=== PATIENT | female | born 1935 | race African-American/Black ===

== ENCOUNTER 2017-02-12 12:00 | Emergency (ER) | payer MEDICARE ==
[2017-02-12 12:44] LABS: ABSOLUTE MONOCYTES (AUTO) 0.6 10^3/uL (0.1-1.4); ABSOLUTE NEUT (AUTO) 6.5 10^3/uL (1.7-8.2); BASOPHILS % (AUTO) 0.4 % (0-2); EOSINOPHILS % (AUTO) 0.4 % (0-6); HEMATOCRIT 38.7 % (36.0-47.0); HEMOGLOBIN 12.2 g/dL (12.0-15.5); HGB HCT DIFFERENCE -2.1; LYMPHOCYTES % (AUTO) 11.8 % (13-45); MEAN CORPUSCULAR HEMOGLOBIN 28.4 pg (27.0-33.4); MEAN CORPUSCULAR HGB CONC 31.7 g/dL (32.0-36.0); MEAN CORPUSCULAR VOLUME 90 fl (80-97); MONOCYTES % (AUTO) 7.5 % (3-13); RED BLOOD COUNT 4.31 10^6/uL (3.72-5.28); RED CELL DISTRIBUTION WIDTH 13.9 % (11.5-14.0); SEGMENTED NEUTROPHILS % (AUTO) 79.9 % (42-78); WHITE BLOOD COUNT 8.1 10^3/uL (4.0-10.5)
[2017-02-12 13:05] LABS: ALANINE AMINOTRANSFERASE 18 U/L (9-52); ALKALINE PHOSPHATASE 104 U/L (38-126); ANION GAP 13 (5-19); ASPARTATE AMINO TRANSFERASE 25 U/L (14-36); BILIRUBIN,DIRECT 0.4 mg/dL (0.0-0.4); BILIRUBIN,TOTAL 0.5 mg/dL (0.2-1.3); BLOOD UREA NITROGEN 41 mg/dL (7-20); CALCIUM 8.9 mg/dL (8.4-10.2); CARBON DIOXIDE 30 mmol/L (22-30); CHLORIDE 101 mmol/L (98-107); CREATINE KINASE 85 U/L (30-135); CREATININE RESULT 1.13 mg/dL (0.52-1.25); GLUCOSE 101 mg/dL (75-110); POTASSIUM 3.9 mmol/L (3.6-5.0); SODIUM 143.9 mmol/L (137-145); TOTAL PROTEIN 7.9 g/dL (6.3-8.2)
[2017-02-12 13:17] LABS: CREATINE KINASE MB 1.12 ng/mL (<4.55)
[2017-02-12 13:21] LABS: TROPONIN I 0.055 ng/mL
--- NOTE | 2017-02-12 13:26 | RADIOLOGY REPORT (SQ) ---
EXAM DESCRIPTION: CHEST SINGLE VIEW COMPLETED DATE/TIME: 02/12/2017 12:59 pm REASON FOR STUDY: chest pain COMPARISON: 08/22/2012 EXAM PARAMETERS: NUMBER OF VIEWS: One view. TECHNIQUE: Single frontal radiographic view of the chest acquired. RADIATION DOSE: NA LIMITATIONS: None. FINDINGS: LUNGS AND PLEURA: No opacities, masses or pneumothorax. No pleural effusion. MEDIASTINUM AND HILAR STRUCTURES: No masses. Contour normal. HEART AND VASCULAR STRUCTURES: Heart normal in size. Normal vasculature. BONES: No acute findings. HARDWARE: EKG leads overlie the chest OTHER: No other significant finding. IMPRESSION: NO ACUTE RADIOGRAPHIC FINDING IN THE CHEST. TECHNICAL DOCUMENTATION: JOB ID: [id number]
[2017-02-12] MEDS ORDERED: ENOXAPARIN SODIUM INJ 150 MG/1 ML DISP.SYRIN SUBCUT SCH (17:45)
--- NOTE | 2017-02-12 17:53 | ER Document Report ---
Addendum entered and electronically signed by DEBBIE HEATON PA 02/13/17 19:47: Course - Re-evaluation Re-evalutation: 02/11/17 21:00 Patient complaining of right hand "cramps", no chest pain, vital signs unchanged , transport team almost here, stable for transfer. Giving 2 mg morphine for the hand after discussion with patient and family. - Vital Signs Vital signs: Temp Pulse Resp BP Pulse Ox 98.3 F 79 13 120/72 100 02/12/17 12:05 02/12/17 12:05 02/12/17 21:02 02/12/17 21:02 02/12/17 21:02 - Laboratory Result Diagrams: 02/12/17 12:30 02/12/17 12:30 Laboratory results interpreted by me: 02/12/17 02/12/17 02/12/17 12:30 12:30 15:26 MCHC 31.7 L Plt Count 132 L Seg Neutrophils % 79.9 H Lymphocytes % 11.8 L BUN 41 H Est GFR ( Amer) 56 L Est GFR (Non-Af Amer) 46 L POC Glucose 147 H Original Note: ED Cardiac - General Chief Complaint: Chest Pain Stated Complaint: CHEST PAIN Time Seen by Provider: 02/12/17 12:23 Notes: Patient is a 81-year-old female presents emergency department complaining of chest pain. Patient states that she had sudden onset of substernal chest pain with pressure without radiation at about 930 this morning when she was sitting on her couch. Patient states that this lasted for about 15-20 minutes and responded to sublingual nitro which led her to be chest pain-free. Patient states that she then had another episode of chest pain which prompted her to call EMS. On EMS she received 4-81 mg aspirin. Upon her arrival to the emergency department she was chest pain-free without any associated shortness of breath, nausea or vomiting, dyspnea, or syncope. Patient denies any recent URI symptoms, cough. Last stress test more then one year ago. Last Cath: unknown Patient follows with superintendent construction Dr. Jose D Pulido in [facility] PCP: Tomy Brar Past medical history significant for history of coronary artery disease with history of an [facility] unknown year, resulting in coronary cath and 2 stents location unknown. History of hypertension, hyperlipidemia, insulin-dependent diabetes, history of bronchitis, history of CVA/TIA, history of breast cancer, history of arthritis, history of COPD. Past surgical history significant for history of bowel resection, history of right mastectomy, tonsils and adenoids Social history admits to 5-pack-year tobacco use history, no longer smoker. Denies any alcohol or drug use. TRAVEL OUTSIDE OF THE [place] IN LAST 30 DAYS: No - Related Data Allergies/Adverse Reactions: promethazine Allergy (Verified 02/12/17 12:49) Past Medical History - Social History Smoking Status: Former Smoker Frequency of alcohol use: None Drug Abuse: None Family History: Reviewed & Not Pertinent - Past Medical History Cardiac Medical History: Reports: Hx Coronary Artery Disease, Hx Heart Attack - Patient does not remember year, Hx Hypercholesterolemia - Borderline, Hx Hypertension Pulmonary Medical History: Reports: Hx Bronchitis Denies: Hx Asthma, Hx COPD, Hx Pneumonia Neurological Medical History: Reports: Hx Cerebrovascular Accident. Denies: Hx Seizures Endocrine Medical History: Reports: Hx Diabetes Mellitus Type 1, Hx Diabetes Mellitus Type 2 Malignancy Medical History: Reports: Hx Breast Cancer GI Medical History: Denies: Hx Hepatitis, Hx Hiatal Hernia, Hx Ulcer Musculoskeltal Medical History: Reports Hx Arthritis Infectious Medical History: Denies: Hx Hepatitis Past Surgical History: Reports: Hx Bowel Surgery - Bowel ressection, Hx Cardiac Catheterization - 2 Stents, Hx Mastectomy - LUMPECTOMY, RIGHT ARM RESTRICTED, Hx Tonsillectomy. Denies: Hx Open Heart Surgery, Hx Pacemaker - Immunizations Immunizations up to date: Yes Hx Diphtheria, Pertussis, Tetanus Vaccination: No Review of Systems - Review of Systems Constitutional: No symptoms reported Cardiovascular: See HPI Respiratory: No symptoms reported Gastrointestinal: No symptoms reported -: Yes All other systems reviewed and negative Physical Exam - Vital signs Vitals: Temp Pulse Resp BP Pulse Ox 98.3 F 79 20 109/56 L 98 02/12/17 12:05 02/12/17 12:05 02/12/17 12:05 02/12/17 12:05 02/12/17 12:05 - Notes Notes: PHYSICAL EXAM GENERAL: Alert, interacts well. HEAD: Normocephalic, atraumatic. EYES: Pupils equal, round, and reactive to light. Extraocular movements intact. ENT: Oral mucosa moist, tongue midline. NECK: Full range of motion. Supple. Trachea midline. LUNGS: Clear to auscultation bilaterally, no wheezes, rales, or rhonchi. No respiratory distress. HEART: Regular rate and rhythm. No murmurs, gallops, or rubs. ABDOMEN: Soft, nondistended, nontender. No guarding, rebound, or rigidity.. Bowel sounds present in all 4 quadrants. EXTREMITIES: Moves all 4 extremities spontaneously. No edema, radial and dorsalis pedis pulses 2/4 bilaterally. No cyanosis. NEUROLOGICAL: Alert and oriented x4. Normal speech. PSYCH: Normal affect, normal mood. SKIN: Warm, dry, normal turgor. No rashes or lesions noted. Course - Re-evaluation Re-evalutation: 02/12/17 18:36 Patient is a 81-year-old female who is hemodynamic stable,chest pain free, no acute distress and afebrile. Patient is very well in appearance, vitals within normal limits. High clinical suspicion for ACS given clinical history, exam, EKG without ST elevations or depressions, and mildly elevated initial troponin of 0.055 with a baseline of <0.012. HEART score greater then 7. PE also seems unlikely given clinical history, absence of tachycardia or dyspnea. Well's score of 0. CXR without evidence of pneumothorax or pneumonia. No widened mediastinum. Aortic dissection also seems unlikely given history, symmetric pulses, CXR, and vitals. Patient was kept for repeat troponin given cardiac history and elevation in troponin. The repeat was 0.165. Patient was demmed to be having an NSTEMI based on the AMI cutoff of 0.120. Patient has remained chest pain free her entire stay in the department. Patient and family agree with plan of care to transfer to [facility]. Patient has been accepted by Dr. Octaviano Mitchell at [facility]. Bed has been assigned and awaiting transport. Per [facility] protocol and guidelines, this case was discussed with supervising physician Dr. Lucila Chandler prior to transfer - Vital Signs Vital signs: Temp Pulse Resp BP Pulse Ox 98.3 F 79 18 120/74 100 02/12/17 12:05 02/12/17 12:05 02/12/17 17:38 02/12/17 17:38 02/12/17 17:38 - Laboratory Result Diagrams: 02/12/17 12:30 02/12/17 12:30 Laboratory results interpreted by me: 02/12/17 02/12/17 02/12/17 12:30 12:30 15:26 MCHC 31.7 L Plt Count 132 L Seg Neutrophils % 79.9 H Lymphocytes % 11.8 L BUN 41 H Est GFR ( Amer) 56 L Est GFR (Non-Af Amer) 46 L POC Glucose 147 H - Diagnostic Test Radiology reviewed: Image reviewed, Reports reviewed - EKG Interpretation by Me EKG shows normal: Sinus rhythm Rate: Normal Rhythm: NSR When compared to previous EKG there are: No significant change Discharge - Discharge Clinical Impression: Non-ST elevation (NSTEMI) myocardial infarction Condition: Stable Disposition: [facility]
[2017-02-12] MEDS ORDERED: ENOXAPARIN SODIUM INJ 150 MG/1 ML DISP.SYRIN SUBCUT ONE (19:00)
[2017-02-12] MEDS ORDERED: NORMAL SALINE 1000 ML 1,000 ML IV PRN (19:15)
[2017-02-12] MEDS ORDERED: MORPHINE SULFATE 10 MG/ML INJ IV ONE (21:11)
[2017-02-12 21:16] VITALS: BP 120/72
[2017-02-13] MEDS ORDERED: ENOXAPARIN SODIUM INJ 150 MG/1 ML DISP.SYRIN SUBCUT SCH (06:00)
--- NOTE | 2017-02-13 09:16 | EKG REPORT ---
SEVERITY:- ABNORMAL ECG - SINUS RHYTHM FIRST DEGREE AV BLOCK LOW VOLTAGE IN FRONTAL LEADS : Confirmed by: Bob Scott 13-Feb-2017 09:16:00
--- NOTE | 2017-02-13 09:16 | EKG REPORT ---
SEVERITY:- ABNORMAL ECG - SINUS RHYTHM FIRST DEGREE AV BLOCK LOW VOLTAGE IN FRONTAL LEADS NONSPECIFIC T ABNORMALITIES, LATERAL LEADS : Confirmed by: Bob Scott 13-Feb-2017 09:15:55
== END 2017-02-12 21:43 | disposition short-term general hospital (02) ==
LOC: ER 12:00
DX: I21.4 Non-ST elevation (NSTEMI) myocardial infarction (principal); R07.9 Chest pain, unspecified; R06.02 Shortness of breath; Z87.891 Personal history of nicotine dependence
CPT/HCPCS: 93005; 99285; 96372; 96374; 36415; 82553; 82962; 82550; 85025; 80053; 84484; 83880; 71010; 93010; J3490; J2270; J7030

== ENCOUNTER → 2017-03-05 | Outpatient (CLI) | payer MEDICARE ==
--- NOTE | 2017-03-05 18:05 | WOMENS IMAGING REPORT ---
EXAM DESCRIPTION: 3D SCREENING MAMMO BILAT COMPLETED DATE/TIME: 03/05/2017 3:30 pm REASON FOR STUDY: ROUTINE SCREENING; Z12.31 Z12.31 ENCNTR SCREEN MAMMOGRAM FOR MALIGNANT NEOPLASM O F MORIS COMPARISON: Multiple since 2008 TECHNIQUE: Standard craniocaudal and mediolateral oblique views of each breast recorded using digita l acquisition and breast tomosynthesis. LIMITATIONS: None. FINDINGS: Findings present which are benign by mammographic criteria. No suspicious masses, calcifi cations or architectural distortion. Pertinent benign findings: Stable post therapeutic changes right breast post lumpectomy and radiation Read with the assistance of CAD. .[facility] - R2 Cenova Version 1.3 .[facility] - R2 Cenova Version 1.3 .[facility] - R2 Cenova Version 2.4 .[facility] - R2 Cenova Version 2.4 .[facility] - R2 [employer] Mechanical [employer] Version 9.2 Benign mammographic findings may include one or more of the following: Smooth masses, popcorn/rim/co arse calcifications, asymmetries, post-procedure changes, and lesions with long-standing stability. IMPRESSION: BENIGN MAMMOGRAPHIC FINDINGS. BIRADS 2 BREAST DENSITY: b. There are scattered areas of fibroglandular density. BIRAD: 2 BENIGN FINDING(S) RECOMMENDATION: RECOMMENDATION: ROUTINE SCREENING COMMENT: The patient has been notified of the results by letter per SA requirements. Additional no tification policies are in place for contacting patient with suspicious or incomplete findings. Quality ID #[id number]: The [employer] recommends an annual screening mammogram for women aged 40 years or over. This facility utilizes a reminder system to ensure that all patients receive reminder letters, and/or direct phone calls for appointments. This includes reminders for routine scr eening mammograms, diagnostic mammograms, or other Breast Imaging Interventions when appropriate. Th is patient will be placed in the appropriate reminder system. The [employer] (ACR) has developed recommendations for screening MRI of the breast s in certain patient populations, to be used in conjunction with mammography. Breast MRI surveillanc e may be appropriate for women with more than 20% lifetime risk of developing breast cancer as deter mined by genetic testing, significant family history of the disease, or history of mantle radiation f or Hodgkins Disease. ACR Practice Guidelines 2008. DBT Technology DBT is a type of tomographic mammography. With conventional mammography, overlapping breast tissue ma y make lesions difficult to detect, even with good compression. DBT uses an x-ray tube that rotates a round the breast, taking images at different angles. These images are then combined to create thin sl ices of the breast that the radiologist can view as a 3D reconstruction. The [employer] unit can perform full-field digital mammograms (2D imaging); or DBT (3D imaging); or both, in a combination mode that quickly performs both the mammogram and the tomosynthesis scan while the breast is still compressed. PQRS 6045F: Fluoroscopic imaging is not utilized for breast tomosynthesis. TECHNICAL DOCUMENTATION: FINDING NUMBER: (1) ASSESSMENT: (1) JOB ID: [id number] [employer]- All Rights Reserved
== END ==
LOC: WI 15:06
PROVIDERS: ATTEND Internal Medicine Geriatric Medicine
DX: Z12.31 Encounter for screening mammogram for malignant neoplasm of breast (principal)
CPT/HCPCS: 77063; G0202; 77067

== ENCOUNTER 2017-07-14 05:36 | Inpatient (IN) | payer MEDICARE ==
[2017-07-14] MEDS ORDERED: NITROGLYCERIN/D5W 50 MG/250 ML RTUINJ IV PRN (05:43)
[2017-07-14] MEDS ORDERED: FUROSEMIDE INJ/PF 40 MG/4 ML SDV IV ONE (05:43)
--- NOTE | 2017-07-14 05:50 | ER Document Report ---
Doctor's Note Notes: 07/14/17 05:46 I performed a quick triage evaluation the patient. Patient is a 82-year-old female who presents with worsening difficulty breathing over last 3 days. Became much worse tonight. When the paramedics arrived the patient pulse ox saturation was in the 60s. She denies any chest pain now but says she had some chest pain earlier. She has a lot of edema lower extremities which she says is new over the last 3-4 days. Paramedics said that the family denied a previous history of CHF. Unclear if patient has previous history of atrial fibrillation. Current EKG shows what appears to be atrial fibrillation with rate of 109 bpm. There is a lot of baseline artifact. I do not see any obvious signs of ST segment elevation. No ST segment depression. I started patient on nitro drip. She is on BiPAP. She is doing well with the BiPAP. I have ordered to a test as well as chest x-ray. Give the patient dose of Lasix. [place] Catheter be placed because the patient at this time bedridden due to difficulty breathing and size. Lung auscultation has mixture of some rales and wheezing. Dictation of this chart was performed using voice recognition software; therefore, there may be some unintended grammatical errors.
[2017-07-14 05:52] LABS: VENOUS BLOOD BASE EXCESS 3.6 mmol/L; VENOUS BLOOD HCO3 31.8 mmol/L (20-32); VENOUS BLOOD PH 7.29 (7.30-7.42)
[2017-07-14 05:56] LABS: ABSOLUTE EOSINOPHILS # (AUTO) 0.1 10^3/uL (0.0-0.6); ABSOLUTE MONOCYTES (AUTO) 1.2 10^3/uL (0.1-1.4); ABSOLUTE NEUT (AUTO) 4.6 10^3/uL (1.7-8.2); BASOPHILS % (AUTO) 0.6 % (0-2); EOSINOPHILS % (AUTO) 1.3 % (0-6); HEMOGLOBIN 10.8 g/dL (12.0-15.5); HGB HCT DIFFERENCE -0.6; LYMPHOCYTES % (AUTO) 24.6 % (13-45); MEAN CORPUSCULAR HEMOGLOBIN 29.3 pg (27.0-33.4); MEAN CORPUSCULAR HGB CONC 32.8 g/dL (32.0-36.0); MEAN CORPUSCULAR VOLUME 89 fl (80-97); MONOCYTES % (AUTO) 15.6 % (3-13); RED CELL DISTRIBUTION WIDTH 14.9 % (11.5-14.0); SEGMENTED NEUTROPHILS % (AUTO) 57.9 % (42-78); WHITE BLOOD COUNT 7.9 10^3/uL (4.0-10.5)
[2017-07-14 05:59] LABS: PROTHROMBIN TIME 14.6 SEC (11.4-15.4)
[2017-07-14 06:00] LABS: PARTIAL THROMBOPLASTIN TIME 34.2 SEC (23.5-35.8)
[2017-07-14 06:08] LABS: ALANINE AMINOTRANSFERASE 14 U/L (9-52); ALBUMIN 4.2 g/dL (3.5-5.0); ALKALINE PHOSPHATASE 101 U/L (38-126); ANION GAP 11 (5-19); ASPARTATE AMINO TRANSFERASE 39 U/L (14-36); BILIRUBIN,DIRECT 0.5 mg/dL (0.0-0.4); BILIRUBIN,TOTAL 0.7 mg/dL (0.2-1.3); BLOOD UREA NITROGEN 30 mg/dL (7-20); CALCIUM 8.7 mg/dL (8.4-10.2); CARBON DIOXIDE 31 mmol/L (22-30); CHLORIDE 107 mmol/L (98-107); CREATINE KINASE 167 U/L (30-135); CREATININE RESULT 1.48 mg/dL (0.52-1.25); GLUCOSE 74 mg/dL (75-110); SODIUM 148.8 mmol/L (137-145); TOTAL PROTEIN 7.9 g/dL (6.3-8.2)
[2017-07-14] MEDS ORDERED: CEFTRIAXONE 1 GM/D5W RTU 1 GM/50 ML RTUPB IV ONE (06:09)
[2017-07-14] MEDS ORDERED: ACETAMINOPHEN 650 MG SUPP.RECT PR ONE (06:09)
--- NOTE | 2017-07-14 06:15 | RADIOLOGY REPORT (SQ) ---
EXAM DESCRIPTION: CHEST SINGLE VIEW COMPLETED DATE/TIME: 07/14/2017 6:04 am REASON FOR STUDY: dyspnea COMPARISON: Chest x-ray 02/12/2017. EXAM PARAMETERS: NUMBER OF VIEWS: One view. TECHNIQUE: Single frontal radiographic view of the chest acquired. RADIATION DOSE: NA LIMITATIONS: Patient positioning FINDINGS: LUNGS AND PLEURA: The patient is rotated and the patient's chin is partially obscuring the lung apices. Airspace opacity at the right lung base. No sizable pleural effusion or large pneumot horax. MEDIASTINUM AND HILAR STRUCTURES: No masses. Contour normal. HEART AND VASCULAR STRUCTURES: The heart is enlarged. There is mild vascular congestion. BONES: No acute findings. HARDWARE: None in the chest. IMPRESSION: Cardiomegaly and mild vascular congestion. Airspace opacity at the right lung base, may represent asymmetric pulmonary edema or pneumonia. TECHNICAL DOCUMENTATION: JOB ID: [id number] [place]-64 2010 [employer]- All Rights Reserved
--- NOTE | 2017-07-14 06:17 | ER Document Report ---
ED General - General Chief Complaint: Respiratory Distress Stated Complaint: DIFFICULTY BREATHING Time Seen by Provider: 07/14/17 05:43 Mode of Arrival: Medic Information source: Patient, Relative, Emergency Med Personnel Notes: 82 yr old female hx of copd chf presents inresp distress from home by ems. pt ntoed ot have cough over the past 1.5 weeks, seen by pcp, pt last night had worsening cough, found by ems to be satting in the mid 60s placed on bipap, nitro paste for peripheral edema. pt noted here ot have fever, TRAVEL OUTSIDE OF THE [place] IN LAST 30 DAYS: No - HPI Onset: Last week Onset/Duration: Persistent, Worse Quality of pain: No pain Severity: Moderate Pain Level: Denies Associated symptoms: Nonproductive cough, Shortness of breath Exacerbated by: Walking, Coughing Relieved by: Denies Similar symptoms previously: Yes Recently seen / treated by doctor: Yes - Related Data Allergies/Adverse Reactions: promethazine Allergy (Verified 07/14/17 06:27) Past Medical History - Social History Smoking Status: Never Smoker Cigarette use (# per day): No Chew tobacco use (# tins/day): No Smoking Education Provided: No Family History: Reviewed & Not Pertinent - Past Medical History Cardiac Medical History: Reports: Hx Coronary Artery Disease, Hx Heart Attack - Patient does not remember year, Hx Hypercholesterolemia - Borderline, Hx Hypertension Pulmonary Medical History: Reports: Hx Bronchitis Denies: Hx Asthma, Hx COPD, Hx Pneumonia Neurological Medical History: Reports: Hx Cerebrovascular Accident. Denies: Hx Seizures Endocrine Medical History: Reports: Hx Diabetes Mellitus Type 1, Hx Diabetes Mellitus Type 2 Malignancy Medical History: Reports: Hx Breast Cancer GI Medical History: Denies: Hx Hepatitis, Hx Hiatal Hernia, Hx Ulcer Musculoskeltal Medical History: Reports Hx Arthritis Infectious Medical History: Denies: Hx Hepatitis Past Surgical History: Reports: Hx Bowel Surgery - Bowel ressection, Hx Cardiac Catheterization - 2 Stents, Hx Mastectomy - LUMPECTOMY, RIGHT ARM RESTRICTED, Hx Tonsillectomy. Denies: Hx Open Heart Surgery, Hx Pacemaker - Immunizations Immunizations up to date: Yes Hx Diphtheria, Pertussis, Tetanus Vaccination: No Review of Systems - Review of Systems Notes: REVIEW OF SYSTEMS: CONSTITUTIONAL : Denies fever, chills, or sweats. admit recent illness. EENT: Denies eye, ear, throat, or mouth pain or symptoms. Denies nasal or sinus congestion or discharge. Denies throat, tongue, or mouth swelling or difficulty swallowing. CARDIOVASCULAR: Denies chest pain. Denies palpitations or racing or irregular heart beat. admit ot edema RESPIRATORY: admit ot cough sob GASTROINTESTINAL: Denies abdominal pain or distention. Denies nausea, vomiting , or diarrhea. Denies blood in vomitus, stools, or per rectum. Denies black, tarry stools. Denies constipation. GENITOURINARY: Denies difficulty urinating, painful urination, burning, frequency, blood in urine, or discharge. FEMALE GENITOURINARY: Denies vaginal bleeding, heavy or abnormal periods, irregular periods. Denies vaginal discharge or odor. MUSCULOSKELETAL: Denies back or neck pain or stiffness. Denies joint pain or swelling. SKIN: Denies rash, lesions or sores. HEMATOLOGIC : Denies easy bruising or bleeding. LYMPHATIC: Denies swollen, enlarged glands. NEUROLOGICAL: Denies confusion or altered mental status. Denies passing out or loss of consciousness. Denies dizziness or lightheadedness. Denies headache. Denies weakness or paralysis or loss of use of either side. Denies problems with gait or speech. Denies sensory loss, numbness, or tingling. Denies seizures. PSYCHIATRIC: Denies anxiety or stress. Denies depression, suicidal ideation, or homicidal ideation. ALL OTHER SYSTEMS REVIEWED AND NEGATIVE. PHYSICAL EXAMINATION: GENERAL: ill-appearing, well-nourished and in moderate acute distress. HEAD: Atraumatic, normocephalic. EYES: Pupils equal round and reactive to light, extraocular movements intact, conjunctiva are normal. ENT: Nares patent, oropharynx clear without exudates. Moist mucous membranes. NECK: Normal range of motion, supple without lymphadenopathy LUNGS: Brales at the bases bilaterally HEART: irregular rate and rhythm ABDOMEN: Soft, nontender, nondistended abdomen. No guarding, no rebound. No masses appreciated. Female : deferred Musculoskeletal: + 3 pitting edema bilaterally. No cyanosis. NEUROLOGICAL: Cranial nerves grossly intact. Normal speech, normal gait. Normal sensory, motor exams PSYCH: Normal mood, normal affect. SKIN: Warm, Dry, normal turgor, no rashes or lesions noted. Dictation was performed using [employer] voice recognition software Physical Exam - Vital signs Vitals: Resp Pulse Ox 22 H 87 L 11/13/17 05:38 07/14/17 05:38 Course - Re-evaluation Re-evalutation: 07/14/17 06:16 concern for pneumonia vs chf exacerbation causing this sob and hypoxemia, pt is on bipap and doing well, septic workup pending. 07/14/17 06:18 chest xray is consistent with pneumonia and chf exacerbation, i am unable ot fluid resuscitate since she is already overloaded and this will cause worsening resp distress 07/14/17 07:16 07/14/17 07:51 dr bhavya fermin, pt admitted ot dr latif - Vital Signs Vital signs: Temp Pulse Resp BP Pulse Ox 102.4 F H 19 131/56 H 97 07/14/17 07:01 07/14/17 07:01 07/14/17 07:01 07/14/17 07:01 - Laboratory Result Diagrams: 07/14/17 05:40 07/14/17 05:40 Laboratory results interpreted by me: 07/14/17 07/14/17 07/14/17 05:40 05:40 05:40 RBC 3.70 L Hgb 10.8 L Hct 33.0 L RDW 14.9 H Plt Count 137 L Monocytes % 15.6 H VBG pH VBG pCO2 Sodium 148.8 H Carbon Dioxide 31 H BUN 30 H Creatinine 1.48 H Est GFR ( Amer) 41 L Est GFR (Non-Af Amer) 34 L Glucose 74 L Direct Bilirubin 0.5 H AST 39 H Creatine Kinase 167 H NT-Pro-B Natriuret Pep 2590 H Urine Protein Urine Blood Urine Ascorbic Acid 07/14/17 07/14/17 05:40 06:08 RBC Hgb Hct RDW Plt Count Monocytes % VBG pH 7.29 L VBG pCO2 67.2 H* Sodium Carbon Dioxide BUN Creatinine Est GFR ( Amer) Est GFR (Non-Af Amer) Glucose Direct Bilirubin AST Creatine Kinase NT-Pro-B Natriuret Pep Urine Protein 30 H Urine Blood SMALL H Urine Ascorbic Acid 20 H - Diagnostic Test Radiology reviewed: Image reviewed, Reports reviewed - EKG Interpretation by Me EKG shows normal: Sinus rhythm, Intervals, QRS Complexes Rate: Tachycardia Critical Care Note - Critical Care Note Total time excluding time spent on procedures (mins): 33 Comments: 33 minutes of critical care time spent in direct contact evaluating and reevaluating the patient, treating symptoms, reviewing labs and studies and speaking with family and consultants excluding any procedures Discharge - Discharge Clinical Impression: Pneumonia, CHF (congestive heart failure), Sepsis, Hypoxemia Condition: Fair Disposition: ADMITTED INPATIENT Admitting Provider: Bhavya Unit Admitted: [facility] Referrals: ISATU LATIF MD [Primary Care Provider] - Follow up as needed
[2017-07-14 06:21] LABS: CREATINE KINASE MB 1.11 ng/mL (<4.55); TROPONIN I 0.028 ng/mL
[2017-07-14 06:23] LABS: VENOUS BLOOD PCO2 67.2 mmHg (35-63)
[2017-07-14 07:05] LABS: APPEARANCE,URINE CLEAR; BILIRUBIN,URINE NEGATIVE (NEGATIVE); GLUCOSE, URINE NEGATIVE (NEGATIVE); KETONES,URINE NEGATIVE (NEGATIVE); LEUKOCYTE ESTERASE,URINE NEGATIVE (NEGATIVE); NITRITE,URINE NEGATIVE (NEGATIVE); PROTEIN,URINE 30 mg/dL (NEGATIVE); URINE SPECIFIC GRAVITY 1.011; UROBILINOGEN,URINE NEGATIVE mg/dL (<2.0)
[2017-07-14] MEDS ORDERED: IBUPROFEN 800 MG TABLET PO ONE (08:31)
[2017-07-14] MEDS ORDERED: GLUCAGON,HUMAN RECOMB 1 MG INJ IM PRN (08:38)
[2017-07-14] MEDS ORDERED: GUAIFENESIN SYRP 200 MG/10 ML UDC PO PRN (08:38)
[2017-07-14] MEDS ORDERED: DEXTROSE 40% GEL 15 GM TUBE PO PRN ×2 (08:38)
[2017-07-14] MEDS ORDERED: DEXTROSE 50%-WATER 25 GM/50 ML DISP.SYRIN IV PRN ×2 (08:38)
--- NOTE | 2017-07-14 09:55 | EKG REPORT ---
SEVERITY:- ABNORMAL ECG - ATRIAL FIBRILLATION, V-RATE 105-106 RUN OF VENTRICULAR PREMATURE COMPLEXES BORDERLINE RIGHT AXIS DEVIATION NONSPECIFIC T ABNORMALITIES, INFERIOR LEADS : Confirmed by: Bob Scott 14-Jul-2017 09:54:25
[2017-07-14] MEDS ORDERED: INFLUENZA ADLT QUAD (36MOS+) 2017-18 VAC 0.5 ML SYR IM PRN (10:15)
[2017-07-14] MEDS: LEVOFLOXACIN 500 MG/D5W RTU 500 MG/100 ML RTUPB IV SCH (10:23)
[2017-07-14] MEDS: ENOXAPARIN SODIUM INJ 40 MG/0.4 ML DISP.SYRIN SUBCUT SCH (10:24)
[2017-07-14] MEDS: IPRATROPIUM/ALBUTEROL 0.5-2.5 MG/3 ML AMPUL NEB PRN (12:37)
[2017-07-14] MEDS ORDERED: ALBUTEROL SULFATE HFA (90 MCG/PUFF) 8 GM MDI (1 MDI/ER DISP) IH PRN (19:09)
--- NOTE | 2017-07-14 19:09 | PDOC H&P ---
History of Present Illness Admission Date/PCP: 07/14/17 08:29 [facility] Patient complains of: Difficulty with breathing History of Present Illness: BO BERMEO is a 82 year old female patient known to my practice presented to the ED via EM service due to difficulty with breathing. Her reported oxygen saturation on room air was in the 60's. She reported onset of productive cough about 10 days prior to presentation. There was associated intermittent fever, chest pain with coughing, and recent low blood glucose level on home accuchek monitor. She denied nausea, vomiting, abdominal pain, constipation or diarrhea. Her oral intake was less than usual but denied significant poor appetite. Her urine output was satisfactory without any symptom suggestive of ongoing infectious status. Her initial evaluation in the ED was remarkable for fever. 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 Past Medical History Cardiac Medical History: Reports: Coronary Artery Disease, Myocardial Infarction - Patient does not remember year, Hyperlipidema - Borderline, Hypertension Pulmonary Medical History: Reports: Bronchitis Denies: Asthma, Chronic Obstructive Pulmonary Disease (COPD), Pneumonia Neurological Medical History: Reports: Ischemic CVA, Other - Parkinsonism Endocrine Medical History: Reports: Diabetes Mellitus Type 2 Malignancy Medical History: Reports: Breast Cancer GI Medical History: Denies: Hepatitis, Hiatal Hernia Musculoskeltal Medical History: Reports: Arthritis Skin Medical History: Reports: Other - Dry skin dermatitis Hematology: Reports: Anemia Denies: Sickle Cell Disease Past Surgical History Past Surgical History: Reports: Cardiac Catheterization - 2 Stents, Mastectomy - LUMPECTOMY, RIGHT ARM RESTRICTED, Tonsillectomy Denies: Amputation, Pacemaker Social History Smoking Status: Never Smoker Hx Recreational Drug Use: No Hx Prescription Drug Abuse: No - Advance Directive Resuscitation Status: Full Code - with power of attorney lawyer for health care Carlee Bermeo @ [phone] (H) [phone](W) Family History Family History: Reviewed & Not Pertinent Parental Family History Reviewed: Yes Children Family History Reviewed: Yes Sibling(s) Family History Reviewed.: Yes Medication/Allergy Home Medications: Albuterol Sulfate [Ventolin Hfa] 2 puff IH Q4HP PRN 07/14/17 Amlodipine Besylate/Benazepril [Lotrel 10-40 mg Capsule] 1 tab PO DAILY 11/13/ 17 Atorvastatin Calcium [Lipitor 40 mg Tablet] 40 mg PO QHS 07/14/17 Bumetanide [Bumex 0.5 mg Tablet] 0.5 mg PO Q12 07/14/17 Carbidopa/Levodopa ER [Sinemet-Cr 50-200 mg Tablet.sa] 1 tab PO QHS 07/14/17 Diclofenac Sodium [Voltaren] 2 gm TOP Q8 07/14/17 Insulin Glargine,Hum.rec.anlog [Lantus Solostar] 35 units SQ DAILY 07/14/17 Levocetirizine Dihydrochloride [Xyzal] 5 mg PO DAILY 07/14/17 Linaclotide [Linzess 145 Mcg Capsule] 145 mcg PO ACBRKFST 07/14/17 Metolazone [Zaroxolyn 2.5 mg Tablet] 2.5 mg PO MOWEFR@1000 07/14/17 Metoprolol Succinate [Toprol Xl 25 mg Tab.sr] 25 mg PO DAILY 07/14/17 Nitroglycerin [Nitro-Dur 15 mg (0.6 mg/1 Hr) Transderm Patch] 1 patch TD DAILY 07/14/17 Polyethylene Glycol 3350 [Miralax Powder 17 gm/Packet] 17 gm PO DAILY 07/14/17 Potassium Chloride [Klor-Con 10 Meq Tablet.sa] 10 meq PO DAILY 07/14/17 Pramipexole Di-HCl [Mirapex] 1 mg PO Q8 07/14/17 Allergies/Adverse Reactions: promethazine Allergy (Verified 07/14/17 06:27) Review of Systems Constitutional: PRESENT: chills, fever(s) Eyes: ABSENT: visual disturbances Ears: ABSENT: hearing changes Nose, Mouth, and Throat: ABSENT: as per HPI, headache(s), mouth pain, sore throat, vertigo, other Cardiovascular: PRESENT: chest pain - with coughing, dyspnea on exertion, edema Respiratory: PRESENT: cough, dyspnea, sputum Gastrointestinal: ABSENT: abdominal pain, constipation, diarrhea, hematemesis, hematochezia, nausea, vomiting Genitourinary: ABSENT: dysuria, hematuria Musculoskeletal: PRESENT: deformity - related to joint involvement with athritis Integumentary: ABSENT: rash, wounds Neurological: PRESENT: abnormal movements - related to parkinsonism Psychiatric: ABSENT: anxiety, depression, homidical ideation, suicidal ideation Endocrine: ABSENT: cold intolerance, heat intolerance, polydipsia, polyuria Hematologic/Lymphatic: ABSENT: easy bleeding, easy bruising, lymphadenopathy Allergic/Immunologic: ABSENT: as per HPI, seasonal rhinorrhea, other Physical Exam Vital Signs: Temp Pulse Resp BP Pulse Ox 101.6 F H 13 107/55 L 97 07/14/17 08:00 07/14/17 08:00 07/14/17 07:31 07/14/17 08:00 General appearance: PRESENT: no acute distress, morbidly obese Head exam: PRESENT: atraumatic, normocephalic Eye exam: PRESENT: conjunctiva pink, EOMI, PERRLA. ABSENT: scleral icterus Ear exam: PRESENT: normal external ear exam Mouth exam: PRESENT: moist Teeth exam: PRESENT: poor dentation Throat exam: ABSENT: post pharyngeal erythema, tonsillar erythema, tonsillar exudate, tonsillogmegaly, other Neck exam: PRESENT: full ROM. ABSENT: carotid bruit, JVD, lymphadenopathy, thyromegaly Respiratory exam: PRESENT: clear to auscultation carole, decreased breath sounds - at lung bases Cardiovascular exam: PRESENT: RRR. ABSENT: diastolic murmur, rubs, systolic murmur Pulses: PRESENT: normal dorsalis pedis pul, +2 pedal pulses bilateral Vascular exam: PRESENT: normal capillary refill. ABSENT: pallor GI/Abdominal exam: PRESENT: normal bowel sounds, soft. ABSENT: distended, guarding, mass, organolmegaly, rebound, tenderness Rectal exam: PRESENT: deferred Gentrourinary exam: PRESENT: indwelling catheter Extremities exam: PRESENT: pedal edema Musculoskeletal exam: PRESENT: deformity - related to multiple joints involvement with arthritis Neurological exam: PRESENT: alert, awake, oriented to person, oriented to place , oriented to time, oriented to situation, abnormal gait - related to parkinsonism, CN II-XII grossly intact. ABSENT: motor sensory deficit Psychiatric exam: PRESENT: appropriate affect, normal mood. ABSENT: homicidal ideation, suicidal ideation Skin exam: PRESENT: dry, intact, warm. ABSENT: cyanosis, rash Results Impressions: Chest X-Ray 07/14/17 05:44 IMPRESSION: Cardiomegaly and mild vascular congestion. Airspace opacity at the right lung base, may represent asymmetric pulmonary edema or pneumonia. Assessment & Plan - Diagnosis (1) Lobar pneumonia, unspecified organism Is this a current diagnosis for this admission?: Yes Plan: See admitting physician orders. (2) Hypoxemia Is this a current diagnosis for this admission?: Yes Plan: See admitting physician orders. (3) CHF (congestive heart failure) Qualifiers: Congestive heart failure type: systolic Congestive heart failure chronicity : acute on chronic Qualified Code(s): I50.23 - Acute on chronic systolic ( congestive) heart failure Is this a current diagnosis for this admission?: Yes Plan: See admitting physician orders. (5) Diabetes mellitus Qualifiers: Diabetes mellitus type: type 2 Diabetes mellitus complication status: with unspecified complications Diabetes mellitus long-term insulin use: with long-term use Qualified Code(s): E11.8 - Type 2 diabetes mellitus with unspecified complications; Z79.4 - alf (current) use of insulin; Z79.4 - terminal gauger supervisor ( current) use of insulin; Z79.4 - terminal gauger supervisor (current) use of insulin; Z79.4 - terminal gauger supervisor (current) use of insulin Is this a current diagnosis for this admission?: Yes Plan: See admitting physician orders. (6) HTN (hypertension) Qualifiers: Hypertension type: essential hypertension Qualified Code(s): I10 - Essential (primary) hypertension Is this a current diagnosis for this admission?: Yes Plan: See admitting physician orders. (7) HLD (hyperlipidemia) Qualifiers: Hyperlipidemia type: pure hypercholesterolemia Qualified Code(s): E78.00 - Pure hypercholesterolemia, unspecified; E78.0 - Pure hypercholesterolemia Is this a current diagnosis for this admission?: Yes Plan: See admitting physician orders. (8) Morbid obesity with BMI of 50.0-59.9, adult Is this a current diagnosis for this admission?: Yes Plan: See admitting physician orders. - Time Time Spent: 50 to 70 Minutes Medications reviewed and adjusted accordingly: Yes Anticipated discharge: Home with Homehealth Within: Other - Inpatient Certification Based on my medical assessment, after consideration of the patient's comorbidities, presenting symptoms, or acuity I expect that the services needed warrant INPATIENT care.: Yes I certify that my determination is in accordance with my understanding of Medicare's requirements for reasonable and necessary INPATIENT services [42 CFR 412.3e].: Yes Medical Necessity: Need Close Monitoring Due to Risk of Patient Decompensation, Need For Continuous Telemetry Monitoring, Need for Nebulizer Therapy and Monitoring of Response, Need for IV Antibiotics, Risk of Complication if Not Cared For in Hospital Post Hospital Care: D/C or Transfer Summary - Plan Summary Plan Summary: See admitting physician orders.
[2017-07-14] MEDS ORDERED: ALBUTEROL SULFATE HFA (90 MCG/PUFF) 200 PUFF/8.5 GM MDI IH PRN (19:21)
[2017-07-14] MEDS: CARBIDOPA/LEVODOPA ER 50-200 MG TABLET.SA PO SCH (21:19)
[2017-07-14] MEDS: ATORVASTATIN CALCIUM 40 MG TABLET PO SCH (21:19)
[2017-07-14] MEDS: BUMETANIDE 1 MG TABLET PO SCH (21:20)
[2017-07-14] MEDS: PRAMIPEXOLE DI-HCL 0.5 MG TABLET PO SCH (21:22)
[2017-07-14] MEDS ORDERED: (PENDING PHARMACY ID) (Bumetanide [Bumex 0.5 Mg Tablet] 0.5 MG) PO SCH (22:00)
[2017-07-14] MEDS ORDERED: (PENDING PHARMACY ID) (Pramipexole Di-Hcl [Mirapex] 1 MG) PO SCH (22:00)
[2017-07-14] MEDS ORDERED: ACETAMINOPHEN 325 MG TABLET PO PRN (23:24)
[2017-07-15] MEDS: ACETAMINOPHEN 325 MG TABLET PO PRN ×3 (04:13→18:09)
[2017-07-15] MEDS: LANSOPRAZOLE 30 MG TAB.RAP.DR PO SCH (05:53)
[2017-07-15] MEDS: CEFTRIAXONE 1 GM/D5W RTU 1 GM/50 ML RTUPB IV SCH (05:55)
[2017-07-15] MEDS: PRAMIPEXOLE DI-HCL 0.5 MG TABLET PO SCH ×3 (05:57→21:20)
[2017-07-15 06:20] LABS: ABSOLUTE EOSINOPHILS # (AUTO) 0.1 10^3/uL (0.0-0.6); ABSOLUTE LYMPHOCYTES (AUTO) 0.5 10^3/uL (0.5-4.7); ABSOLUTE MONOCYTES (AUTO) 0.7 10^3/uL (0.1-1.4); BASOPHILS % (AUTO) 0.5 % (0-2); EOSINOPHILS % (AUTO) 1.7 % (0-6); HEMATOCRIT 26.8 % (36.0-47.0); HGB HCT DIFFERENCE -0.7; LYMPHOCYTES % (AUTO) 12.3 % (13-45); MEAN CORPUSCULAR HEMOGLOBIN 28.9 pg (27.0-33.4); MEAN CORPUSCULAR HGB CONC 32.4 g/dL (32.0-36.0); MEAN CORPUSCULAR VOLUME 89 fl (80-97); MONOCYTES % (AUTO) 16.3 % (3-13); RED BLOOD COUNT 3.01 10^6/uL (3.72-5.28); RED CELL DISTRIBUTION WIDTH 14.7 % (11.5-14.0); SEGMENTED NEUTROPHILS % (AUTO) 69.2 % (42-78); WHITE BLOOD COUNT 4.4 10^3/uL (4.0-10.5)
[2017-07-15 06:28] LABS: HEMOGLOBIN 8.7 g/dL (12.0-15.5)
[2017-07-15 06:51] LABS: CREATINE KINASE MB 2.44 ng/mL (<4.55); TROPONIN I 0.063 ng/mL
[2017-07-15 07:34] LABS: ALANINE AMINOTRANSFERASE 22 U/L (9-52); ALBUMIN 3.2 g/dL (3.5-5.0); ALKALINE PHOSPHATASE 71 U/L (38-126); ANION GAP 12 (5-19); ASPARTATE AMINO TRANSFERASE 43 U/L (14-36); BILIRUBIN,DIRECT 0.4 mg/dL (0.0-0.4); BILIRUBIN,TOTAL 0.4 mg/dL (0.2-1.3); BLOOD UREA NITROGEN 42 mg/dL (7-20); CALCIUM 7.8 mg/dL (8.4-10.2); CARBON DIOXIDE 27 mmol/L (22-30); CHLORIDE 105 mmol/L (98-107); CREATINE KINASE 957 U/L (30-135); CREATININE RESULT 2.02 mg/dL (0.52-1.25); GLUCOSE 153 mg/dL (75-110); MAGNESIUM 2.2 mg/dL (1.6-2.3); PHOSPHORUS 4.1 mg/dL (2.5-4.5); POTASSIUM 5.1 mmol/L (3.6-5.0); SODIUM 143.6 mmol/L (137-145); TOTAL PROTEIN 5.9 g/dL (6.3-8.2)
[2017-07-15 07:41] LABS: FREE T3 2.19 pg/mL (2.77-5.27)
[2017-07-15 07:55] LABS: THYROID STIMULATING HORMONE 0.47 uIU/mL (0.47-4.68)
[2017-07-15] MEDS ORDERED: (PENDING PHARMACY ID) (Linaclotide 145 MCG) PO SCH (08:00)
[2017-07-15] MEDS: BENAZEPRIL HCL 20 MG TABLET PO SCH (09:17)
[2017-07-15] MEDS: INSULIN LISPRO 100 UNIT/ML 3 ML VIAL SUBCUT PRN (09:17)
[2017-07-15] MEDS: POLYETHYLENE GLYCOL 3350 POWDER 17 GM/1 PACKET PO SCH (09:17)
[2017-07-15] MEDS: NITROGLYCERIN 15 MG (0.6 MG/1 HR) PATCH.TD24 TD SCH (09:17)
[2017-07-15] MEDS: INSULIN GLARGINE,HUM.REC.ANLOG 300 UNIT/3 ML INSULN.PEN SUBCUT SCH (09:17)
[2017-07-15] MEDS: LEVOFLOXACIN 500 MG/D5W RTU 500 MG/100 ML RTUPB IV SCH (09:17)
[2017-07-15] MEDS: BUMETANIDE 1 MG TABLET PO SCH ×2 (09:18→21:19)
[2017-07-15] MEDS: CETIRIZINE 5 MG TABLET PO SCH (09:18)
[2017-07-15] MEDS: METOPROLOL SUCCINATE 25 MG TAB.SR.24H PO SCH (09:18)
[2017-07-15] MEDS: AMLODIPINE BESYLATE 10 MG TABLET PO SCH (09:18)
[2017-07-15] MEDS: ENOXAPARIN SODIUM INJ 40 MG/0.4 ML DISP.SYRIN SUBCUT SCH (09:33)
[2017-07-15] MEDS: POTASSIUM CHLORIDE 10 MEQ TABLET.SA PO SCH (09:33)
[2017-07-15] MEDS ORDERED: AMLODIPINE BESYLATE PO SCH (10:00)
[2017-07-15] MEDS ORDERED: BENAZEPRIL PO SCH (10:00)
--- NOTE | 2017-07-15 20:50 | PDOC PROGRESS REPORT ---
Subjective Progress Note for:: 07/15/17 Subjective:: Daughter at bedside reported fair oral intake at dinner. Accuchek remain satisfactory. Remain on IV Rocephin and Levofloxacin coverage. She denied any chest pain and her breathing is improving. Physical Exam Vital Signs: Temp Pulse Resp BP Pulse Ox 100.6 F H 67 16 106/48 L 97 07/15/17 17:31 07/15/17 19:54 07/15/17 19:40 07/15/17 15:17 07/15/17 19:40 Intake & Output 07/14/17 07/15/17 07/16/17 06:59 06:59 06:59 Intake Total 1319 1214 Output Total 650 500 Balance 669 714 Weight 132.1 kg General appearance: PRESENT: no acute distress, morbidly obese Head exam: PRESENT: atraumatic, normocephalic Eye exam: PRESENT: conjunctiva pink, EOMI. ABSENT: scleral icterus Mouth exam: PRESENT: moist, neck supple Teeth exam: PRESENT: poor dentation Respiratory exam: PRESENT: clear to auscultation carole, decreased breath sounds - reduced breath sound at lung bases Cardiovascular exam: PRESENT: RRR. ABSENT: diastolic murmur, rubs, systolic murmur Vascular exam: PRESENT: normal capillary refill. ABSENT: pallor GI/Abdominal exam: PRESENT: normal bowel sounds, soft. ABSENT: distended, guarding, mass, organolmegaly, rebound, tenderness Extremities exam: PRESENT: pedal edema - comparatively improving. Musculoskeletal exam: PRESENT: deformity - related to multiple joints involvement with arthritis. Neurological exam: PRESENT: alert, awake Psychiatric exam: PRESENT: appropriate affect, normal mood. ABSENT: homicidal ideation, suicidal ideation Skin exam: PRESENT: dry, intact, warm. ABSENT: cyanosis, rash Results Laboratory Results: 07/15/17 05:50 07/15/17 05:50 07/15/17 07/15/17 07/15/17 05:50 05:50 05:50 WBC 4.4 RBC 3.01 L Hgb 8.7 L D Hct 26.8 L MCV 89 MCH 28.9 MCHC 32.4 RDW 14.7 H Plt Count 105 L Seg Neutrophils % 69.2 Lymphocytes % 12.3 L Monocytes % 16.3 H Eosinophils % 1.7 Basophils % 0.5 Absolute Neutrophils 3.0 Absolute Lymphocytes 0.5 Absolute Monocytes 0.7 Absolute Eosinophils 0.1 Absolute Basophils 0.0 Sodium 143.6 Potassium 5.1 H Chloride 105 Carbon Dioxide 27 Anion Gap 12 BUN 42 H Creatinine 2.02 H Est GFR ( Amer) 29 L Est GFR (Non-Af Amer) 24 L Glucose 153 H Calcium 7.8 L Phosphorus 4.1 Magnesium 2.2 Total Bilirubin 0.4 AST 43 H ALT 22 Alkaline Phosphatase 71 Total Protein 5.9 L Albumin 3.2 L TSH 0.47 Free T4 0.94 Free T3 pg/mL 2.19 L 07/15/17 07/15/17 05:50 05:50 Creatine Kinase 957 H CK-MB (CK-2) 2.44 Troponin I 0.063 Impressions: Chest X-Ray 07/14/17 05:44 IMPRESSION: Cardiomegaly and mild vascular congestion. Airspace opacity at the right lung base, may represent asymmetric pulmonary edema or pneumonia. Assessment & Plan - Diagnosis (1) Lobar pneumonia, unspecified organism Is this a current diagnosis for this admission?: Yes Plan: Continue IV antibiotic coverage and follow up on blood culture findings. (2) Hypoxemia Is this a current diagnosis for this admission?: Yes Plan: Improving and probably relayed to her pneumonia as well as obesity related hypoventilation. (3) CHF (congestive heart failure) Qualifiers: Congestive heart failure type: systolic Congestive heart failure chronicity : acute on chronic Qualified Code(s): I50.23 - Acute on chronic systolic ( congestive) heart failure Is this a current diagnosis for this admission?: Yes Plan: See attending physician orders. (4) Acute kidney injury Is this a current diagnosis for this admission?: Yes Plan: See attending physician orders. (5) Diabetes mellitus Qualifiers: Diabetes mellitus type: type 2 Diabetes mellitus complication status: with unspecified complications Diabetes mellitus manager terminal insulin use: with manager terminal use Qualified Code(s): E11.8 - Type 2 diabetes mellitus with unspecified complications; Z79.4 - intermediate teacher (current) use of insulin; Z79.4 - intermediate teacher ( current) use of insulin; Z79.4 - skilled nursing (current) use of insulin; Z79.4 - intermediate teacher (current) use of insulin Is this a current diagnosis for this admission?: Yes Plan: See attending physician orders. (6) HTN (hypertension) Qualifiers: Hypertension type: essential hypertension Qualified Code(s): I10 - Essential (primary) hypertension Is this a current diagnosis for this admission?: Yes Plan: See attending physician orders. (7) HLD (hyperlipidemia) Qualifiers: Hyperlipidemia type: pure hypercholesterolemia Qualified Code(s): E78.00 - Pure hypercholesterolemia, unspecified; E78.0 - Pure hypercholesterolemia Is this a current diagnosis for this admission?: Yes Plan: See attending physician orders. (8) Morbid obesity with BMI of 50.0-59.9, adult Is this a current diagnosis for this admission?: Yes Plan: See attending physician orders. (9) Anemia of chronic disease Is this a current diagnosis for this admission?: Yes Plan: See attending physician orders. - Time Time Spent with patient: 25-34 minutes Medications reviewed and adjusted accordingly: Yes Anticipated discharge: Home with Homehealth Within: Other - Inpatient Certification Based on my medical assessment, after consideration of the patient's comorbidities, presenting symptoms, or acuity I expect that the services needed warrant INPATIENT care.: Yes I certify that my determination is in accordance with my understanding of Medicare's requirements for reasonable and necessary INPATIENT services [42 CFR 412.3e].: Yes Medical Necessity: Need Close Monitoring Due to Risk of Patient Decompensation, Need For IV Fluids, Need For Continuous Telemetry Monitoring, Need for IV Antibiotics, Risk of Complication if Not Cared For in Hospital Post Hospital Care: D/C Mechanical Project Engineer Documentation - Plan Summary Plan Summary: See attending physician orders. Obtain CBC with diff, CMP in AM.
[2017-07-15] MEDS: ATORVASTATIN CALCIUM 40 MG TABLET PO SCH (21:18)
[2017-07-15] MEDS: CARBIDOPA/LEVODOPA ER 50-200 MG TABLET.SA PO SCH (21:20)
[2017-07-16] MEDS: CEFTRIAXONE 1 GM/D5W RTU 1 GM/50 ML RTUPB IV SCH (05:16)
[2017-07-16] MEDS: LANSOPRAZOLE 30 MG TAB.RAP.DR PO SCH (05:16)
[2017-07-16] MEDS: PRAMIPEXOLE DI-HCL 0.5 MG TABLET PO SCH ×3 (05:16→21:52)
[2017-07-16 05:36] LABS: ABSOLUTE EOSINOPHILS # (AUTO) 0.2 10^3/uL (0.0-0.6); ABSOLUTE LYMPHOCYTES (AUTO) 1.6 10^3/uL (0.5-4.7); ABSOLUTE NEUT (AUTO) 3.6 10^3/uL (1.7-8.2); BASOPHILS % (AUTO) 0.5 % (0-2); EOSINOPHILS % (AUTO) 2.5 % (0-6); HEMATOCRIT 29.6 % (36.0-47.0); HEMOGLOBIN 9.8 g/dL (12.0-15.5); HGB HCT DIFFERENCE -0.2; LYMPHOCYTES % (AUTO) 24.5 % (13-45); MEAN CORPUSCULAR HEMOGLOBIN 29.6 pg (27.0-33.4); MEAN CORPUSCULAR HGB CONC 33.2 g/dL (32.0-36.0); MEAN CORPUSCULAR VOLUME 89 fl (80-97); MONOCYTES % (AUTO) 15.7 % (3-13); RED BLOOD COUNT 3.32 10^6/uL (3.72-5.28); RED CELL DISTRIBUTION WIDTH 14.9 % (11.5-14.0); SEGMENTED NEUTROPHILS % (AUTO) 56.8 % (42-78); WHITE BLOOD COUNT 6.4 10^3/uL (4.0-10.5)
[2017-07-16 05:46] LABS: PARTIAL THROMBOPLASTIN TIME 29.8 SEC (23.5-35.8)
[2017-07-16 05:52] LABS: ALANINE AMINOTRANSFERASE 20 U/L (9-52); ALBUMIN 3.8 g/dL (3.5-5.0); ALKALINE PHOSPHATASE 82 U/L (38-126); ANION GAP 10 (5-19); ASPARTATE AMINO TRANSFERASE 54 U/L (14-36); BILIRUBIN,DIRECT 0.4 mg/dL (0.0-0.4); BILIRUBIN,TOTAL 0.5 mg/dL (0.2-1.3); BLOOD UREA NITROGEN 51 mg/dL (7-20); CALCIUM 8.2 mg/dL (8.4-10.2); CARBON DIOXIDE 31 mmol/L (22-30); CHLORIDE 102 mmol/L (98-107); CREATININE RESULT 2.32 mg/dL (0.52-1.25); GLUCOSE 92 mg/dL (75-110); POTASSIUM 5.2 mmol/L (3.6-5.0); SODIUM 142.8 mmol/L (137-145); TOTAL PROTEIN 7.3 g/dL (6.3-8.2)
[2017-07-16] MEDS: ENOXAPARIN SODIUM INJ 40 MG/0.4 ML DISP.SYRIN SUBCUT SCH (09:39)
[2017-07-16] MEDS: METOLAZONE 2.5 MG TABLET PO SCH (09:40)
[2017-07-16] MEDS: METOPROLOL SUCCINATE 25 MG TAB.SR.24H PO SCH (09:40)
[2017-07-16] MEDS: BENAZEPRIL HCL 20 MG TABLET PO SCH (09:41)
[2017-07-16] MEDS: INSULIN GLARGINE,HUM.REC.ANLOG 300 UNIT/3 ML INSULN.PEN SUBCUT SCH (09:42)
[2017-07-16] MEDS: CETIRIZINE 5 MG TABLET PO SCH (09:42)
[2017-07-16] MEDS: NITROGLYCERIN 15 MG (0.6 MG/1 HR) PATCH.TD24 TD SCH (09:42)
[2017-07-16] MEDS: LEVOFLOXACIN 500 MG/D5W RTU 500 MG/100 ML RTUPB IV SCH (09:42)
[2017-07-16] MEDS: BUMETANIDE 1 MG TABLET PO SCH ×2 (09:43→21:52)
[2017-07-16] MEDS: POLYETHYLENE GLYCOL 3350 POWDER 17 GM/1 PACKET PO SCH (09:43)
[2017-07-16] MEDS: ACETAMINOPHEN 325 MG TABLET PO PRN ×2 (09:52→15:05)
[2017-07-16] MEDS: AMLODIPINE BESYLATE 10 MG TABLET PO SCH (09:54)
[2017-07-16] MEDS: POTASSIUM CHLORIDE 10 MEQ TABLET.SA PO SCH (09:55)
--- NOTE | 2017-07-16 12:30 | RADIOLOGY REPORT (SQ) ---
EXAM DESCRIPTION: CHEST SINGLE VIEW COMPLETED DATE/TIME: 07/16/2017 12:14 pm REASON FOR STUDY: fever COMPARISON: 07/14/2017 EXAM PARAMETERS: NUMBER OF VIEWS: One view. TECHNIQUE: Single frontal radiographic view of the chest acquired. RADIATION DOSE: NA LIMITATIONS: None. FINDINGS: LUNGS AND PLEURA: Ill-defined opacification in the right mid lung field. Improved aeratio n in the right lung base. MEDIASTINUM AND HILAR STRUCTURES: No masses. Contour normal. HEART AND VASCULAR STRUCTURES: Cardiomegaly with no starla CHF. BONES: No acute findings. HARDWARE: None in the chest. OTHER: No other significant finding. IMPRESSION: Cannot exclude a limited right middle lobe or lower lobe pneumonia. The appearance of t he right lung base is improved TECHNICAL DOCUMENTATION: JOB ID: [id number] [email or web address]- All Rights Reserved
[2017-07-16] MEDS ORDERED: VANCOMYCIN HCL 1,500 MG in DEXTROSE 5%-WATER 250 ML IV ONE (13:00)
[2017-07-16 13:18] LABS: AMORPHOUS SEDIMENT,URINE TRACE /HPF; APPEARANCE,URINE CLOUDY; BILIRUBIN,URINE NEGATIVE (NEGATIVE); GLUCOSE, URINE NEGATIVE (NEGATIVE); KETONES,URINE NEGATIVE (NEGATIVE); LEUKOCYTE ESTERASE,URINE TRACE (NEGATIVE); NITRITE,URINE NEGATIVE (NEGATIVE); PROTEIN,URINE 30 mg/dL (NEGATIVE); UROBILINOGEN,URINE NEGATIVE mg/dL (<2.0)
--- NOTE | 2017-07-16 18:16 | PDOC PROGRESS REPORT ---
Subjective Progress Note for:: 07/16/17 Subjective:: There is issue of intermittent fever with recorded temperature of 102F. She remain on IV Levofloxacin and Rocephin therapy. She denied any chest pain and her breathing is improving. Daughter at bedside reported fair oral intake at lunch time. Physical Exam Vital Signs: Temp Pulse Resp BP Pulse Ox 102.7 F H 76 17 123/63 99 07/16/17 10:55 07/16/17 14:00 07/16/17 11:19 07/16/17 10:55 07/16/17 11:19 Intake & Output 07/15/17 07/16/17 07/17/17 06:59 06:59 06:59 Intake Total 1319 1497 Output Total 650 800 Balance 669 697 Weight 132.1 kg 137.3 kg Physical Exam: General appearance: PRESENT: no acute distress, morbidly obese Head exam: PRESENT: atraumatic, normocephalic Eye exam: PRESENT: conjunctiva pink, EOMI. ABSENT: scleral icterus Mouth exam: PRESENT: moist, neck supple Teeth exam: PRESENT: poor dentition Respiratory exam: PRESENT: clear to auscultation carole, decreased breath sounds - reduced breath sound at lung bases Cardiovascular exam: PRESENT: RRR. ABSENT: diastolic murmur, rubs, systolic murmur Vascular exam: PRESENT: normal capillary refill. ABSENT: pallor GI/Abdominal exam: PRESENT: normal bowel sounds, soft. ABSENT: distended, guarding, mass, organomegaly, rebound, tenderness Extremities exam: PRESENT: pedal edema - comparatively improving. Musculoskeletal exam: PRESENT: deformity - related to multiple joints involvement with arthritis. Neurological exam: PRESENT: alert, awake Psychiatric exam: PRESENT: appropriate affect, normal mood. ABSENT: homicidal ideation, suicidal ideation Skin exam: PRESENT: dry, intact, warm. ABSENT: cyanosis, rash Results Laboratory Results: 07/16/17 05:10 07/16/17 05:10 07/16/17 07/16/17 07/16/17 04:20 05:10 05:10 WBC 6.4 RBC 3.32 L Hgb 9.8 L Hct 29.6 L MCV 89 MCH 29.6 MCHC 33.2 RDW 14.9 H Plt Count 121 L Seg Neutrophils % 56.8 Lymphocytes % 24.5 Monocytes % 15.7 H Eosinophils % 2.5 Basophils % 0.5 Absolute Neutrophils 3.6 Absolute Lymphocytes 1.6 Absolute Monocytes 1.0 Absolute Eosinophils 0.2 Absolute Basophils 0.0 Sodium 142.8 Potassium 5.2 H Chloride 102 Carbon Dioxide 31 H Anion Gap 10 BUN 51 H Creatinine 2.32 H Est GFR ( Amer) 24 L Est GFR (Non-Af Amer) 20 L Glucose 92 Calcium 8.2 L Total Bilirubin 0.5 AST 54 H ALT 20 Alkaline Phosphatase 82 Total Protein 7.3 Albumin 3.8 Urine Color Urine Appearance Urine pH Ur Specific [place] Urine Protein Urine Glucose (UA) Urine Ketones Urine Blood Urine Nitrite Ur Leukocyte Esterase Urine WBC (Auto) Urine RBC (Auto) Stool Occult Blood NEGATIVE 07/16/17 12:30 WBC RBC Hgb Hct MCV MCH MCHC RDW Plt Count Seg Neutrophils % Lymphocytes % Monocytes % Eosinophils % Basophils % Absolute Neutrophils Absolute Lymphocytes Absolute Monocytes Absolute Eosinophils Absolute Basophils Sodium Potassium Chloride Carbon Dioxide Anion Gap BUN Creatinine Est GFR ( Amer) Est GFR (Non-Af Amer) Glucose Calcium Total Bilirubin AST ALT Alkaline Phosphatase Total Protein Albumin Urine Color YELLOW Urine Appearance CLOUDY Urine pH 5.0 Ur Specific [place] 1.010 Urine Protein 30 H Urine Glucose (UA) NEGATIVE Urine Ketones NEGATIVE Urine Blood LARGE H Urine Nitrite NEGATIVE Ur Leukocyte Esterase TRACE H Urine WBC (Auto) 10 Urine RBC (Auto) >182 Stool Occult Blood 07/15/17 07/15/17 05:50 05:50 Creatine Kinase 957 H CK-MB (CK-2) 2.44 Troponin I 0.063 Impressions: Chest X-Ray 07/16/17 00:00 IMPRESSION: Cannot exclude a limited right middle lobe or lower lobe pneumonia. The appearance of the right lung base is improved Assessment & Plan - Diagnosis (1) Lobar pneumonia, unspecified organism Is this a current diagnosis for this admission?: Yes Plan: Her evaluation suggested worsening air space disease process. Continue IV Rocephin and Levofloxacin with addition of Vancomycin pending culture findings. (2) Hypoxemia Is this a current diagnosis for this admission?: Yes (3) CHF (congestive heart failure) Qualifiers: Congestive heart failure type: systolic Congestive heart failure chronicity : acute on chronic Qualified Code(s): I50.23 - Acute on chronic systolic ( congestive) heart failure Is this a current diagnosis for this admission?: Yes (4) Acute kidney injury Is this a current diagnosis for this admission?: Yes Plan: There is worsening renal indices. Her worsening acute on chronic renal failure, probable due to IV furosemide and NSAID usage and possible ATN. I will d/c Benazepril usage for blood pressure management. D/C potassium supplementation. Repeat BMP in am. (5) Diabetes mellitus Qualifiers: Diabetes mellitus type: type 2 Diabetes mellitus complication status: with unspecified complications Diabetes mellitus joint terminal attack controller insulin use: with nursing home use Qualified Code(s): E11.8 - Type 2 diabetes mellitus with unspecified complications; Z79.4 - laborer marine terminal (current) use of insulin; Z79.4 - laborer marine terminal ( current) use of insulin; Z79.4 - [facility] (current) use of insulin; Z79.4 - laborer marine terminal (current) use of insulin Is this a current diagnosis for this admission?: Yes (6) HTN (hypertension) Qualifiers: Hypertension type: essential hypertension Qualified Code(s): I10 - Essential (primary) hypertension Is this a current diagnosis for this admission?: Yes (7) HLD (hyperlipidemia) Qualifiers: Hyperlipidemia type: pure hypercholesterolemia Qualified Code(s): E78.00 - Pure hypercholesterolemia, unspecified; E78.0 - Pure hypercholesterolemia Is this a current diagnosis for this admission?: Yes (8) Morbid obesity with BMI of 50.0-59.9, adult Is this a current diagnosis for this admission?: Yes (9) Anemia of chronic disease Is this a current diagnosis for this admission?: Yes - Time Critical Time spent with patient: 35 or more minutes Medications reviewed and adjusted accordingly: Yes Anticipated discharge: Home with Homehealth Within: Other - Inpatient Certification Based on my medical assessment, after consideration of the patient's comorbidities, presenting symptoms, or acuity I expect that the services needed warrant INPATIENT care.: Yes I certify that my determination is in accordance with my understanding of Medicare's requirements for reasonable and necessary INPATIENT services [42 CFR 412.3e].: Yes Medical Necessity: Need Close Monitoring Due to Risk of Patient Decompensation, Need For Continuous Telemetry Monitoring, Need for Nebulizer Therapy and Monitoring of Response, Need for IV Antibiotics, Risk of Complication if Not Cared For in Hospital Post Hospital Care: D/C Clinical Exercise Specialist Documentation - Plan Summary Plan Summary: See attending physician orders. Overall prognosis remain guided due to advance age and multi-organ failure. Repeat CBC with diff in am.
[2017-07-16] MEDS: CARBIDOPA/LEVODOPA ER 50-200 MG TABLET.SA PO SCH (21:51)
[2017-07-16] MEDS: ATORVASTATIN CALCIUM 40 MG TABLET PO SCH (21:54)
[2017-07-17] MEDS: LANSOPRAZOLE 30 MG TAB.RAP.DR PO SCH (05:17)
[2017-07-17] MEDS: CEFTRIAXONE 1 GM/D5W RTU 1 GM/50 ML RTUPB IV SCH (05:18)
[2017-07-17] MEDS: PRAMIPEXOLE DI-HCL 0.5 MG TABLET PO SCH ×3 (05:18→21:38)
[2017-07-17] MEDS: NITROGLYCERIN 15 MG (0.6 MG/1 HR) PATCH.TD24 TD SCH ×2 (10:36→12:51)
[2017-07-17] MEDS: INSULIN GLARGINE,HUM.REC.ANLOG 300 UNIT/3 ML INSULN.PEN SUBCUT SCH ×2 (10:37→12:51)
[2017-07-17] MEDS: ACETAMINOPHEN 325 MG TABLET PO PRN ×2 (11:14→12:51)
[2017-07-17] MEDS: BUMETANIDE 1 MG TABLET PO SCH ×2 (11:17→21:37)
[2017-07-17] MEDS: METOPROLOL SUCCINATE 25 MG TAB.SR.24H PO SCH (11:17)
[2017-07-17] MEDS: AMLODIPINE BESYLATE 10 MG TABLET PO SCH (11:17)
[2017-07-17] MEDS: POLYETHYLENE GLYCOL 3350 POWDER 17 GM/1 PACKET PO SCH (11:17)
[2017-07-17] MEDS: POTASSIUM CHLORIDE 10 MEQ TABLET.SA PO SCH (11:17)
[2017-07-17] MEDS: CETIRIZINE 5 MG TABLET PO SCH (11:17)
[2017-07-17 11:29] LABS: ABSOLUTE EOSINOPHILS # (AUTO) 0.1 10^3/uL (0.0-0.6); ABSOLUTE LYMPHOCYTES (AUTO) 1.4 10^3/uL (0.5-4.7); ABSOLUTE MONOCYTES (AUTO) 0.9 10^3/uL (0.1-1.4); ABSOLUTE NEUT (AUTO) 3.3 10^3/uL (1.7-8.2); BASOPHILS % (AUTO) 0.7 % (0-2); EOSINOPHILS % (AUTO) 1.2 % (0-6); HEMOGLOBIN 9.9 g/dL (12.0-15.5); HGB HCT DIFFERENCE -0.3; LYMPHOCYTES % (AUTO) 24.4 % (13-45); MEAN CORPUSCULAR HEMOGLOBIN 29.3 pg (27.0-33.4); MEAN CORPUSCULAR VOLUME 89 fl (80-97); MONOCYTES % (AUTO) 15.4 % (3-13); RED BLOOD COUNT 3.37 10^6/uL (3.72-5.28); RED CELL DISTRIBUTION WIDTH 14.3 % (11.5-14.0); SEGMENTED NEUTROPHILS % (AUTO) 58.3 % (42-78); WHITE BLOOD COUNT 5.6 10^3/uL (4.0-10.5)
[2017-07-17 11:49] LABS: ANION GAP 10 (5-19); BLOOD UREA NITROGEN 52 mg/dL (7-20); CALCIUM 8.4 mg/dL (8.4-10.2); CARBON DIOXIDE 31 mmol/L (22-30); CHLORIDE 100 mmol/L (98-107); CREATININE RESULT 1.89 mg/dL (0.52-1.25); GLUCOSE 101 mg/dL (75-110); POTASSIUM 5.4 mmol/L (3.6-5.0); SODIUM 140.6 mmol/L (137-145)
[2017-07-17] MEDS: ENOXAPARIN SODIUM INJ 30 MG/0.3 ML DISP.SYRIN SUBCUT SCH (12:47)
[2017-07-17] MEDS: ACETAMINOPHEN 650 MG SUPP.RECT PR PRN ×2 (12:48→18:50)
[2017-07-17 14:48] LABS: ARTERIAL BLOOD BASE EXCESS 3.3 mmol/L; ARTERIAL BLOOD O2 SATURATION 86.6 % (94-98)
[2017-07-17] MEDS: CARBIDOPA/LEVODOPA ER 50-200 MG TABLET.SA PO SCH (21:37)
[2017-07-17] MEDS: ATORVASTATIN CALCIUM 40 MG TABLET PO SCH (21:37)
--- NOTE | 2017-07-17 22:41 | PDOC PROGRESS REPORT ---
Subjective Progress Note for:: 07/17/17 Subjective:: Patient daughters at bedside reported better p.o intake at dinner time. Patient reported right shoulder joint pain and issue with constipation due to no bowel movement since admission. She continue to have intermittent fever as recorded on chart. She denied any chest dickey or difficulty with breathing. No nausea, vomiting or abdominal pain. Remain on triple IV antibiotic therapy Physical Exam Vital Signs: Temp Pulse Resp BP Pulse Ox 101.9 F H 75 19 118/49 L 100 07/17/17 19:36 07/17/17 19:36 07/17/17 19:36 07/17/17 19:36 07/17/17 19:36 Intake & Output 07/16/17 07/17/17 07/18/17 06:59 06:59 06:59 Intake Total 1497 1260 50 Output Total 800 1275 900 Balance 017 -98 -034 Weight 137.3 kg 137 kg Physical Exam: General appearance: PRESENT: no acute distress, morbidly obese Head exam: PRESENT: atraumatic, normocephalic Eye exam: PRESENT: conjunctiva pink, EOMI. ABSENT: scleral icterus Mouth exam: PRESENT: moist, neck supple Teeth exam: PRESENT: poor dentition Respiratory exam: PRESENT: clear to auscultation carole, decreased breath sounds - reduced breath sound at lung bases Cardiovascular exam: PRESENT: RRR. ABSENT: diastolic murmur, rubs, systolic murmur Vascular exam: PRESENT: normal capillary refill. ABSENT: pallor GI/Abdominal exam: PRESENT: normal bowel sounds, soft. ABSENT: distended, guarding, mass, organomegaly, rebound, tenderness Extremities exam: PRESENT: pedal edema - comparatively improving. Musculoskeletal exam: PRESENT: deformity - related to multiple joints involvement with arthritis. Neurological exam: PRESENT: alert, awake Psychiatric exam: PRESENT: appropriate affect, normal mood. ABSENT: homicidal ideation, suicidal ideation Skin exam: PRESENT: dry, intact, warm. ABSENT: cyanosis, rash Results Laboratory Results: 07/17/17 11:15 07/17/17 11:15 07/17/17 07/17/17 07/17/17 11:15 11:15 14:30 WBC 5.6 RBC 3.37 L Hgb 9.9 L Hct 30.0 L MCV 89 MCH 29.3 MCHC 33.0 RDW 14.3 H Plt Count 136 L Seg Neutrophils % 58.3 Lymphocytes % 24.4 Monocytes % 15.4 H Eosinophils % 1.2 Basophils % 0.7 Absolute Neutrophils 3.3 Absolute Lymphocytes 1.4 Absolute Monocytes 0.9 Absolute Eosinophils 0.1 Absolute Basophils 0.0 Carbonic Acid 1.82 H HCO3/H2CO3 Ratio 16:1 ABG pH 7.32 L ABG pCO2 60.3 H ABG pO2 56.8 L ABG HCO3 30.4 H ABG O2 Saturation 86.6 L ABG Base Excess 3.3 FiO2 3.5L Sodium 140.6 Potassium 5.4 H Chloride 100 Carbon Dioxide 31 H Anion Gap 10 BUN 52 H Creatinine 1.89 H Est GFR ( Amer) 31 L Est GFR (Non-Af Amer) 26 L Glucose 101 Calcium 8.4 07/15/17 07/15/17 07/17/17 05:50 05:50 11:15 Creatine Kinase 957 H CK-MB (CK-2) 2.44 Troponin I 0.063 NT-Pro-B Natriuret Pep 2970 H Impressions: Chest X-Ray 07/16/17 00:00 IMPRESSION: Cannot exclude a limited right middle lobe or lower lobe pneumonia. The appearance of the right lung base is improved Assessment & Plan - Diagnosis (1) Lobar pneumonia, unspecified organism Is this a current diagnosis for this admission?: Yes Plan: She will continue on current antibiotic regimen. In view of some improvement in her chest X ray and persistence of intermittent fever I will work her up for possible Flu infection. (2) Hypoxemia Is this a current diagnosis for this admission?: Yes (3) CHF (congestive heart failure) Qualifiers: Congestive heart failure type: systolic Congestive heart failure chronicity : acute on chronic Qualified Code(s): I50.23 - Acute on chronic systolic ( congestive) heart failure Is this a current diagnosis for this admission?: Yes (4) Acute kidney injury Is this a current diagnosis for this admission?: Yes (5) Diabetes mellitus Qualifiers: Diabetes mellitus type: type 2 Diabetes mellitus complication status: with unspecified complications Diabetes mellitus caul dresser insulin use: with caul dresser use Qualified Code(s): E11.8 - Type 2 diabetes mellitus with unspecified complications; Z79.4 - [facility] (current) use of insulin; Z79.4 - customer experience professional ( current) use of insulin; Z79.4 - customer experience professional (current) use of insulin; Z79.4 - [facility] (current) use of insulin Is this a current diagnosis for this admission?: Yes (6) HTN (hypertension) Qualifiers: Hypertension type: essential hypertension Qualified Code(s): I10 - Essential (primary) hypertension Is this a current diagnosis for this admission?: Yes (7) HLD (hyperlipidemia) Qualifiers: Hyperlipidemia type: pure hypercholesterolemia Qualified Code(s): E78.00 - Pure hypercholesterolemia, unspecified; E78.0 - Pure hypercholesterolemia Is this a current diagnosis for this admission?: Yes (8) Morbid obesity with BMI of 50.0-59.9, adult Is this a current diagnosis for this admission?: Yes (9) Anemia of chronic disease Is this a current diagnosis for this admission?: Yes (10) Abnormal urine findings Is this a current diagnosis for this admission?: Yes Plan: Obtain urine culture. Start on IV Diflucan adjusted therapy. (11) Constipation Qualifiers: Constipation type: slow transit constipation Qualified Code(s): K59.01 - Slow transit constipation Is this a current diagnosis for this admission?: Yes Plan: Start on Dulcolax 10 mg CA x 1 dose tonight. Start on Colace 200 mg po qhs. - Time Time Spent with patient: 35 or more minutes Medications reviewed and adjusted accordingly: Yes Anticipated discharge: Home with Homehealth Within: Other - Inpatient Certification Based on my medical assessment, after consideration of the patient's comorbidities, presenting symptoms, or acuity I expect that the services needed warrant INPATIENT care.: Yes I certify that my determination is in accordance with my understanding of Medicare's requirements for reasonable and necessary INPATIENT services [42 CFR 412.3e].: Yes Medical Necessity: Need Close Monitoring Due to Risk of Patient Decompensation, Need For Continuous Telemetry Monitoring, Need for IV Antibiotics, Risk of Complication if Not Cared For in Hospital Post Hospital Care: D/C Order Expediter Documentation - Plan Summary Plan Summary: Obtain CBC with diff. CMP in am. See other attending physician orders.
[2017-07-17] MEDS ORDERED: BISACODYL 10 MG SUPP.RECT PR ONE (23:30)
[2017-07-17] MEDS ORDERED: DOCUSATE SODIUM 100 MG CAPSULE PO ONE (23:30)
[2017-07-17] MEDS ORDERED: FLUCONAZOLE 200 MG/NS RTU 100 ML IV ONE (23:30)
[2017-07-18] MEDS: CEFTRIAXONE 1 GM/D5W RTU 1 GM/50 ML RTUPB IV SCH (05:39)
[2017-07-18] MEDS: PRAMIPEXOLE DI-HCL 0.5 MG TABLET PO SCH ×3 (05:39→22:15)
[2017-07-18] MEDS: LANSOPRAZOLE 30 MG TAB.RAP.DR PO SCH (05:39)
[2017-07-18] MEDS ORDERED: VANCOMYCIN HCL 1,250 MG in DEXTROSE 5%-WATER 250 ML IV SCH (06:00)
[2017-07-18] MEDS: POTASSIUM CHLORIDE 10 MEQ TABLET.SA PO SCH (10:33)
[2017-07-18] MEDS: AMLODIPINE BESYLATE 10 MG TABLET PO SCH (10:34)
[2017-07-18] MEDS: CETIRIZINE 5 MG TABLET PO SCH (11:01)
[2017-07-18] MEDS: METOPROLOL SUCCINATE 25 MG TAB.SR.24H PO SCH (11:01)
[2017-07-18] MEDS: ENOXAPARIN SODIUM INJ 30 MG/0.3 ML DISP.SYRIN SUBCUT SCH (11:01)
[2017-07-18] MEDS: LEVOFLOXACIN 750 MG TABLET PO SCH (11:01)
[2017-07-18] MEDS: BUMETANIDE 1 MG TABLET PO SCH ×2 (11:01→22:17)
[2017-07-18] MEDS: METOLAZONE 2.5 MG TABLET PO SCH (11:01)
[2017-07-18] MEDS: DOCUSATE SODIUM 100 MG CAPSULE PO SCH (11:01)
[2017-07-18] MEDS: POLYETHYLENE GLYCOL 3350 POWDER 17 GM/1 PACKET PO SCH (11:02)
[2017-07-18] MEDS: ACETAMINOPHEN 325 MG TABLET PO PRN ×2 (15:34→22:16)
--- NOTE | 2017-07-18 19:19 | PDOC PROGRESS REPORT ---
Subjective Progress Note for:: 07/18/17 Subjective:: Patient is more engaged so far today. Orientation is better and asking questions about how long she has been in the hospital. Daughter at bedside reported satisfactory intake and bowel movement since last clinical evaluation. No chest pain or difficulty with breathing. Physical Exam Vital Signs: Temp Pulse Resp BP Pulse Ox 98.6 F 71 18 134/51 H 95 07/18/17 16:13 07/18/17 16:13 07/18/17 16:13 07/18/17 16:13 07/18/17 16:13 Intake & Output 07/17/17 07/18/17 07/19/17 06:59 06:59 06:59 Intake Total 1260 1080 210 Output Total 1275 1700 1600 Balance -15 -711 -1390 Weight 137 kg Physical Exam: General appearance: PRESENT: no acute distress, morbidly obese Head exam: PRESENT: atraumatic, normocephalic Eye exam: PRESENT: conjunctiva pink, EOMI. ABSENT: scleral icterus Mouth exam: PRESENT: moist, neck supple Teeth exam: PRESENT: poor dentition Respiratory exam: PRESENT: clear to auscultation carole, decreased breath sounds - reduced breath sound at lung bases Cardiovascular exam: PRESENT: RRR. ABSENT: diastolic murmur, rubs, systolic murmur Vascular exam: PRESENT: normal capillary refill. ABSENT: pallor GI/Abdominal exam: PRESENT: normal bowel sounds, soft. ABSENT: distended, guarding, mass, organomegaly, rebound, tenderness Extremities exam: PRESENT: pedal edema - comparatively improving. Musculoskeletal exam: PRESENT: deformity - related to multiple joints involvement with arthritis. Neurological exam: PRESENT: alert, awake Psychiatric exam: PRESENT: appropriate affect, normal mood. ABSENT: homicidal ideation, suicidal ideation Skin exam: PRESENT: dry, intact, warm. ABSENT: cyanosis, rash Results Laboratory Results: 07/17/17 11:15 07/17/17 11:15 07/15/17 07/15/17 07/17/17 05:50 05:50 11:15 Creatine Kinase 957 H CK-MB (CK-2) 2.44 Troponin I 0.063 NT-Pro-B Natriuret Pep 2970 H Impressions: Chest X-Ray 07/16/17 00:00 IMPRESSION: Cannot exclude a limited right middle lobe or lower lobe pneumonia. The appearance of the right lung base is improved Assessment & Plan - Diagnosis (1) Lobar pneumonia, unspecified organism Is this a current diagnosis for this admission?: Yes (2) Hypoxemia Is this a current diagnosis for this admission?: Yes (3) CHF (congestive heart failure) Qualifiers: Congestive heart failure type: systolic Congestive heart failure chronicity : acute on chronic Qualified Code(s): I50.23 - Acute on chronic systolic ( congestive) heart failure Is this a current diagnosis for this admission?: Yes (4) Acute kidney injury Is this a current diagnosis for this admission?: Yes (5) Diabetes mellitus Qualifiers: Diabetes mellitus type: type 2 Diabetes mellitus complication status: with unspecified complications Diabetes mellitus manager terminal insulin use: with custodial use Qualified Code(s): E11.8 - Type 2 diabetes mellitus with unspecified complications; Z79.4 - care home (current) use of insulin; Z79.4 - local company intermodal truck driver ( current) use of insulin; Z79.4 - local company intermodal truck driver (current) use of insulin; Z79.4 - care home (current) use of insulin Is this a current diagnosis for this admission?: Yes (6) HTN (hypertension) Qualifiers: Hypertension type: essential hypertension Qualified Code(s): I10 - Essential (primary) hypertension Is this a current diagnosis for this admission?: Yes (7) HLD (hyperlipidemia) Qualifiers: Hyperlipidemia type: pure hypercholesterolemia Qualified Code(s): E78.00 - Pure hypercholesterolemia, unspecified; E78.0 - Pure hypercholesterolemia Is this a current diagnosis for this admission?: Yes (8) Morbid obesity with BMI of 50.0-59.9, adult Is this a current diagnosis for this admission?: Yes (9) Anemia of chronic disease Is this a current diagnosis for this admission?: Yes (10) Abnormal urine findings Is this a current diagnosis for this admission?: Yes (11) Constipation Qualifiers: Constipation type: slow transit constipation Qualified Code(s): K59.01 - Slow transit constipation Is this a current diagnosis for this admission?: Yes - Time Time Spent with patient: 25-34 minutes Medications reviewed and adjusted accordingly: Yes Anticipated discharge: Home with Homehealth Within: Other - Inpatient Certification Based on my medical assessment, after consideration of the patient's comorbidities, presenting symptoms, or acuity I expect that the services needed warrant INPATIENT care.: Yes I certify that my determination is in accordance with my understanding of Medicare's requirements for reasonable and necessary INPATIENT services [42 CFR 412.3e].: Yes Medical Necessity: Need Close Monitoring Due to Risk of Patient Decompensation, Need For IV Fluids, Need For Continuous Telemetry Monitoring, Need for IV Antibiotics, Risk of Complication if Not Cared For in Hospital Post Hospital Care: D/C Trailer Technician Documentation - Plan Summary Plan Summary: Continue current antibiotic and anti-fungal coverage. Patient refused ordered rapid Flu test. We will repeat CBC with diff and CMP in am. Continue to follow up on blood and urine cultures findings. I did discuss with patient and daughter at bedside regarding possible need for short term rehabilitation when she is medically cleared for discharge.
[2017-07-18] MEDS ORDERED: FLUCONAZOLE 200 MG/NS RTU 100 ML IV SCH (22:00)
[2017-07-18] MEDS: ATORVASTATIN CALCIUM 40 MG TABLET PO SCH (22:16)
[2017-07-18] MEDS: CARBIDOPA/LEVODOPA ER 50-200 MG TABLET.SA PO SCH (22:17)
[2017-07-18] MEDS: FLUCONAZOLE 200 MG/NS RTU 100 ML IV SCH (22:19)
[2017-07-19] MEDS: ACETAMINOPHEN 325 MG TABLET PO PRN ×3 (01:46→21:05)
[2017-07-19 06:31] LABS: ABSOLUTE EOSINOPHILS # (AUTO) 0.1 10^3/uL (0.0-0.6); ABSOLUTE LYMPHOCYTES (AUTO) 0.7 10^3/uL (0.5-4.7); ABSOLUTE MONOCYTES (AUTO) 0.6 10^3/uL (0.1-1.4); ABSOLUTE NEUT (AUTO) 1.7 10^3/uL (1.7-8.2); BASOPHILS % (AUTO) 0.4 % (0-2); EOSINOPHILS % (AUTO) 3.5 % (0-6); HEMATOCRIT 25.7 % (36.0-47.0); HEMOGLOBIN 8.6 g/dL (12.0-15.5); HGB HCT DIFFERENCE 0.1; LYMPHOCYTES % (AUTO) 22.2 % (13-45); MEAN CORPUSCULAR HEMOGLOBIN 29.6 pg (27.0-33.4); MEAN CORPUSCULAR HGB CONC 33.5 g/dL (32.0-36.0); MEAN CORPUSCULAR VOLUME 88 fl (80-97); MONOCYTES % (AUTO) 18.4 % (3-13); RED BLOOD COUNT 2.91 10^6/uL (3.72-5.28); RED CELL DISTRIBUTION WIDTH 14.2 % (11.5-14.0); SEGMENTED NEUTROPHILS % (AUTO) 55.5 % (42-78); WHITE BLOOD COUNT 3.1 10^3/uL (4.0-10.5)
[2017-07-19] MEDS: PRAMIPEXOLE DI-HCL 0.5 MG TABLET PO SCH ×3 (06:39→21:05)
[2017-07-19] MEDS: CEFTRIAXONE 1 GM/D5W RTU 1 GM/50 ML RTUPB IV SCH (06:40)
[2017-07-19] MEDS: LANSOPRAZOLE 30 MG TAB.RAP.DR PO SCH (06:40)
[2017-07-19 07:05] LABS: ANION GAP 7 (5-19); BLOOD UREA NITROGEN 41 mg/dL (7-20); CARBON DIOXIDE 36 mmol/L (22-30); CHLORIDE 99 mmol/L (98-107); CREATININE RESULT 1.09 mg/dL (0.52-1.25); GLUCOSE 162 mg/dL (75-110); POTASSIUM 4.6 mmol/L (3.6-5.0); SODIUM 142.1 mmol/L (137-145)
[2017-07-19] MEDS: DOCUSATE SODIUM 100 MG CAPSULE PO SCH (11:07)
[2017-07-19] MEDS: POTASSIUM CHLORIDE 10 MEQ TABLET.SA PO SCH (11:08)
[2017-07-19] MEDS: METOPROLOL SUCCINATE 25 MG TAB.SR.24H PO SCH (11:08)
[2017-07-19] MEDS: AMLODIPINE BESYLATE 10 MG TABLET PO SCH (11:09)
[2017-07-19] MEDS: BUMETANIDE 1 MG TABLET PO SCH ×2 (11:10→21:05)
[2017-07-19] MEDS: POLYETHYLENE GLYCOL 3350 POWDER 17 GM/1 PACKET PO SCH (11:10)
[2017-07-19] MEDS: INSULIN GLARGINE,HUM.REC.ANLOG 300 UNIT/3 ML INSULN.PEN SUBCUT SCH (11:11)
[2017-07-19] MEDS: NITROGLYCERIN 15 MG (0.6 MG/1 HR) PATCH.TD24 TD SCH (11:11)
[2017-07-19] MEDS: CETIRIZINE 5 MG TABLET PO SCH (11:11)
[2017-07-19] MEDS: VANCOMYCIN HCL 1,250 MG in DEXTROSE 5%-WATER 250 ML IV SCH (11:12)
[2017-07-19] MEDS: ENOXAPARIN SODIUM INJ 30 MG/0.3 ML DISP.SYRIN SUBCUT SCH (11:12)
[2017-07-19] MEDS: IPRATROPIUM/ALBUTEROL 0.5-2.5 MG/3 ML AMPUL NEB PRN (16:36)
--- NOTE | 2017-07-19 16:56 | PDOC PROGRESS REPORT ---
Subjective Progress Note for:: 07/19/17 Subjective:: Patient complain about worsening right shoulder joint pain. Nursing staff reported minimal benefit from Tylenol and total dependence if turning and moving in bed. No reported fever or chills. No chest pain. She remain on supplemental oxygen via nasal cannula and requested for breathing treatment. Physical Exam Vital Signs: Temp Pulse Resp BP Pulse Ox 98.4 F 64 18 131/51 H 100 07/19/17 11:17 07/19/17 11:17 07/19/17 11:17 07/19/17 11:17 07/19/17 11:17 Intake & Output 07/18/17 07/19/17 07/20/17 06:59 06:59 06:59 Intake Total 1080 907 Output Total 1700 3800 Balance -620 -2893 Weight 136.6 kg Physical Exam: General appearance: PRESENT: no acute distress, morbidly obese Head exam: PRESENT: atraumatic, normocephalic Eye exam: PRESENT: conjunctiva pink, EOMI. ABSENT: scleral icterus Mouth exam: PRESENT: moist, neck supple Teeth exam: PRESENT: poor dentition Respiratory exam: PRESENT: clear to auscultation carole, decreased breath sounds - reduced breath sound at lung bases Cardiovascular exam: PRESENT: RRR. ABSENT: diastolic murmur, rubs, systolic murmur Vascular exam: PRESENT: normal capillary refill. ABSENT: pallor GI/Abdominal exam: PRESENT: normal bowel sounds, soft. ABSENT: distended, guarding, mass, organomegaly, rebound, tenderness Extremities exam: PRESENT: pedal edema - comparatively improving. Musculoskeletal exam: PRESENT: deformity - related to multiple joints involvement with arthritis. Neurological exam: PRESENT: alert, awake Psychiatric exam: PRESENT: appropriate affect, normal mood. ABSENT: homicidal ideation, suicidal ideation Skin exam: PRESENT: dry, intact, warm. ABSENT: cyanosis, rash Results Laboratory Results: 07/19/17 05:34 07/19/17 05:34 07/19/17 07/19/17 05:34 05:34 WBC 3.1 L RBC 2.91 L Hgb 8.6 L Hct 25.7 L MCV 88 MCH 29.6 MCHC 33.5 RDW 14.2 H Plt Count 117 L Seg Neutrophils % 55.5 Lymphocytes % 22.2 Monocytes % 18.4 H Eosinophils % 3.5 Basophils % 0.4 Absolute Neutrophils 1.7 Absolute Lymphocytes 0.7 Absolute Monocytes 0.6 Absolute Eosinophils 0.1 Absolute Basophils 0.0 Sodium 142.1 Potassium 4.6 Chloride 99 Carbon Dioxide 36 H Anion Gap 7 BUN 41 H Creatinine 1.09 Est GFR ( Amer) 58 L Est GFR (Non-Af Amer) 48 L Glucose 162 H Calcium 8.0 L 07/15/17 07/15/17 07/17/17 05:50 05:50 11:15 Creatine Kinase 957 H CK-MB (CK-2) 2.44 Troponin I 0.063 NT-Pro-B Natriuret Pep 2970 H Impressions: Chest X-Ray 07/16/17 00:00 IMPRESSION: Cannot exclude a limited right middle lobe or lower lobe pneumonia. The appearance of the right lung base is improved Assessment & Plan - Diagnosis (1) Lobar pneumonia, unspecified organism Is this a current diagnosis for this admission?: Yes Plan: No growth in first set of blood culture. (2) Hypoxemia Is this a current diagnosis for this admission?: Yes (3) CHF (congestive heart failure) Qualifiers: Congestive heart failure type: systolic Congestive heart failure chronicity : acute on chronic Qualified Code(s): I50.23 - Acute on chronic systolic ( congestive) heart failure Is this a current diagnosis for this admission?: Yes (4) Acute kidney injury Is this a current diagnosis for this admission?: Yes (5) Diabetes mellitus Qualifiers: Diabetes mellitus type: type 2 Diabetes mellitus complication status: with unspecified complications Diabetes mellitus nursing home insulin use: with nursing home use Qualified Code(s): E11.8 - Type 2 diabetes mellitus with unspecified complications; Z79.4 - correction (current) use of insulin; Z79.4 - correction ( current) use of insulin; Z79.4 - oysterman (current) use of insulin; Z79.4 - oysterman (current) use of insulin Is this a current diagnosis for this admission?: Yes (6) HTN (hypertension) Qualifiers: Hypertension type: essential hypertension Qualified Code(s): I10 - Essential (primary) hypertension Is this a current diagnosis for this admission?: Yes (7) HLD (hyperlipidemia) Qualifiers: Hyperlipidemia type: pure hypercholesterolemia Qualified Code(s): E78.00 - Pure hypercholesterolemia, unspecified; E78.0 - Pure hypercholesterolemia Is this a current diagnosis for this admission?: Yes (8) Morbid obesity with BMI of 50.0-59.9, adult Is this a current diagnosis for this admission?: Yes (9) Anemia of chronic disease Is this a current diagnosis for this admission?: Yes (10) Abnormal urine findings Is this a current diagnosis for this admission?: Yes (11) Constipation Qualifiers: Constipation type: slow transit constipation Qualified Code(s): K59.01 - Slow transit constipation Is this a current diagnosis for this admission?: Yes (12) Chronic pain syndrome Is this a current diagnosis for this admission?: Yes Plan: Start on [place] 5/325 mg 1 tablet po q6 hours prn for pain. I will request for right shoulder X ray for further evaluation. I will maintain on all anti biotic regimen and IV Diflucan therapy. I will request physical therapy consultation - Time Time Spent with patient: 25-34 minutes Medications reviewed and adjusted accordingly: Yes Anticipated discharge: Home with Homehealth Within: Other - Inpatient Certification Medical Necessity: Significant Comorbidiites Make Outpatient Treatment Too Risky , Need For Continuous Telemetry Monitoring, Need for Nebulizer Therapy and Monitoring of Response, Need for IV Antibiotics, Risk of Complication if Not Cared For in Hospital Post Hospital Care: D/C Event Staff Documentation - Plan Summary Plan Summary: See attending physician orders. Follow up blood culture and urine culture findings.
[2017-07-19] MEDS: HYDROCODONE/ACETAMINOPHEN 5-325 MG TABLET PO PRN ×2 (17:42→23:50)
[2017-07-19] MEDS: INSULIN LISPRO 100 UNIT/ML 3 ML VIAL SUBCUT PRN ×2 (17:46→21:20)
--- NOTE | 2017-07-19 18:54 | RADIOLOGY REPORT (SQ) ---
EXAM DESCRIPTION: SHOULDER RIGHT 2 OR MORE VIEWS COMPLETED DATE/TIME: 07/19/2017 6:13 pm REASON FOR STUDY: Right shoulder joint pain COMPARISON: None. NUMBER OF VIEWS: Two views. TECHNIQUE: Frontal and lateral images acquired of the right shoulder. LIMITATIONS: Limited images due to the patient's obesity. FINDINGS: MINERALIZATION: Normal. BONES: No acute fracture or dislocation. No worrisome bone lesions. JOINTS: No dislocation. VISUALIZED LUNGS AND RIBS: No pneumothorax. No rib fracture. SOFT TISSUES: No radiopaque foreign body. OTHER: No other significant finding. IMPRESSION: NO SIGNIFICANT RADIOGRAPHIC ABNORMALITY. TECHNICAL DOCUMENTATION: JOB ID: [id number] [employer]- All Rights Reserved
[2017-07-19] MEDS: CARBIDOPA/LEVODOPA ER 50-200 MG TABLET.SA PO SCH (21:05)
[2017-07-19] MEDS: ATORVASTATIN CALCIUM 40 MG TABLET PO SCH (21:05)
[2017-07-19] MEDS: FLUCONAZOLE 200 MG/NS RTU 100 ML IV SCH (21:06)
[2017-07-20] MEDS: CEFTRIAXONE 1 GM/D5W RTU 1 GM/50 ML RTUPB IV SCH (06:39)
[2017-07-20] MEDS: LANSOPRAZOLE 30 MG TAB.RAP.DR PO SCH (06:44)
[2017-07-20] MEDS: HYDROCODONE/ACETAMINOPHEN 5-325 MG TABLET PO PRN ×3 (06:45→23:04)
[2017-07-20] MEDS: PRAMIPEXOLE DI-HCL 0.5 MG TABLET PO SCH ×3 (06:45→21:29)
[2017-07-20] MEDS: METOPROLOL SUCCINATE 25 MG TAB.SR.24H PO SCH (10:58)
[2017-07-20] MEDS: DOCUSATE SODIUM 100 MG CAPSULE PO SCH (10:58)
[2017-07-20] MEDS: INSULIN GLARGINE,HUM.REC.ANLOG 300 UNIT/3 ML INSULN.PEN SUBCUT SCH (10:58)
[2017-07-20] MEDS: POTASSIUM CHLORIDE 10 MEQ TABLET.SA PO SCH (10:59)
[2017-07-20] MEDS: POLYETHYLENE GLYCOL 3350 POWDER 17 GM/1 PACKET PO SCH (10:59)
[2017-07-20] MEDS: CETIRIZINE 5 MG TABLET PO SCH (10:59)
[2017-07-20] MEDS: NITROGLYCERIN 15 MG (0.6 MG/1 HR) PATCH.TD24 TD SCH (10:59)
[2017-07-20] MEDS: LEVOFLOXACIN 750 MG TABLET PO SCH (10:59)
[2017-07-20] MEDS: AMLODIPINE BESYLATE 10 MG TABLET PO SCH (10:59)
[2017-07-20] MEDS: BUMETANIDE 1 MG TABLET PO SCH ×2 (11:00→21:29)
[2017-07-20] MEDS: ENOXAPARIN SODIUM INJ 30 MG/0.3 ML DISP.SYRIN SUBCUT SCH (11:06)
[2017-07-20] MEDS: VANCOMYCIN HCL 1,250 MG in DEXTROSE 5%-WATER 250 ML IV SCH (11:28)
[2017-07-20] MEDS: INSULIN LISPRO 100 UNIT/ML 3 ML VIAL SUBCUT PRN ×3 (11:54→21:32)
--- NOTE | 2017-07-20 13:45 | PDOC PROGRESS REPORT ---
Subjective Progress Note for:: 07/20/17 Subjective:: Patient reported some improvement in her right shoulder joint pain on current pain medication management. No fever or chills. No chest pain or difficulty with breathing. There is intermittent coughing with poor expectoration effort. No nausea, vomiting, or abdominal pain. Physical Exam Vital Signs: Temp Pulse Resp BP Pulse Ox 97.7 F 65 16 108/70 99 07/20/17 11:41 07/20/17 11:41 07/20/17 11:41 07/20/17 11:41 07/20/17 11:41 Intake & Output 07/19/17 07/20/17 07/21/17 06:59 06:59 06:59 Intake Total 907 930 353 Output Total 3800 1650 100 Balance -2893 -720 253 Weight 136.6 kg 134.4 kg Physical Exam: General appearance: PRESENT: no acute distress, morbidly obese Head exam: PRESENT: atraumatic, normocephalic Eye exam: PRESENT: conjunctiva pink, EOMI. ABSENT: scleral icterus Mouth exam: PRESENT: moist, neck supple Teeth exam: PRESENT: poor dentition Respiratory exam: PRESENT: clear to auscultation carole, decreased breath sounds - reduced breath sound at lung bases Cardiovascular exam: PRESENT: RRR. ABSENT: diastolic murmur, rubs, systolic murmur Vascular exam: PRESENT: normal capillary refill. ABSENT: pallor GI/Abdominal exam: PRESENT: normal bowel sounds, soft. ABSENT: distended, guarding, mass, organomegaly, rebound, tenderness Extremities exam: PRESENT: pedal edema - comparatively improving. Musculoskeletal exam: PRESENT: deformity - related to multiple joints involvement with arthritis. Neurological exam: PRESENT: alert, awake Psychiatric exam: PRESENT: appropriate affect, normal mood. ABSENT: homicidal ideation, suicidal ideation Skin exam: PRESENT: dry, intact, warm. ABSENT: cyanosis, rash Results Laboratory Results: 07/19/17 05:34 07/19/17 05:34 07/17/17 23:00 [place] Catheter Urine Culture - Final NO GROWTH 2 DAYS 07/15/17 07/15/17 07/17/17 05:50 05:50 11:15 Creatine Kinase 957 H CK-MB (CK-2) 2.44 Troponin I 0.063 NT-Pro-B Natriuret Pep 2970 H Impressions: Chest X-Ray 07/16/17 00:00 IMPRESSION: Cannot exclude a limited right middle lobe or lower lobe pneumonia. The appearance of the right lung base is improved Shoulder X-Ray 07/19/17 00:00 IMPRESSION: NO SIGNIFICANT RADIOGRAPHIC ABNORMALITY. Assessment & Plan - Diagnosis (1) Lobar pneumonia, unspecified organism Is this a current diagnosis for this admission?: Yes (2) Hypoxemia Is this a current diagnosis for this admission?: Yes (3) CHF (congestive heart failure) Qualifiers: Congestive heart failure type: systolic Congestive heart failure chronicity : acute on chronic Qualified Code(s): I50.23 - Acute on chronic systolic ( congestive) heart failure Is this a current diagnosis for this admission?: Yes (4) Acute kidney injury Is this a current diagnosis for this admission?: Yes (5) Diabetes mellitus Qualifiers: Diabetes mellitus type: type 2 Diabetes mellitus complication status: with unspecified complications Diabetes mellitus longterm insulin use: with middle or intermediate school principal use Qualified Code(s): E11.8 - Type 2 diabetes mellitus with unspecified complications; Z79.4 - middle or intermediate school principal (current) use of insulin; Z79.4 - care home ( current) use of insulin; Z79.4 - middle or intermediate school principal (current) use of insulin; Z79.4 - middle or intermediate school principal (current) use of insulin Is this a current diagnosis for this admission?: Yes (6) HTN (hypertension) Qualifiers: Hypertension type: essential hypertension Qualified Code(s): I10 - Essential (primary) hypertension Is this a current diagnosis for this admission?: Yes (7) HLD (hyperlipidemia) Qualifiers: Hyperlipidemia type: pure hypercholesterolemia Qualified Code(s): E78.00 - Pure hypercholesterolemia, unspecified; E78.0 - Pure hypercholesterolemia Is this a current diagnosis for this admission?: Yes (8) Morbid obesity with BMI of 50.0-59.9, adult Is this a current diagnosis for this admission?: Yes (9) Anemia of chronic disease Is this a current diagnosis for this admission?: Yes (10) Abnormal urine findings Is this a current diagnosis for this admission?: Yes (11) Constipation Qualifiers: Constipation type: slow transit constipation Qualified Code(s): K59.01 - Slow transit constipation Is this a current diagnosis for this admission?: Yes (12) Chronic pain syndrome Is this a current diagnosis for this admission?: Yes - Time Time Spent with patient: 25-34 minutes Medications reviewed and adjusted accordingly: Yes Anticipated discharge: Home with Homehealth Within: Other - Inpatient Certification Based on my medical assessment, after consideration of the patient's comorbidities, presenting symptoms, or acuity I expect that the services needed warrant INPATIENT care.: Yes I certify that my determination is in accordance with my understanding of Medicare's requirements for reasonable and necessary INPATIENT services [42 CFR 412.3e].: Yes Medical Necessity: Need Close Monitoring Due to Risk of Patient Decompensation, Need For Continuous Telemetry Monitoring, Need for IV Antibiotics, Risk of Complication if Not Cared For in Hospital Post Hospital Care: D/C Decal Maker Documentation - Plan Summary Plan Summary: Obtain CBC with diff, CMP in AM. Urine culture is no growth x 2 days and second blood culture is no growth to date. Encourage use of Flutter and incentive spirometry at bedside. Follow up on physical therapy evaluation tomorrow.
[2017-07-20] MEDS: IPRATROPIUM/ALBUTEROL 0.5-2.5 MG/3 ML AMPUL NEB PRN (16:10)
[2017-07-20] MEDS: FLUCONAZOLE 200 MG/NS RTU 100 ML IV SCH (21:28)
[2017-07-20] MEDS: ATORVASTATIN CALCIUM 40 MG TABLET PO SCH (21:29)
[2017-07-20] MEDS: CARBIDOPA/LEVODOPA ER 50-200 MG TABLET.SA PO SCH (21:29)
[2017-07-21] MEDS: CEFTRIAXONE 1 GM/D5W RTU 1 GM/50 ML RTUPB IV SCH (06:09)
[2017-07-21] MEDS: PRAMIPEXOLE DI-HCL 0.5 MG TABLET PO SCH ×3 (06:10→21:45)
[2017-07-21] MEDS: HYDROCODONE/ACETAMINOPHEN 5-325 MG TABLET PO PRN ×2 (06:10→23:47)
[2017-07-21] MEDS: LANSOPRAZOLE 30 MG TAB.RAP.DR PO SCH (06:10)
[2017-07-21 07:02] LABS: ABSOLUTE EOSINOPHILS # (AUTO) 0.1 10^3/uL (0.0-0.6); ABSOLUTE LYMPHOCYTES (AUTO) 0.8 10^3/uL (0.5-4.7); ABSOLUTE MONOCYTES (AUTO) 0.6 10^3/uL (0.1-1.4); ABSOLUTE NEUT (AUTO) 2.5 10^3/uL (1.7-8.2); BASOPHILS % (AUTO) 0.5 % (0-2); EOSINOPHILS % (AUTO) 3.1 % (0-6); HEMATOCRIT 27.9 % (36.0-47.0); HEMOGLOBIN 9.2 g/dL (12.0-15.5); HGB HCT DIFFERENCE -0.3; LYMPHOCYTES % (AUTO) 19.3 % (13-45); MEAN CORPUSCULAR HEMOGLOBIN 28.9 pg (27.0-33.4); MEAN CORPUSCULAR HGB CONC 32.9 g/dL (32.0-36.0); MEAN CORPUSCULAR VOLUME 88 fl (80-97); MONOCYTES % (AUTO) 15.3 % (3-13); RED BLOOD COUNT 3.16 10^6/uL (3.72-5.28); SEGMENTED NEUTROPHILS % (AUTO) 61.8 % (42-78)
[2017-07-21 07:32] LABS: ALANINE AMINOTRANSFERASE 32 U/L (9-52); ALKALINE PHOSPHATASE 70 U/L (38-126); ANION GAP 11 (5-19); ASPARTATE AMINO TRANSFERASE 32 U/L (14-36); BILIRUBIN,DIRECT 0.4 mg/dL (0.0-0.4); BILIRUBIN,TOTAL 0.4 mg/dL (0.2-1.3); BLOOD UREA NITROGEN 37 mg/dL (7-20); CALCIUM 8.3 mg/dL (8.4-10.2); CARBON DIOXIDE 35 mmol/L (22-30); CHLORIDE 96 mmol/L (98-107); CREATININE RESULT 0.96 mg/dL (0.52-1.25); GLUCOSE 208 mg/dL (75-110); SODIUM 142.1 mmol/L (137-145)
[2017-07-21] MEDS: INSULIN LISPRO 100 UNIT/ML 3 ML VIAL SUBCUT PRN ×3 (08:23→18:10)
[2017-07-21] MEDS: BUMETANIDE 1 MG TABLET PO SCH ×2 (10:07→21:45)
[2017-07-21] MEDS: ENOXAPARIN SODIUM INJ 30 MG/0.3 ML DISP.SYRIN SUBCUT SCH (10:07)
[2017-07-21] MEDS: CETIRIZINE 5 MG TABLET PO SCH (10:07)
[2017-07-21] MEDS: NITROGLYCERIN 15 MG (0.6 MG/1 HR) PATCH.TD24 TD SCH (10:08)
[2017-07-21] MEDS: POLYETHYLENE GLYCOL 3350 POWDER 17 GM/1 PACKET PO SCH (10:09)
[2017-07-21] MEDS: METOPROLOL SUCCINATE 25 MG TAB.SR.24H PO SCH (10:09)
[2017-07-21] MEDS: DOCUSATE SODIUM 100 MG CAPSULE PO SCH (10:09)
[2017-07-21] MEDS: POTASSIUM CHLORIDE 10 MEQ TABLET.SA PO SCH (10:11)
[2017-07-21] MEDS: METOLAZONE 2.5 MG TABLET PO SCH (10:11)
[2017-07-21] MEDS: INSULIN GLARGINE,HUM.REC.ANLOG 300 UNIT/3 ML INSULN.PEN SUBCUT SCH (10:11)
[2017-07-21] MEDS: AMLODIPINE BESYLATE 10 MG TABLET PO SCH (10:12)
[2017-07-21] MEDS: VANCOMYCIN HCL 1,250 MG in DEXTROSE 5%-WATER 250 ML IV SCH (12:00)
--- NOTE | 2017-07-21 12:40 | PDOC PROGRESS REPORT ---
Subjective Progress Note for:: 07/21/17 Subjective:: No fever or chills. No chest pain or difficulty with breathing. No nausea, vomiting, or abdominal pain. PO intake is fair. Poor participation in physical therapy session. Physical Exam Vital Signs: Temp Pulse Resp BP Pulse Ox 98.3 F 65 19 132/56 H 99 07/21/17 11:16 07/21/17 11:16 07/21/17 11:16 07/21/17 11:16 07/21/17 11:16 Intake & Output 07/20/17 07/21/17 07/22/17 06:59 06:59 06:59 Intake Total 930 1119 118 Output Total 1650 1775 300 Balance -302 -422 -182 Weight 134.4 kg 131.2 kg Physical Exam: General appearance: PRESENT: no acute distress, morbidly obese Head exam: PRESENT: atraumatic, normocephalic Eye exam: PRESENT: conjunctiva pink, EOMI. ABSENT: scleral icterus Mouth exam: PRESENT: moist, neck supple Teeth exam: PRESENT: poor dentition Respiratory exam: PRESENT: clear to auscultation carole, decreased breath sounds - reduced breath sound at lung bases Cardiovascular exam: PRESENT: RRR. ABSENT: diastolic murmur, rubs, systolic murmur Vascular exam: PRESENT: normal capillary refill. ABSENT: pallor GI/Abdominal exam: PRESENT: normal bowel sounds, soft. ABSENT: distended, guarding, mass, organomegaly, rebound, tenderness Extremities exam: PRESENT: pedal edema - comparatively improving. Musculoskeletal exam: PRESENT: deformity - related to multiple joints involvement with arthritis. Neurological exam: PRESENT: alert, awake Psychiatric exam: PRESENT: appropriate affect, normal mood. ABSENT: homicidal ideation, suicidal ideation Skin exam: PRESENT: dry, intact, warm. ABSENT: cyanosis, rash Results Laboratory Results: 07/21/17 06:02 07/21/17 06:02 07/21/17 07/21/17 06:02 06:02 WBC 4.0 RBC 3.16 L Hgb 9.2 L Hct 27.9 L MCV 88 MCH 28.9 MCHC 32.9 RDW 14.0 Plt Count 154 Seg Neutrophils % 61.8 Lymphocytes % 19.3 Monocytes % 15.3 H Eosinophils % 3.1 Basophils % 0.5 Absolute Neutrophils 2.5 Absolute Lymphocytes 0.8 Absolute Monocytes 0.6 Absolute Eosinophils 0.1 Absolute Basophils 0.0 Sodium 142.1 Potassium 5.0 Chloride 96 L Carbon Dioxide 35 H Anion Gap 11 BUN 37 H Creatinine 0.96 Est GFR ( Amer) > 60 Est GFR (Non-Af Amer) 56 L Glucose 208 H Calcium 8.3 L Total Bilirubin 0.4 AST 32 ALT 32 Alkaline Phosphatase 70 Total Protein 6.0 L Albumin 3.0 L 07/17/17 23:00 [place] Catheter Urine Culture - Final NO GROWTH 2 DAYS 07/15/17 07/15/17 07/17/17 05:50 05:50 11:15 Creatine Kinase 957 H CK-MB (CK-2) 2.44 Troponin I 0.063 NT-Pro-B Natriuret Pep 2970 H Impressions: Chest X-Ray 07/16/17 00:00 IMPRESSION: Cannot exclude a limited right middle lobe or lower lobe pneumonia. The appearance of the right lung base is improved Shoulder X-Ray 07/19/17 00:00 IMPRESSION: NO SIGNIFICANT RADIOGRAPHIC ABNORMALITY. Assessment & Plan - Diagnosis (1) Lobar pneumonia, unspecified organism Is this a current diagnosis for this admission?: Yes (2) Hypoxemia Is this a current diagnosis for this admission?: Yes (3) CHF (congestive heart failure) Qualifiers: Congestive heart failure type: systolic Congestive heart failure chronicity : acute on chronic Qualified Code(s): I50.23 - Acute on chronic systolic ( congestive) heart failure Is this a current diagnosis for this admission?: Yes (4) Acute kidney injury Is this a current diagnosis for this admission?: Yes (5) Diabetes mellitus Qualifiers: Diabetes mellitus type: type 2 Diabetes mellitus complication status: with unspecified complications Diabetes mellitus longterm insulin use: with roasterman use Qualified Code(s): E11.8 - Type 2 diabetes mellitus with unspecified complications; Z79.4 - termite control servicer (current) use of insulin; Z79.4 - termite control servicer ( current) use of insulin; Z79.4 - termite control servicer (current) use of insulin; Z79.4 - termite control servicer (current) use of insulin Is this a current diagnosis for this admission?: Yes (6) HTN (hypertension) Qualifiers: Hypertension type: essential hypertension Qualified Code(s): I10 - Essential (primary) hypertension Is this a current diagnosis for this admission?: Yes (7) HLD (hyperlipidemia) Qualifiers: Hyperlipidemia type: pure hypercholesterolemia Qualified Code(s): E78.00 - Pure hypercholesterolemia, unspecified; E78.0 - Pure hypercholesterolemia Is this a current diagnosis for this admission?: Yes (8) Morbid obesity with BMI of 50.0-59.9, adult Is this a current diagnosis for this admission?: Yes (9) Anemia of chronic disease Is this a current diagnosis for this admission?: Yes (10) Abnormal urine findings Is this a current diagnosis for this admission?: Yes (11) Constipation Qualifiers: Constipation type: slow transit constipation Qualified Code(s): K59.01 - Slow transit constipation Is this a current diagnosis for this admission?: Yes (12) Chronic pain syndrome Is this a current diagnosis for this admission?: Yes - Time Time Spent with patient: 25-34 minutes Medications reviewed and adjusted accordingly: Yes Anticipated discharge: SNF Within: Other - Inpatient Certification Based on my medical assessment, after consideration of the patient's comorbidities, presenting symptoms, or acuity I expect that the services needed warrant INPATIENT care.: Yes I certify that my determination is in accordance with my understanding of Medicare's requirements for reasonable and necessary INPATIENT services [42 CFR 412.3e].: Yes Medical Necessity: Need Close Monitoring Due to Risk of Patient Decompensation, Need For IV Fluids, Need For Continuous Telemetry Monitoring, Need for IV Antibiotics, Risk of Complication if Not Cared For in Hospital Post Hospital Care: D/C or Transfer Summary - Plan Summary Plan Summary: D/C IV Vancomycin therapy. Continue all other current mediation management. Encouraged participation in physical and occupational therapy.
[2017-07-21] MEDS: ATORVASTATIN CALCIUM 40 MG TABLET PO SCH (21:44)
[2017-07-21] MEDS: CARBIDOPA/LEVODOPA ER 50-200 MG TABLET.SA PO SCH (21:44)
[2017-07-21] MEDS: FLUCONAZOLE 200 MG/NS RTU 100 ML IV SCH (21:47)
[2017-07-22] MEDS: LANSOPRAZOLE 30 MG TAB.RAP.DR PO SCH (06:36)
[2017-07-22] MEDS: PRAMIPEXOLE DI-HCL 0.5 MG TABLET PO SCH ×3 (06:36→22:28)
[2017-07-22] MEDS: ENOXAPARIN SODIUM INJ 30 MG/0.3 ML DISP.SYRIN SUBCUT SCH (10:00)
[2017-07-22] MEDS: DOCUSATE SODIUM 100 MG CAPSULE PO SCH (10:01)
[2017-07-22] MEDS: AMLODIPINE BESYLATE 10 MG TABLET PO SCH (10:01)
[2017-07-22] MEDS: METOPROLOL SUCCINATE 25 MG TAB.SR.24H PO SCH (10:02)
[2017-07-22] MEDS: NITROGLYCERIN 15 MG (0.6 MG/1 HR) PATCH.TD24 TD SCH (10:03)
[2017-07-22] MEDS: POTASSIUM CHLORIDE 10 MEQ TABLET.SA PO SCH (10:04)
[2017-07-22] MEDS: POLYETHYLENE GLYCOL 3350 POWDER 17 GM/1 PACKET PO SCH (10:04)
[2017-07-22] MEDS: BUMETANIDE 1 MG TABLET PO SCH ×2 (10:04→22:27)
[2017-07-22] MEDS: CETIRIZINE 5 MG TABLET PO SCH (10:04)
[2017-07-22] MEDS: INSULIN GLARGINE,HUM.REC.ANLOG 300 UNIT/3 ML INSULN.PEN SUBCUT SCH (10:07)
[2017-07-22] MEDS: INSULIN LISPRO 100 UNIT/ML 3 ML VIAL SUBCUT PRN (12:20)
--- NOTE | 2017-07-22 18:44 | PDOC PROGRESS REPORT ---
Subjective Subjective:: Patient is more verbally engaging today. No chest pain or difficulty with breathing. No fever or chills. No abdominal pain, nausea, or vomiting. P.O intake is fair. Poor participation in physical therapy session with need for 2 or more people assistance to stand up. Daughter at bedside reported similar situation at home for several months. Physical Exam Vital Signs: Temp Pulse Resp BP Pulse Ox 98.8 F 83 18 138/62 H 96 07/22/17 15:06 07/22/17 18:07 07/22/17 18:07 07/22/17 15:06 07/22/17 18:07 Intake & Output 07/21/17 07/22/17 07/23/17 06:59 06:59 06:59 Intake Total 1119 1692 250 Output Total 1775 1200 500 Balance -656 492 -250 Weight 131.2 kg Physical Exam: General appearance: PRESENT: no acute distress, morbidly obese Head exam: PRESENT: atraumatic, normocephalic Eye exam: PRESENT: conjunctiva pink, EOMI. ABSENT: scleral icterus Mouth exam: PRESENT: moist, neck supple Teeth exam: PRESENT: poor dentition Respiratory exam: PRESENT: clear to auscultation carole, decreased breath sounds - reduced breath sound at lung bases Cardiovascular exam: PRESENT: RRR. ABSENT: diastolic murmur, rubs, systolic murmur Vascular exam: PRESENT: normal capillary refill. ABSENT: pallor GI/Abdominal exam: PRESENT: normal bowel sounds, soft. ABSENT: distended, guarding, mass, organomegaly, rebound, tenderness Extremities exam: PRESENT: pedal edema - comparatively improving. Musculoskeletal exam: PRESENT: deformity - related to multiple joints involvement with arthritis. Neurological exam: PRESENT: alert, awake Psychiatric exam: PRESENT: appropriate affect, normal mood. ABSENT: homicidal ideation, suicidal ideation Skin exam: PRESENT: dry, intact, warm. ABSENT: cyanosis, rash Results Laboratory Results: 07/21/17 06:02 07/21/17 06:02 07/16/17 13:32 Blood Blood Culture - Final NO GROWTH IN 5 DAYS 07/15/17 07/15/17 07/17/17 05:50 05:50 11:15 Creatine Kinase 957 H CK-MB (CK-2) 2.44 Troponin I 0.063 NT-Pro-B Natriuret Pep 2970 H Impressions: Chest X-Ray 07/16/17 00:00 IMPRESSION: Cannot exclude a limited right middle lobe or lower lobe pneumonia. The appearance of the right lung base is improved Shoulder X-Ray 07/19/17 00:00 IMPRESSION: NO SIGNIFICANT RADIOGRAPHIC ABNORMALITY. Assessment & Plan - Diagnosis (1) Lobar pneumonia, unspecified organism Is this a current diagnosis for this admission?: Yes (2) Hypoxemia Is this a current diagnosis for this admission?: Yes (3) CHF (congestive heart failure) Qualifiers: Congestive heart failure type: systolic Congestive heart failure chronicity : acute on chronic Qualified Code(s): I50.23 - Acute on chronic systolic ( congestive) heart failure Is this a current diagnosis for this admission?: Yes (4) Acute kidney injury Is this a current diagnosis for this admission?: Yes (5) Diabetes mellitus Qualifiers: Diabetes mellitus type: type 2 Diabetes mellitus complication status: with unspecified complications Diabetes mellitus chinese herbalist insulin use: with shelter use Qualified Code(s): E11.8 - Type 2 diabetes mellitus with unspecified complications; Z79.4 - offline cutter (current) use of insulin; Z79.4 - offline cutter ( current) use of insulin; Z79.4 - shelter (current) use of insulin; Z79.4 - shelter (current) use of insulin Is this a current diagnosis for this admission?: Yes (6) HTN (hypertension) Qualifiers: Hypertension type: essential hypertension Qualified Code(s): I10 - Essential (primary) hypertension Is this a current diagnosis for this admission?: Yes (7) HLD (hyperlipidemia) Qualifiers: Hyperlipidemia type: pure hypercholesterolemia Qualified Code(s): E78.00 - Pure hypercholesterolemia, unspecified; E78.0 - Pure hypercholesterolemia Is this a current diagnosis for this admission?: Yes (8) Morbid obesity with BMI of 50.0-59.9, adult Is this a current diagnosis for this admission?: Yes (9) Anemia of chronic disease Is this a current diagnosis for this admission?: Yes (10) Abnormal urine findings Is this a current diagnosis for this admission?: Yes (11) Constipation Qualifiers: Constipation type: slow transit constipation Qualified Code(s): K59.01 - Slow transit constipation Is this a current diagnosis for this admission?: Yes (12) Chronic pain syndrome Is this a current diagnosis for this admission?: Yes - Time Time Spent with patient: 25-34 minutes Medications reviewed and adjusted accordingly: Yes Anticipated discharge: SNF Within: Other - Inpatient Certification Based on my medical assessment, after consideration of the patient's comorbidities, presenting symptoms, or acuity I expect that the services needed warrant INPATIENT care.: Yes I certify that my determination is in accordance with my understanding of Medicare's requirements for reasonable and necessary INPATIENT services [42 CFR 412.3e].: Yes Medical Necessity: Need Close Monitoring Due to Risk of Patient Decompensation, Need For IV Fluids, Need For Continuous Telemetry Monitoring, Need for IV Antibiotics - Antifungal infusion., Risk of Complication if Not Cared For in Hospital Post Hospital Care: D/C or Transfer Summary - Plan Summary Plan Summary: See attending physician orders.
[2017-07-22] MEDS: FLUCONAZOLE 200 MG/NS RTU 100 ML IV SCH (22:24)
[2017-07-22] MEDS: ATORVASTATIN CALCIUM 40 MG TABLET PO SCH (22:29)
[2017-07-22] MEDS: CARBIDOPA/LEVODOPA ER 50-200 MG TABLET.SA PO SCH (22:29)
[2017-07-22] MEDS: HYDROCODONE/ACETAMINOPHEN 5-325 MG TABLET PO PRN (23:05)
[2017-07-23] MEDS: PRAMIPEXOLE DI-HCL 0.5 MG TABLET PO SCH ×3 (06:13→22:40)
[2017-07-23] MEDS: LANSOPRAZOLE 30 MG TAB.RAP.DR PO SCH (06:13)
[2017-07-23] MEDS: INSULIN LISPRO 100 UNIT/ML 3 ML VIAL SUBCUT PRN ×3 (09:46→23:43)
[2017-07-23] MEDS: ENOXAPARIN SODIUM INJ 30 MG/0.3 ML DISP.SYRIN SUBCUT SCH (09:48)
[2017-07-23] MEDS ORDERED: INSULIN GLARGINE,HUM.REC.ANLOG 300 UNIT/3 ML INSULN.PEN SUBCUT SCH (10:00)
[2017-07-23] MEDS: NITROGLYCERIN 15 MG (0.6 MG/1 HR) PATCH.TD24 TD SCH (10:24)
[2017-07-23] MEDS: POTASSIUM CHLORIDE 10 MEQ TABLET.SA PO SCH (10:26)
[2017-07-23] MEDS: METOLAZONE 2.5 MG TABLET PO SCH (10:26)
[2017-07-23] MEDS: AMLODIPINE BESYLATE 10 MG TABLET PO SCH (10:26)
[2017-07-23] MEDS: CETIRIZINE 5 MG TABLET PO SCH (10:27)
[2017-07-23] MEDS: METOPROLOL SUCCINATE 25 MG TAB.SR.24H PO SCH (10:27)
[2017-07-23] MEDS: BUMETANIDE 1 MG TABLET PO SCH ×2 (10:27→22:40)
[2017-07-23] MEDS: DOCUSATE SODIUM 100 MG CAPSULE PO SCH (10:27)
[2017-07-23] MEDS: POLYETHYLENE GLYCOL 3350 POWDER 17 GM/1 PACKET PO SCH (10:31)
--- NOTE | 2017-07-23 20:10 | PDOC PROGRESS REPORT ---
Subjective Progress Note for:: 07/23/17 Subjective:: Patient denied any chest pain or difficulty with breathing. No fever or chills. No abdominal pain, nausea, or vomiting. P.O intake improving. Reported participation in physical therapy session today. Physical Exam Vital Signs: Temp Pulse Resp BP Pulse Ox 98.6 F 55 L 16 150/56 H 99 07/23/17 15:26 07/23/17 15:26 07/23/17 15:26 07/23/17 15:26 07/23/17 15:26 Intake & Output 07/22/17 07/23/17 07/24/17 06:59 06:59 06:59 Intake Total 1692 760 310 Output Total 1200 950 950 Balance 167 -692 -452 Weight 133.4 kg Physical Exam: General appearance: PRESENT: no acute distress, morbidly obese Head exam: PRESENT: atraumatic, normocephalic Eye exam: PRESENT: conjunctiva pink, EOMI. ABSENT: scleral icterus Mouth exam: PRESENT: moist, neck supple Teeth exam: PRESENT: poor dentition Respiratory exam: PRESENT: clear to auscultation carole, decreased breath sounds - reduced breath sound at lung bases Cardiovascular exam: PRESENT: RRR. ABSENT: diastolic murmur, rubs, systolic murmur Vascular exam: PRESENT: normal capillary refill. ABSENT: pallor GI/Abdominal exam: PRESENT: normal bowel sounds, soft. ABSENT: distended, guarding, mass, organomegaly, rebound, tenderness Extremities exam: PRESENT: pedal edema - comparatively improving. Musculoskeletal exam: PRESENT: deformity - related to multiple joints involvement with arthritis. Neurological exam: PRESENT: alert, awake Psychiatric exam: PRESENT: appropriate affect, normal mood. ABSENT: homicidal ideation, suicidal ideation Skin exam: PRESENT: dry, intact, warm. ABSENT: cyanosis, rash Results Laboratory Results: 07/21/17 06:02 07/21/17 06:02 07/15/17 07/15/17 07/17/17 05:50 05:50 11:15 Creatine Kinase 957 H CK-MB (CK-2) 2.44 Troponin I 0.063 NT-Pro-B Natriuret Pep 2970 H Impressions: Chest X-Ray 07/16/17 00:00 IMPRESSION: Cannot exclude a limited right middle lobe or lower lobe pneumonia. The appearance of the right lung base is improved Shoulder X-Ray 07/19/17 00:00 IMPRESSION: NO SIGNIFICANT RADIOGRAPHIC ABNORMALITY. Assessment & Plan - Diagnosis (1) Lobar pneumonia, unspecified organism Is this a current diagnosis for this admission?: Yes (2) Hypoxemia Is this a current diagnosis for this admission?: Yes (3) CHF (congestive heart failure) Qualifiers: Congestive heart failure type: systolic Congestive heart failure chronicity : acute on chronic Qualified Code(s): I50.23 - Acute on chronic systolic ( congestive) heart failure Is this a current diagnosis for this admission?: Yes (4) Acute kidney injury Is this a current diagnosis for this admission?: Yes (5) Diabetes mellitus Qualifiers: Diabetes mellitus type: type 2 Diabetes mellitus complication status: with unspecified complications Diabetes mellitus assistant terminal manager insulin use: with assistant terminal manager use Qualified Code(s): E11.8 - Type 2 diabetes mellitus with unspecified complications; Z79.4 - [facility] (current) use of insulin; Z79.4 - [facility] ( current) use of insulin; Z79.4 - long term care social worker (current) use of insulin; Z79.4 - [facility] (current) use of insulin Is this a current diagnosis for this admission?: Yes (6) HTN (hypertension) Qualifiers: Hypertension type: essential hypertension Qualified Code(s): I10 - Essential (primary) hypertension Is this a current diagnosis for this admission?: Yes (7) HLD (hyperlipidemia) Qualifiers: Hyperlipidemia type: pure hypercholesterolemia Qualified Code(s): E78.00 - Pure hypercholesterolemia, unspecified; E78.0 - Pure hypercholesterolemia Is this a current diagnosis for this admission?: Yes (8) Morbid obesity with BMI of 50.0-59.9, adult Is this a current diagnosis for this admission?: Yes (9) Anemia of chronic disease Is this a current diagnosis for this admission?: Yes (10) Abnormal urine findings Is this a current diagnosis for this admission?: Yes (11) Constipation Qualifiers: Constipation type: slow transit constipation Qualified Code(s): K59.01 - Slow transit constipation Is this a current diagnosis for this admission?: Yes (12) Chronic pain syndrome Is this a current diagnosis for this admission?: Yes - Time Time Spent with patient: 25-34 minutes Medications reviewed and adjusted accordingly: Yes Anticipated discharge: SNF Within: Other - Inpatient Certification Based on my medical assessment, after consideration of the patient's comorbidities, presenting symptoms, or acuity I expect that the services needed warrant INPATIENT care.: Yes I certify that my determination is in accordance with my understanding of Medicare's requirements for reasonable and necessary INPATIENT services [42 CFR 412.3e].: Yes Medical Necessity: Need Close Monitoring Due to Risk of Patient Decompensation, Need For Continuous Telemetry Monitoring, Need for IV Antibiotics, Risk of Complication if Not Cared For in Hospital Post Hospital Care: D/C or Transfer Summary - Plan Summary Plan Summary: I will increase her Lantus insulin to 50 units. She will continue on all other current medication management. Continue efforts at SNF placement for short term rehabilitation when medically stable. see attending physician orders.
[2017-07-23] MEDS: CARBIDOPA/LEVODOPA ER 50-200 MG TABLET.SA PO SCH (22:40)
[2017-07-23] MEDS: FLUCONAZOLE 200 MG/NS RTU 100 ML IV SCH (22:40)
[2017-07-23] MEDS: ATORVASTATIN CALCIUM 40 MG TABLET PO SCH (22:40)
[2017-07-24 05:23] LABS: ABSOLUTE EOSINOPHILS # (AUTO) 0.2 10^3/uL (0.0-0.6); ABSOLUTE LYMPHOCYTES (AUTO) 0.8 10^3/uL (0.5-4.7); ABSOLUTE MONOCYTES (AUTO) 0.9 10^3/uL (0.1-1.4); ABSOLUTE NEUT (AUTO) 4.4 10^3/uL (1.7-8.2); BASOPHILS % (AUTO) 0.7 % (0-2); EOSINOPHILS % (AUTO) 2.4 % (0-6); HEMATOCRIT 27.7 % (36.0-47.0); HEMOGLOBIN 9.2 g/dL (12.0-15.5); HGB HCT DIFFERENCE -0.1; LYMPHOCYTES % (AUTO) 13.2 % (13-45); MEAN CORPUSCULAR HEMOGLOBIN 29.2 pg (27.0-33.4); MEAN CORPUSCULAR HGB CONC 33.2 g/dL (32.0-36.0); MEAN CORPUSCULAR VOLUME 88 fl (80-97); MONOCYTES % (AUTO) 14.4 % (3-13); RED BLOOD COUNT 3.15 10^6/uL (3.72-5.28); RED CELL DISTRIBUTION WIDTH 14.3 % (11.5-14.0); SEGMENTED NEUTROPHILS % (AUTO) 69.3 % (42-78); WHITE BLOOD COUNT 6.4 10^3/uL (4.0-10.5)
[2017-07-24] MEDS: LANSOPRAZOLE 30 MG TAB.RAP.DR PO SCH (05:36)
[2017-07-24] MEDS: PRAMIPEXOLE DI-HCL 0.5 MG TABLET PO SCH ×3 (05:36→22:14)
[2017-07-24 05:53] LABS: BLOOD UREA NITROGEN 59 mg/dL (7-20); CALCIUM 8.5 mg/dL (8.4-10.2); CHLORIDE 97 mmol/L (98-107); CREATININE RESULT 1.56 mg/dL (0.52-1.25); GLUCOSE 192 mg/dL (75-110); POTASSIUM 5.6 mmol/L (3.6-5.0); SODIUM 143.7 mmol/L (137-145)
[2017-07-24 06:00] LABS: ANION GAP 8 (5-19)
[2017-07-24 06:03] LABS: CARBON DIOXIDE 39 mmol/L (22-30)
[2017-07-24] MEDS ORDERED: POTASSI CL 20 MEQ/D5-1/2NS 1L 1000 ML IV PRN (07:34)
[2017-07-24] MEDS: INSULIN LISPRO 100 UNIT/ML 3 ML VIAL SUBCUT PRN ×4 (08:43→23:39)
--- NOTE | 2017-07-24 09:00 | PDOC PROGRESS REPORT ---
Subjective Progress Note for:: 07/24/17 Subjective:: Patient is currently doing fair Is and was admitted because of the pneumonia heart failure and multiple other comorbidity Patient's denied any chest pain denied any shortness of the breath Since potassium is 5.6 Physical Exam Vital Signs: Temp Pulse Resp BP Pulse Ox 98.7 F 58 L 18 127/58 H 99 07/24/17 07:18 07/24/17 07:18 07/24/17 07:18 07/24/17 07:18 07/24/17 07:18 Intake & Output 07/23/17 07/24/17 07/25/17 06:59 06:59 06:59 Intake Total 760 1841 Output Total 950 1700 Balance -190 141 Weight 133.4 kg 133.2 kg General appearance: PRESENT: no acute distress, well-developed, well-nourished Head exam: PRESENT: atraumatic, normocephalic Eye exam: PRESENT: conjunctiva pink, EOMI, PERRLA. ABSENT: scleral icterus Ear exam: PRESENT: normal external ear exam Mouth exam: PRESENT: moist, tongue midline Neck exam: PRESENT: full ROM. ABSENT: carotid bruit, JVD, lymphadenopathy, thyromegaly Respiratory exam: PRESENT: decreased breath sounds Cardiovascular exam: PRESENT: RRR. ABSENT: diastolic murmur, rubs, systolic murmur Pulses: PRESENT: normal dorsalis pedis pul, +2 pedal pulses bilateral Vascular exam: PRESENT: normal capillary refill GI/Abdominal exam: PRESENT: normal bowel sounds, soft. ABSENT: distended, guarding, mass, organolmegaly, rebound, tenderness Rectal exam: PRESENT: deferred Extremities exam: PRESENT: pedal edema Neurological exam: PRESENT: alert, awake, oriented to person, oriented to place. ABSENT: motor sensory deficit Psychiatric exam: PRESENT: appropriate affect, normal mood. ABSENT: homicidal ideation, suicidal ideation Skin exam: PRESENT: dry, intact, warm. ABSENT: cyanosis, rash Results Laboratory Results: 07/24/17 04:56 07/24/17 04:56 07/24/17 07/24/17 04:56 04:56 WBC 6.4 RBC 3.15 L Hgb 9.2 L Hct 27.7 L MCV 88 MCH 29.2 MCHC 33.2 RDW 14.3 H Plt Count 188 Seg Neutrophils % 69.3 Lymphocytes % 13.2 Monocytes % 14.4 H Eosinophils % 2.4 Basophils % 0.7 Absolute Neutrophils 4.4 Absolute Lymphocytes 0.8 Absolute Monocytes 0.9 Absolute Eosinophils 0.2 Absolute Basophils 0.0 Sodium 143.7 Potassium 5.6 H Chloride 97 L Carbon Dioxide 39 H Anion Gap 8 BUN 59 H Creatinine 1.56 H Est GFR ( Amer) 39 L Est GFR (Non-Af Amer) 32 L Glucose 192 H Calcium 8.5 07/15/17 07/15/17 07/17/17 05:50 05:50 11:15 Creatine Kinase 957 H CK-MB (CK-2) 2.44 Troponin I 0.063 NT-Pro-B Natriuret Pep 2970 H Impressions: Chest X-Ray 07/16/17 00:00 IMPRESSION: Cannot exclude a limited right middle lobe or lower lobe pneumonia. The appearance of the right lung base is improved Shoulder X-Ray 07/19/17 00:00 IMPRESSION: NO SIGNIFICANT RADIOGRAPHIC ABNORMALITY. Assessment & Plan - Diagnosis (1) CHF (congestive heart failure) Qualifiers: Congestive heart failure type: systolic Congestive heart failure chronicity : acute on chronic Qualified Code(s): I50.23 - Acute on chronic systolic ( congestive) heart failure Is this a current diagnosis for this admission?: Yes Plan: Continues to Bumex and other medications currently stable we will get the chest x-ray today (2) Lobar pneumonia, unspecified organism Is this a current diagnosis for this admission?: Yes Plan: Patient's currently having no antibiotic white count is normal will get the chest x-ray (3) Acute kidney injury Is this a current diagnosis for this admission?: Yes Plan: Will currently hold the potassiums and give her Kayexalate (4) HTN (hypertension) Qualifiers: Hypertension type: essential hypertension Qualified Code(s): I10 - Essential (primary) hypertension Is this a current diagnosis for this admission?: Yes Plan: Currently stable (5) Anemia of chronic disease Is this a current diagnosis for this admission?: Yes Plan: Consider to give a Procrit injections (6) Chronic pain syndrome Is this a current diagnosis for this admission?: Yes Plan: Continues to current medications (7) Constipation Qualifiers: Constipation type: slow transit constipation Qualified Code(s): K59.01 - Slow transit constipation Is this a current diagnosis for this admission?: Yes Plan: Since we will give her Kayexalate today - Time Time Spent with patient: 15-24 minutes Medications reviewed and adjusted accordingly: Yes Anticipated discharge: Other Within: Other - Inpatient Certification Medical Necessity: Need Close Monitoring Due to Risk of Patient Decompensation Post Hospital Care: D/C Cam Milling Machine Operator Documentation - Plan Summary Plan Summary: Cardiac the potassiums today continues to current medications part of the chest x-ray
--- NOTE | 2017-07-24 09:20 | RADIOLOGY REPORT (SQ) ---
EXAM DESCRIPTION: CHEST SINGLE VIEW COMPLETED DATE/TIME: 07/24/2017 9:12 am REASON FOR STUDY: pnemonia COMPARISON: 07/14/2017 EXAM PARAMETERS: NUMBER OF VIEWS: One view. TECHNIQUE: Single frontal radiographic view of the chest acquired. RADIATION DOSE: NA LIMITATIONS: None. FINDINGS: LUNGS AND PLEURA: Clearing of the opacities. No significant parenchymal findings. MEDIASTINUM AND HILAR STRUCTURES: No masses. Contour normal. HEART AND VASCULAR STRUCTURES: Heart enlarged with normal vascularity. BONES: No acute findings. HARDWARE: None in the chest. OTHER: No other significant finding. IMPRESSION: Cardiac enlargement. Clearing of the parenchymal opacities. TECHNICAL DOCUMENTATION: JOB ID: [id number] [employer]- All Rights Reserved
[2017-07-24] MEDS ORDERED: SODIUM POLYSTYRENE SULFONATE 15 GM/60 ML PO ONE ×2 (09:40→18:00)
[2017-07-24] MEDS: POLYETHYLENE GLYCOL 3350 POWDER 17 GM/1 PACKET PO SCH (10:08)
[2017-07-24] MEDS: DOCUSATE SODIUM 100 MG CAPSULE PO SCH (10:08)
[2017-07-24] MEDS: AMLODIPINE BESYLATE 10 MG TABLET PO SCH (10:08)
[2017-07-24] MEDS: BUMETANIDE 1 MG TABLET PO SCH ×2 (10:09→22:13)
[2017-07-24] MEDS: CETIRIZINE 5 MG TABLET PO SCH (10:10)
[2017-07-24] MEDS: NITROGLYCERIN 15 MG (0.6 MG/1 HR) PATCH.TD24 TD SCH (10:11)
[2017-07-24] MEDS: ENOXAPARIN SODIUM INJ 30 MG/0.3 ML DISP.SYRIN SUBCUT SCH (10:13)
[2017-07-24] MEDS: METOPROLOL SUCCINATE 25 MG TAB.SR.24H PO SCH (10:19)
[2017-07-24] MEDS: INSULIN GLARGINE,HUM.REC.ANLOG 300 UNIT/3 ML INSULN.PEN SUBCUT SCH (11:04)
[2017-07-24] MEDS: ATORVASTATIN CALCIUM 40 MG TABLET PO SCH (22:13)
[2017-07-25] MEDS: CARBIDOPA/LEVODOPA ER 50-200 MG TABLET.SA PO SCH ×2 (02:48→21:56)
[2017-07-25] MEDS: PRAMIPEXOLE DI-HCL 0.5 MG TABLET PO SCH ×3 (05:27→21:55)
[2017-07-25] MEDS: LANSOPRAZOLE 30 MG TAB.RAP.DR PO SCH (05:27)
[2017-07-25 05:54] LABS: ABSOLUTE EOSINOPHILS # (AUTO) 0.1 10^3/uL (0.0-0.6); ABSOLUTE LYMPHOCYTES (AUTO) 1.2 10^3/uL (0.5-4.7); ABSOLUTE MONOCYTES (AUTO) 0.8 10^3/uL (0.1-1.4); ABSOLUTE NEUT (AUTO) 3.8 10^3/uL (1.7-8.2); BASOPHILS % (AUTO) 0.8 % (0-2); EOSINOPHILS % (AUTO) 2.1 % (0-6); HEMATOCRIT 27.7 % (36.0-47.0); HEMOGLOBIN 9.1 g/dL (12.0-15.5); HGB HCT DIFFERENCE -0.4; LYMPHOCYTES % (AUTO) 20.3 % (13-45); MEAN CORPUSCULAR HEMOGLOBIN 28.9 pg (27.0-33.4); MEAN CORPUSCULAR HGB CONC 32.8 g/dL (32.0-36.0); MEAN CORPUSCULAR VOLUME 88 fl (80-97); MONOCYTES % (AUTO) 13.5 % (3-13); RED BLOOD COUNT 3.15 10^6/uL (3.72-5.28); RED CELL DISTRIBUTION WIDTH 14.4 % (11.5-14.0); SEGMENTED NEUTROPHILS % (AUTO) 63.3 % (42-78); WHITE BLOOD COUNT 5.9 10^3/uL (4.0-10.5)
[2017-07-25 06:12] LABS: BLOOD UREA NITROGEN 59 mg/dL (7-20); CALCIUM 8.7 mg/dL (8.4-10.2); CHLORIDE 97 mmol/L (98-107); GLUCOSE 145 mg/dL (75-110); POTASSIUM 5.4 mmol/L (3.6-5.0); SODIUM 146.8 mmol/L (137-145)
[2017-07-25 06:23] LABS: ANION GAP 9 (5-19)
[2017-07-25 06:24] LABS: CARBON DIOXIDE 41 mmol/L (22-30)
--- NOTE | 2017-07-25 09:34 | PDOC PROGRESS REPORT ---
Subjective Progress Note for:: 07/25/17 Subjective:: She is currently doing fair Positive bowel movement She is denied any chest pain denied any shortness of the breath Physical Exam Vital Signs: Temp Pulse Resp BP Pulse Ox 99.0 F 63 21 H 138/47 H 99 07/25/17 07:56 07/25/17 07:56 07/25/17 07:56 07/25/17 07:56 07/25/17 07:56 Intake & Output 07/24/17 07/25/17 07/26/17 06:59 06:59 06:59 Intake Total 1841 833 Output Total 1700 1845 Balance 141 -1242 Weight 133.2 kg 130.3 kg General appearance: PRESENT: no acute distress Eye exam: PRESENT: PERRLA Mouth exam: PRESENT: neck supple Neck exam: ABSENT: carotid bruit, full ROM, JVD, lymphadenopathy, meningismus, tenderness, thyromegaly, tracheal deviation, tracheostomy, other Respiratory exam: PRESENT: clear to auscultation carole Cardiovascular exam: PRESENT: +S1, +S2 GI/Abdominal exam: PRESENT: normal bowel sounds, soft. ABSENT: tenderness Extremities exam: PRESENT: pedal edema Neurological exam: PRESENT: alert, awake, oriented to person, oriented to place Psychiatric exam: PRESENT: anxious Skin exam: PRESENT: dry Results Laboratory Results: 07/25/17 05:17 07/25/17 05:17 07/24/17 07/25/17 07/25/17 11:47 05:17 05:17 WBC 5.9 RBC 3.15 L Hgb 9.1 L Hct 27.7 L MCV 88 MCH 28.9 MCHC 32.8 RDW 14.4 H Plt Count 195 Seg Neutrophils % 63.3 Lymphocytes % 20.3 Monocytes % 13.5 H Eosinophils % 2.1 Basophils % 0.8 Absolute Neutrophils 3.8 Absolute Lymphocytes 1.2 Absolute Monocytes 0.8 Absolute Eosinophils 0.1 Absolute Basophils 0.0 Sodium 146.8 H Potassium 5.4 H 5.4 H Chloride 97 L Carbon Dioxide 41 H* Anion Gap 9 BUN 59 H Creatinine 1.20 Est GFR ( Amer) 52 L Est GFR (Non-Af Amer) 43 L Glucose 145 H Calcium 8.7 07/15/17 07/15/17 07/17/17 05:50 05:50 11:15 Creatine Kinase 957 H CK-MB (CK-2) 2.44 Troponin I 0.063 NT-Pro-B Natriuret Pep 2970 H Impressions: Shoulder X-Ray 07/19/17 00:00 IMPRESSION: NO SIGNIFICANT RADIOGRAPHIC ABNORMALITY. Chest X-Ray 07/24/17 00:00 IMPRESSION: Cardiac enlargement. Clearing of the parenchymal opacities. Assessment & Plan - Diagnosis (1) CHF (congestive heart failure) Qualifiers: Congestive heart failure type: systolic Congestive heart failure chronicity : acute on chronic Qualified Code(s): I50.23 - Acute on chronic systolic ( congestive) heart failure Is this a current diagnosis for this admission?: Yes Plan: Continues to Bumex and other medications currently stable we will get the chest x-ray today (2) Lobar pneumonia, unspecified organism Is this a current diagnosis for this admission?: Yes Plan: Patient's currently having no antibiotic white count is normal will get the chest x-ray (3) Acute kidney injury Is this a current diagnosis for this admission?: Yes Plan: Will currently hold the potassiums and give her Kayexalate (4) HTN (hypertension) Qualifiers: Hypertension type: essential hypertension Qualified Code(s): I10 - Essential (primary) hypertension Is this a current diagnosis for this admission?: Yes Plan: Currently stable (5) Anemia of chronic disease Is this a current diagnosis for this admission?: Yes Plan: Consider to give a Procrit injections (6) Chronic pain syndrome Is this a current diagnosis for this admission?: Yes Plan: Continues to current medications (7) Constipation Qualifiers: Constipation type: slow transit constipation Qualified Code(s): K59.01 - Slow transit constipation Is this a current diagnosis for this admission?: Yes - Time Time Spent with patient: 15-24 minutes Medications reviewed and adjusted accordingly: Yes Anticipated discharge: SNF Within: Other - Inpatient Certification Medical Necessity: Need Close Monitoring Due to Risk of Patient Decompensation Post Hospital Care: D/C Glass Smoother Documentation - Plan Summary Plan Summary: With the family and the bedside will correct the potassiums continues to current medications
[2017-07-25] MEDS: ENOXAPARIN SODIUM INJ 30 MG/0.3 ML DISP.SYRIN SUBCUT SCH (09:52)
[2017-07-25] MEDS: INSULIN GLARGINE,HUM.REC.ANLOG 300 UNIT/3 ML INSULN.PEN SUBCUT SCH (09:52)
[2017-07-25] MEDS: AMLODIPINE BESYLATE 10 MG TABLET PO SCH (09:53)
[2017-07-25] MEDS: BUMETANIDE 1 MG TABLET PO SCH ×2 (09:54→21:55)
[2017-07-25] MEDS: CETIRIZINE 5 MG TABLET PO SCH (09:55)
[2017-07-25] MEDS: DOCUSATE SODIUM 100 MG CAPSULE PO SCH (09:55)
[2017-07-25] MEDS: METOPROLOL SUCCINATE 25 MG TAB.SR.24H PO SCH (09:56)
[2017-07-25] MEDS: METOLAZONE 2.5 MG TABLET PO SCH (09:56)
[2017-07-25] MEDS: POLYETHYLENE GLYCOL 3350 POWDER 17 GM/1 PACKET PO SCH (09:56)
[2017-07-25] MEDS: NITROGLYCERIN 15 MG (0.6 MG/1 HR) PATCH.TD24 TD SCH (09:57)
[2017-07-25] MEDS: INSULIN LISPRO 100 UNIT/ML 3 ML VIAL SUBCUT PRN ×2 (12:58→18:03)
[2017-07-25 14:49] LABS: BLOOD UREA NITROGEN 52 mg/dL (7-20); CALCIUM 8.5 mg/dL (8.4-10.2); CHLORIDE 95 mmol/L (98-107); CREATININE RESULT 1.23 mg/dL (0.52-1.25); GLUCOSE 228 mg/dL (75-110); POTASSIUM 5.2 mmol/L (3.6-5.0); SODIUM 144.2 mmol/L (137-145)
[2017-07-25 14:56] LABS: ANION GAP 10 (5-19); CARBON DIOXIDE 39 mmol/L (22-30)
[2017-07-25] MEDS: ATORVASTATIN CALCIUM 40 MG TABLET PO SCH (21:56)
[2017-07-26 05:21] LABS: ABSOLUTE EOSINOPHILS # (AUTO) 0.1 10^3/uL (0.0-0.6); ABSOLUTE LYMPHOCYTES (AUTO) 0.9 10^3/uL (0.5-4.7); ABSOLUTE MONOCYTES (AUTO) 0.8 10^3/uL (0.1-1.4); ABSOLUTE NEUT (AUTO) 3.3 10^3/uL (1.7-8.2); BASOPHILS % (AUTO) 0.6 % (0-2); EOSINOPHILS % (AUTO) 2.4 % (0-6); HEMATOCRIT 26.2 % (36.0-47.0); HEMOGLOBIN 8.7 g/dL (12.0-15.5); HGB HCT DIFFERENCE -0.1; LYMPHOCYTES % (AUTO) 17.4 % (13-45); MEAN CORPUSCULAR HEMOGLOBIN 29.3 pg (27.0-33.4); MEAN CORPUSCULAR HGB CONC 33.2 g/dL (32.0-36.0); MEAN CORPUSCULAR VOLUME 88 fl (80-97); MONOCYTES % (AUTO) 14.9 % (3-13); RED BLOOD COUNT 2.97 10^6/uL (3.72-5.28); RED CELL DISTRIBUTION WIDTH 14.2 % (11.5-14.0); SEGMENTED NEUTROPHILS % (AUTO) 64.7 % (42-78); WHITE BLOOD COUNT 5.2 10^3/uL (4.0-10.5)
[2017-07-26 05:51] LABS: BLOOD UREA NITROGEN 59 mg/dL (7-20); CALCIUM 8.3 mg/dL (8.4-10.2); CHLORIDE 95 mmol/L (98-107); CREATININE RESULT 1.15 mg/dL (0.52-1.25); GLUCOSE 139 mg/dL (75-110); POTASSIUM 5.4 mmol/L (3.6-5.0); SODIUM 145.7 mmol/L (137-145)
[2017-07-26] MEDS: PRAMIPEXOLE DI-HCL 0.5 MG TABLET PO SCH ×3 (06:05→22:31)
[2017-07-26] MEDS: LANSOPRAZOLE 30 MG TAB.RAP.DR PO SCH (06:05)
[2017-07-26 06:23] LABS: ANION GAP 10 (5-19); CARBON DIOXIDE 41 mmol/L (22-30)
--- NOTE | 2017-07-26 09:32 | PDOC PROGRESS REPORT ---
Subjective Progress Note for:: 07/26/17 Subjective:: Patient is currently doing fair Since denied any chest pain denied any shortness of breath but still have a cough Patient's denied any abdominal pain no nausea no vomiting Physical Exam Vital Signs: Temp Pulse Resp BP Pulse Ox 97.6 F 61 20 132/50 H 98 07/26/17 08:55 07/26/17 08:55 07/26/17 08:55 07/26/17 08:55 07/26/17 08:55 Intake & Output 07/25/17 07/26/17 07/27/17 06:59 06:59 06:59 Intake Total 833 1050 Output Total 9568 1221 Balance -1242 -152 Weight 130.3 kg 131.5 kg General appearance: PRESENT: no acute distress Eye exam: PRESENT: PERRLA Mouth exam: PRESENT: dry mucosa Neck exam: ABSENT: JVD Respiratory exam: PRESENT: decreased breath sounds Cardiovascular exam: PRESENT: +S1, +S2 GI/Abdominal exam: PRESENT: normal bowel sounds, soft. ABSENT: tenderness Extremities exam: ABSENT: pedal edema Neurological exam: PRESENT: alert, awake, oriented to person Skin exam: PRESENT: dry Results Laboratory Results: 07/26/17 04:29 07/26/17 04:29 07/25/17 07/26/17 07/26/17 13:54 04:29 04:29 WBC 5.2 RBC 2.97 L Hgb 8.7 L Hct 26.2 L MCV 88 MCH 29.3 MCHC 33.2 RDW 14.2 H Plt Count 194 Seg Neutrophils % 64.7 Lymphocytes % 17.4 Monocytes % 14.9 H Eosinophils % 2.4 Basophils % 0.6 Absolute Neutrophils 3.3 Absolute Lymphocytes 0.9 Absolute Monocytes 0.8 Absolute Eosinophils 0.1 Absolute Basophils 0.0 Sodium 144.2 145.7 H Potassium 5.2 H 5.4 H Chloride 95 L 95 L Carbon Dioxide 39 H 41 H* Anion Gap 10 10 BUN 52 H 59 H Creatinine 1.23 1.15 Est GFR ( Amer) 51 L 55 L Est GFR (Non-Af Amer) 42 L 45 L Glucose 228 H 139 H Calcium 8.5 8.3 L 07/15/17 07/15/17 07/17/17 05:50 05:50 11:15 Creatine Kinase 957 H CK-MB (CK-2) 2.44 Troponin I 0.063 NT-Pro-B Natriuret Pep 2970 H Impressions: Shoulder X-Ray 07/19/17 00:00 IMPRESSION: NO SIGNIFICANT RADIOGRAPHIC ABNORMALITY. Chest X-Ray 07/24/17 00:00 IMPRESSION: Cardiac enlargement. Clearing of the parenchymal opacities. Assessment & Plan - Diagnosis (1) CHF (congestive heart failure) Qualifiers: Congestive heart failure type: systolic Congestive heart failure chronicity : acute on chronic Qualified Code(s): I50.23 - Acute on chronic systolic ( congestive) heart failure Is this a current diagnosis for this admission?: Yes Plan: Continues to Bumex and other medications currently stable we will get the chest x-ray today (2) Lobar pneumonia, unspecified organism Is this a current diagnosis for this admission?: Yes Plan: Patient's currently having no antibiotic white count is normal will get the chest x-ray (3) Acute kidney injury Is this a current diagnosis for this admission?: Yes Plan: Will currently hold the potassiums and give her Kayexalate (4) HTN (hypertension) Qualifiers: Hypertension type: essential hypertension Qualified Code(s): I10 - Essential (primary) hypertension Is this a current diagnosis for this admission?: Yes Plan: Currently stable (5) Anemia of chronic disease Is this a current diagnosis for this admission?: Yes Plan: Consider to give a Procrit injections (6) Chronic pain syndrome Is this a current diagnosis for this admission?: Yes Plan: Continues to current medications (7) Constipation Qualifiers: Constipation type: slow transit constipation Qualified Code(s): K59.01 - Slow transit constipation Is this a current diagnosis for this admission?: Yes Plan: Since we will give her Kayexalate today - Time Time Spent with patient: 15-24 minutes Medications reviewed and adjusted accordingly: Yes Anticipated discharge: Other Within: Other - Inpatient Certification Medical Necessity: Need Close Monitoring Due to Risk of Patient Decompensation Post Hospital Care: D/C Commercial Appraiser Documentation - Plan Summary Plan Summary: Continues to current medications Low potassium in diet Chest x-ray
[2017-07-26] MEDS: ENOXAPARIN SODIUM INJ 30 MG/0.3 ML DISP.SYRIN SUBCUT SCH (09:54)
[2017-07-26] MEDS: POLYETHYLENE GLYCOL 3350 POWDER 17 GM/1 PACKET PO SCH (09:55)
[2017-07-26] MEDS: INSULIN GLARGINE,HUM.REC.ANLOG 300 UNIT/3 ML INSULN.PEN SUBCUT SCH (09:55)
[2017-07-26] MEDS: DOCUSATE SODIUM 100 MG CAPSULE PO SCH (09:57)
[2017-07-26] MEDS: AMLODIPINE BESYLATE 10 MG TABLET PO SCH (09:57)
[2017-07-26] MEDS: METOPROLOL SUCCINATE 25 MG TAB.SR.24H PO SCH (09:57)
[2017-07-26] MEDS: CETIRIZINE 5 MG TABLET PO SCH (09:58)
[2017-07-26] MEDS: BUMETANIDE 1 MG TABLET PO SCH ×2 (09:59→22:29)
[2017-07-26] MEDS: NITROGLYCERIN 15 MG (0.6 MG/1 HR) PATCH.TD24 TD SCH (10:00)
[2017-07-26] MEDS ORDERED: SODIUM POLYSTYRENE SULFONATE 15 GM/60 ML PO ONE (10:00)
[2017-07-26] MEDS ORDERED: CEFUROXIME 500 MG TABLET PO SCH (10:00)
[2017-07-26 10:36] LABS: STAIN REACTIVITY CHECK ACCEPTABLE
[2017-07-26 10:39] LABS: MAGNESIUM 2.2 mg/dL (1.6-2.3)
--- NOTE | 2017-07-26 10:57 | RADIOLOGY REPORT (SQ) ---
EXAM DESCRIPTION: CT CHEST WITHOUT COMPLETED DATE/TIME: 07/26/2017 10:45 am REASON FOR STUDY: sob/hypoxia COMPARISON: 2011. Recent radiographs. TECHNIQUE: CT scan performed of the chest without intravenous contrast. Images reviewed with lung, soft tissue and bone windows. Reconstructed coronal and sagittal MPR images reviewed. All images st ored on PACS. All CT scanners at this facility use dose modulation, iterative reconstruction, and/or weight based d osing when appropriate to reduce radiation dose to as low as reasonably achievable (ALARA). [facility]: Dose Right [facility]: CareDose [facility]: Dose Right [facility]: Teradose 4D [facility]: [employer] RADIATION DOSE: CT Rad equipment meets quality standard of care and radiation dose reduction techniq ues were employed. CTDIvol: 30.0 mGy. DLP: 1118 mGy-cm. mGy. LIMITATIONS: Moderate limiting motion artifact. FINDINGS: LUNGS AND PLEURA: Patchy hazy ground-glass infiltrate may be present in the right upper lo be. Limiting motion. No consolidating pneumonia. Mild dependent changes in the lower lobes. No si gnificant pleural effusion. HILAR AND MEDIASTINAL STRUCTURES: Limited evaluation without contrast. No bulky mass or adenopathy. HEART AND VASCULAR STRUCTURES: Cardiac enlargement with moderate coronary calcification. No pericard ial effusion or evidence of aortic aneurysm. UPPER ABDOMEN: Chronic adrenal masses bilaterally consistent with adenomas. THYROID AND OTHER SOFT TISSUES: No masses. No adenopathy. BONES: No significant finding. HARDWARE: None in the chest. OTHER: No other significant findings. IMPRESSION: 1. Limiting motion. 2. Cardiomegaly. 3. Patchy right upper lobe infiltrate. TECHNICAL DOCUMENTATION: JOB ID: [id number] Quality ID # [id number]: Final reports with documentation of one or more dose reduction techniques (e.g., Au tomated exposure control, adjustment of the mA and/or kV according to patient size, use of iterative reconstruction technique) 2010 [employer]- All Rights Reserved
--- NOTE | 2017-07-26 11:09 | RADIOLOGY REPORT (SQ) ---
EXAM DESCRIPTION: CHEST SINGLE VIEW COMPLETED DATE/TIME: 07/26/2017 10:51 am REASON FOR STUDY: chf COMPARISON: 07/24/2017. NUMBER OF VIEWS: One view. TECHNIQUE: Single frontal radiographic view of the chest acquired. LIMITATIONS: None. FINDINGS: LUNGS AND PLEURA: No opacities, masses or pneumothorax. No pleural effusion. MEDIASTINUM AND HILAR STRUCTURES: No masses. Contour normal. HEART AND VASCULAR STRUCTURES: Heart enlarged without failure. Normal vasculature. BONES: No acute findings. HARDWARE: None in the chest. OTHER: No other significant finding. IMPRESSION: HEART ENLARGED WITHOUT FAILURE. NO OTHER SIGNIFICANT RADIOGRAPHIC FINDING IN THE CHEST. TECHNICAL DOCUMENTATION: JOB ID: [id number] [employer]- All Rights Reserved
[2017-07-26 11:25] LABS: ARTERIAL BLOOD BASE EXCESS 16.2 mmol/L; ARTERIAL BLOOD O2 SATURATION 96.5 % (94-98)
[2017-07-26] MEDS ORDERED: CEFEPIME 1 GM/D5W RTU 1 GM/50 ML RTUPB IV ONE (12:00)
[2017-07-26] MEDS: INSULIN LISPRO 100 UNIT/ML 3 ML VIAL SUBCUT PRN ×3 (12:40→23:19)
--- NOTE | 2017-07-26 15:36 | PDOC CONSULTATION ---
Consultation Consult Date: 07/26/17 Attending physician:: TORI DAVENPORT Consult reason:: Atrial flutter fibrillation History of Present Illness Admission Date/PCP: 07/14/17 08:37 ISATUGIFTY CHARLES Patient complains of: Shortness of breath History of Present Illness: BO BERMEO is a 82 year old female patient known to my practice presented to the ED via EM service due to difficulty with breathing. Her reported oxygen saturation on room air was in the 60's. She reported onset of productive cough about 10 days prior to presentation. There was associated intermittent fever, chest pain with coughing, and recent low blood glucose level on home accuchek monitor. She denied nausea, vomiting, abdominal pain, constipation or diarrhea. Her oral intake was less than usual but denied significant poor appetite. Her urine output was satisfactory without any symptom suggestive of ongoing infectious status. Her initial evaluation in the ED was remarkable for fever. Her morbidities include Coronary Artery Disease with old GA, Hypertension, Hypercholesterolemia, Diabetes Mellitus Type 2, Parkinson disease, GERD, Dry skin Dermatitis, TIA, and osteoarthritis. This history was reviewed and confirmed. On telemetry strips patient noted to be in atrial flutter fibrillation. I was therefore asked to evaluate this patient. On questioning patient denied any chest pain. She has chronic shortness of breath. She is currently wearing bilevel therapy. She denied any other discomfort. Patient's daughter is the surrogate decision-maker Past Medical History Cardiac Medical History: Reports: Coronary Artery Disease, Myocardial Infarction - Patient does not remember year, Hyperlipidema - Borderline, Hypertension Pulmonary Medical History: Reports: Bronchitis Denies: Asthma, Chronic Obstructive Pulmonary Disease (COPD), Pneumonia Neurological Medical History: Reports: Ischemic CVA, Other - Parkinsonism Denies: Seizures Endocrine Medical History: Reports: Diabetes Mellitus Type 1, Diabetes Mellitus Type 2 Malignancy Medical History: Reports: Breast Cancer GI Medical History: Denies: Hepatitis, Hiatal Hernia Musculoskeltal Medical History: Reports: Arthritis Skin Medical History: Reports: Other - Dry skin dermatitis Hematology: Reports: Anemia Denies: Sickle Cell Disease Past Surgical History Past Surgical History: Reports: Cardiac Catheterization - 2 Stents, Mastectomy - LUMPECTOMY, RIGHT ARM RESTRICTED, Tonsillectomy Denies: Amputation, Pacemaker Social History Information Source: Patient Smoking Status: Never Smoker Frequency of Alcohol Use: None Hx Recreational Drug Use: No Hx Prescription Drug Abuse: No - Advance Directive Resuscitation Status: Full Code - with power of corporate associate attorney for health care Carlee Bermeo @ [phone] (H) [phone](W) Surrogate healthcare decision maker:: Patient's daughter is the surrogate decision-maker Family History Family History: Hypertension Parental Family History Reviewed: Yes Children Family History Reviewed: Yes Sibling(s) Family History Reviewed.: Yes Medication/Allergy Home Medications: Albuterol Sulfate [Ventolin Hfa] 2 puff IH Q4HP PRN 07/14/17 Amlodipine Besylate/Benazepril [Lotrel 10-40 mg Capsule] 1 tab PO DAILY Atorvastatin Calcium [Lipitor 40 mg Tablet] 40 mg PO QHS 07/14/17 Bumetanide [Bumex 0.5 mg Tablet] 0.5 mg PO Q12 07/14/17 Carbidopa/Levodopa ER [Sinemet-Cr 50-200 mg Tablet.sa] 1 tab PO QHS 07/14/17 Diclofenac Sodium [Voltaren] 2 gm TOP Q8 07/14/17 Insulin Glargine,Hum.rec.anlog [Lantus Solostar] 35 units SQ DAILY 07/14/17 Levocetirizine Dihydrochloride [Xyzal] 5 mg PO DAILY 07/14/17 Linaclotide [Linzess 145 Mcg Capsule] 145 mcg PO ACBRKFST 07/14/17 Metolazone [Zaroxolyn 2.5 mg Tablet] 2.5 mg PO MOWEFR@1000 07/14/17 Metoprolol Succinate [Toprol Xl 25 mg Tab.sr] 25 mg PO DAILY 07/14/17 Nitroglycerin [Nitro-Dur 15 mg (0.6 mg/1 Hr) Transderm Patch] 1 patch TD DAILY 07/14/17 Polyethylene Glycol 3350 [Miralax Powder 17 gm/Packet] 17 gm PO DAILY 07/14/17 Potassium Chloride [Klor-Con 10 Meq Tablet.sa] 10 meq PO DAILY 07/14/17 Pramipexole Di-HCl [Mirapex] 1 mg PO Q8 07/14/17 Allergies/Adverse Reactions: promethazine Allergy (Verified 07/14/17 06:27) Review of Systems Review of Systems: Please see history of present illness and past medical history as wall. Constitutional: No fever or chills reported. Head : No recent chronic headaches, recent head injury. Eyes: No recent eye pain, diplopia, redness, discharge, acute visual changes. Ears: No recent chronic ear pain, acute hearing loss, ear discharge. Oral cavity: No recent ulcerations, bleeding, oral cavity discomfort. Neck: No recent acute neck pain reported. Hematologic: No recent easy bruising or bleeding or hematologic malignancy reported. Lymphatic: No recent lymphatic malignancy, chronic lymphadenopathy reported yet Cardiovascular system review: See history of present illness. Respiratory system review: No recent chronic cough, hemoptysis, blood clots in the lungs reported. Shortness of breath on exertion Gastrointestinal system review: Negative for any recent acute or chronic abdominal pain, hematemesis, melena, recent change in bowel habits. Genitourinary system review: No recent acute or chronic hematuria, flank pain, UTI etc. reported. Skin system review: Negative for any recent abnormal bruising, no rash, no pruritus reported. Neurologic: No prior history of strokes, mini strokes, seizure disorder. Psychologic: No history of major psychosis or major depression reported. Musculoskeletal: Minor aches and pains reported. No acute joint swelling reported. Endocrine: No recent polyuria, polydipsia, recent heat or cold intolerance. Physical Exam Vital Signs: Temp Pulse Resp BP Pulse Ox 97.4 F 72 14 129/51 H 100 07/26/17 11:27 07/26/17 11:27 07/26/17 11:49 07/26/17 11:27 07/26/17 11:27 Intake & Output 07/25/17 07/26/17 07/27/17 06:59 06:59 06:59 Intake Total 833 1050 Output Total 4687 2065 Balance -1242 -1525 Weight 130.3 kg 131.5 kg Exam: GENERAL: well-nourished and in no acute distress. Alert and oriented x3 HEAD: Atraumatic, normocephalic. EYES: Pupils equal round and reactive to light, extraocular movements intact, sclera anicteric, conjunctiva are normal. ENT: TMs normal, nares patent, oropharynx clear without exudates. Moist mucous membranes. No oral ulcerations or bleeding gums noted NECK: supple without lymphadenopathy. Trachea is central. No cervical or axillary lymphadenopathy noted. Carotids are 2+, JVD WNL LUNGS: Respiration seems nonlabored, no significant accessory muscle action noted. Bibasilar fine crackles and bilateral mild wheezes rales or rhonchi noted. No significant dullness noted on percussion. CHEST: Palpation of the chest wall shows no significant chest wall tenderness. No other significant abnormalities noted. HEART: [place] PATIENT RELATIONS SPECIALIST, No PSH, 1/6 ASHLEY aortic area, 1/6 dickey systolic murmur mitral area, no rubs, no gallops. ABDOMEN: Soft, no significant tenderness appreciated, normoactive bowel sounds. No guarding, no rebound. No rigidity noted . No masses appreciated. EXTREMITIES: Pedal pulses are 1-2+, no calf tenderness noted. No clubbing or cyanosis.trace to 1+ pedal edema noted NEUROLOGICAL: Focused neurological exam showed no significant neurologic deficit. Normal speech, no focal weakness appreciated. PSYCH: Normal mood, normal affect. Judgment and insight within normal limits. SKIN: No significant ecchymosis, rash, ulcerations or signs of pruritus noted. MUSCULOSKELETAL EXAM: No significant joint swelling noted. Results Laboratory Results: 07/26/17 04:29 07/26/17 04:29 07/26/17 07/26/17 07/26/17 04:29 04:29 04:29 WBC 5.2 RBC 2.97 L Hgb 8.7 L Hct 26.2 L MCV 88 MCH 29.3 MCHC 33.2 RDW 14.2 H Plt Count 194 Seg Neutrophils % 64.7 Lymphocytes % 17.4 Monocytes % 14.9 H Eosinophils % 2.4 Basophils % 0.6 Absolute Neutrophils 3.3 Absolute Lymphocytes 0.9 Absolute Monocytes 0.8 Absolute Eosinophils 0.1 Absolute Basophils 0.0 Retic Count (auto) 2.74 Absolute Retic 0.082 Carbonic Acid HCO3/H2CO3 Ratio ABG pH ABG pCO2 ABG pO2 ABG HCO3 ABG O2 Saturation ABG Base Excess FiO2 Sodium 145.7 H Potassium 5.4 H Chloride 95 L Carbon Dioxide 41 H* Anion Gap 10 BUN 59 H Creatinine 1.15 Est GFR ( Amer) 55 L Est GFR (Non-Af Amer) 45 L Glucose 139 H Calcium 8.3 L Magnesium Iron TIBC % Saturation Ferritin Vitamin B12 Folate 07/26/17 07/26/17 04:29 11:10 WBC RBC Hgb Hct MCV MCH MCHC RDW Plt Count Seg Neutrophils % Lymphocytes % Monocytes % Eosinophils % Basophils % Absolute Neutrophils Absolute Lymphocytes Absolute Monocytes Absolute Eosinophils Absolute Basophils Retic Count (auto) Absolute Retic Carbonic Acid 2.25 H HCO3/H2CO3 Ratio 19:1 ABG pH 7.39 ABG pCO2 74.8 H* ABG pO2 91.4 ABG HCO3 43.9 H ABG O2 Saturation 96.5 ABG Base Excess 16.2 FiO2 28% Sodium Potassium Chloride Carbon Dioxide Anion Gap BUN Creatinine Est GFR ( Amer) Est GFR (Non-Af Amer) Glucose Calcium Magnesium 2.2 Iron 47.6 TIBC 199 L % Saturation 24 Ferritin 384.00 H Vitamin B12 999.0 H Folate 17.60 07/15/17 07/15/17 07/17/17 05:50 05:50 11:15 Creatine Kinase 957 H CK-MB (CK-2) 2.44 Troponin I 0.063 NT-Pro-B Natriuret Pep 2970 H EKG Comments: Twelve-lead EKG is reviewed. It shows atrial flutter fibrillation with controlled ventricular response. Intermittent 2-1 conduction noted on rhythm strips. Impressions: Shoulder X-Ray 07/19/17 00:00 IMPRESSION: NO SIGNIFICANT RADIOGRAPHIC ABNORMALITY. Chest CT 07/26/17 00:00 IMPRESSION: 1. Limiting motion. 2. Cardiomegaly. 3. Patchy right upper lobe infiltrate. Chest X-Ray 07/26/17 00:00 IMPRESSION: HEART ENLARGED WITHOUT FAILURE. NO OTHER SIGNIFICANT RADIOGRAPHIC FINDING IN THE CHEST. Assessment & Plan - Diagnosis (1) Atrial fibrillation and flutter Is this a current diagnosis for this admission?: Yes (2) Dyspnea Qualifiers: Dyspnea type: dyspnea on exertion Qualified Code(s): R06.09 - Other forms of dyspnea Is this a current diagnosis for this admission?: Yes (3) Coronary artery disease Qualifiers: Coronary Disease-Associated Artery/Lesion type: [place] artery [place] vs. transplanted heart: [place] heart Associated angina: angina presence unspecified Qualified Code(s): I25.10 - Atherosclerotic heart disease of [place] coronary artery without angina pectoris Is this a current diagnosis for this admission?: Yes (4) CHF (congestive heart failure) Qualifiers: Congestive heart failure type: systolic Congestive heart failure chronicity : acute on chronic Qualified Code(s): I50.23 - Acute on chronic systolic ( congestive) heart failure Is this a current diagnosis for this admission?: Yes (5) Diabetes mellitus Qualifiers: Diabetes mellitus type: type 2 Diabetes mellitus complication status: with unspecified complications Diabetes mellitus fdc insulin use: with terminal supervisor use Qualified Code(s): E11.8 - Type 2 diabetes mellitus with unspecified complications; Z79.4 - [facility] (current) use of insulin; Z79.4 - intermediate card tender ( current) use of insulin; Z79.4 - intermediate card tender (current) use of insulin; Z79.4 - intermediate card tender (current) use of insulin Is this a current diagnosis for this admission?: Yes (6) HLD (hyperlipidemia) Qualifiers: Hyperlipidemia type: pure hypercholesterolemia Qualified Code(s): E78.00 - Pure hypercholesterolemia, unspecified; E78.0 - Pure hypercholesterolemia Is this a current diagnosis for this admission?: Yes (7) HTN (hypertension) Qualifiers: Hypertension type: essential hypertension Qualified Code(s): I10 - Essential (primary) hypertension Is this a current diagnosis for this admission?: Yes - Notes Notes: Atrial flutter and fibrillation. Recommend rate control and chronic anticoagulation. I understand that there may be contraindication, therefore will leave decision of starting the chronic anticoagulation with the color laboratory technician. Patient has elevated chads score. Dyspnea: Most likely related to underlying CHF COPD,'s obesity etc. Coronary artery disease: Symptomatically stable without any angina symptoms. Patient is status post stents in the past. CHF: Seems fairly compensated. Continue diuretic therapy. Will review previous cardiac evaluations. Diabetes: Currently stable. Will leave management plans to hospitalist/ wax pattern assembler. Dyslipidemia: Continue statin therapy especially in view of known CAD. Hypertension: Currently well controlled. Could be liberalized since patient is elderly. - Time Time Spent: 30 to 50 Minutes - CODE STATUS was discussed, patient remains full code. Surrogate decision-maker unchanged. Multiple medical problems were addressed. More than 50% of the time spent coordinating care, discussing management plans with involved caregivers. Management plans discussed with involved personnels. Medical decision making was of moderate to high complexity , patient's has multiple comorbidities. Medications reviewed and adjusted accordingly: Yes
[2017-07-26] MEDS: CEFEPIME 1 GM/D5W RTU 1 GM/50 ML RTUPB IV SCH (17:31)
[2017-07-26] MEDS: CARBIDOPA/LEVODOPA ER 50-200 MG TABLET.SA PO SCH (22:31)
[2017-07-26] MEDS: ATORVASTATIN CALCIUM 40 MG TABLET PO SCH (22:31)
[2017-07-27] MEDS: LANSOPRAZOLE 30 MG TAB.RAP.DR PO SCH (05:34)
[2017-07-27] MEDS: PRAMIPEXOLE DI-HCL 0.5 MG TABLET PO SCH ×3 (05:34→21:29)
[2017-07-27] MEDS: CEFEPIME 1 GM/D5W RTU 1 GM/50 ML RTUPB IV SCH ×2 (05:35→17:19)
[2017-07-27 06:21] LABS: ABSOLUTE EOSINOPHILS # (AUTO) 0.1 10^3/uL (0.0-0.6); ABSOLUTE LYMPHOCYTES (AUTO) 0.8 10^3/uL (0.5-4.7); ABSOLUTE MONOCYTES (AUTO) 0.8 10^3/uL (0.1-1.4); ABSOLUTE NEUT (AUTO) 3.9 10^3/uL (1.7-8.2); BASOPHILS % (AUTO) 0.7 % (0-2); EOSINOPHILS % (AUTO) 1.7 % (0-6); HEMATOCRIT 27.7 % (36.0-47.0); HEMOGLOBIN 9.3 g/dL (12.0-15.5); HGB HCT DIFFERENCE 0.2; LYMPHOCYTES % (AUTO) 13.8 % (13-45); MEAN CORPUSCULAR HEMOGLOBIN 29.5 pg (27.0-33.4); MEAN CORPUSCULAR HGB CONC 33.6 g/dL (32.0-36.0); MEAN CORPUSCULAR VOLUME 88 fl (80-97); MONOCYTES % (AUTO) 13.8 % (3-13); RED BLOOD COUNT 3.16 10^6/uL (3.72-5.28); WHITE BLOOD COUNT 5.6 10^3/uL (4.0-10.5)
[2017-07-27 06:52] LABS: BLOOD UREA NITROGEN 54 mg/dL (7-20); CALCIUM 8.4 mg/dL (8.4-10.2); CHLORIDE 94 mmol/L (98-107); CREATININE RESULT 1.22 mg/dL (0.52-1.25); GLUCOSE 194 mg/dL (75-110); POTASSIUM 5.1 mmol/L (3.6-5.0); SODIUM 145.7 mmol/L (137-145)
[2017-07-27 07:01] LABS: ANION GAP 8 (5-19)
[2017-07-27 07:04] LABS: CARBON DIOXIDE 44 mmol/L (22-30)
[2017-07-27] MEDS: INSULIN LISPRO 100 UNIT/ML 3 ML VIAL SUBCUT PRN ×4 (08:17→23:21)
--- NOTE | 2017-07-27 09:27 | PDOC PROGRESS REPORT ---
Subjective Progress Note for:: 07/27/17 Subjective:: Patient is feeling same CO2 was high Continues to wear the BiPAP Seen by the blood bank custodian with Mel loredo Patient's denied any chest pain Denied any shortness of the breath Physical Exam Vital Signs: Temp Pulse Resp BP Pulse Ox 98.9 F 75 20 129/70 H 100 07/27/17 08:15 07/27/17 08:15 07/27/17 08:15 07/27/17 08:15 07/27/17 08:15 Intake & Output 07/26/17 07/27/17 07/28/17 06:59 06:59 06:59 Intake Total 1050 690 Output Total 2575 1750 Balance -1525 -1060 Weight 131.5 kg General appearance: PRESENT: no acute distress Eye exam: PRESENT: PERRLA Neck exam: ABSENT: carotid bruit, full ROM, JVD, lymphadenopathy, meningismus, tenderness, thyromegaly, tracheal deviation, tracheostomy, other Respiratory exam: PRESENT: clear to auscultation carole Cardiovascular exam: PRESENT: +S1, +S2 GI/Abdominal exam: PRESENT: normal bowel sounds, soft Extremities exam: PRESENT: pedal edema Neurological exam: PRESENT: alert, awake, oriented to person Psychiatric exam: PRESENT: depressed Skin exam: PRESENT: dry Results Laboratory Results: 07/27/17 05:31 07/27/17 05:31 07/26/17 07/26/17 07/26/17 04:29 04:29 11:10 WBC RBC Hgb Hct MCV MCH MCHC RDW Plt Count Seg Neutrophils % Lymphocytes % Monocytes % Eosinophils % Basophils % Absolute Neutrophils Absolute Lymphocytes Absolute Monocytes Absolute Eosinophils Absolute Basophils Retic Count (auto) 2.74 Absolute Retic 0.082 Carbonic Acid 2.25 H HCO3/H2CO3 Ratio 19:1 ABG pH 7.39 ABG pCO2 74.8 H* ABG pO2 91.4 ABG HCO3 43.9 H ABG O2 Saturation 96.5 ABG Base Excess 16.2 FiO2 28% Sodium Potassium Chloride Carbon Dioxide Anion Gap BUN Creatinine Est GFR ( Amer) Est GFR (Non-Af Amer) Glucose Calcium Magnesium 2.2 Iron 47.6 TIBC 199 L % Saturation 24 Ferritin 384.00 H Vitamin B12 999.0 H Folate 17.60 07/27/17 07/27/17 05:31 05:31 WBC 5.6 RBC 3.16 L Hgb 9.3 L Hct 27.7 L MCV 88 MCH 29.5 MCHC 33.6 RDW 14.0 Plt Count 201 Seg Neutrophils % 70.0 Lymphocytes % 13.8 Monocytes % 13.8 H Eosinophils % 1.7 Basophils % 0.7 Absolute Neutrophils 3.9 Absolute Lymphocytes 0.8 Absolute Monocytes 0.8 Absolute Eosinophils 0.1 Absolute Basophils 0.0 Retic Count (auto) Absolute Retic Carbonic Acid HCO3/H2CO3 Ratio ABG pH ABG pCO2 ABG pO2 ABG HCO3 ABG O2 Saturation ABG Base Excess FiO2 Sodium 145.7 H Potassium 5.1 H Chloride 94 L Carbon Dioxide 44 H* Anion Gap 8 BUN 54 H Creatinine 1.22 Est GFR ( Amer) 51 L Est GFR (Non-Af Amer) 42 L Glucose 194 H Calcium 8.4 Magnesium Iron TIBC % Saturation Ferritin Vitamin B12 Folate 07/15/17 07/15/17 07/17/17 05:50 05:50 11:15 Creatine Kinase 957 H CK-MB (CK-2) 2.44 Troponin I 0.063 NT-Pro-B Natriuret Pep 2970 H Impressions: Shoulder X-Ray 07/19/17 00:00 IMPRESSION: NO SIGNIFICANT RADIOGRAPHIC ABNORMALITY. Chest CT 07/26/17 00:00 IMPRESSION: 1. Limiting motion. 2. Cardiomegaly. 3. Patchy right upper lobe infiltrate. Chest X-Ray 07/26/17 00:00 IMPRESSION: HEART ENLARGED WITHOUT FAILURE. NO OTHER SIGNIFICANT RADIOGRAPHIC FINDING IN THE CHEST. Assessment & Plan - Diagnosis (1) CHF (congestive heart failure) Qualifiers: Congestive heart failure type: systolic Congestive heart failure chronicity : acute on chronic Qualified Code(s): I50.23 - Acute on chronic systolic ( congestive) heart failure Is this a current diagnosis for this admission?: Yes Plan: Continues to Bumex and other medications currently stable we will get the chest x-ray today (2) Lobar pneumonia, unspecified organism Is this a current diagnosis for this admission?: Yes Plan: continue the antibiotic (3) Acute kidney injury Is this a current diagnosis for this admission?: Yes Plan: Will currently hold the potassiums and give her Kayexalate (4) HTN (hypertension) Qualifiers: Hypertension type: essential hypertension Qualified Code(s): I10 - Essential (primary) hypertension Is this a current diagnosis for this admission?: Yes Plan: Currently stable (5) Anemia of chronic disease Is this a current diagnosis for this admission?: Yes Plan: Consider to give a Procrit injections (6) Chronic pain syndrome Is this a current diagnosis for this admission?: Yes Plan: Continues to current medications (7) Constipation Qualifiers: Constipation type: slow transit constipation Qualified Code(s): K59.01 - Slow transit constipation Is this a current diagnosis for this admission?: Yes Plan: Since we will give her Kayexalate today (8) Atrial fibrillation and flutter Is this a current diagnosis for this admission?: Yes Plan: Follow with the cardiology and return to control may be considered to put on Eliquis 2.5 mg p.o. twice a day on discharge - Time Time Spent with patient: 15-24 minutes Medications reviewed and adjusted accordingly: Yes Anticipated discharge: SNF Within: Other - Inpatient Certification Medical Necessity: Need Close Monitoring Due to Risk of Patient Decompensation Post Hospital Care: D/C [employer] Chemist Documentation - Plan Summary Plan Summary: This with the patient's son Hamzah and other family member about the patient's current conditions with the multiple comorbidity and patient is not ready to discharge at
[2017-07-27] MEDS: ENOXAPARIN SODIUM INJ 30 MG/0.3 ML DISP.SYRIN SUBCUT SCH (10:11)
[2017-07-27] MEDS: INSULIN GLARGINE,HUM.REC.ANLOG 300 UNIT/3 ML INSULN.PEN SUBCUT SCH (10:11)
[2017-07-27] MEDS: POLYETHYLENE GLYCOL 3350 POWDER 17 GM/1 PACKET PO SCH (10:11)
[2017-07-27] MEDS: NITROGLYCERIN 15 MG (0.6 MG/1 HR) PATCH.TD24 TD SCH (10:12)
[2017-07-27] MEDS: DOCUSATE SODIUM 100 MG CAPSULE PO SCH (10:15)
[2017-07-27] MEDS: BUMETANIDE 1 MG TABLET PO SCH ×2 (10:15→21:27)
[2017-07-27] MEDS: AMLODIPINE BESYLATE 10 MG TABLET PO SCH (10:16)
[2017-07-27] MEDS: CETIRIZINE 5 MG TABLET PO SCH (10:17)
[2017-07-27] MEDS: METOPROLOL SUCCINATE 25 MG TAB.SR.24H PO SCH (10:17)
--- NOTE | 2017-07-27 19:43 | PDOC PROGRESS REPORT ---
Subjective Progress Note for:: 07/27/17 Subjective:: Patient doing somewhat better. Telemetry strips reviewed showed patient in sinus rhythm. In fact she has been in sinus rhythm throughout this admission except on admission EKG on 07/14 when atrial flutter fibrillation was suspected. However there were a lot of artifacts on that EKG. Physical Exam Vital Signs: Temp Pulse Resp BP Pulse Ox 98.9 F 75 20 129/70 H 100 07/27/17 08:15 07/27/17 08:15 07/27/17 08:15 07/27/17 08:15 07/27/17 08:15 Intake & Output 07/26/17 07/27/17 07/28/17 06:59 06:59 06:59 Intake Total 1050 690 Output Total 2575 1750 Balance -1525 -1060 Weight 131.5 kg Exam: GENERAL: well-nourished and in no acute distress. Alert and oriented x3, however patient is lethargic. HEAD: Atraumatic, normocephalic. EYES: Pupils equal round and reactive to light, extraocular movements intact, sclera anicteric, conjunctiva are normal. ENT: TMs normal, nares patent, oropharynx clear without exudates. Moist mucous membranes. No oral ulcerations or bleeding gums noted NECK: supple without lymphadenopathy. Trachea is central. No cervical or axillary lymphadenopathy noted. Carotids are 2+, JVD WNL LUNGS: Respiration seems nonlabored, no significant accessory muscle action noted. Breath sounds clear to auscultation bilaterally and equal noted. No wheezes rales or rhonchi noted. No significant dullness noted on percussion. CHEST: Palpation of the chest wall shows no significant chest wall tenderness. No other significant abnormalities noted. 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 ABDOMEN: Soft, no significant tenderness appreciated, normoactive bowel sounds. No guarding, no rebound. No rigidity noted . No masses appreciated. EXTREMITIES: Pedal pulses are 1-2+, no calf tenderness noted. No clubbing or cyanosis. 1+ pedal edema noted NEUROLOGICAL: Focused neurological exam showed no significant neurologic deficit. Normal speech, no focal weakness appreciated. PSYCH: Normal mood, normal affect. Judgment and insight within normal limits. SKIN: No significant ecchymosis, rash, ulcerations or signs of pruritus noted. MUSCULOSKELETAL EXAM: No significant joint swelling noted. Results Laboratory Results: 07/27/17 05:31 07/27/17 05:31 07/26/17 07/27/17 07/27/17 04:29 05:31 05:31 WBC 5.6 RBC 3.16 L Hgb 9.3 L Hct 27.7 L MCV 88 MCH 29.5 MCHC 33.6 RDW 14.0 Plt Count 201 Seg Neutrophils % 70.0 Lymphocytes % 13.8 Monocytes % 13.8 H Eosinophils % 1.7 Basophils % 0.7 Absolute Neutrophils 3.9 Absolute Lymphocytes 0.8 Absolute Monocytes 0.8 Absolute Eosinophils 0.1 Absolute Basophils 0.0 Sodium 145.7 H Potassium 5.1 H Chloride 94 L Carbon Dioxide 44 H* Anion Gap 8 BUN 54 H Creatinine 1.22 Est GFR ( Amer) 51 L Est GFR (Non-Af Amer) 42 L Glucose 194 H Calcium 8.4 Magnesium 2.2 Iron 47.6 TIBC 199 L % Saturation 24 Ferritin 384.00 H Vitamin B12 999.0 H Folate 17.60 07/15/17 07/15/17 07/17/17 05:50 05:50 11:15 Creatine Kinase 957 H CK-MB (CK-2) 2.44 Troponin I 0.063 NT-Pro-B Natriuret Pep 2970 H EKG Comments: Telemetry strips shows sinus rhythm Impressions: Shoulder X-Ray 07/19/17 00:00 IMPRESSION: NO SIGNIFICANT RADIOGRAPHIC ABNORMALITY. Chest CT 07/26/17 00:00 IMPRESSION: 1. Limiting motion. 2. Cardiomegaly. 3. Patchy right upper lobe infiltrate. Chest X-Ray 07/26/17 00:00 IMPRESSION: HEART ENLARGED WITHOUT FAILURE. NO OTHER SIGNIFICANT RADIOGRAPHIC FINDING IN THE CHEST. Assessment & Plan - Diagnosis (1) Atrial fibrillation and flutter Is this a current diagnosis for this admission?: Yes (2) Dyspnea Qualifiers: Dyspnea type: dyspnea on exertion Qualified Code(s): R06.09 - Other forms of dyspnea Is this a current diagnosis for this admission?: Yes (3) Coronary artery disease Qualifiers: Coronary Disease-Associated Artery/Lesion type: [place] artery [place] vs. transplanted heart: [place] heart Associated angina: angina presence unspecified Qualified Code(s): I25.10 - Atherosclerotic heart disease of [place] coronary artery without angina pectoris Is this a current diagnosis for this admission?: Yes (4) CHF (congestive heart failure) Qualifiers: Congestive heart failure type: systolic Congestive heart failure chronicity : acute on chronic Qualified Code(s): I50.23 - Acute on chronic systolic ( congestive) heart failure Is this a current diagnosis for this admission?: Yes (5) Diabetes mellitus Qualifiers: Diabetes mellitus type: type 2 Diabetes mellitus complication status: with unspecified complications Diabetes mellitus senior care insulin use: with senior care use Qualified Code(s): E11.8 - Type 2 diabetes mellitus with unspecified complications; Z79.4 - intermodal truck driver (current) use of insulin; Z79.4 - intermodal truck driver ( current) use of insulin; Z79.4 - intermodal truck driver (current) use of insulin; Z79.4 - intermodal truck driver (current) use of insulin Is this a current diagnosis for this admission?: Yes (6) HLD (hyperlipidemia) Qualifiers: Hyperlipidemia type: pure hypercholesterolemia Qualified Code(s): E78.00 - Pure hypercholesterolemia, unspecified; E78.0 - Pure hypercholesterolemia Is this a current diagnosis for this admission?: Yes (7) HTN (hypertension) Qualifiers: Hypertension type: essential hypertension Qualified Code(s): I10 - Essential (primary) hypertension Is this a current diagnosis for this admission?: Yes - Notes Notes: Atrial flutter fibrillation: This was noted on initial EKG on 07/14 however that EKG was difficult to interpret because of significant artifacts. Subsequently however patient is rhythm strip has shown sinus rhythm. Anyway there could have been a precipitating cause of atrial flutter fibrillation. At this point looking at everything, patient would be considered just a Equivocal candidate to benefit from chronic anticoagulation. Based on patient's comorbid diagnosis and status patient is likely to have atrial fibrillation in future therefore would recommend continuing monitoring and a event monitor as an outpatient. At this point cannot wholeheartedly recommend chronic anticoagulation but can recommend continued monitoring for any recurrence of atrial flutter fibrillation. Dyspnea: This has improved Coronary artery disease: Currently stable. Patient has no symptoms of chest pain CHF: Fairly compensated. Continue current management plans. As regards diabetes, hypertension, hyperlipidemia, this is being well managed by the crew attendant. Patient generally stable from cardiac standpoint. Patient should continue with intermittent positive pressure noninvasive ventilation therapy. Patient can follow-up with me patient should follow-up with me for her continued care. Patient to report any further problems. Dr. Collins similar to cover from tomorrow. More than 50% of the time spent coordinating care, discussing management plans with involved caregivers. Management plans discussed with involved personnels. Medical decision making was of moderate to high complexity , patient's has multiple comorbidities. - Time Time with patient: 15-25 minutes - More than 50% of the time spent coordinating care, discussing management plans with involved caregivers. Management plans discussed with involved personnels. Medical decision making was of moderate to high complexity, patient's has multiple comorbidities. Medications reviewed and adjusted accordingly: Yes
[2017-07-27] MEDS: ATORVASTATIN CALCIUM 40 MG TABLET PO SCH (21:27)
[2017-07-27] MEDS: CARBIDOPA/LEVODOPA ER 50-200 MG TABLET.SA PO SCH (21:29)
[2017-07-28] MEDS: PRAMIPEXOLE DI-HCL 0.5 MG TABLET PO SCH ×3 (05:09→22:37)
[2017-07-28] MEDS: CEFEPIME 1 GM/D5W RTU 1 GM/50 ML RTUPB IV SCH ×2 (05:09→17:35)
[2017-07-28] MEDS: LANSOPRAZOLE 30 MG TAB.RAP.DR PO SCH (05:09)
--- NOTE | 2017-07-28 06:04 | EKG REPORT ---
SEVERITY:- ABNORMAL ECG - SINUS RHYTHM FIRST DEGREE AV BLOCK LOW VOLTAGE IN FRONTAL LEADS : Confirmed by: Luci Collins MD 28-Jul-2017 06:03:46
[2017-07-28 07:09] LABS: ARTERIAL BLOOD BASE EXCESS 15.1 mmol/L
--- NOTE | 2017-07-28 08:43 | PDOC PROGRESS REPORT ---
Subjective Progress Note for:: 07/28/17 Subjective:: Patient denied any chest pain or difficulty with breathing. There is concern regarding CO2 retention on her ABG this morning. She has not been very compliant with use of beside BiPAP machine. No fever or chills. No abdominal pain, nausea, or vomiting. P.O intake improving. Reported participation in physical therapy session today. Physical Exam Vital Signs: Temp Pulse Resp BP Pulse Ox 98.5 F 61 20 111/40 L 100 07/28/17 04:39 07/28/17 04:39 07/28/17 04:39 07/28/17 04:39 07/28/17 04:39 Intake & Output 07/27/17 07/28/17 07/29/17 06:59 06:59 06:59 Intake Total 690 836 Output Total 1750 2150 Balance -1060 -1314 Weight 128 kg Physical Exam: General appearance: PRESENT: no acute distress, morbidly obese Head exam: PRESENT: atraumatic, normocephalic Eye exam: PRESENT: conjunctiva pink, EOMI. ABSENT: scleral icterus Mouth exam: PRESENT: moist, neck supple Teeth exam: PRESENT: poor dentition Respiratory exam: PRESENT: clear to auscultation carole, decreased breath sounds - reduced breath sound at lung bases Cardiovascular exam: PRESENT: RRR. ABSENT: diastolic murmur, rubs, systolic murmur Vascular exam: PRESENT: normal capillary refill. ABSENT: pallor GI/Abdominal exam: PRESENT: normal bowel sounds, soft. ABSENT: distended, guarding, mass, organomegaly, rebound, tenderness Extremities exam: PRESENT: pedal edema - comparatively improving. Musculoskeletal exam: PRESENT: deformity - related to multiple joints involvement with arthritis. Neurological exam: PRESENT: alert, awake Psychiatric exam: PRESENT: appropriate affect, normal mood. ABSENT: homicidal ideation, suicidal ideation Skin exam: PRESENT: dry, intact, warm. ABSENT: cyanosis, rash Results Laboratory Results: 07/27/17 05:31 07/27/17 05:31 07/28/17 06:40 Carbonic Acid 2.32 H HCO3/H2CO3 Ratio 18:1 ABG pH 7.37 ABG pCO2 77.2 H* ABG pO2 99.4 ABG HCO3 43.2 H ABG O2 Saturation 97.0 ABG Base Excess 15.1 FiO2 3L 07/15/17 07/15/17 07/17/17 05:50 05:50 11:15 Creatine Kinase 957 H CK-MB (CK-2) 2.44 Troponin I 0.063 NT-Pro-B Natriuret Pep 2970 H Impressions: Shoulder X-Ray 07/19/17 00:00 IMPRESSION: NO SIGNIFICANT RADIOGRAPHIC ABNORMALITY. Chest CT 07/26/17 00:00 IMPRESSION: 1. Limiting motion. 2. Cardiomegaly. 3. Patchy right upper lobe infiltrate. Chest X-Ray 07/26/17 00:00 IMPRESSION: HEART ENLARGED WITHOUT FAILURE. NO OTHER SIGNIFICANT RADIOGRAPHIC FINDING IN THE CHEST. Assessment & Plan - Diagnosis (1) Lobar pneumonia, unspecified organism Is this a current diagnosis for this admission?: Yes (2) Hypoxemia Is this a current diagnosis for this admission?: Yes (3) CHF (congestive heart failure) Qualifiers: Congestive heart failure type: systolic Congestive heart failure chronicity : acute on chronic Qualified Code(s): I50.23 - Acute on chronic systolic ( congestive) heart failure Is this a current diagnosis for this admission?: Yes (4) Acute kidney injury Is this a current diagnosis for this admission?: Yes (5) Diabetes mellitus Qualifiers: Diabetes mellitus type: type 2 Diabetes mellitus complication status: with unspecified complications Diabetes mellitus group home insulin use: with group home use Qualified Code(s): E11.8 - Type 2 diabetes mellitus with unspecified complications; Z79.4 - longterm (current) use of insulin; Z79.4 - longterm ( current) use of insulin; Z79.4 - longterm (current) use of insulin; Z79.4 - extermination inspector (current) use of insulin Is this a current diagnosis for this admission?: Yes (6) HTN (hypertension) Qualifiers: Hypertension type: essential hypertension Qualified Code(s): I10 - Essential (primary) hypertension Is this a current diagnosis for this admission?: Yes (7) HLD (hyperlipidemia) Qualifiers: Hyperlipidemia type: pure hypercholesterolemia Qualified Code(s): E78.00 - Pure hypercholesterolemia, unspecified; E78.0 - Pure hypercholesterolemia Is this a current diagnosis for this admission?: Yes (8) Morbid obesity with BMI of 50.0-59.9, adult Is this a current diagnosis for this admission?: Yes (9) Anemia of chronic disease Is this a current diagnosis for this admission?: Yes (10) Abnormal urine findings Is this a current diagnosis for this admission?: Yes (11) Constipation Qualifiers: Constipation type: slow transit constipation Qualified Code(s): K59.01 - Slow transit constipation Is this a current diagnosis for this admission?: Yes (12) Chronic pain syndrome Is this a current diagnosis for this admission?: Yes (13) Obesity hypoventilation syndrome Is this a current diagnosis for this admission?: Yes Plan: Encouraged compliance with BiPAP usage. I will obtain pulmonary consultation to determine appropriate ventilatory support before discharge in view of her obesity associated hypoventilation with hypercapnia - Time Time Spent with patient: 25-34 minutes Medications reviewed and adjusted accordingly: Yes Anticipated discharge: SNF Within: within 48 hours - Inpatient Certification Based on my medical assessment, after consideration of the patient's comorbidities, presenting symptoms, or acuity I expect that the services needed warrant INPATIENT care.: Yes I certify that my determination is in accordance with my understanding of Medicare's requirements for reasonable and necessary INPATIENT services [42 CFR 412.3e].: Yes Medical Necessity: Need Close Monitoring Due to Risk of Patient Decompensation, Need For Continuous Telemetry Monitoring, Need for Nebulizer Therapy and Monitoring of Response, Risk of Complication if Not Cared For in Hospital Post Hospital Care: D/C or Transfer Summary - Plan Summary Plan Summary: Emphasized compliance with BiPAP usage. Start on Acetazolamide 250 mg p.o daily. D/C Cefepime. Obtain CBC with Diff, CMP in AM.
[2017-07-28] MEDS: NITROGLYCERIN 15 MG (0.6 MG/1 HR) PATCH.TD24 TD SCH (10:20)
[2017-07-28] MEDS: BUMETANIDE 1 MG TABLET PO SCH ×2 (10:21→22:37)
[2017-07-28] MEDS: CETIRIZINE 5 MG TABLET PO SCH (10:22)
[2017-07-28] MEDS: METOLAZONE 2.5 MG TABLET PO SCH (10:22)
[2017-07-28] MEDS: METOPROLOL SUCCINATE 25 MG TAB.SR.24H PO SCH (10:23)
[2017-07-28] MEDS: AMLODIPINE BESYLATE 10 MG TABLET PO SCH (10:23)
[2017-07-28] MEDS: ENOXAPARIN SODIUM INJ 30 MG/0.3 ML DISP.SYRIN SUBCUT SCH (10:24)
[2017-07-28] MEDS: INSULIN GLARGINE,HUM.REC.ANLOG 300 UNIT/3 ML INSULN.PEN SUBCUT SCH (10:25)
[2017-07-28] MEDS: DOCUSATE SODIUM 100 MG CAPSULE PO SCH (12:18)
[2017-07-28] MEDS: POLYETHYLENE GLYCOL 3350 POWDER 17 GM/1 PACKET PO SCH (12:18)
[2017-07-28] MEDS: INSULIN LISPRO 100 UNIT/ML 3 ML VIAL SUBCUT PRN ×2 (12:38→17:34)
--- NOTE | 2017-07-28 17:17 | XCELERA REPORT ---
[address] [address] Transthoracic Echocardiogram Report Name: BO BARBA Age: 82 yrs Gender: Female : 1935 Patient Status: Inpatient Patient Location: [address] [place] [address] Study Date: 07/28/2017 12:24 PM Height: 60 in Weight: 289 lb BSA: 2.2 m2 Procedure: A two-dimensional transthoracic echocardiogram with color flow and Doppler was performed. Study Quality: Technically suboptimal. Reason For Study: ATRIAL FIBRILLATION. History: ATRIAL FIBRILLATION. Ordering Physician: BILL MENDEZ Performed By: Marisa Canales Interpretation Summary Proabably noormal size.No LVH.Probably no regional wall motion abnormality,but cannot be sure. There is no aortic valve stenosis There is no LVOT obstruction. Probably trace to mild TR.RVSP is 35 mm of Hg,with RA mean of 10. There is no pericardial effusion. MMode/2D Measurements & Calculations RVDd: 3.7 cm LVIDd: 4.3 cm FS: 33.0 % Ao root diam: 2.6 cm IVSd: 1.0 cm LVIDs: 2.9 cm EDV(Teich): 82.9 ml LVPWd: 0.96 cm ESV(Teich): 31.6 ml Ao root area: 5.5 cm2 EF(Teich): 61.8 % Doppler Measurements & Calculations MV E max dipti: MV dec slope: Ao V2 max: LV V1 max P.1 cm/sec 101.6 cm/sec 3.0 mmHg MV A max dipti: 414.3 cm/sec2 Ao max PG: LV V1 max: 112.9 cm/sec MV dec time: 4.1 mmHg 86.9 cm/sec MV E/A: 0.91 0.25 sec PA V2 max: TR max dipti: 73.8 cm/sec 237.0 cm/sec PA max P.2 mmHg TR max P.6 mmHg Left Ventricle Proabably noormal size.No LVH.Probably no regional wall motion abnormality,but cannot be sure. Doppler measurements suggest impaired left ventricular relaxation, which is associated with grade I/IV or mild diastolic dysfunction. Right Ventricle The right ventricle is not well visualized secondary to technical limitations. Atria Right atrium not well visualized secondary to technical limitations. The left atrial size is normal. Mitral Valve There is no evidence of mitral valve prolapse. There is no mitral valve stenosis. Probably no MR. Aortic Valve There is no aortic valvular vegetation. There is no aortic valve stenosis. There is no LVOT obstruction. No aortic regurgitation is present. Tricuspid Valve There is no tricuspid stenosis. Probably trace to mild TR.RVSP is 35 mm of Hg,with RA mean of 10. Pulmonic Valve The pulmonic valve is not well visualized. Great Vessels The aortic root is not well visualized but is probably normal size. Effusions There is no pericardial effusion. : BILL MENDEZ > Luci Collins
[2017-07-28 18:01] LABS: ARTERIAL BLOOD BASE EXCESS 19.7 mmol/L; ARTERIAL BLOOD O2 SATURATION 98.8 % (94-98)
[2017-07-28] MEDS: ATORVASTATIN CALCIUM 40 MG TABLET PO SCH (22:37)
[2017-07-28] MEDS: CARBIDOPA/LEVODOPA ER 50-200 MG TABLET.SA PO SCH (22:38)
[2017-07-29] MEDS: LANSOPRAZOLE 30 MG TAB.RAP.DR PO SCH (06:59)
[2017-07-29] MEDS: PRAMIPEXOLE DI-HCL 0.5 MG TABLET PO SCH ×3 (07:00→22:03)
[2017-07-29] MEDS: CEFEPIME 1 GM/D5W RTU 1 GM/50 ML RTUPB IV SCH ×2 (07:00→17:00)
[2017-07-29] MEDS: INSULIN LISPRO 100 UNIT/ML 3 ML VIAL SUBCUT PRN ×3 (08:15→16:58)
[2017-07-29 09:10] LABS: ARTERIAL BLOOD BASE EXCESS 19.4 mmol/L
[2017-07-29 10:38] LABS: ABSOLUTE EOSINOPHILS # (AUTO) 0.1 10^3/uL (0.0-0.6); ABSOLUTE LYMPHOCYTES (AUTO) 0.7 10^3/uL (0.5-4.7); ABSOLUTE MONOCYTES (AUTO) 0.7 10^3/uL (0.1-1.4); ABSOLUTE NEUT (AUTO) 4.3 10^3/uL (1.7-8.2); BASOPHILS % (AUTO) 0.5 % (0-2); EOSINOPHILS % (AUTO) 1.6 % (0-6); HEMATOCRIT 28.1 % (36.0-47.0); HEMOGLOBIN 9.5 g/dL (12.0-15.5); HGB HCT DIFFERENCE 0.4; LYMPHOCYTES % (AUTO) 12.1 % (13-45); MEAN CORPUSCULAR HEMOGLOBIN 29.4 pg (27.0-33.4); MEAN CORPUSCULAR HGB CONC 33.7 g/dL (32.0-36.0); MEAN CORPUSCULAR VOLUME 87 fl (80-97); MONOCYTES % (AUTO) 11.3 % (3-13); RED BLOOD COUNT 3.23 10^6/uL (3.72-5.28); RED CELL DISTRIBUTION WIDTH 14.4 % (11.5-14.0); SEGMENTED NEUTROPHILS % (AUTO) 74.5 % (42-78); WHITE BLOOD COUNT 5.8 10^3/uL (4.0-10.5)
[2017-07-29 11:05] LABS: BLOOD UREA NITROGEN 44 mg/dL (7-20); CALCIUM 8.5 mg/dL (8.4-10.2); CHLORIDE 89 mmol/L (98-107); CREATININE RESULT 1.09 mg/dL (0.52-1.25); GLUCOSE 203 mg/dL (75-110); POTASSIUM 4.4 mmol/L (3.6-5.0); SODIUM 140.8 mmol/L (137-145)
[2017-07-29 11:19] LABS: ANION GAP 10 (5-19)
[2017-07-29 11:20] LABS: CARBON DIOXIDE 42 mmol/L (22-30)
[2017-07-29 11:35] LABS: FREE T3 2.78 pg/mL (2.77-5.27)
[2017-07-29] MEDS: IPRATROPIUM/ALBUTEROL 0.5-2.5 MG/3 ML AMPUL NEB PRN (11:38)
[2017-07-29 11:49] LABS: THYROID STIMULATING HORMONE 1.54 uIU/mL (0.47-4.68)
[2017-07-29] MEDS: AMLODIPINE BESYLATE 10 MG TABLET PO SCH (12:26)
[2017-07-29] MEDS: BUMETANIDE 1 MG TABLET PO SCH ×2 (12:27→22:02)
[2017-07-29] MEDS: CETIRIZINE 5 MG TABLET PO SCH (12:27)
[2017-07-29] MEDS: METOPROLOL SUCCINATE 25 MG TAB.SR.24H PO SCH (12:28)
[2017-07-29] MEDS: NITROGLYCERIN 15 MG (0.6 MG/1 HR) PATCH.TD24 TD SCH (12:29)
[2017-07-29] MEDS: ENOXAPARIN SODIUM INJ 30 MG/0.3 ML DISP.SYRIN SUBCUT SCH (12:29)
[2017-07-29] MEDS: INSULIN GLARGINE,HUM.REC.ANLOG 300 UNIT/3 ML INSULN.PEN SUBCUT SCH (12:30)
[2017-07-29] MEDS: DOCUSATE SODIUM 100 MG CAPSULE PO SCH (12:32)
[2017-07-29] MEDS: POLYETHYLENE GLYCOL 3350 POWDER 17 GM/1 PACKET PO SCH (12:32)
--- NOTE | 2017-07-29 21:28 | PDOC PROGRESS REPORT ---
Subjective Progress Note for:: 07/29/17 Subjective:: Patient remain on BiPAP support due to persistent hypercapnia. Pulmonary consult input appreciated. No chest pain. No fever or chills. No abdominal pain , nausea, or vomiting. P.O intake improving. Reason For Visit: PNEUMONIA WITH HYPOXEMIA ACUTE ON CHRONIC Physical Exam Vital Signs: Temp Pulse Resp BP Pulse Ox 99.5 F 70 20 137/51 H 97 07/29/17 20:00 07/29/17 20:00 07/29/17 20:00 07/29/17 20:00 07/29/17 14:48 Intake & Output 07/28/17 07/29/17 07/30/17 06:59 06:59 06:59 Intake Total 836 1398 847 Output Total 2150 2050 950 Balance -1314 -652 -103 Weight 128 kg 132.3 kg Physical Exam: General appearance: PRESENT: no acute distress, morbidly obese Head exam: PRESENT: atraumatic, normocephalic Eye exam: PRESENT: conjunctiva pink, EOMI. ABSENT: scleral icterus Mouth exam: PRESENT: moist, neck supple Teeth exam: PRESENT: poor dentition Respiratory exam: PRESENT: clear to auscultation carole, decreased breath sounds - reduced breath sound at lung bases Cardiovascular exam: PRESENT: RRR. ABSENT: diastolic murmur, rubs, systolic murmur Vascular exam: PRESENT: normal capillary refill. ABSENT: pallor GI/Abdominal exam: PRESENT: normal bowel sounds, soft. ABSENT: distended, guarding, mass, organomegaly, rebound, tenderness Extremities exam: PRESENT: pedal edema - comparatively improving. Musculoskeletal exam: PRESENT: deformity - related to multiple joints involvement with arthritis. Neurological exam: PRESENT: alert, awake Psychiatric exam: PRESENT: appropriate affect, normal mood. ABSENT: homicidal ideation, suicidal ideation Skin exam: PRESENT: dry, intact, warm. ABSENT: cyanosis, rash Results Laboratory Results: 07/29/17 10:22 07/29/17 10:22 07/27/17 07/29/17 07/29/17 05:31 08:35 10:22 WBC 5.8 RBC 3.23 L Hgb 9.5 L Hct 28.1 L MCV 87 MCH 29.4 MCHC 33.7 RDW 14.4 H Plt Count 198 Seg Neutrophils % 74.5 Lymphocytes % 12.1 L Monocytes % 11.3 Eosinophils % 1.6 Basophils % 0.5 Absolute Neutrophils 4.3 Absolute Lymphocytes 0.7 Absolute Monocytes 0.7 Absolute Eosinophils 0.1 Absolute Basophils 0.0 Carbonic Acid 2.26 H HCO3/H2CO3 Ratio 20:1 ABG pH 7.42 ABG pCO2 75.0 H* ABG pO2 95.3 ABG HCO3 47.0 H ABG O2 Saturation 97.0 ABG Base Excess 19.4 FiO2 35% Sodium 145.7 H Potassium 5.1 H Chloride 94 L Carbon Dioxide 44 H* Anion Gap 8 BUN 54 H Creatinine 1.22 Est GFR ( Amer) 51 L Est GFR (Non-Af Amer) 42 L Glucose 194 H Calcium 8.4 TSH Free T4 Free T3 pg/mL 07/29/17 07/29/17 10:22 10:22 WBC RBC Hgb Hct MCV MCH MCHC RDW Plt Count Seg Neutrophils % Lymphocytes % Monocytes % Eosinophils % Basophils % Absolute Neutrophils Absolute Lymphocytes Absolute Monocytes Absolute Eosinophils Absolute Basophils Carbonic Acid HCO3/H2CO3 Ratio ABG pH ABG pCO2 ABG pO2 ABG HCO3 ABG O2 Saturation ABG Base Excess FiO2 Sodium 140.8 Potassium 4.4 Chloride 89 L Carbon Dioxide 42 H* Anion Gap 10 BUN 44 H Creatinine 1.09 Est GFR ( Amer) 58 L Est GFR (Non-Af Amer) 48 L Glucose 203 H Calcium 8.5 TSH 1.54 Free T4 0.83 Free T3 pg/mL 2.78 07/15/17 07/15/17 07/17/17 05:50 05:50 11:15 Creatine Kinase 957 H CK-MB (CK-2) 2.44 Troponin I 0.063 NT-Pro-B Natriuret Pep 2970 H Impressions: Shoulder X-Ray 07/19/17 00:00 IMPRESSION: NO SIGNIFICANT RADIOGRAPHIC ABNORMALITY. Chest CT 07/26/17 00:00 IMPRESSION: 1. Limiting motion. 2. Cardiomegaly. 3. Patchy right upper lobe infiltrate. Chest X-Ray 07/26/17 00:00 IMPRESSION: HEART ENLARGED WITHOUT FAILURE. NO OTHER SIGNIFICANT RADIOGRAPHIC FINDING IN THE CHEST. Assessment & Plan - Diagnosis (1) Lobar pneumonia, unspecified organism Is this a current diagnosis for this admission?: Yes (2) Hypoxemia Is this a current diagnosis for this admission?: Yes (3) CHF (congestive heart failure) Qualifiers: Congestive heart failure type: systolic Congestive heart failure chronicity : acute on chronic Qualified Code(s): I50.23 - Acute on chronic systolic ( congestive) heart failure Is this a current diagnosis for this admission?: Yes (4) Acute kidney injury Is this a current diagnosis for this admission?: Yes (5) Diabetes mellitus Qualifiers: Diabetes mellitus type: type 2 Diabetes mellitus complication status: with unspecified complications Diabetes mellitus technician terminal and repeater insulin use: with correction use Qualified Code(s): E11.8 - Type 2 diabetes mellitus with unspecified complications; Z79.4 - correction (current) use of insulin; Z79.4 - terminal make up operator ( current) use of insulin; Z79.4 - terminal make up operator (current) use of insulin; Z79.4 - correction (current) use of insulin Is this a current diagnosis for this admission?: Yes (6) HTN (hypertension) Qualifiers: Hypertension type: essential hypertension Qualified Code(s): I10 - Essential (primary) hypertension Is this a current diagnosis for this admission?: Yes (7) HLD (hyperlipidemia) Qualifiers: Hyperlipidemia type: pure hypercholesterolemia Qualified Code(s): E78.00 - Pure hypercholesterolemia, unspecified; E78.0 - Pure hypercholesterolemia Is this a current diagnosis for this admission?: Yes (8) Morbid obesity with BMI of 50.0-59.9, adult Is this a current diagnosis for this admission?: Yes (9) Anemia of chronic disease Is this a current diagnosis for this admission?: Yes (10) Abnormal urine findings Is this a current diagnosis for this admission?: Yes (11) Constipation Qualifiers: Constipation type: slow transit constipation Qualified Code(s): K59.01 - Slow transit constipation Is this a current diagnosis for this admission?: Yes (12) Chronic pain syndrome Is this a current diagnosis for this admission?: Yes (13) Obesity hypoventilation syndrome Is this a current diagnosis for this admission?: Yes - Time Time Spent with patient: 25-34 minutes Medications reviewed and adjusted accordingly: Yes Anticipated discharge: SNF - for short term rehabiliatation Within: Other - Inpatient Certification Based on my medical assessment, after consideration of the patient's comorbidities, presenting symptoms, or acuity I expect that the services needed warrant INPATIENT care.: Yes I certify that my determination is in accordance with my understanding of Medicare's requirements for reasonable and necessary INPATIENT services [42 CFR 412.3e].: Yes Medical Necessity: Need Close Monitoring Due to Risk of Patient Decompensation, Need For Continuous Telemetry Monitoring, Risk of Complication if Not Cared For in Hospital Post Hospital Care: D/C or Transfer Summary - Plan Summary Plan Summary: Start on Acetazolamide 500mg p.o x 1 askew now and subsequently 250mg p.o daily. Continue on all other current medication management.
[2017-07-29] MEDS: ATORVASTATIN CALCIUM 40 MG TABLET PO SCH (22:04)
[2017-07-29] MEDS: CARBIDOPA/LEVODOPA ER 50-200 MG TABLET.SA PO SCH (22:10)
[2017-07-30] MEDS: CEFEPIME 1 GM/D5W RTU 1 GM/50 ML RTUPB IV SCH ×2 (05:18→17:59)
[2017-07-30] MEDS: LANSOPRAZOLE 30 MG TAB.RAP.DR PO SCH (05:21)
[2017-07-30] MEDS: PRAMIPEXOLE DI-HCL 0.5 MG TABLET PO SCH ×3 (05:21→22:21)
--- NOTE | 2017-07-30 06:59 | PDOC CONSULTATION ---
Consultation Consult Date: 07/28/17 Attending physician:: ISATU CHARLES Consult reason:: hypercapnic resp failure History of Present Illness Admission Date/PCP: 07/14/17 08:37 ISATU CHARLES History of Present Illness: BO BERMEO is a 82 year old female presented to the ED via EM service due to difficulty with breathing. Her reported oxygen saturation on room air was in the 60's. She reported onset of productive cough about 10 days prior to presentation.She has chronic hypoxic resp failure wearing O2 at home.She is currently quite lethargic but arousable Past Medical History Cardiac Medical History: Reports: Coronary Artery Disease, Myocardial Infarction - Patient does not remember year, Hyperlipidema - Borderline, Hypertension Pulmonary Medical History: Reports: Bronchitis Denies: Asthma, Chronic Obstructive Pulmonary Disease (COPD), Pneumonia Neurological Medical History: Reports: Ischemic CVA, Other - Parkinsonism Denies: Seizures Endocrine Medical History: Reports: Diabetes Mellitus Type 1, Diabetes Mellitus Type 2 Malignancy Medical History: Reports: Breast Cancer GI Medical History: Denies: Hepatitis, Hiatal Hernia Musculoskeltal Medical History: Reports: Arthritis Skin Medical History: Reports: Other - Dry skin dermatitis Hematology: Reports: Anemia Denies: Sickle Cell Disease Past Surgical History Past Surgical History: Reports: Cardiac Catheterization - 2 Stents, Mastectomy - LUMPECTOMY, RIGHT ARM RESTRICTED, Tonsillectomy Denies: Amputation, Pacemaker Social History Information Source: Relative, [facility] Records Lives with: Family Smoking Status: Never Smoker Passive smoke exposure as: Both Frequency of Alcohol Use: None Hx Recreational Drug Use: No Hx Prescription Drug Abuse: No Do you have pets?: No Have you had any respiratory illnesses as a child?: No Have you been exposed to any sick contacts recently?: No Have you had any recent respiratory illnesses?: No Have you travelled outside of [place] in the past 12 months?: No - Advance Directive Resuscitation Status: Full Code - with power of city attorney for health care Carlee Bermeo @ [phone] (H) [phone](W) Family History Family History: CAD, CVA, DM, Hypertension Parental Family History Reviewed: Yes Children Family History Reviewed: Yes Sibling(s) Family History Reviewed.: Yes Medication/Allergy Home Medications: Albuterol Sulfate [Ventolin Hfa] 2 puff IH Q4HP PRN 07/14/17 Amlodipine Besylate/Benazepril [Lotrel 10-40 mg Capsule] 1 tab PO DAILY Atorvastatin Calcium [Lipitor 40 mg Tablet] 40 mg PO QHS 07/14/17 Bumetanide [Bumex 0.5 mg Tablet] 0.5 mg PO Q12 07/14/17 Carbidopa/Levodopa ER [Sinemet-Cr 50-200 mg Tablet.sa] 1 tab PO QHS 07/14/17 Diclofenac Sodium [Voltaren] 2 gm TOP Q8 07/14/17 Insulin Glargine,Hum.rec.anlog [Lantus Solostar] 35 units SQ DAILY 07/14/17 Levocetirizine Dihydrochloride [Xyzal] 5 mg PO DAILY 07/14/17 Linaclotide [Linzess 145 Mcg Capsule] 145 mcg PO ACBRKFST 07/14/17 Metolazone [Zaroxolyn 2.5 mg Tablet] 2.5 mg PO MOWEFR@1000 07/14/17 Metoprolol Succinate [Toprol Xl 25 mg Tab.sr] 25 mg PO DAILY 07/14/17 Nitroglycerin [Nitro-Dur 15 mg (0.6 mg/1 Hr) Transderm Patch] 1 patch TD DAILY 07/14/17 Polyethylene Glycol 3350 [Miralax Powder 17 gm/Packet] 17 gm PO DAILY 07/14/17 Potassium Chloride [Klor-Con 10 Meq Tablet.sa] 10 meq PO DAILY 07/14/17 Pramipexole Di-HCl [Mirapex] 1 mg PO Q8 07/14/17 Allergies/Adverse Reactions: promethazine Allergy (Verified 07/14/17 06:27) Review of Systems ROS unobtainable: Due to mental status Physical Exam Vital Signs: Temp Pulse Resp BP Pulse Ox 97.9 F 82 17 138/61 H 94 07/28/17 11:06 07/28/17 14:00 07/28/17 12:54 07/28/17 11:06 07/28/17 12:54 Intake & Output 07/27/17 07/28/17 07/29/17 06:59 06:59 06:59 Intake Total 388 836 948 Output Total 9825 9060 350 Balance -1060 -1314 598 Weight 128 kg General appearance: PRESENT: no acute distress, cooperative, disheveled, hard of hearing, morbidly obese, well-developed, well-nourished Head exam: PRESENT: atraumatic, normocephalic Eye exam: PRESENT: conjunctiva pale, EOMI. ABSENT: conjunctival injection, conjunctiva pink, nystagmus, scleral icterus Mouth exam: PRESENT: dry mucosa, neck supple Neck exam: ABSENT: carotid bruit, JVD, lymphadenopathy, thyromegaly Respiratory exam: PRESENT: decreased breath sounds, prolonged expiratory phas, rales, rhonchi, symmetrical, wheezes. ABSENT: accessory muscle use, chest wall tenderness, clear to auscultation carole, crackles, retraction, stridor, tachypnea Cardiovascular exam: PRESENT: RRR, +S1, +S2. ABSENT: irregular rhythm, rubs Pulses: PRESENT: normal radial pulses GI/Abdominal exam: PRESENT: normal bowel sounds, soft. ABSENT: distended, guarding, mass, organolmegaly, rebound, tenderness Rectal exam: PRESENT: deferred Extremities exam: ABSENT: clubbing, joint swelling, tenderness Musculoskeletal exam: ABSENT: ambulatory, deformity, dislocation Neurological exam: PRESENT: awake Skin exam: PRESENT: dry, warm Results Laboratory Results: 07/27/17 05:31 07/27/17 05:31 07/28/17 06:40 Carbonic Acid 2.32 H HCO3/H2CO3 Ratio 18:1 ABG pH 7.37 ABG pCO2 77.2 H* ABG pO2 99.4 ABG HCO3 43.2 H ABG O2 Saturation 97.0 ABG Base Excess 15.1 FiO2 3L 07/15/17 07/15/17 07/17/17 05:50 05:50 11:15 Creatine Kinase 957 H CK-MB (CK-2) 2.44 Troponin I 0.063 NT-Pro-B Natriuret Pep 2970 H Impressions: Shoulder X-Ray 07/19/17 00:00 IMPRESSION: NO SIGNIFICANT RADIOGRAPHIC ABNORMALITY. Chest CT 07/26/17 00:00 IMPRESSION: 1. Limiting motion. 2. Cardiomegaly. 3. Patchy right upper lobe infiltrate. Chest X-Ray 07/26/17 00:00 IMPRESSION: HEART ENLARGED WITHOUT FAILURE. NO OTHER SIGNIFICANT RADIOGRAPHIC FINDING IN THE CHEST. Assessment & Plan - Diagnosis (1) Coronary artery disease Qualifiers: Coronary Disease-Associated Artery/Lesion type: [place] artery [place] vs. transplanted heart: [place] heart Associated angina: angina presence unspecified Qualified Code(s): I25.10 - Atherosclerotic heart disease of [place] coronary artery without angina pectoris Is this a current diagnosis for this admission?: Yes Plan: as per cardiology (2) Obesity hypoventilation syndrome Is this a current diagnosis for this admission?: Yes Plan: hypercapni/hypoxic resp failure AVAPS (3) Parkinson disease Is this a current diagnosis for this admission?: Yes (4) Anemia of chronic disease Is this a current diagnosis for this admission?: Yes
--- NOTE | 2017-07-30 07:05 | PDOC PROGRESS REPORT ---
Subjective Progress Note for:: 07/29/17 Subjective:: a little less lethargic Reason For Visit: PNEUMONIA WITH HYPOXEMIA ACUTE ON CHRONIC Physical Exam Vital Signs: Temp Pulse Resp BP Pulse Ox 98.6 F 53 L 15 136/56 H 100 07/29/17 07:18 07/29/17 07:18 07/29/17 07:18 07/29/17 07:18 07/29/17 07:18 Intake & Output 07/28/17 07/29/17 07/30/17 06:59 06:59 06:59 Intake Total 836 1398 Output Total 2149 2049 Balance -1314 -435 Weight 128 kg 132.3 kg General appearance: PRESENT: cooperative, disheveled, morbidly obese. ABSENT: no acute distress Head exam: PRESENT: atraumatic, normocephalic Eye exam: PRESENT: conjunctiva pale, EOMI. ABSENT: conjunctival injection, conjunctiva pink, nystagmus, periorbital swelling Mouth exam: PRESENT: dry mucosa, neck supple, tongue midline Neck exam: ABSENT: carotid bruit, JVD, lymphadenopathy, thyromegaly Respiratory exam: PRESENT: decreased breath sounds, prolonged expiratory phas, rales, rhonchi, symmetrical, unlabored, wheezes. ABSENT: accessory muscle use, chest wall tenderness, clear to auscultation carole, crackles, retraction, stridor , tachypnea Cardiovascular exam: PRESENT: RRR, +S1, +S2. ABSENT: clicks, gallop, irregular rhythm, rubs Pulses: PRESENT: normal radial pulses GI/Abdominal exam: PRESENT: normal bowel sounds, soft. ABSENT: distended, guarding, mass, organolmegaly, rebound, tenderness Extremities exam: ABSENT: calf tenderness, clubbing, joint swelling Musculoskeletal exam: ABSENT: ambulatory, deformity, dislocation Neurological exam: PRESENT: awake Skin exam: PRESENT: dry, warm Results Laboratory Results: 07/27/17 05:31 07/27/17 05:31 07/26/17 07/28/17 07/29/17 04:29 17:35 08:35 Carbonic Acid 2.15 H 2.26 H HCO3/H2CO3 Ratio 21:1 20:1 ABG pH 7.44 7.42 ABG pCO2 71.3 H* 75.0 H* ABG pO2 145.9 H 95.3 ABG HCO3 46.8 H 47.0 H ABG O2 Saturation 98.8 H 97.0 ABG Base Excess 19.7 19.4 FiO2 40% 35% Transferrin 136 L 07/15/17 07/15/17 07/17/17 05:50 05:50 11:15 Creatine Kinase 957 H CK-MB (CK-2) 2.44 Troponin I 0.063 NT-Pro-B Natriuret Pep 2970 H Impressions: Shoulder X-Ray 07/19/17 00:00 IMPRESSION: NO SIGNIFICANT RADIOGRAPHIC ABNORMALITY. Chest CT 07/26/17 00:00 IMPRESSION: 1. Limiting motion. 2. Cardiomegaly. 3. Patchy right upper lobe infiltrate. Chest X-Ray 07/26/17 00:00 IMPRESSION: HEART ENLARGED WITHOUT FAILURE. NO OTHER SIGNIFICANT RADIOGRAPHIC FINDING IN THE CHEST. Assessment & Plan - Diagnosis (1) CHF (congestive heart failure) Qualifiers: Congestive heart failure type: systolic Congestive heart failure chronicity : acute on chronic Qualified Code(s): I50.23 - Acute on chronic systolic ( congestive) heart failure Is this a current diagnosis for this admission?: Yes Plan: acute/chronic as per cardiology (2) Coronary artery disease Qualifiers: Coronary Disease-Associated Artery/Lesion type: [place] artery [place] vs. transplanted heart: [place] heart Associated angina: angina presence unspecified Qualified Code(s): I25.10 - Atherosclerotic heart disease of [place] coronary artery without angina pectoris Is this a current diagnosis for this admission?: Yes (3) Obesity hypoventilation syndrome Is this a current diagnosis for this admission?: Yes Plan: well compensated hypercapnic resp failure (4) Parkinson disease Is this a current diagnosis for this admission?: Yes
[2017-07-30] MEDS: ENOXAPARIN SODIUM INJ 30 MG/0.3 ML DISP.SYRIN SUBCUT SCH (10:57)
[2017-07-30] MEDS: DOCUSATE SODIUM 100 MG CAPSULE PO SCH (10:57)
[2017-07-30] MEDS: METOLAZONE 2.5 MG TABLET PO SCH (10:57)
[2017-07-30] MEDS: INSULIN GLARGINE,HUM.REC.ANLOG 300 UNIT/3 ML INSULN.PEN SUBCUT SCH (10:57)
[2017-07-30] MEDS: BUMETANIDE 1 MG TABLET PO SCH ×2 (10:58→22:20)
[2017-07-30] MEDS: AMLODIPINE BESYLATE 10 MG TABLET PO SCH (10:58)
[2017-07-30] MEDS: CETIRIZINE 5 MG TABLET PO SCH (10:58)
[2017-07-30] MEDS: METOPROLOL SUCCINATE 25 MG TAB.SR.24H PO SCH (10:59)
[2017-07-30] MEDS: NITROGLYCERIN 15 MG (0.6 MG/1 HR) PATCH.TD24 TD SCH (11:00)
[2017-07-30] MEDS: POLYETHYLENE GLYCOL 3350 POWDER 17 GM/1 PACKET PO SCH (11:08)
[2017-07-30] MEDS: INSULIN LISPRO 100 UNIT/ML 3 ML VIAL SUBCUT PRN ×3 (14:36→22:19)
--- NOTE | 2017-07-30 18:34 | PDOC PROGRESS REPORT ---
Subjective Progress Note for:: 07/30/17 Subjective:: Patient remain on BiPAP support due to persistent hypercapnia. She do fall asleep intermittently even during conversation period. She remain appropriate when aroused and awake. She denied chest pain. No fever or chills. No abdominal pain, nausea, or vomiting. P.O intake improving. Reason For Visit: PNEUMONIA WITH HYPOXEMIA ACUTE ON CHRONIC Physical Exam Vital Signs: Temp Pulse Resp BP Pulse Ox 98.7 F 66 16 143/58 H 97 07/30/17 15:40 07/30/17 15:40 07/30/17 16:34 07/30/17 15:40 07/30/17 16:34 Intake & Output 07/29/17 07/30/17 07/31/17 06:59 06:59 06:59 Intake Total 1398 1207 Output Total 2049 2024 Balance -652 -818 Weight 132.3 kg 132.2 kg Physical Exam: General appearance: PRESENT: no acute distress, morbidly obese Head exam: PRESENT: atraumatic, normocephalic Eye exam: PRESENT: conjunctiva pink, EOMI. ABSENT: scleral icterus Mouth exam: PRESENT: moist, neck supple Teeth exam: PRESENT: poor dentition Respiratory exam: PRESENT: clear to auscultation carole, decreased breath sounds - reduced breath sound at lung bases Cardiovascular exam: PRESENT: RRR. ABSENT: diastolic murmur, rubs, systolic murmur Vascular exam: PRESENT: normal capillary refill. ABSENT: pallor GI/Abdominal exam: PRESENT: normal bowel sounds, soft. ABSENT: distended, guarding, mass, organomegaly, rebound, tenderness Extremities exam: PRESENT: pedal edema - comparatively improving. Musculoskeletal exam: PRESENT: deformity - related to multiple joints involvement with arthritis. Neurological exam: PRESENT: alert, awake Psychiatric exam: PRESENT: appropriate affect, normal mood. ABSENT: homicidal ideation, suicidal ideation Skin exam: PRESENT: dry, intact, warm. ABSENT: cyanosis, rash Results Laboratory Results: 07/29/17 10:22 07/29/17 10:22 07/15/17 07/15/17 07/17/17 05:50 05:50 11:15 Creatine Kinase 957 H CK-MB (CK-2) 2.44 Troponin I 0.063 NT-Pro-B Natriuret Pep 2970 H Impressions: Shoulder X-Ray 07/19/17 00:00 IMPRESSION: NO SIGNIFICANT RADIOGRAPHIC ABNORMALITY. Chest CT 07/26/17 00:00 IMPRESSION: 1. Limiting motion. 2. Cardiomegaly. 3. Patchy right upper lobe infiltrate. Chest X-Ray 07/26/17 00:00 IMPRESSION: HEART ENLARGED WITHOUT FAILURE. NO OTHER SIGNIFICANT RADIOGRAPHIC FINDING IN THE CHEST. Assessment & Plan - Diagnosis (1) Lobar pneumonia, unspecified organism Is this a current diagnosis for this admission?: Yes (2) Hypoxemia Is this a current diagnosis for this admission?: Yes (3) CHF (congestive heart failure) Qualifiers: Congestive heart failure type: systolic Congestive heart failure chronicity : acute on chronic Qualified Code(s): I50.23 - Acute on chronic systolic ( congestive) heart failure Is this a current diagnosis for this admission?: Yes (4) Acute kidney injury Is this a current diagnosis for this admission?: Yes (5) Diabetes mellitus Qualifiers: Diabetes mellitus type: type 2 Diabetes mellitus complication status: with unspecified complications Diabetes mellitus group home insulin use: with group home use Qualified Code(s): E11.8 - Type 2 diabetes mellitus with unspecified complications; Z79.4 - terminal operations supervisor (current) use of insulin; Z79.4 - terminal operations supervisor ( current) use of insulin; Z79.4 - terminal operations supervisor (current) use of insulin; Z79.4 - terminal operations supervisor (current) use of insulin Is this a current diagnosis for this admission?: Yes (6) HTN (hypertension) Qualifiers: Hypertension type: essential hypertension Qualified Code(s): I10 - Essential (primary) hypertension Is this a current diagnosis for this admission?: Yes (7) HLD (hyperlipidemia) Qualifiers: Hyperlipidemia type: pure hypercholesterolemia Qualified Code(s): E78.00 - Pure hypercholesterolemia, unspecified; E78.0 - Pure hypercholesterolemia Is this a current diagnosis for this admission?: Yes (8) Morbid obesity with BMI of 50.0-59.9, adult Is this a current diagnosis for this admission?: Yes (9) Anemia of chronic disease Is this a current diagnosis for this admission?: Yes (10) Abnormal urine findings Is this a current diagnosis for this admission?: Yes (11) Constipation Qualifiers: Constipation type: slow transit constipation Qualified Code(s): K59.01 - Slow transit constipation Is this a current diagnosis for this admission?: Yes (12) Chronic pain syndrome Is this a current diagnosis for this admission?: Yes (13) Obesity hypoventilation syndrome Is this a current diagnosis for this admission?: Yes Plan: Encouraged compliance with BiPAP usage. I will discuss with pulmonary building performance consultant possible therapy with trilogy vent support in view of her somnolence with hypercapnia despite compensatory state. - Time Time Spent with patient: 25-34 minutes Medications reviewed and adjusted accordingly: Yes Anticipated discharge: SNF - for STR stay - Inpatient Certification Based on my medical assessment, after consideration of the patient's comorbidities, presenting symptoms, or acuity I expect that the services needed warrant INPATIENT care.: Yes I certify that my determination is in accordance with my understanding of Medicare's requirements for reasonable and necessary INPATIENT services [42 CFR 412.3e].: Yes Medical Necessity: Need Close Monitoring Due to Risk of Patient Decompensation, Need For Continuous Telemetry Monitoring, Need for Nebulizer Therapy and Monitoring of Response, Need for IV Antibiotics, Risk of Complication if Not Cared For in Hospital Post Hospital Care: D/C or Transfer Summary - Plan Summary Plan Summary: See attending physician orders.
[2017-07-30] MEDS: ATORVASTATIN CALCIUM 40 MG TABLET PO SCH (22:21)
[2017-07-30] MEDS: CARBIDOPA/LEVODOPA ER 50-200 MG TABLET.SA PO SCH (22:23)
[2017-07-31] MEDS: LANSOPRAZOLE 30 MG TAB.RAP.DR PO SCH (05:38)
[2017-07-31] MEDS: PRAMIPEXOLE DI-HCL 0.5 MG TABLET PO SCH ×3 (05:38→22:17)
[2017-07-31] MEDS: CEFEPIME 1 GM/D5W RTU 1 GM/50 ML RTUPB IV SCH ×2 (05:39→17:28)
[2017-07-31 05:58] LABS: ARTERIAL BLOOD BASE EXCESS 19.2 mmol/L; ARTERIAL BLOOD O2 SATURATION 95.2 % (94-98)
--- NOTE | 2017-07-31 06:40 | PDOC PROGRESS REPORT ---
Subjective Progress Note for:: 07/30/17 Subjective:: remains lethargic Reason For Visit: PNEUMONIA WITH HYPOXEMIA ACUTE ON CHRONIC Physical Exam Vital Signs: Temp Pulse Resp BP Pulse Ox 98.7 F 61 15 134/51 H 100 07/31/17 04:22 07/31/17 04:22 07/31/17 04:22 07/31/17 04:22 07/31/17 04:22 Intake & Output 07/29/17 07/30/17 07/31/17 06:59 06:59 06:59 Intake Total 1398 1207 1160 Output Total 2049 2024 2099 Balance -432 -818 -940 Weight 132.3 kg 132.2 kg General appearance: PRESENT: cooperative, disheveled, morbidly obese, well- developed. ABSENT: no acute distress, hard of hearing, obese, severe distress, thin Head exam: PRESENT: atraumatic, normocephalic Eye exam: PRESENT: conjunctiva pale, EOMI. ABSENT: conjunctival injection, conjunctiva pink, nystagmus, periorbital swelling, scleral icterus Mouth exam: PRESENT: dry mucosa, neck supple, tongue midline Neck exam: ABSENT: carotid bruit, JVD, lymphadenopathy, thyromegaly, tracheal deviation, tracheostomy Respiratory exam: PRESENT: decreased breath sounds, prolonged expiratory phas, rhonchi, symmetrical, wheezes. ABSENT: accessory muscle use, chest wall tenderness, clear to auscultation carole, crackles, rales, retraction, stridor, tachypnea Cardiovascular exam: PRESENT: RRR, +S1, +S2. ABSENT: rubs Pulses: PRESENT: normal radial pulses GI/Abdominal exam: PRESENT: normal bowel sounds, soft. ABSENT: distended, guarding, mass, organolmegaly, rebound, tenderness Gentrourinary exam: PRESENT: indwelling catheter Extremities exam: ABSENT: clubbing, joint swelling Musculoskeletal exam: ABSENT: ambulatory, deformity, dislocation, tenderness Neurological exam: PRESENT: awake Psychiatric exam: PRESENT: flat affect Skin exam: PRESENT: dry, warm Results Laboratory Results: 07/29/17 10:22 07/29/17 10:22 07/31/17 05:35 Carbonic Acid 1.94 H HCO3/H2CO3 Ratio 23:1 ABG pH 7.47 H ABG pCO2 64.5 H ABG pO2 74.3 L ABG HCO3 45.5 H ABG O2 Saturation 95.2 ABG Base Excess 19.2 FiO2 30% 07/15/17 07/15/17 07/17/17 05:50 05:50 11:15 Creatine Kinase 957 H CK-MB (CK-2) 2.44 Troponin I 0.063 NT-Pro-B Natriuret Pep 2970 H Impressions: Shoulder X-Ray 07/19/17 00:00 IMPRESSION: NO SIGNIFICANT RADIOGRAPHIC ABNORMALITY. Chest CT 07/26/17 00:00 IMPRESSION: 1. Limiting motion. 2. Cardiomegaly. 3. Patchy right upper lobe infiltrate. Chest X-Ray 07/26/17 00:00 IMPRESSION: HEART ENLARGED WITHOUT FAILURE. NO OTHER SIGNIFICANT RADIOGRAPHIC FINDING IN THE CHEST. Assessment & Plan - Diagnosis (1) CHF (congestive heart failure) Qualifiers: Congestive heart failure type: systolic Congestive heart failure chronicity : acute on chronic Qualified Code(s): I50.23 - Acute on chronic systolic ( congestive) heart failure Is this a current diagnosis for this admission?: Yes Plan: acute/chronic as per cardiology (2) Coronary artery disease Qualifiers: Coronary Disease-Associated Artery/Lesion type: [place] artery [place] vs. transplanted heart: [place] heart Associated angina: angina presence unspecified Qualified Code(s): I25.10 - Atherosclerotic heart disease of [place] coronary artery without angina pectoris Is this a current diagnosis for this admission?: Yes Plan: as per cardiology (3) Obesity hypoventilation syndrome Is this a current diagnosis for this admission?: Yes Plan: discussed at length with PCP and family about prognosis and placement (4) Parkinson disease Is this a current diagnosis for this admission?: Yes - Time Time Spent with patient: 60 min
[2017-07-31 06:58] LABS: BLOOD UREA NITROGEN 45 mg/dL (7-20); CALCIUM 8.7 mg/dL (8.4-10.2); CHLORIDE 87 mmol/L (98-107); CREATININE RESULT 1.11 mg/dL (0.52-1.25); GLUCOSE 152 mg/dL (75-110); POTASSIUM 3.9 mmol/L (3.6-5.0); SODIUM 140.4 mmol/L (137-145)
[2017-07-31 07:10] LABS: ANION GAP 7 (5-19)
[2017-07-31 07:13] LABS: CARBON DIOXIDE 46 mmol/L (22-30)
[2017-07-31] MEDS: INSULIN GLARGINE,HUM.REC.ANLOG 300 UNIT/3 ML INSULN.PEN SUBCUT SCH (09:47)
[2017-07-31] MEDS: ENOXAPARIN SODIUM INJ 30 MG/0.3 ML DISP.SYRIN SUBCUT SCH (09:51)
[2017-07-31] MEDS: NITROGLYCERIN 15 MG (0.6 MG/1 HR) PATCH.TD24 TD SCH (09:54)
[2017-07-31] MEDS: CETIRIZINE 5 MG TABLET PO SCH (09:57)
[2017-07-31] MEDS: AMLODIPINE BESYLATE 10 MG TABLET PO SCH (09:57)
[2017-07-31] MEDS: BUMETANIDE 1 MG TABLET PO SCH ×2 (09:57→22:17)
[2017-07-31] MEDS: METOPROLOL SUCCINATE 25 MG TAB.SR.24H PO SCH (09:57)
[2017-07-31] MEDS: DOCUSATE SODIUM 100 MG CAPSULE PO SCH (09:59)
[2017-07-31] MEDS: POLYETHYLENE GLYCOL 3350 POWDER 17 GM/1 PACKET PO SCH (09:59)
--- NOTE | 2017-07-31 15:04 | PDOC PROGRESS REPORT ---
Subjective Progress Note for:: 07/31/17 Subjective:: a little more alert today Reason For Visit: PNEUMONIA WITH HYPOXEMIA ACUTE ON CHRONIC Physical Exam Vital Signs: Temp Pulse Resp BP Pulse Ox 98.6 F 69 21 H 140/53 H 100 07/31/17 10:55 07/31/17 14:00 07/31/17 12:31 07/31/17 10:55 07/31/17 12:31 Intake & Output 07/30/17 07/31/17 08/01/17 06:59 06:59 06:59 Intake Total 1207 1160 Output Total 2024 4140 Balance -818 -1540 Weight 132.2 kg 128.6 kg General appearance: PRESENT: disheveled, mild distress, morbidly obese, well- developed, well-nourished. ABSENT: no acute distress, cooperative, obese, severe distress, thin Head exam: PRESENT: atraumatic, normocephalic Eye exam: PRESENT: conjunctiva pale, EOMI. ABSENT: conjunctival injection, conjunctiva pink, nystagmus, periorbital swelling, scleral icterus Mouth exam: PRESENT: dry mucosa, neck supple, tongue midline Neck exam: ABSENT: carotid bruit, JVD, lymphadenopathy, thyromegaly, tracheal deviation, tracheostomy Respiratory exam: PRESENT: decreased breath sounds, prolonged expiratory phas, rales, rhonchi, symmetrical, unlabored, wheezes. ABSENT: accessory muscle use, chest wall tenderness, clear to auscultation carole, crackles, retraction, stridor , tachypnea Cardiovascular exam: PRESENT: RRR, +S1, +S2. ABSENT: rubs Pulses: PRESENT: normal radial pulses GI/Abdominal exam: PRESENT: normal bowel sounds, soft. ABSENT: distended, guarding, mass, organolmegaly, rebound, tenderness Extremities exam: ABSENT: clubbing, joint swelling Musculoskeletal exam: ABSENT: deformity, dislocation Neurological exam: PRESENT: awake Psychiatric exam: PRESENT: flat affect Skin exam: PRESENT: dry, warm Results Laboratory Results: 07/29/17 10:22 07/31/17 06:20 07/31/17 07/31/17 05:35 06:20 Carbonic Acid 1.94 H HCO3/H2CO3 Ratio 23:1 ABG pH 7.47 H ABG pCO2 64.5 H ABG pO2 74.3 L ABG HCO3 45.5 H ABG O2 Saturation 95.2 ABG Base Excess 19.2 FiO2 30% Sodium 140.4 Potassium 3.9 Chloride 87 L Carbon Dioxide 46 H* Anion Gap 7 BUN 45 H Creatinine 1.11 Est GFR ( Amer) 57 L Est GFR (Non-Af Amer) 47 L Glucose 152 H Calcium 8.7 07/15/17 07/15/17 07/17/17 05:50 05:50 11:15 Creatine Kinase 957 H CK-MB (CK-2) 2.44 Troponin I 0.063 NT-Pro-B Natriuret Pep 2970 H Impressions: Shoulder X-Ray 07/19/17 00:00 IMPRESSION: NO SIGNIFICANT RADIOGRAPHIC ABNORMALITY. Chest CT 07/26/17 00:00 IMPRESSION: 1. Limiting motion. 2. Cardiomegaly. 3. Patchy right upper lobe infiltrate. Chest X-Ray 07/26/17 00:00 IMPRESSION: HEART ENLARGED WITHOUT FAILURE. NO OTHER SIGNIFICANT RADIOGRAPHIC FINDING IN THE CHEST. Assessment & Plan - Diagnosis (1) CHF (congestive heart failure) Qualifiers: Congestive heart failure type: systolic Congestive heart failure chronicity : acute on chronic Qualified Code(s): I50.23 - Acute on chronic systolic ( congestive) heart failure Is this a current diagnosis for this admission?: Yes Plan: acute/chronic as per cardiology (2) Coronary artery disease Qualifiers: Coronary Disease-Associated Artery/Lesion type: [place] artery [place] vs. transplanted heart: [place] heart Associated angina: angina presence unspecified Qualified Code(s): I25.10 - Atherosclerotic heart disease of [place] coronary artery without angina pectoris Is this a current diagnosis for this admission?: Yes Plan: as per cardiology (3) Obesity hypoventilation syndrome Is this a current diagnosis for this admission?: Yes Plan: discussed at length with PCP and family about prognosis and placement (4) Parkinson disease Is this a current diagnosis for this admission?: Yes Plan: stable
[2017-07-31] MEDS: INSULIN LISPRO 100 UNIT/ML 3 ML VIAL SUBCUT PRN ×2 (17:28→22:17)
--- NOTE | 2017-07-31 21:46 | PDOC PROGRESS REPORT ---
Subjective Progress Note for:: 07/31/17 Subjective:: Patient remain on AVAPS support due to persistent hypercapnia. She is more engaging today as per daughters at bedside. She denied chest pain. No fever or chills. No abdominal pain, nausea, or vomiting. P.O intake improving. Still limited in mobility and participation in any physical therapy at this time. Reason For Visit: PNEUMONIA WITH HYPOXEMIA ACUTE ON CHRONIC Physical Exam Vital Signs: Temp Pulse Resp BP Pulse Ox 98.6 F 72 16 129/42 H 96 07/31/17 19:40 07/31/17 19:40 07/31/17 19:40 07/31/17 19:40 07/31/17 19:40 Intake & Output 07/30/17 07/31/17 08/01/17 06:59 06:59 06:59 Intake Total 1207 1160 812 Output Total 2024 2700 725 Balance -818 -1540 87 Weight 132.2 kg 128.6 kg Physical Exam: General appearance: PRESENT: no acute distress, morbidly obese Head exam: PRESENT: atraumatic, normocephalic Eye exam: PRESENT: conjunctiva pink, EOMI. ABSENT: scleral icterus Mouth exam: PRESENT: moist, neck supple Teeth exam: PRESENT: poor dentition Respiratory exam: PRESENT: clear to auscultation carole, decreased breath sounds - reduced breath sound at lung bases Cardiovascular exam: PRESENT: RRR. ABSENT: diastolic murmur, rubs, systolic murmur Vascular exam: PRESENT: normal capillary refill. ABSENT: pallor GI/Abdominal exam: PRESENT: normal bowel sounds, soft. ABSENT: distended, guarding, mass, organomegaly, rebound, tenderness Extremities exam: PRESENT: pedal edema - comparatively improving. Musculoskeletal exam: PRESENT: deformity - related to multiple joints involvement with arthritis. Neurological exam: PRESENT: alert, awake Psychiatric exam: PRESENT: appropriate affect, normal mood. ABSENT: homicidal ideation, suicidal ideation Skin exam: PRESENT: dry, intact, warm. ABSENT: cyanosis, rash Results Laboratory Results: 07/29/17 10:22 07/31/17 06:20 07/31/17 07/31/17 05:35 06:20 Carbonic Acid 1.94 H HCO3/H2CO3 Ratio 23:1 ABG pH 7.47 H ABG pCO2 64.5 H ABG pO2 74.3 L ABG HCO3 45.5 H ABG O2 Saturation 95.2 ABG Base Excess 19.2 FiO2 30% Sodium 140.4 Potassium 3.9 Chloride 87 L Carbon Dioxide 46 H* Anion Gap 7 BUN 45 H Creatinine 1.11 Est GFR ( Amer) 57 L Est GFR (Non-Af Amer) 47 L Glucose 152 H Calcium 8.7 07/15/17 07/15/17 07/17/17 05:50 05:50 11:15 Creatine Kinase 957 H CK-MB (CK-2) 2.44 Troponin I 0.063 NT-Pro-B Natriuret Pep 2970 H Impressions: Shoulder X-Ray 07/19/17 00:00 IMPRESSION: NO SIGNIFICANT RADIOGRAPHIC ABNORMALITY. Chest CT 07/26/17 00:00 IMPRESSION: 1. Limiting motion. 2. Cardiomegaly. 3. Patchy right upper lobe infiltrate. Chest X-Ray 07/26/17 00:00 IMPRESSION: HEART ENLARGED WITHOUT FAILURE. NO OTHER SIGNIFICANT RADIOGRAPHIC FINDING IN THE CHEST. Assessment & Plan - Diagnosis (1) Lobar pneumonia, unspecified organism Is this a current diagnosis for this admission?: Yes (2) Hypoxemia Is this a current diagnosis for this admission?: Yes (3) CHF (congestive heart failure) Qualifiers: Congestive heart failure type: systolic Congestive heart failure chronicity : acute on chronic Qualified Code(s): I50.23 - Acute on chronic systolic ( congestive) heart failure Is this a current diagnosis for this admission?: Yes (4) Acute kidney injury Is this a current diagnosis for this admission?: Yes (5) Diabetes mellitus Qualifiers: Diabetes mellitus type: type 2 Diabetes mellitus complication status: with unspecified complications Diabetes mellitus medical terminologist insulin use: with assisted use Qualified Code(s): E11.8 - Type 2 diabetes mellitus with unspecified complications; Z79.4 - half-way (current) use of insulin; Z79.4 - rat exterminator ( current) use of insulin; Z79.4 - half-way (current) use of insulin; Z79.4 - rat exterminator (current) use of insulin Is this a current diagnosis for this admission?: Yes (6) HTN (hypertension) Qualifiers: Hypertension type: essential hypertension Qualified Code(s): I10 - Essential (primary) hypertension Is this a current diagnosis for this admission?: Yes (7) HLD (hyperlipidemia) Qualifiers: Hyperlipidemia type: pure hypercholesterolemia Qualified Code(s): E78.00 - Pure hypercholesterolemia, unspecified; E78.0 - Pure hypercholesterolemia Is this a current diagnosis for this admission?: Yes (8) Morbid obesity with BMI of 50.0-59.9, adult Is this a current diagnosis for this admission?: Yes (9) Anemia of chronic disease Is this a current diagnosis for this admission?: Yes (10) Abnormal urine findings Is this a current diagnosis for this admission?: Yes (11) Constipation Qualifiers: Constipation type: slow transit constipation Qualified Code(s): K59.01 - Slow transit constipation Is this a current diagnosis for this admission?: Yes (12) Chronic pain syndrome Is this a current diagnosis for this admission?: Yes (13) Obesity hypoventilation syndrome Is this a current diagnosis for this admission?: Yes - Time Time Spent with patient: 35 or more minutes Medications reviewed and adjusted accordingly: Yes Anticipated discharge: SNF - for short term rehabilitation program. Within: Other - Inpatient Certification Based on my medical assessment, after consideration of the patient's comorbidities, presenting symptoms, or acuity I expect that the services needed warrant INPATIENT care.: Yes I certify that my determination is in accordance with my understanding of Medicare's requirements for reasonable and necessary INPATIENT services [42 CFR 412.3e].: Yes Medical Necessity: Need Close Monitoring Due to Risk of Patient Decompensation, Need For IV Fluids, Need For Continuous Telemetry Monitoring, Need for IV Antibiotics, Risk of Complication if Not Cared For in Hospital Post Hospital Care: D/C or Transfer Summary - Plan Summary Plan Summary: See attending physician orders.
[2017-07-31] MEDS: ATORVASTATIN CALCIUM 40 MG TABLET PO SCH (22:17)
[2017-07-31] MEDS: CARBIDOPA/LEVODOPA ER 50-200 MG TABLET.SA PO SCH (22:18)
[2017-08-01 06:30] LABS: ABSOLUTE EOSINOPHILS # (AUTO) 0.1 10^3/uL (0.0-0.6); ABSOLUTE LYMPHOCYTES (AUTO) 0.9 10^3/uL (0.5-4.7); ABSOLUTE MONOCYTES (AUTO) 0.8 10^3/uL (0.1-1.4); BASOPHILS % (AUTO) 0.5 % (0-2); EOSINOPHILS % (AUTO) 1.7 % (0-6); HEMATOCRIT 27.9 % (36.0-47.0); HEMOGLOBIN 9.5 g/dL (12.0-15.5); HGB HCT DIFFERENCE 0.6; LYMPHOCYTES % (AUTO) 16.1 % (13-45); MEAN CORPUSCULAR HGB CONC 33.8 g/dL (32.0-36.0); MEAN CORPUSCULAR VOLUME 86 fl (80-97); MONOCYTES % (AUTO) 14.1 % (3-13); RED BLOOD COUNT 3.26 10^6/uL (3.72-5.28); RED CELL DISTRIBUTION WIDTH 14.1 % (11.5-14.0); SEGMENTED NEUTROPHILS % (AUTO) 67.6 % (42-78); WHITE BLOOD COUNT 5.9 10^3/uL (4.0-10.5)
[2017-08-01] MEDS: CEFEPIME 1 GM/D5W RTU 1 GM/50 ML RTUPB IV SCH ×2 (06:39→19:00)
[2017-08-01] MEDS: PRAMIPEXOLE DI-HCL 0.5 MG TABLET PO SCH ×3 (06:39→22:36)
[2017-08-01] MEDS: LANSOPRAZOLE 30 MG TAB.RAP.DR PO SCH (06:40)
[2017-08-01 06:50] LABS: BLOOD UREA NITROGEN 50 mg/dL (7-20); CALCIUM 8.7 mg/dL (8.4-10.2); CHLORIDE 89 mmol/L (98-107); CREATININE RESULT 1.12 mg/dL (0.52-1.25); GLUCOSE 107 mg/dL (75-110); SODIUM 140.9 mmol/L (137-145)
[2017-08-01 07:00] LABS: ANION GAP 10 (5-19); CARBON DIOXIDE 42 mmol/L (22-30)
[2017-08-01] MEDS: NITROGLYCERIN 15 MG (0.6 MG/1 HR) PATCH.TD24 TD SCH (11:06)
[2017-08-01] MEDS: POLYETHYLENE GLYCOL 3350 POWDER 17 GM/1 PACKET PO SCH (11:08)
[2017-08-01] MEDS: ENOXAPARIN SODIUM INJ 30 MG/0.3 ML DISP.SYRIN SUBCUT SCH (11:08)
[2017-08-01] MEDS: METOPROLOL SUCCINATE 25 MG TAB.SR.24H PO SCH (11:09)
[2017-08-01] MEDS: DOCUSATE SODIUM 100 MG CAPSULE PO SCH (11:11)
[2017-08-01] MEDS: BUMETANIDE 1 MG TABLET PO SCH ×2 (11:11→22:35)
[2017-08-01] MEDS: AMLODIPINE BESYLATE 10 MG TABLET PO SCH (11:12)
[2017-08-01] MEDS: CETIRIZINE 5 MG TABLET PO SCH (11:13)
[2017-08-01] MEDS: METOLAZONE 2.5 MG TABLET PO SCH (11:13)
[2017-08-01] MEDS: INSULIN GLARGINE,HUM.REC.ANLOG 300 UNIT/3 ML INSULN.PEN SUBCUT SCH (11:14)
--- NOTE | 2017-08-01 20:42 | PDOC PROGRESS REPORT ---
Subjective Progress Note for:: 08/01/17 Subjective:: Patient is more lucid and engaging tonight. Tolerating nasal cannula supplemental oxygen. She remain on AVAPS support while sleeping for persistent hypercapnia. She denied chest pain. No fever or chills. No abdominal pain, nausea, or vomiting. She continue self directed bed bound exercise program as instructed. Reason For Visit: PNEUMONIA WITH HYPOXEMIA ACUTE ON CHRONIC Physical Exam Vital Signs: Temp Pulse Resp BP Pulse Ox 98.5 F 73 16 146/63 H 99 08/01/17 16:13 08/01/17 19:00 08/01/17 16:35 08/01/17 16:13 08/01/17 16:35 Intake & Output 07/31/17 08/01/17 08/02/17 06:59 06:59 06:59 Intake Total 1160 1662 500 Output Total 2700 1725 325 Balance -1540 -63 175 Weight 128.6 kg 128 kg Physical Exam: General appearance: PRESENT: no acute distress, morbidly obese Head exam: PRESENT: atraumatic, normocephalic Eye exam: PRESENT: conjunctiva pink, EOMI. ABSENT: scleral icterus Mouth exam: PRESENT: moist, neck supple Teeth exam: PRESENT: poor dentition Respiratory exam: PRESENT: clear to auscultation carole, decreased breath sounds - reduced breath sound at lung bases Cardiovascular exam: PRESENT: RRR. ABSENT: diastolic murmur, rubs, systolic murmur Vascular exam: PRESENT: normal capillary refill. ABSENT: pallor GI/Abdominal exam: PRESENT: normal bowel sounds, soft. ABSENT: distended, guarding, mass, organomegaly, rebound, tenderness Extremities exam: PRESENT: pedal edema - comparatively improving. Musculoskeletal exam: PRESENT: deformity - related to multiple joints involvement with arthritis. Neurological exam: PRESENT: alert, awake Psychiatric exam: PRESENT: appropriate affect, normal mood. ABSENT: homicidal ideation, suicidal ideation Skin exam: PRESENT: dry, intact, warm. ABSENT: cyanosis, rash Results Laboratory Results: 08/01/17 05:22 08/01/17 05:22 08/01/17 08/01/17 05:22 05:22 WBC 5.9 RBC 3.26 L Hgb 9.5 L Hct 27.9 L MCV 86 MCH 29.0 MCHC 33.8 RDW 14.1 H Plt Count 157 Seg Neutrophils % 67.6 Lymphocytes % 16.1 Monocytes % 14.1 H Eosinophils % 1.7 Basophils % 0.5 Absolute Neutrophils 4.0 Absolute Lymphocytes 0.9 Absolute Monocytes 0.8 Absolute Eosinophils 0.1 Absolute Basophils 0.0 Sodium 140.9 Potassium 4.0 Chloride 89 L Carbon Dioxide 42 H* Anion Gap 10 BUN 50 H Creatinine 1.12 Est GFR ( Amer) 57 L Est GFR (Non-Af Amer) 47 L Glucose 107 Calcium 8.7 07/15/17 07/15/17 07/17/17 05:50 05:50 11:15 Creatine Kinase 957 H CK-MB (CK-2) 2.44 Troponin I 0.063 NT-Pro-B Natriuret Pep 2970 H Impressions: Shoulder X-Ray 07/19/17 00:00 IMPRESSION: NO SIGNIFICANT RADIOGRAPHIC ABNORMALITY. Chest CT 07/26/17 00:00 IMPRESSION: 1. Limiting motion. 2. Cardiomegaly. 3. Patchy right upper lobe infiltrate. Chest X-Ray 07/26/17 00:00 IMPRESSION: HEART ENLARGED WITHOUT FAILURE. NO OTHER SIGNIFICANT RADIOGRAPHIC FINDING IN THE CHEST. Assessment & Plan - Diagnosis (1) Lobar pneumonia, unspecified organism Is this a current diagnosis for this admission?: Yes (2) Hypoxemia Is this a current diagnosis for this admission?: Yes (3) CHF (congestive heart failure) Qualifiers: Congestive heart failure type: systolic Congestive heart failure chronicity : acute on chronic Qualified Code(s): I50.23 - Acute on chronic systolic ( congestive) heart failure Is this a current diagnosis for this admission?: Yes (4) Acute kidney injury Is this a current diagnosis for this admission?: Yes (5) Diabetes mellitus Qualifiers: Diabetes mellitus type: type 2 Diabetes mellitus complication status: with unspecified complications Diabetes mellitus assistant terminal manager insulin use: with assistant terminal manager use Qualified Code(s): E11.8 - Type 2 diabetes mellitus with unspecified complications; Z79.4 - long-term (current) use of insulin; Z79.4 - termination clerk ( current) use of insulin; Z79.4 - long-term (current) use of insulin; Z79.4 - termination clerk (current) use of insulin Is this a current diagnosis for this admission?: Yes (6) HTN (hypertension) Qualifiers: Hypertension type: essential hypertension Qualified Code(s): I10 - Essential (primary) hypertension Is this a current diagnosis for this admission?: Yes (7) HLD (hyperlipidemia) Qualifiers: Hyperlipidemia type: pure hypercholesterolemia Qualified Code(s): E78.00 - Pure hypercholesterolemia, unspecified; E78.0 - Pure hypercholesterolemia Is this a current diagnosis for this admission?: Yes (8) Morbid obesity with BMI of 50.0-59.9, adult Is this a current diagnosis for this admission?: Yes (9) Anemia of chronic disease Is this a current diagnosis for this admission?: Yes (10) Abnormal urine findings Is this a current diagnosis for this admission?: Yes (11) Constipation Qualifiers: Constipation type: slow transit constipation Qualified Code(s): K59.01 - Slow transit constipation Is this a current diagnosis for this admission?: Yes (12) Chronic pain syndrome Is this a current diagnosis for this admission?: Yes (13) Obesity hypoventilation syndrome Is this a current diagnosis for this admission?: Yes - Time Time Spent with patient: 25-34 minutes Medications reviewed and adjusted accordingly: Yes Anticipated discharge: SNF - for short term rehabilitation. Within: Other - Inpatient Certification Based on my medical assessment, after consideration of the patient's comorbidities, presenting symptoms, or acuity I expect that the services needed warrant INPATIENT care.: Yes I certify that my determination is in accordance with my understanding of Medicare's requirements for reasonable and necessary INPATIENT services [42 CFR 412.3e].: Yes Medical Necessity: Need Close Monitoring Due to Risk of Patient Decompensation, Need For Continuous Telemetry Monitoring, Risk of Complication if Not Cared For in Hospital Post Hospital Care: D/C or Transfer Summary - Plan Summary Plan Summary: Continue current medication management. Encouraged continue participation in rehabilitation efforts. Possible transfer to SNF early next week.
[2017-08-01] MEDS: CARBIDOPA/LEVODOPA ER 50-200 MG TABLET.SA PO SCH (22:37)
[2017-08-01] MEDS: ATORVASTATIN CALCIUM 40 MG TABLET PO SCH (22:38)
[2017-08-02] MEDS: PRAMIPEXOLE DI-HCL 0.5 MG TABLET PO SCH ×3 (06:11→22:39)
[2017-08-02] MEDS: CEFEPIME 1 GM/D5W RTU 1 GM/50 ML RTUPB IV SCH (06:11)
[2017-08-02] MEDS: LANSOPRAZOLE 30 MG TAB.RAP.DR PO SCH (06:12)
[2017-08-02] MEDS: INSULIN GLARGINE,HUM.REC.ANLOG 300 UNIT/3 ML INSULN.PEN SUBCUT SCH (10:56)
[2017-08-02] MEDS: ENOXAPARIN SODIUM INJ 30 MG/0.3 ML DISP.SYRIN SUBCUT SCH (10:57)
[2017-08-02] MEDS: AMLODIPINE BESYLATE 10 MG TABLET PO SCH (10:59)
[2017-08-02] MEDS: METOPROLOL SUCCINATE 25 MG TAB.SR.24H PO SCH (11:00)
[2017-08-02] MEDS: BUMETANIDE 1 MG TABLET PO SCH ×2 (11:02→22:40)
[2017-08-02] MEDS: CETIRIZINE 5 MG TABLET PO SCH (11:03)
[2017-08-02] MEDS: NITROGLYCERIN 15 MG (0.6 MG/1 HR) PATCH.TD24 TD SCH (11:04)
[2017-08-02] MEDS: POLYETHYLENE GLYCOL 3350 POWDER 17 GM/1 PACKET PO SCH (11:07)
[2017-08-02] MEDS: DOCUSATE SODIUM 100 MG CAPSULE PO SCH (11:07)
--- NOTE | 2017-08-02 17:07 | PDOC PROGRESS REPORT ---
Subjective Progress Note for:: 08/02/17 Subjective:: She was seen by the bedside there is no new complaints Reason For Visit: PNEUMONIA WITH HYPOXEMIA ACUTE ON CHRONIC Physical Exam Vital Signs: Temp Pulse Resp BP Pulse Ox 99.1 F 67 18 142/58 H 100 08/02/17 11:52 08/02/17 14:00 08/02/17 11:52 08/02/17 11:52 08/02/17 11:52 Intake & Output 08/01/17 08/02/17 08/03/17 06:59 06:59 06:59 Intake Total 1662 600 375 Output Total 1725 325 900 Balance -63 275 -525 Weight 128 kg General appearance: PRESENT: no acute distress Head exam: PRESENT: atraumatic, normocephalic Eye exam: PRESENT: conjunctiva pink, EOMI, PERRLA Ear exam: PRESENT: normal external ear exam Mouth exam: PRESENT: moist, tongue midline Neck exam: PRESENT: full ROM Respiratory exam: PRESENT: clear to auscultation carole Cardiovascular exam: PRESENT: RRR, +S1, +S2 Vascular exam: PRESENT: normal capillary refill GI/Abdominal exam: PRESENT: normal bowel sounds, soft Rectal exam: PRESENT: deferred Neurological exam: PRESENT: alert Psychiatric exam: PRESENT: appropriate affect, normal mood Skin exam: PRESENT: dry, intact, warm Results Laboratory Results: 08/01/17 05:22 08/01/17 05:22 07/15/17 07/15/17 07/17/17 05:50 05:50 11:15 Creatine Kinase 957 H CK-MB (CK-2) 2.44 Troponin I 0.063 NT-Pro-B Natriuret Pep 2970 H Impressions: Shoulder X-Ray 07/19/17 00:00 IMPRESSION: NO SIGNIFICANT RADIOGRAPHIC ABNORMALITY. Chest CT 07/26/17 00:00 IMPRESSION: 1. Limiting motion. 2. Cardiomegaly. 3. Patchy right upper lobe infiltrate. Chest X-Ray 07/26/17 00:00 IMPRESSION: HEART ENLARGED WITHOUT FAILURE. NO OTHER SIGNIFICANT RADIOGRAPHIC FINDING IN THE CHEST. Assessment & Plan - Diagnosis (1) Lobar pneumonia, unspecified organism Is this a current diagnosis for this admission?: Yes Plan: Continue present treatment
[2017-08-02] MEDS: ATORVASTATIN CALCIUM 40 MG TABLET PO SCH (22:39)
[2017-08-02] MEDS: CARBIDOPA/LEVODOPA ER 50-200 MG TABLET.SA PO SCH (22:41)
[2017-08-03] MEDS: LANSOPRAZOLE 30 MG TAB.RAP.DR PO SCH (05:48)
[2017-08-03] MEDS: PRAMIPEXOLE DI-HCL 0.5 MG TABLET PO SCH ×3 (05:48→23:13)
[2017-08-03] MEDS: POLYETHYLENE GLYCOL 3350 POWDER 17 GM/1 PACKET PO SCH (10:26)
[2017-08-03] MEDS: NITROGLYCERIN 15 MG (0.6 MG/1 HR) PATCH.TD24 TD SCH (10:27)
[2017-08-03] MEDS: DOCUSATE SODIUM 100 MG CAPSULE PO SCH (10:32)
[2017-08-03] MEDS: METOPROLOL SUCCINATE 25 MG TAB.SR.24H PO SCH (10:33)
[2017-08-03] MEDS: AMLODIPINE BESYLATE 10 MG TABLET PO SCH (10:33)
[2017-08-03] MEDS: CETIRIZINE 5 MG TABLET PO SCH (10:33)
[2017-08-03] MEDS: BUMETANIDE 1 MG TABLET PO SCH ×2 (10:34→23:13)
[2017-08-03] MEDS: ENOXAPARIN SODIUM INJ 30 MG/0.3 ML DISP.SYRIN SUBCUT SCH (10:34)
[2017-08-03] MEDS: INSULIN GLARGINE,HUM.REC.ANLOG 300 UNIT/3 ML INSULN.PEN SUBCUT SCH (10:35)
[2017-08-03] MEDS: INSULIN LISPRO 100 UNIT/ML 3 ML VIAL SUBCUT PRN ×2 (13:04→18:22)
--- NOTE | 2017-08-03 13:43 | PDOC PROGRESS REPORT ---
Subjective Progress Note for:: 08/03/17 Subjective:: Patient is seen by the bedside no new complaints Reason For Visit: PNEUMONIA WITH HYPOXEMIA ACUTE ON CHRONIC Physical Exam Vital Signs: Temp Pulse Resp BP Pulse Ox 99.0 F 70 18 136/58 H 100 08/03/17 11:55 08/03/17 11:55 08/03/17 11:55 08/03/17 11:55 08/03/17 11:55 Intake & Output 08/02/17 08/03/17 08/04/17 06:59 06:59 06:59 Intake Total 600 3241 Output Total 325 3300 Balance 275 -59 Weight 128.6 kg General appearance: PRESENT: no acute distress Eye exam: PRESENT: PERRLA Respiratory exam: PRESENT: clear to auscultation carole Cardiovascular exam: PRESENT: +S1, +S2 GI/Abdominal exam: PRESENT: soft Neurological exam: PRESENT: alert Results Laboratory Results: 08/01/17 05:22 08/01/17 05:22 07/15/17 07/15/17 07/17/17 05:50 05:50 11:15 Creatine Kinase 957 H CK-MB (CK-2) 2.44 Troponin I 0.063 NT-Pro-B Natriuret Pep 2970 H Impressions: Shoulder X-Ray 07/19/17 00:00 IMPRESSION: NO SIGNIFICANT RADIOGRAPHIC ABNORMALITY. Chest CT 07/26/17 00:00 IMPRESSION: 1. Limiting motion. 2. Cardiomegaly. 3. Patchy right upper lobe infiltrate. Chest X-Ray 07/26/17 00:00 IMPRESSION: HEART ENLARGED WITHOUT FAILURE. NO OTHER SIGNIFICANT RADIOGRAPHIC FINDING IN THE CHEST. Assessment & Plan - Diagnosis (1) Lobar pneumonia, unspecified organism Is this a current diagnosis for this admission?: Yes Plan: Continue treatment
[2017-08-03 14:40] LABS: ABSOLUTE EOSINOPHILS # (AUTO) 0.1 10^3/uL (0.0-0.6); ABSOLUTE MONOCYTES (AUTO) 0.7 10^3/uL (0.1-1.4); ABSOLUTE NEUT (AUTO) 2.7 10^3/uL (1.7-8.2); BASOPHILS % (AUTO) 0.4 % (0-2); EOSINOPHILS % (AUTO) 2.9 % (0-6); HEMATOCRIT 29.6 % (36.0-47.0); HEMOGLOBIN 9.8 g/dL (12.0-15.5); HGB HCT DIFFERENCE -0.2; LYMPHOCYTES % (AUTO) 21.7 % (13-45); MEAN CORPUSCULAR HEMOGLOBIN 28.6 pg (27.0-33.4); MEAN CORPUSCULAR HGB CONC 33.2 g/dL (32.0-36.0); MEAN CORPUSCULAR VOLUME 86 fl (80-97); MONOCYTES % (AUTO) 14.7 % (3-13); RED BLOOD COUNT 3.44 10^6/uL (3.72-5.28); RED CELL DISTRIBUTION WIDTH 14.1 % (11.5-14.0); SEGMENTED NEUTROPHILS % (AUTO) 60.3 % (42-78); WHITE BLOOD COUNT 4.5 10^3/uL (4.0-10.5)
[2017-08-03 15:07] LABS: ALANINE AMINOTRANSFERASE 29 U/L (9-52); ALBUMIN 3.3 g/dL (3.5-5.0); ALKALINE PHOSPHATASE 94 U/L (38-126); ASPARTATE AMINO TRANSFERASE 26 U/L (14-36); BILIRUBIN,DIRECT 0.3 mg/dL (0.0-0.4); BILIRUBIN,TOTAL 0.4 mg/dL (0.2-1.3); BLOOD UREA NITROGEN 53 mg/dL (7-20); CALCIUM 8.9 mg/dL (8.4-10.2); CHLORIDE 88 mmol/L (98-107); GLUCOSE 257 mg/dL (75-110); POTASSIUM 3.9 mmol/L (3.6-5.0); TOTAL PROTEIN 6.6 g/dL (6.3-8.2)
[2017-08-03 15:23] LABS: ANION GAP 11 (5-19)
[2017-08-03 15:26] LABS: CARBON DIOXIDE 42 mmol/L (22-30)
[2017-08-03] MEDS: ATORVASTATIN CALCIUM 40 MG TABLET PO SCH (23:13)
[2017-08-03] MEDS: CARBIDOPA/LEVODOPA ER 50-200 MG TABLET.SA PO SCH (23:16)
[2017-08-04] MEDS: PRAMIPEXOLE DI-HCL 0.5 MG TABLET PO SCH ×3 (06:46→22:47)
[2017-08-04] MEDS: LANSOPRAZOLE 30 MG TAB.RAP.DR PO SCH (06:47)
[2017-08-04] MEDS: ENOXAPARIN SODIUM INJ 30 MG/0.3 ML DISP.SYRIN SUBCUT SCH (10:49)
[2017-08-04] MEDS: METOPROLOL SUCCINATE 25 MG TAB.SR.24H PO SCH (10:49)
[2017-08-04] MEDS: AMLODIPINE BESYLATE 10 MG TABLET PO SCH (10:50)
[2017-08-04] MEDS: METOLAZONE 2.5 MG TABLET PO SCH (10:50)
[2017-08-04] MEDS: NITROGLYCERIN 15 MG (0.6 MG/1 HR) PATCH.TD24 TD SCH (10:51)
[2017-08-04] MEDS: CETIRIZINE 5 MG TABLET PO SCH (10:52)
[2017-08-04] MEDS: BUMETANIDE 1 MG TABLET PO SCH ×2 (10:52→22:48)
[2017-08-04] MEDS: POLYETHYLENE GLYCOL 3350 POWDER 17 GM/1 PACKET PO SCH (10:55)
[2017-08-04] MEDS: DOCUSATE SODIUM 100 MG CAPSULE PO SCH (10:55)
[2017-08-04] MEDS: INSULIN GLARGINE,HUM.REC.ANLOG 300 UNIT/3 ML INSULN.PEN SUBCUT SCH (12:52)
[2017-08-04] MEDS: INSULIN LISPRO 100 UNIT/ML 3 ML VIAL SUBCUT PRN ×2 (12:55→18:54)
--- NOTE | 2017-08-04 14:04 | PDOC PROGRESS REPORT ---
Subjective Progress Note for:: 08/01/17 Subjective:: Very lethargic Reason For Visit: PNEUMONIA WITH HYPOXEMIA ACUTE ON CHRONIC Physical Exam Vital Signs: Temp Pulse Resp BP Pulse Ox 99.1 F 66 16 126/50 H 99 08/01/17 03:20 08/01/17 03:20 08/01/17 04:00 08/01/17 03:20 08/01/17 04:00 Intake & Output 07/31/17 08/01/17 08/02/17 06:59 06:59 06:59 Intake Total 1160 1662 Output Total 2700 1725 Balance -1540 -63 Weight 128.6 kg 128 kg General appearance: PRESENT: no acute distress, disheveled, morbidly obese, well -developed, well-nourished. ABSENT: hard of hearing, mild distress, obese, severe distress, thin Head exam: PRESENT: atraumatic, normocephalic Eye exam: PRESENT: conjunctiva pale, EOMI. ABSENT: conjunctival injection, conjunctiva pink, nystagmus, periorbital swelling, scleral icterus Mouth exam: PRESENT: dry mucosa, neck supple, tongue midline Neck exam: ABSENT: carotid bruit, JVD, lymphadenopathy, thyromegaly, tracheal deviation, tracheostomy Respiratory exam: PRESENT: decreased breath sounds, prolonged expiratory phas, rales, rhonchi, symmetrical, unlabored, wheezes. ABSENT: accessory muscle use, chest wall tenderness, clear to auscultation carole, crackles, retraction, stridor , tachypnea Cardiovascular exam: PRESENT: RRR, +S1, +S2. ABSENT: irregular rhythm, rubs Pulses: PRESENT: normal radial pulses GI/Abdominal exam: PRESENT: normal bowel sounds, soft. ABSENT: distended, guarding, mass, organolmegaly, rebound, tenderness Extremities exam: ABSENT: calf tenderness, clubbing, joint swelling Musculoskeletal exam: ABSENT: deformity, dislocation, tenderness Neurological exam: PRESENT: awake Skin exam: PRESENT: dry, warm Results Laboratory Results: 08/01/17 05:22 08/01/17 05:22 08/01/17 08/01/17 05:22 05:22 WBC 5.9 RBC 3.26 L Hgb 9.5 L Hct 27.9 L MCV 86 MCH 29.0 MCHC 33.8 RDW 14.1 H Plt Count 157 Seg Neutrophils % 67.6 Lymphocytes % 16.1 Monocytes % 14.1 H Eosinophils % 1.7 Basophils % 0.5 Absolute Neutrophils 4.0 Absolute Lymphocytes 0.9 Absolute Monocytes 0.8 Absolute Eosinophils 0.1 Absolute Basophils 0.0 Sodium 140.9 Potassium 4.0 Chloride 89 L Carbon Dioxide 42 H* Anion Gap 10 BUN 50 H Creatinine 1.12 Est GFR ( Amer) 57 L Est GFR (Non-Af Amer) 47 L Glucose 107 Calcium 8.7 07/15/17 07/15/17 07/17/17 05:50 05:50 11:15 Creatine Kinase 957 H CK-MB (CK-2) 2.44 Troponin I 0.063 NT-Pro-B Natriuret Pep 2970 H Impressions: Shoulder X-Ray 07/19/17 00:00 IMPRESSION: NO SIGNIFICANT RADIOGRAPHIC ABNORMALITY. Chest CT 07/26/17 00:00 IMPRESSION: 1. Limiting motion. 2. Cardiomegaly. 3. Patchy right upper lobe infiltrate. Chest X-Ray 07/26/17 00:00 IMPRESSION: HEART ENLARGED WITHOUT FAILURE. NO OTHER SIGNIFICANT RADIOGRAPHIC FINDING IN THE CHEST. Assessment & Plan - Diagnosis (1) CHF (congestive heart failure) Qualifiers: Congestive heart failure type: systolic Congestive heart failure chronicity : acute on chronic Qualified Code(s): I50.23 - Acute on chronic systolic ( congestive) heart failure Is this a current diagnosis for this admission?: Yes Plan: acute/chronic Improving (2) Coronary artery disease Qualifiers: Coronary Disease-Associated Artery/Lesion type: [place] artery [place] vs. transplanted heart: [place] heart Associated angina: angina presence unspecified Qualified Code(s): I25.10 - Atherosclerotic heart disease of [place] coronary artery without angina pectoris Is this a current diagnosis for this admission?: Yes Plan: as per cardiology (3) Obesity hypoventilation syndrome Is this a current diagnosis for this admission?: Yes Plan: We again discussed at length with PCP and family about prognosis and placement (4) Parkinson disease Is this a current diagnosis for this admission?: Yes Plan: Unchanged
--- NOTE | 2017-08-04 14:13 | PDOC PROGRESS REPORT ---
Subjective Progress Note for:: 08/04/17 Subjective:: Very lethargic Reason For Visit: PNEUMONIA WITH HYPOXEMIA ACUTE ON CHRONIC Physical Exam Vital Signs: Temp Pulse Resp BP Pulse Ox 98.6 F 66 20 125/53 L 100 08/04/17 08:01 08/04/17 08:01 08/04/17 05:17 08/04/17 05:17 08/04/17 08:01 Intake & Output 08/03/17 08/04/17 08/05/17 06:59 06:59 06:59 Intake Total 3241 970 Output Total 3300 2575 Balance -59 -1605 Weight 128.6 kg 125.2 kg General appearance: PRESENT: no acute distress, disheveled, morbidly obese, well -developed. ABSENT: cooperative, mild distress, obese, severe distress, thin Head exam: PRESENT: atraumatic, normocephalic Eye exam: PRESENT: conjunctiva pale, EOMI. ABSENT: conjunctival injection, conjunctiva pink, nystagmus, periorbital swelling, scleral icterus Mouth exam: PRESENT: dry mucosa, neck supple, tongue midline Neck exam: ABSENT: carotid bruit, JVD, lymphadenopathy, thyromegaly, tracheal deviation, tracheostomy Respiratory exam: PRESENT: decreased breath sounds, prolonged expiratory phas, rhonchi, symmetrical, unlabored, wheezes. ABSENT: accessory muscle use, chest wall tenderness, clear to auscultation carole, crackles, rales, retraction, stridor , tachypnea Cardiovascular exam: PRESENT: RRR, +S1, +S2. ABSENT: irregular rhythm, rubs Pulses: PRESENT: normal radial pulses GI/Abdominal exam: PRESENT: normal bowel sounds, soft. ABSENT: distended, guarding, mass, organolmegaly, rebound, tenderness Extremities exam: ABSENT: calf tenderness, clubbing, pedal edema Musculoskeletal exam: ABSENT: deformity, dislocation, tenderness Neurological exam: PRESENT: awake Skin exam: PRESENT: dry, warm Results Laboratory Results: 08/03/17 14:20 08/03/17 14:20 08/03/17 08/03/17 14:20 14:20 WBC 4.5 RBC 3.44 L Hgb 9.8 L Hct 29.6 L MCV 86 MCH 28.6 MCHC 33.2 RDW 14.1 H Plt Count 149 L Seg Neutrophils % 60.3 Lymphocytes % 21.7 Monocytes % 14.7 H Eosinophils % 2.9 Basophils % 0.4 Absolute Neutrophils 2.7 Absolute Lymphocytes 1.0 Absolute Monocytes 0.7 Absolute Eosinophils 0.1 Absolute Basophils 0.0 Sodium 141.0 Potassium 3.9 Chloride 88 L Carbon Dioxide 42 H* Anion Gap 11 BUN 53 H Creatinine 1.20 Est GFR ( Amer) 52 L Est GFR (Non-Af Amer) 43 L Glucose 257 H Calcium 8.9 Total Bilirubin 0.4 AST 26 ALT 29 Alkaline Phosphatase 94 Total Protein 6.6 Albumin 3.3 L 07/15/17 07/15/17 07/17/17 05:50 05:50 11:15 Creatine Kinase 957 H CK-MB (CK-2) 2.44 Troponin I 0.063 NT-Pro-B Natriuret Pep 2970 H Impressions: Shoulder X-Ray 07/19/17 00:00 IMPRESSION: NO SIGNIFICANT RADIOGRAPHIC ABNORMALITY. Chest CT 07/26/17 00:00 IMPRESSION: 1. Limiting motion. 2. Cardiomegaly. 3. Patchy right upper lobe infiltrate. Chest X-Ray 07/26/17 00:00 IMPRESSION: HEART ENLARGED WITHOUT FAILURE. NO OTHER SIGNIFICANT RADIOGRAPHIC FINDING IN THE CHEST. Assessment & Plan - Diagnosis (1) CHF (congestive heart failure) Qualifiers: Congestive heart failure type: systolic Congestive heart failure chronicity : acute on chronic Qualified Code(s): I50.23 - Acute on chronic systolic ( congestive) heart failure Is this a current diagnosis for this admission?: Yes Plan: acute/chronic Improving (2) Coronary artery disease Qualifiers: Coronary Disease-Associated Artery/Lesion type: [place] artery [place] vs. transplanted heart: [place] heart Associated angina: angina presence unspecified Qualified Code(s): I25.10 - Atherosclerotic heart disease of [place] coronary artery without angina pectoris Is this a current diagnosis for this admission?: Yes Plan: as per cardiology (3) Obesity hypoventilation syndrome Is this a current diagnosis for this admission?: Yes Plan: We again discussed at length with PCP and family about prognosis and placement (4) Parkinson disease Is this a current diagnosis for this admission?: Yes Plan: Unchanged
--- NOTE | 2017-08-04 20:07 | PDOC PROGRESS REPORT ---
Subjective Progress Note for:: 08/04/17 Subjective:: Patient's continence is much better. Oral intake very good. No chest pain. Remain on supplemental oxygen via nasal cannula. BiPAP is set at AVAPS mode to use as needed. Transfer to SNF today was not possible due to need for AVAPS support device at the facility. Facility staff will inform about ability to get the device through their DME supplier tomorrow. Reason For Visit: PNEUMONIA WITH HYPOXEMIA ACUTE ON CHRONIC Physical Exam Vital Signs: Temp Pulse Resp BP Pulse Ox 98.6 F 66 20 125/53 L 100 08/04/17 08:01 08/04/17 14:00 08/04/17 05:17 08/04/17 05:17 08/04/17 08:01 Intake & Output 08/03/17 08/04/17 08/05/17 06:59 06:59 06:59 Intake Total 3241 970 643 Output Total 3300 2575 560 Balance -59 -1605 83 Weight 128.6 kg 125.2 kg Physical Exam: General appearance: PRESENT: no acute distress, morbidly obese Head exam: PRESENT: atraumatic, normocephalic Eye exam: PRESENT: conjunctiva pink, EOMI. ABSENT: scleral icterus Mouth exam: PRESENT: moist, neck supple Teeth exam: PRESENT: poor dentition Respiratory exam: PRESENT: clear to auscultation carole, decreased breath sounds - reduced breath sound at lung bases Cardiovascular exam: PRESENT: RRR. ABSENT: diastolic murmur, rubs, systolic murmur Vascular exam: PRESENT: normal capillary refill. ABSENT: pallor GI/Abdominal exam: PRESENT: normal bowel sounds, soft. ABSENT: distended, guarding, mass, organomegaly, rebound, tenderness Extremities exam: PRESENT: pedal edema - comparatively improving. Musculoskeletal exam: PRESENT: deformity - related to multiple joints involvement with arthritis. Neurological exam: PRESENT: alert, awake Psychiatric exam: PRESENT: appropriate affect, normal mood. ABSENT: homicidal ideation, suicidal ideation Skin exam: PRESENT: dry, intact, warm. ABSENT: cyanosis, rash Results Laboratory Results: 08/03/17 14:20 08/03/17 14:20 07/15/17 07/15/17 07/17/17 05:50 05:50 11:15 Creatine Kinase 957 H CK-MB (CK-2) 2.44 Troponin I 0.063 NT-Pro-B Natriuret Pep 2970 H Impressions: Shoulder X-Ray 07/19/17 00:00 IMPRESSION: NO SIGNIFICANT RADIOGRAPHIC ABNORMALITY. Chest CT 07/26/17 00:00 IMPRESSION: 1. Limiting motion. 2. Cardiomegaly. 3. Patchy right upper lobe infiltrate. Chest X-Ray 07/26/17 00:00 IMPRESSION: HEART ENLARGED WITHOUT FAILURE. NO OTHER SIGNIFICANT RADIOGRAPHIC FINDING IN THE CHEST. Assessment & Plan - Diagnosis (1) Lobar pneumonia, unspecified organism Is this a current diagnosis for this admission?: Yes (2) Hypoxemia Is this a current diagnosis for this admission?: Yes (3) CHF (congestive heart failure) Qualifiers: Congestive heart failure type: systolic Congestive heart failure chronicity : acute on chronic Qualified Code(s): I50.23 - Acute on chronic systolic ( congestive) heart failure Is this a current diagnosis for this admission?: Yes (4) Acute kidney injury Is this a current diagnosis for this admission?: Yes (5) Diabetes mellitus Qualifiers: Diabetes mellitus type: type 2 Diabetes mellitus complication status: with unspecified complications Diabetes mellitus termite control technician insulin use: with fdc use Qualified Code(s): E11.8 - Type 2 diabetes mellitus with unspecified complications; Z79.4 - moth exterminator (current) use of insulin; Z79.4 - FPC ( current) use of insulin; Z79.4 - FPC (current) use of insulin; Z79.4 - FPC (current) use of insulin Is this a current diagnosis for this admission?: Yes (6) HTN (hypertension) Qualifiers: Hypertension type: essential hypertension Qualified Code(s): I10 - Essential (primary) hypertension Is this a current diagnosis for this admission?: Yes (7) HLD (hyperlipidemia) Qualifiers: Hyperlipidemia type: pure hypercholesterolemia Qualified Code(s): E78.00 - Pure hypercholesterolemia, unspecified; E78.0 - Pure hypercholesterolemia Is this a current diagnosis for this admission?: Yes (8) Morbid obesity with BMI of 50.0-59.9, adult Is this a current diagnosis for this admission?: Yes (9) Anemia of chronic disease Is this a current diagnosis for this admission?: Yes (10) Abnormal urine findings Is this a current diagnosis for this admission?: Yes (11) Constipation Qualifiers: Constipation type: slow transit constipation Qualified Code(s): K59.01 - Slow transit constipation Is this a current diagnosis for this admission?: Yes (12) Chronic pain syndrome Is this a current diagnosis for this admission?: Yes (13) Obesity hypoventilation syndrome Is this a current diagnosis for this admission?: Yes - Time Time Spent with patient: 25-34 minutes Medications reviewed and adjusted accordingly: Yes Anticipated discharge: SNF - for short term rehabilitation stay. Within: within 24 hours - Inpatient Certification Based on my medical assessment, after consideration of the patient's comorbidities, presenting symptoms, or acuity I expect that the services needed warrant INPATIENT care.: Yes I certify that my determination is in accordance with my understanding of Medicare's requirements for reasonable and necessary INPATIENT services [42 CFR 412.3e].: Yes Medical Necessity: Need Close Monitoring Due to Risk of Patient Decompensation, Need For Continuous Telemetry Monitoring, Risk of Complication if Not Cared For in Hospital Post Hospital Care: D/C or Transfer Summary - Plan Summary Plan Summary: Continue current medication management. Follow up on disposition plan.
[2017-08-04] MEDS: CARBIDOPA/LEVODOPA ER 50-200 MG TABLET.SA PO SCH (22:35)
[2017-08-04] MEDS: ATORVASTATIN CALCIUM 40 MG TABLET PO SCH (22:47)
[2017-08-05] MEDS: PRAMIPEXOLE DI-HCL 0.5 MG TABLET PO SCH ×3 (06:57→22:35)
[2017-08-05] MEDS: LANSOPRAZOLE 30 MG TAB.RAP.DR PO SCH (06:57)
[2017-08-05] MEDS: INSULIN LISPRO 100 UNIT/ML 3 ML VIAL SUBCUT PRN ×3 (06:57→19:02)
[2017-08-05] MEDS: BUMETANIDE 1 MG TABLET PO SCH ×2 (09:29→22:35)
[2017-08-05] MEDS: AMLODIPINE BESYLATE 10 MG TABLET PO SCH (09:30)
[2017-08-05] MEDS: METOPROLOL SUCCINATE 25 MG TAB.SR.24H PO SCH (09:31)
[2017-08-05] MEDS: DOCUSATE SODIUM 100 MG CAPSULE PO SCH (09:31)
[2017-08-05] MEDS: NITROGLYCERIN 15 MG (0.6 MG/1 HR) PATCH.TD24 TD SCH (09:32)
[2017-08-05] MEDS: CETIRIZINE 5 MG TABLET PO SCH (09:32)
[2017-08-05] MEDS: ENOXAPARIN SODIUM INJ 30 MG/0.3 ML DISP.SYRIN SUBCUT SCH (09:33)
[2017-08-05] MEDS: POLYETHYLENE GLYCOL 3350 POWDER 17 GM/1 PACKET PO SCH (09:33)
[2017-08-05] MEDS ORDERED: INSULIN GLARGINE,HUM.REC.ANLOG 1,000 UNIT/10 ML UNIT SUBCUT SCH (10:00)
--- NOTE | 2017-08-05 13:59 | PDOC PROGRESS REPORT ---
Subjective Progress Note for:: 08/05/17 Subjective:: I am a little better Reason For Visit: PNEUMONIA WITH HYPOXEMIA ACUTE ON CHRONIC Physical Exam Vital Signs: Temp Pulse Resp BP Pulse Ox 99.2 F 65 17 131/51 H 99 08/05/17 08:14 08/05/17 08:14 08/05/17 08:14 08/05/17 08:14 08/05/17 08:14 Intake & Output 08/04/17 08/05/17 08/06/17 06:59 06:59 06:59 Intake Total 970 1133 355 Output Total 2575 1510 1200 Balance -1605 -377 -845 Weight 125.2 kg 120.9 kg General appearance: PRESENT: no acute distress, cooperative, disheveled, morbidly obese, well-developed. ABSENT: mild distress, obese, severe distress, thin Head exam: PRESENT: atraumatic, normocephalic Eye exam: PRESENT: conjunctiva pale, EOMI. ABSENT: conjunctival injection, conjunctiva pink, nystagmus, periorbital swelling, scleral icterus Mouth exam: PRESENT: dry mucosa, neck supple, tongue midline. ABSENT: laceration, moist Neck exam: ABSENT: carotid bruit, JVD, lymphadenopathy, thyromegaly, tracheal deviation, tracheostomy Respiratory exam: PRESENT: decreased breath sounds, prolonged expiratory phas, rales, rhonchi, symmetrical, unlabored, wheezes. ABSENT: accessory muscle use, chest wall tenderness, clear to auscultation carole, crackles, retraction, stridor , tachypnea Cardiovascular exam: PRESENT: RRR, +S1, +S2. ABSENT: rubs Pulses: PRESENT: normal radial pulses GI/Abdominal exam: PRESENT: normal bowel sounds, soft. ABSENT: distended, guarding, mass, organolmegaly, rebound, tenderness Extremities exam: ABSENT: clubbing, joint swelling Musculoskeletal exam: ABSENT: deformity, dislocation, tenderness Neurological exam: PRESENT: awake Psychiatric exam: PRESENT: flat affect Skin exam: PRESENT: dry, warm Results Laboratory Results: 08/03/17 14:20 08/03/17 14:20 07/15/17 07/15/17 07/17/17 05:50 05:50 11:15 Creatine Kinase 957 H CK-MB (CK-2) 2.44 Troponin I 0.063 NT-Pro-B Natriuret Pep 2970 H Impressions: Shoulder X-Ray 07/19/17 00:00 IMPRESSION: NO SIGNIFICANT RADIOGRAPHIC ABNORMALITY. Chest CT 07/26/17 00:00 IMPRESSION: 1. Limiting motion. 2. Cardiomegaly. 3. Patchy right upper lobe infiltrate. Chest X-Ray 07/26/17 00:00 IMPRESSION: HEART ENLARGED WITHOUT FAILURE. NO OTHER SIGNIFICANT RADIOGRAPHIC FINDING IN THE CHEST. Assessment & Plan - Diagnosis (1) CHF (congestive heart failure) Qualifiers: Congestive heart failure type: systolic Congestive heart failure chronicity : acute on chronic Qualified Code(s): I50.23 - Acute on chronic systolic ( congestive) heart failure Is this a current diagnosis for this admission?: Yes Plan: Improving (2) Coronary artery disease Qualifiers: Coronary Disease-Associated Artery/Lesion type: [place] artery [place] vs. transplanted heart: [place] heart Associated angina: angina presence unspecified Qualified Code(s): I25.10 - Atherosclerotic heart disease of [place] coronary artery without angina pectoris Is this a current diagnosis for this admission?: Yes (3) Obesity hypoventilation syndrome Is this a current diagnosis for this admission?: Yes Plan: We again discussed at length with PCP and family about prognosis and placement (4) Parkinson disease Is this a current diagnosis for this admission?: Yes Plan: Unchanged
--- NOTE | 2017-08-05 20:29 | PDOC PROGRESS REPORT ---
Subjective Progress Note for:: 08/05/17 Subjective:: All efforts at transfer to SNF for short term stay was unsuccessful today due to limitation on the part of the facility regarding AVAPS setting on her CPAP machine. Patient and family are agreeable to [facility] facility placement. Discharge team input appreciated. Patient reported satisfactory participation in physical therapy session today. No chest pain. Remain on supplemental oxygen via nasal cannula. No fever or chills. Oral intake improving. Reason For Visit: PNEUMONIA WITH HYPOXEMIA ACUTE ON CHRONIC Physical Exam Vital Signs: Temp Pulse Resp BP Pulse Ox 99.2 F 63 17 131/51 H 99 08/05/17 08:14 08/05/17 14:00 08/05/17 08:14 08/05/17 08:14 08/05/17 08:14 Intake & Output 08/04/17 08/05/17 08/06/17 06:59 06:59 06:59 Intake Total 970 1133 622 Output Total 2575 1510 1400 Balance -1602 -377 -778 Weight 125.2 kg 120.9 kg Physical Exam: General appearance: PRESENT: no acute distress, morbidly obese Head exam: PRESENT: atraumatic, normocephalic Eye exam: PRESENT: conjunctiva pink, EOMI. ABSENT: scleral icterus Mouth exam: PRESENT: moist, neck supple Teeth exam: PRESENT: poor dentition Respiratory exam: PRESENT: clear to auscultation carole, decreased breath sounds - reduced breath sound at lung bases Cardiovascular exam: PRESENT: RRR. ABSENT: diastolic murmur, rubs, systolic murmur Vascular exam: PRESENT: normal capillary refill. ABSENT: pallor GI/Abdominal exam: PRESENT: normal bowel sounds, soft. ABSENT: distended, guarding, mass, organomegaly, rebound, tenderness Extremities exam: PRESENT: pedal edema - comparatively improving. Musculoskeletal exam: PRESENT: deformity - related to multiple joints involvement with arthritis. Neurological exam: PRESENT: alert, awake Psychiatric exam: PRESENT: appropriate affect, normal mood. ABSENT: homicidal ideation, suicidal ideation Skin exam: PRESENT: dry, intact, warm. ABSENT: cyanosis, rash Results Laboratory Results: 08/03/17 14:20 08/03/17 14:20 07/15/17 07/15/17 07/17/17 05:50 05:50 11:15 Creatine Kinase 957 H CK-MB (CK-2) 2.44 Troponin I 0.063 NT-Pro-B Natriuret Pep 2970 H Impressions: Shoulder X-Ray 07/19/17 00:00 IMPRESSION: NO SIGNIFICANT RADIOGRAPHIC ABNORMALITY. Chest CT 07/26/17 00:00 IMPRESSION: 1. Limiting motion. 2. Cardiomegaly. 3. Patchy right upper lobe infiltrate. Chest X-Ray 07/26/17 00:00 IMPRESSION: HEART ENLARGED WITHOUT FAILURE. NO OTHER SIGNIFICANT RADIOGRAPHIC FINDING IN THE CHEST. Assessment & Plan - Diagnosis (1) Lobar pneumonia, unspecified organism Is this a current diagnosis for this admission?: Yes (2) Hypoxemia Is this a current diagnosis for this admission?: Yes (3) CHF (congestive heart failure) Qualifiers: Congestive heart failure type: systolic Congestive heart failure chronicity : acute on chronic Qualified Code(s): I50.23 - Acute on chronic systolic ( congestive) heart failure Is this a current diagnosis for this admission?: Yes (4) Acute kidney injury Is this a current diagnosis for this admission?: Yes (5) Diabetes mellitus Qualifiers: Diabetes mellitus type: type 2 Diabetes mellitus complication status: with unspecified complications Diabetes mellitus long-term insulin use: with long-term use Qualified Code(s): E11.8 - Type 2 diabetes mellitus with unspecified complications; Z79.4 - horse rider (current) use of insulin; Z79.4 - custodial ( current) use of insulin; Z79.4 - custodial (current) use of insulin; Z79.4 - custodial (current) use of insulin Is this a current diagnosis for this admission?: Yes (6) HTN (hypertension) Qualifiers: Hypertension type: essential hypertension Qualified Code(s): I10 - Essential (primary) hypertension Is this a current diagnosis for this admission?: Yes (7) HLD (hyperlipidemia) Qualifiers: Hyperlipidemia type: pure hypercholesterolemia Qualified Code(s): E78.00 - Pure hypercholesterolemia, unspecified; E78.0 - Pure hypercholesterolemia Is this a current diagnosis for this admission?: Yes (8) Morbid obesity with BMI of 50.0-59.9, adult Is this a current diagnosis for this admission?: Yes (9) Anemia of chronic disease Is this a current diagnosis for this admission?: Yes (10) Abnormal urine findings Is this a current diagnosis for this admission?: Yes (11) Constipation Qualifiers: Constipation type: slow transit constipation Qualified Code(s): K59.01 - Slow transit constipation Is this a current diagnosis for this admission?: Yes (12) Chronic pain syndrome Is this a current diagnosis for this admission?: Yes (13) Obesity hypoventilation syndrome Is this a current diagnosis for this admission?: Yes - Time Time Spent with patient: 25-34 minutes Medications reviewed and adjusted accordingly: Yes Anticipated discharge: SNF, Other Within: within 24 hours - Inpatient Certification Based on my medical assessment, after consideration of the patient's comorbidities, presenting symptoms, or acuity I expect that the services needed warrant INPATIENT care.: Yes I certify that my determination is in accordance with my understanding of Medicare's requirements for reasonable and necessary INPATIENT services [42 CFR 412.3e].: Yes Medical Necessity: Need Close Monitoring Due to Risk of Patient Decompensation, Risk of Complication if Not Cared For in Hospital Post Hospital Care: D/C or Transfer Summary - Plan Summary Plan Summary: See attending physician orders.
[2017-08-05] MEDS: CARBIDOPA/LEVODOPA ER 50-200 MG TABLET.SA PO SCH (22:29)
[2017-08-05] MEDS: ATORVASTATIN CALCIUM 40 MG TABLET PO SCH (22:35)
[2017-08-06] MEDS: PRAMIPEXOLE DI-HCL 0.5 MG TABLET PO SCH ×2 (06:19→15:14)
[2017-08-06] MEDS: LANSOPRAZOLE 30 MG TAB.RAP.DR PO SCH (06:19)
[2017-08-06] MEDS: INSULIN LISPRO 100 UNIT/ML 3 ML VIAL SUBCUT PRN (06:28)
[2017-08-06] MEDS: POLYETHYLENE GLYCOL 3350 POWDER 17 GM/1 PACKET PO SCH (10:23)
[2017-08-06] MEDS: ENOXAPARIN SODIUM INJ 30 MG/0.3 ML DISP.SYRIN SUBCUT SCH (10:30)
[2017-08-06] MEDS: NITROGLYCERIN 15 MG (0.6 MG/1 HR) PATCH.TD24 TD SCH (10:30)
[2017-08-06] MEDS: METOPROLOL SUCCINATE 25 MG TAB.SR.24H PO SCH (10:31)
[2017-08-06] MEDS: METOLAZONE 2.5 MG TABLET PO SCH (10:32)
[2017-08-06] MEDS: AMLODIPINE BESYLATE 10 MG TABLET PO SCH (10:32)
[2017-08-06] MEDS: BUMETANIDE 1 MG TABLET PO SCH (10:32)
[2017-08-06] MEDS: CETIRIZINE 5 MG TABLET PO SCH (10:32)
[2017-08-06] MEDS: DOCUSATE SODIUM 100 MG CAPSULE PO SCH (10:56)
[2017-08-06] MEDS ORDERED: INSULIN GLARGINE,HUM.REC.ANLOG 300 UNIT/3 ML INSULN.PEN SUBCUT ONE (11:00)
[2017-08-06 12:55] VITALS: BP 112/49
--- NOTE | 2017-08-06 13:16 | PDOC TRANSFER SUMMARY ---
General - Admit/Disc Date/PCP Admission Date/Primary Care Provider: 07/14/17 08:37 ISATU ARACELI Discharge Date: 08/06/17 - Discharge Diagnosis (1) Lobar pneumonia, unspecified organism Is this a current diagnosis for this admission?: Yes (2) Hypoxemia Is this a current diagnosis for this admission?: Yes (3) CHF (congestive heart failure) Is this a current diagnosis for this admission?: Yes (4) Acute kidney injury Is this a current diagnosis for this admission?: Yes (5) Diabetes mellitus Is this a current diagnosis for this admission?: Yes (6) HTN (hypertension) Is this a current diagnosis for this admission?: Yes (7) HLD (hyperlipidemia) Is this a current diagnosis for this admission?: Yes (8) Morbid obesity with BMI of 50.0-59.9, adult Is this a current diagnosis for this admission?: Yes (9) Anemia of chronic disease Is this a current diagnosis for this admission?: Yes (10) Abnormal urine findings Is this a current diagnosis for this admission?: Yes (11) Constipation Is this a current diagnosis for this admission?: Yes (12) Chronic pain syndrome Is this a current diagnosis for this admission?: Yes (13) Obesity hypoventilation syndrome Is this a current diagnosis for this admission?: Yes - Additional Information Resuscitation Status: Full Code - with power of consumer attorney for health care Carlee Iveth [place] @ [phone] (H) [phone](W) Discharge Diet: Cardiac, Diabetic Discharge Activity: Activity As Tolerated, Balance Activity w/Rest, Weigh Daily Home Medications: Albuterol Sulfate [Ventolin Hfa] 2 puff IH Q4HP PRN 07/14/17 Amlodipine Besylate/Benazepril [Lotrel 10-40 mg Capsule] 1 tab PO DAILY Atorvastatin Calcium [Lipitor 40 mg Tablet] 40 mg PO QHS 07/14/17 Bumetanide [Bumex 0.5 mg Tablet] 0.5 mg PO Q12 07/14/17 Diclofenac Sodium [Voltaren] 2 gm TOP Q8 07/14/17 Levocetirizine Dihydrochloride [Xyzal] 5 mg PO DAILY 07/14/17 Metolazone [Zaroxolyn 2.5 mg Tablet] 2.5 mg PO MOWEFR@1000 07/14/17 Metoprolol Succinate [Toprol Xl 25 mg Tab.sr] 25 mg PO DAILY 07/14/17 Nitroglycerin [Nitro-Dur 15 mg (0.6 mg/1 Hr) Transderm Patch] 1 patch TD DAILY 07/14/17 Polyethylene Glycol 3350 [Miralax Powder 17 gm/Packet] 17 gm PO DAILY 07/14/17 Potassium Chloride [Klor-Con 10 Meq Tablet.sa] 10 meq PO DAILY 07/14/17 Pramipexole Di-HCl [Mirapex] 1 mg PO Q8 07/14/17 Carbidopa/Levodopa ER [Sinemet-Cr 50-200 mg Tablet.sa] 1 tab PO QHS #0 08/06/17 Docusate Sodium [Colace 100 mg Capsule] 200 mg PO DAILY capsule 08/06/17 Insulin Glargine,Hum.rec.anlog [Lantus Solostar] 60 units SQ DAILY #0 08/06/17 Insulin Lispro [Humalog Insulin (Lispro) 100 unit/mL] 0 - 12 unit SUBCUT ACHSP PRN unit 08/06/17 Linaclotide [Linzess 145 Mcg Capsule] 145 mcg PO ACBRKFST #0 08/06/17 History of Present Illness Admission Date/PCP: 07/14/17 08:37 ISATU CHARLES History of Present Illness: BO BARBA is a 82 year old female patient known to my practice presented to the ED via EM service due to difficulty with breathing. Her reported oxygen saturation on room air was in the 60's. She reported onset of productive cough about 10 days prior to presentation. There was associated intermittent fever, chest pain with coughing, and recent low blood glucose level on home accuchek monitor. She denied nausea, vomiting, abdominal pain, constipation or diarrhea. Her oral intake was less than usual but denied significant poor appetite. Her urine output was satisfactory without any symptom suggestive of ongoing infectious status. Her initial evaluation in the ED was remarkable for fever. Her morbidities include Coronary Artery Disease with old [place], Hypertension, Hypercholesterolemia, Diabetes Mellitus Type 2, Parkinson disease, GERD, Dry skin Dermatitis, TIA, and osteoarthritis. Hospital Course Hospital Course: She was admitted for lobar pneumonia with hypoxemia. She was not initially responsive to antibiotic therapy but eventually turned around with addition of anti-fungal therapy suggestive of possible fungal infection contribution to her presentation. Due to persistent hypercapnia despite management with BiPAP pulmonary consultation with Dr. Bowen was sought and patient hypercapnia did improve with AVAPS settings with future plan to discharge home on Trilogy machine. Due to protracted bed bound status patient was recommended rehabilitation when medically ready. Local SNF cannot handle AVAPS setting on CPAP machine. Family and patient are in agreement to transfer to [facility] facility in [place]. Patient will be transferred to the facility today. She will call office before discharge from the facility for follow up appointment. Physical Exam Vital Signs: Temp Pulse Resp BP Pulse Ox 98.9 F 67 18 112/49 L 97 08/06/17 11:35 08/06/17 11:35 08/06/17 11:35 08/06/17 11:35 08/06/17 11:35 Intake & Output 08/05/17 08/06/17 08/07/17 06:59 06:59 06:59 Intake Total 1133 1022 474 Output Total 1510 2000 300 Balance -377 -978 174 Weight 120.9 kg 123.3 kg General appearance: PRESENT: no acute distress, morbidly obese Head exam: PRESENT: atraumatic, normocephalic Eye exam: PRESENT: conjunctiva pink, EOMI. ABSENT: scleral icterus Mouth exam: PRESENT: moist, neck supple Teeth exam: PRESENT: poor dentition Respiratory exam: PRESENT: clear to auscultation carole, decreased breath sound at lung bases Cardiovascular exam: PRESENT: RRR. ABSENT: diastolic murmur, rubs, systolic murmur Vascular exam: PRESENT: normal capillary refill. ABSENT: pallor GI/Abdominal exam: PRESENT: normal bowel sounds, soft. ABSENT: distended, guarding, mass, organomegaly, rebound, tenderness Extremities exam: PRESENT: pedal edema - comparatively improving. Musculoskeletal exam: PRESENT: deformity - related to multiple joints involvement with arthritis. Neurological exam: PRESENT: alert, awake Psychiatric exam: PRESENT: appropriate affect, normal mood. ABSENT: homicidal ideation, suicidal ideation Skin exam: PRESENT: dry, intact, warm. ABSENT: cyanosis, rash Results Laboratory Results: 08/03/17 14:20 08/03/17 14:20 07/15/17 07/15/17 07/17/17 05:50 05:50 11:15 Creatine Kinase 957 H CK-MB (CK-2) 2.44 Troponin I 0.063 NT-Pro-B Natriuret Pep 2970 H Impressions: Shoulder X-Ray 07/19/17 00:00 IMPRESSION: NO SIGNIFICANT RADIOGRAPHIC ABNORMALITY. Chest CT 07/26/17 00:00 IMPRESSION: 1. Limiting motion. 2. Cardiomegaly. 3. Patchy right upper lobe infiltrate. Chest X-Ray 07/26/17 00:00 IMPRESSION: HEART ENLARGED WITHOUT FAILURE. NO OTHER SIGNIFICANT RADIOGRAPHIC FINDING IN THE CHEST. Transfer Plan - Disposition Transfer Plan: She will be transferred to [facility] in [place], [place]. Her hospitalization was protracted due to associated generalized de-conditioning and limitation of her participation in rehab sessions. - Time Spent with Patient Time spent with patient: Greater than 30 Minutes Qualifiers PATEINT BEING DISCHARGED WITH ANY OF THE FOLLOWING DIAGNOSIS?: No Plan Discharge Plan: Transfer to [facility] in [place], [place]. Her hospitalization was protracted due to associated generalized de-conditioning and limitation of her participation in rehab sessions. Time Spent: Greater than 30 Minutes
--- NOTE | 2017-08-06 14:51 | PDOC PROGRESS REPORT ---
Subjective Progress Note for:: 08/06/17 Subjective:: I am a little better Reason For Visit: PNEUMONIA WITH HYPOXEMIA ACUTE ON CHRONIC Physical Exam Vital Signs: Temp Pulse Resp BP Pulse Ox 98.9 F 67 18 112/49 L 97 08/06/17 11:35 08/06/17 11:35 08/06/17 11:35 08/06/17 11:35 08/06/17 11:35 Intake & Output 08/05/17 08/06/17 08/07/17 06:59 06:59 06:59 Intake Total 1133 1022 474 Output Total 1510 1999 300 Balance -377 -534 174 Weight 120.9 kg 123.3 kg General appearance: PRESENT: no acute distress, cooperative, morbidly obese, well-developed. ABSENT: disheveled, hard of hearing, mild distress, obese, severe distress, thin Head exam: PRESENT: atraumatic, normocephalic Eye exam: PRESENT: conjunctiva pale, EOMI. ABSENT: conjunctival injection, conjunctiva pink, nystagmus, periorbital swelling, scleral icterus Mouth exam: PRESENT: dry mucosa, neck supple, tongue midline. ABSENT: laceration, moist Teeth exam: PRESENT: poor dentation Neck exam: ABSENT: carotid bruit, JVD, lymphadenopathy, thyromegaly, tracheal deviation, tracheostomy Respiratory exam: PRESENT: decreased breath sounds, prolonged expiratory phas, rales, rhonchi, symmetrical, unlabored, wheezes. ABSENT: accessory muscle use, chest wall tenderness, clear to auscultation carole, crackles, retraction, stridor , tachypnea Cardiovascular exam: PRESENT: RRR, +S1, +S2. ABSENT: rubs Pulses: PRESENT: normal radial pulses GI/Abdominal exam: PRESENT: normal bowel sounds, soft. ABSENT: distended, guarding, mass, organolmegaly, rebound, tenderness Extremities exam: ABSENT: clubbing, joint swelling Musculoskeletal exam: ABSENT: deformity, dislocation Neurological exam: PRESENT: alert, awake Psychiatric exam: PRESENT: normal mood Skin exam: PRESENT: dry, warm Results Laboratory Results: 08/03/17 14:20 08/03/17 14:20 07/15/17 07/15/17 07/17/17 05:50 05:50 11:15 Creatine Kinase 957 H CK-MB (CK-2) 2.44 Troponin I 0.063 NT-Pro-B Natriuret Pep 2970 H Impressions: Shoulder X-Ray 07/19/17 00:00 IMPRESSION: NO SIGNIFICANT RADIOGRAPHIC ABNORMALITY. Chest CT 07/26/17 00:00 IMPRESSION: 1. Limiting motion. 2. Cardiomegaly. 3. Patchy right upper lobe infiltrate. Chest X-Ray 07/26/17 00:00 IMPRESSION: HEART ENLARGED WITHOUT FAILURE. NO OTHER SIGNIFICANT RADIOGRAPHIC FINDING IN THE CHEST. Assessment & Plan - Diagnosis (1) CHF (congestive heart failure) Qualifiers: Congestive heart failure type: systolic Congestive heart failure chronicity : acute on chronic Qualified Code(s): I50.23 - Acute on chronic systolic ( congestive) heart failure Is this a current diagnosis for this admission?: Yes Plan: Improving (2) Coronary artery disease Qualifiers: Coronary Disease-Associated Artery/Lesion type: [place] artery [place] vs. transplanted heart: [place] heart Associated angina: angina presence unspecified Qualified Code(s): I25.10 - Atherosclerotic heart disease of [place] coronary artery without angina pectoris Is this a current diagnosis for this admission?: Yes Plan: At or near baseline (3) Obesity hypoventilation syndrome Is this a current diagnosis for this admission?: Yes Plan: Unchanged (4) Parkinson disease Is this a current diagnosis for this admission?: Yes Plan: Unchanged
[2017-08-07] MEDS ORDERED: INSULIN GLARGINE,HUM.REC.ANLOG 1,000 UNIT/10 ML UNIT SUBCUT SCH ×2 (10:00)
== END 2017-08-06 18:32 | DRG 193 ==
LOC: ER 05:36 → EH 08:29 → UNDOADMIN 08:29 → EH 08:37 → 3W 09:51
PROVIDERS: ADMIT Internal Medicine Geriatric Medicine; ATTEND Internal Medicine Geriatric Medicine
PROC: 5A09357 Assistance with Respiratory Ventilation, Less than 24 Consecutive Hours, Continuous Positive Airway Pressure (ICD-10-PCS; principal; 2017-07-14)
PROC: 3E0F73Z Introduction of Anti-inflammatory into Respiratory Tract, Via Natural or Artificial Opening (ICD-10-PCS; 2017-07-14)
DX: J18.1 Lobar pneumonia, unspecified organism (principal); I50.23 Acute on chronic systolic (congestive) heart failure; N17.9 Acute kidney failure, unspecified; Z68.43 Body mass index [BMI] 50.0-59.9, adult; E66.2 Morbid (severe) obesity with alveolar hypoventilation; R09.02 Hypoxemia; I11.0 Hypertensive heart disease with heart failure; E11.9 Type 2 diabetes mellitus without complications; D63.8 Anemia in other chronic diseases classified elsewhere; M54.9 Dorsalgia, unspecified; I25.10 Atherosclerotic heart disease of native coronary artery without angina pectoris; L30.9 Dermatitis, unspecified; K21.9 Gastro-esophageal reflux disease without esophagitis; G20 Parkinson's disease; I48.91 Unspecified atrial fibrillation; E78.00 Pure hypercholesterolemia, unspecified; M15.3 Secondary multiple arthritis; K59.01 Slow transit constipation; I25.2 Old myocardial infarction; Z88.8 Allergy status to other drugs, medicaments and biological substances; Z79.4 Long term (current) use of insulin; Z79.899 Other long term (current) drug therapy; Z86.73 Personal history of transient ischemic attack (TIA), and cerebral infarction without residual deficits; Z99.81 Dependence on supplemental oxygen; Z85.3 Personal history of malignant neoplasm of breast; Z95.5 Presence of coronary angioplasty implant and graft; Z90.10 Acquired absence of unspecified breast and nipple; Z83.3 Family history of diabetes mellitus; Z82.3 Family history of stroke; Z82.49 Family history of ischemic heart disease and other diseases of the circulatory system
CPT/HCPCS: 36415; 36600; 51702; 71010; 71250; 80048; 80053; 80202; 81001; 82272; 82550; 82553; 82607; 82728; 82746; 82803; 82962; 83036; 83540; 83550; 83605; 83735; 83880; 84100; 84132; 84439; 84443; 84466; 84481; 84484; 85025; 85045; 85610; 85730; 87040; 87086; 93005; 93010; 93306; 94640; 94660; 94668; 94799; 96365; 96366; 96368; 96375; 99291; G8978-GP; G8979-GP; J0692; J0696; J1450; J1650; J1815; J1940; J1956; J3370; J3490; J7060; J7620

== ENCOUNTER 2017-09-22 14:08 | Emergency (ER) | payer MEDICARE ==
[2017-09-22 15:01] LABS: ABSOLUTE EOSINOPHILS # (AUTO) 0.1 10^3/uL (0.0-0.6); ABSOLUTE MONOCYTES (AUTO) 0.7 10^3/uL (0.1-1.4); ABSOLUTE NEUT (AUTO) 4.3 10^3/uL (1.7-8.2); BASOPHILS % (AUTO) 0.3 % (0-2); EOSINOPHILS % (AUTO) 1.2 % (0-6); HEMATOCRIT 31.9 % (36.0-47.0); HEMOGLOBIN 10.5 g/dL (12.0-15.5); LYMPHOCYTES % (AUTO) 36.6 % (13-45); MEAN CORPUSCULAR HEMOGLOBIN 28.2 pg (27.0-33.4); MEAN CORPUSCULAR HGB CONC 32.7 g/dL (32.0-36.0); MEAN CORPUSCULAR VOLUME 86 fl (80-97); MONOCYTES % (AUTO) 9.1 % (3-13); PLATELET COUNT 168 10^3/uL (150-450); RED CELL DISTRIBUTION WIDTH 15.4 % (11.5-14.0); SEGMENTED NEUTROPHILS % (AUTO) 52.8 % (42-78); TOTAL CELLS COUNTED % (AUTO) 100 %; WHITE BLOOD COUNT 8.1 10^3/uL (4.0-10.5)
[2017-09-22 15:18] LABS: ALANINE AMINOTRANSFERASE 22 U/L (9-52); ALBUMIN 3.4 g/dL (3.5-5.0); ALKALINE PHOSPHATASE 95 U/L (38-126); ANION GAP 6 (5-19); ASPARTATE AMINO TRANSFERASE 32 U/L (14-36); BILIRUBIN,DIRECT 0.2 mg/dL (0.0-0.4); BILIRUBIN,TOTAL 0.3 mg/dL (0.2-1.3); BLOOD UREA NITROGEN 16 mg/dL (7-20); CALCIUM 8.6 mg/dL (8.4-10.2); CARBON DIOXIDE 30 mmol/L (22-30); CHLORIDE 107 mmol/L (98-107); GLUCOSE 126 mg/dL (75-110); SODIUM 143.4 mmol/L (137-145); TOTAL PROTEIN 6.8 g/dL (6.3-8.2)
[2017-09-22 15:31] LABS: A TYPE INFLUENZA AG NEGATIVE (NEGATIVE); B INFLUENZA AG NEGATIVE (NEGATIVE)
--- NOTE | 2017-09-22 15:57 | RADIOLOGY REPORT (SQ) ---
EXAM DESCRIPTION: CHEST SINGLE VIEW COMPLETED DATE/TIME: 09/22/2017 3:45 pm REASON FOR STUDY: sob COMPARISON: Chest films 07/14/2017, 07/26/2017 CT chest 07/26/2017 EXAM PARAMETERS: NUMBER OF VIEWS: One view. TECHNIQUE: Single frontal radiographic view of the chest acquired. RADIATION DOSE: NA LIMITATIONS: Obese patient, portable technique FINDINGS: LUNGS AND PLEURA: No opacities, masses or pneumothorax. No pleural effusion. MEDIASTINUM AND HILAR STRUCTURES: No masses. Contour normal. HEART AND VASCULAR STRUCTURES: Moderate to marked cardiomegaly. BONES: No acute findings. HARDWARE: None in the chest. OTHER: No other significant finding. IMPRESSION: Cardiomegaly. No acute findings TECHNICAL DOCUMENTATION: JOB ID: [id number] [employer]- All Rights Reserved
[2017-09-22] MEDS ORDERED: IPRATROPIUM/ALBUTEROL 0.5-2.5 MG/3 ML AMPUL NEB ONE ×2 (16:05→19:53)
[2017-09-22 16:39] LABS: APPEARANCE,URINE CLEAR; BILIRUBIN,URINE NEGATIVE (NEGATIVE); COLOR,URINE YELLOW; GLUCOSE, URINE NEGATIVE (NEGATIVE); KETONES,URINE NEGATIVE (NEGATIVE); LEUKOCYTE ESTERASE,URINE NEGATIVE (NEGATIVE); NITRITE,URINE NEGATIVE (NEGATIVE); PROTEIN,URINE NEGATIVE (NEGATIVE); URINE SPECIFIC GRAVITY 1.011; UROBILINOGEN,URINE NEGATIVE mg/dL (<2.0)
--- NOTE | 2017-09-22 17:27 | ER Document Report ---
ED General - General Chief Complaint: Respiratory Distress Stated Complaint: DIFFICULTY BREATHING Time Seen by Provider: 09/22/17 14:29 TRAVEL OUTSIDE OF THE [place] IN LAST 30 DAYS: No - HPI Patient complains to provider of: wheezing Onset: Yesterday Onset/Duration: Gradual Quality of pain: No pain Associated symptoms: Nonproductive cough Exacerbated by: Denies Relieved by: Denies - Related Data Allergies/Adverse Reactions: promethazine Allergy (Verified 07/14/17 06:27) Past Medical History - General Information source: Patient, Relative, [facility] Records, Outside Facility Records - Social History Smoking Status: Never Smoker Chew tobacco use (# tins/day): No Frequency of alcohol use: None Drug Abuse: None Family History: CAD, CVA, DM, Hypertension Patient has suicidal ideation: No Patient has homicidal ideation: No - Past Medical History Cardiac Medical History: Reports: Hx Coronary Artery Disease, Hx Heart Attack - Patient does not remember year, Hx Hypercholesterolemia - Borderline, Hx Hypertension Pulmonary Medical History: Reports: Hx Bronchitis Denies: Hx Asthma, Hx COPD, Hx Pneumonia Neurological Medical History: Reports: Hx Cerebrovascular Accident. Denies: Hx Seizures Endocrine Medical History: Reports: Hx Diabetes Mellitus Type 1, Hx Diabetes Mellitus Type 2 Renal/ Medical History: Denies: Hx Peritoneal Dialysis Malignancy Medical History: Reports: Hx Breast Cancer GI Medical History: Denies: Hx Hepatitis, Hx Hiatal Hernia, Hx Ulcer Musculoskeltal Medical History: Reports Hx Arthritis Psychiatric Medical History: Reports: None Infectious Medical History: Denies: Hx Hepatitis Past Surgical History: Reports: Hx Bowel Surgery - Bowel ressection, Hx Cardiac Catheterization - 2 Stents, Hx Mastectomy - LUMPECTOMY, RIGHT ARM RESTRICTED, Hx Tonsillectomy. Denies: Hx Open Heart Surgery, Hx Pacemaker - Immunizations Immunizations up to date: Yes Hx Diphtheria, Pertussis, Tetanus Vaccination: No Review of Systems - Review of Systems Constitutional: No symptoms reported EENT: No symptoms reported Cardiovascular: No symptoms reported Respiratory: See HPI Gastrointestinal: No symptoms reported Genitourinary: No symptoms reported Female Genitourinary: No symptoms reported Musculoskeletal: No symptoms reported Skin: No symptoms reported Hematologic/Lymphatic: No symptoms reported Neurological/Psychological: No symptoms reported Physical Exam - Vital signs Vitals: Temp Resp Pulse Ox 98.6 F 14 100 09/22/17 14:21 09/22/17 14:21 09/22/17 14:21 - Notes Notes: PHYSICAL EXAMINATION: GENERAL: [place] -[place] female sitting in the bed in no acute distress HEAD: Atraumatic, normocephalic. EYES: Pupils equal round and reactive to light, extraocular movements intact, conjunctiva are normal. ENT: Nares patent, oropharynx clear without exudates. Moist mucous membranes. NECK: Normal range of motion, supple without lymphadenopathy LUNGS: Breath sounds clear to auscultation bilaterally and equal. Scant expiratory wheezing. HEART: irregularly irregular normal rate ABDOMEN:Obese, soft, nontender, nondistended abdomen. No guarding, no rebound. No masses appreciated. Female : deferred Musculoskeletal:no pitting or edema. No cyanosis. NEUROLOGICAL: Cranial nerves grossly intact. Normal speech Normal sensory, motor exams PSYCH: Normal mood, normal affect. SKIN: Warm, Dry, normal turgor, no rashes or lesions noted. Course - Re-evaluation Re-evalutation: 09/22/17 17:32 pt. now in afib at 76-85 bpm. History of same. 09/22/17 17:35 Bilateral lungs clear to auscultation - Vital Signs Vital signs: Temp Pulse Resp BP Pulse Ox 98.6 F 17 196/182 H 97 09/22/17 14:47 09/22/17 14:30 09/22/17 14:30 09/22/17 14:30 - Laboratory Result Diagrams: 09/22/17 14:20 09/22/17 14:20 Laboratory results interpreted by me: 09/22/17 09/22/17 14:20 14:20 RBC 3.70 L Hgb 10.5 L Hct 31.9 L RDW 15.4 H Glucose 126 H Albumin 3.4 L - Diagnostic Test Radiology reviewed: Image reviewed, Reports reviewed Radiology results interpreted by me: 09/22/17 17:37 no acute - EKG Interpretation by Nh Rhythm: A.Fib - 103 Discharge - Discharge Clinical Impression: Wheezing Condition: Stable Disposition: HOME-SNF (ED ONLY) Instructions: Bronchitis With Bronchospasm (Wheezing) ([facility]) Additional Instructions: Duoneb every 6 hours hours for the next 2 days. Prescriptions: Prednisone [Deltasone 20 mg Tablet] 3 tab PO DAILY 5 Days #15 tablet Referrals: ISATU CHARLES MD [Primary Care Provider] - Follow up in 3-5 days (Emergency department if you have worsening symptoms)
[2017-09-22 20:11] VITALS: BP 155/68
--- NOTE | 2017-09-22 23:27 | EKG REPORT ---
SEVERITY:- ABNORMAL ECG - ATRIAL FIBRILLATION VENTRICULAR PREMATURE COMPLEX LOW VOLTAGE IN FRONTAL LEADS NONSPECIFIC T ABNORMALITIES, LATERAL LEADS : Confirmed by: Bob Scott 22-Sep-2017 23:26:58
== END 2017-09-22 20:07 ==
LOC: ER 14:08
DX: R06.2 Wheezing (principal); R05 Cough; I48.91 Unspecified atrial fibrillation; I25.10 Atherosclerotic heart disease of native coronary artery without angina pectoris; I25.2 Old myocardial infarction; I10 Essential (primary) hypertension; E11.9 Type 2 diabetes mellitus without complications; Z88.8 Allergy status to other drugs, medicaments and biological substances; Z95.5 Presence of coronary angioplasty implant and graft
CPT/HCPCS: 93005; 94640; 99285; 36415; 85025; 80053; 81001; 84484; 83605; 87804; 71045; 93010; A9270; J7620

== ENCOUNTER 2017-09-24 20:48 | Inpatient (IN) | payer MEDICARE ==
[2017-09-24] MEDS ORDERED: METHYLPREDNISOLONE INJ 125 MG/2 ML SDV IV ONE (21:05)
[2017-09-24] MEDS ORDERED: IPRATROPIUM/ALBUTEROL 0.5-2.5 MG/3 ML AMPUL NEB ONE ×2 (21:05)
[2017-09-24] MEDS ORDERED: ONDANSETRON HCL INJ/PF 4 MG/2 ML SDV IV ONE (21:05)
--- NOTE | 2017-09-24 21:08 | ER Document Report ---
ED Respiratory Problem - General Stated Complaint: RESPIRATORY DISTRESS Time Seen by Provider: 09/24/17 21:04 Notes: Patient is an 82-year-old female that comes from [facility] for chief complaint of respiratory distress. EMS reports that they were called because patient was not responding, they state that at first she was not responding to anything, then she began to arouse when they placed on oxygen, apparently had just vomited and most likely aspirated. Patient began becoming progressively more arousable and route to the emergency department. Now patient is alert, answering questions. She does have wheezing and cough. No fever reported. Patient states she feels "woozy" but denies shortness of breath , chest pain, or any other complaints at this time. Past medical history of COPD, CHF, insulin-dependent diabetes, obesity. She is full code. TRAVEL OUTSIDE OF THE [place]. IN LAST 30 DAYS: No - Related Data Allergies/Adverse Reactions: promethazine Allergy (Verified 07/14/17 06:27) Past Medical History - General Information source: Patient, Emergency Med Personnel - Social History Smoking Status: Former Smoker Frequency of alcohol use: None Drug Abuse: None Lives with: [place] Family History: CAD, CVA, DM, Hypertension - Past Medical History Cardiac Medical History: Reports: Hx Coronary Artery Disease, Hx Heart Attack - Patient does not remember year, Hx Hypercholesterolemia - Borderline, Hx Hypertension Pulmonary Medical History: Reports: Hx Bronchitis Denies: Hx Asthma, Hx COPD, Hx Pneumonia Neurological Medical History: Reports: Hx Cerebrovascular Accident. Denies: Hx Seizures Endocrine Medical History: Reports: Hx Diabetes Mellitus Type 1, Hx Diabetes Mellitus Type 2 Renal/ Medical History: Denies: Hx Peritoneal Dialysis Malignancy Medical History: Reports: Hx Breast Cancer GI Medical History: Denies: Hx Hepatitis, Hx Hiatal Hernia, Hx Ulcer Musculoskeltal Medical History: Reports Hx Arthritis Infectious Medical History: Denies: Hx Hepatitis Past Surgical History: Reports: Hx Bowel Surgery - Bowel ressection, Hx Cardiac Catheterization - 2 Stents, Hx Mastectomy - LUMPECTOMY, RIGHT ARM RESTRICTED, Hx Tonsillectomy. Denies: Hx Open Heart Surgery, Hx Pacemaker - Immunizations Immunizations up to date: Yes Hx Diphtheria, Pertussis, Tetanus Vaccination: No Review of Systems - Review of Systems Constitutional: No symptoms reported EENT: No symptoms reported Cardiovascular: See HPI Respiratory: See HPI Gastrointestinal: See HPI Genitourinary: No symptoms reported Female Genitourinary: No symptoms reported Musculoskeletal: No symptoms reported Skin: No symptoms reported Hematologic/Lymphatic: No symptoms reported Neurological/Psychological: No symptoms reported Physical Exam - Vital signs Vitals: Temp Pulse Ox 98.9 F 85 L 09/24/17 20:49 09/24/17 20:49 Interpretation: Normal - General General appearance: Appears well, Alert In distress: None - HEENT Head: Normocephalic, Atraumatic Eyes: Normal Conjunctiva: Normal Extraocular movements intact: Yes Eyelashes: Normal Pupils: PERRL Mouth/Lips: Normal Mucous membranes: Normal Pharynx: Normal Neck: Normal - Respiratory Respiratory status: No respiratory distress. No: Respiratory distress, Pursed lip breathing, Tachypnea Chest status: Nontender Breath sounds: Decreased air movement, Wheezing - Scattered wheezes and rhonchi - Cardiovascular Rhythm: Regular Heart sounds: Normal auscultation Murmur: No - Abdominal Distension: Distended Tenderness: Tender - Generalized tenderness, nonspecific, no particular areas of guarding - Back Back: Normal, Nontender - Extremities General upper extremity: Normal inspection, Nontender, Normal color, Normal ROM , Normal temperature General lower extremity: Normal inspection, Nontender, Normal color, Normal ROM , Normal temperature, Normal weight bearing. No: Shirley's sign - Neurological Neuro grossly intact: Yes Cognition: Normal Orientation: AAOx4 [place] Coma Scale Eye Opening: Spontaneous [place] Coma Scale Verbal: Oriented [place] Coma Scale Motor: Obeys Commands [place] Coma Scale Total: 15 Speech: Normal Motor strength normal: LUE, RUE, LLE, RLE Sensory: Normal - Psychological Associated symptoms: Normal affect, Normal mood - Skin Skin Temperature: Warm Skin Moisture: Dry Skin Color: Normal Course - Re-evaluation Re-evalutation: Patient with oxygen saturation at about 90-93% on room air, placed on 2 L nasal cannula, she has expiratory wheezes and scattered rhonchi on exam. She does have a nitroglycerin patch on her body in place, however she is alert and interactive now. Distended mildly tender abdomen. Chest x-ray with no obvious abnormality, CBC shows leukocytosis with no bandemia , chemistry and cardiac enzymes unremarkable. Acute abdominal series will be checked because of patient's history of partial bowel resection along with her lack of bowel movements for the past 3 days which she now tells me and her vomiting. Concern for possible small bowel obstruction. Abdominal x-ray consistent with possible small bowel obstruction. We will perform CAT scan. Patient asking for something for discomfort, she was given a small amount of pain medication. Will cover with Unasyn for suspected aspiration component. CAT scan concerning for small bowel obstruction. It also indicates bilateral lower lobe pneumonia. Discussed with patient and daughter at bedside. Will perform nasogastric tube, will consult surgery. Patient and family state understanding and agreement. Discussed with Dr. Thompson. Patient tolerated nasogastric tube without difficulty, discussed with surgeon Dr. Hawk, he will come see the patient. 09/25/17 06:40 Dr. Castañeda saw the patient, he recommends that patient will likely not need surgery and with her pneumonia and age he recommends hospitalist admission. Spoke with Dr. Charles, internal medicine, patient will be admitted to [facility]. - Vital Signs Vital signs: Temp Pulse Resp BP Pulse Ox 98.7 F 13 156/68 H 96 09/24/17 20:52 09/25/17 06:01 09/25/17 06:01 09/25/17 06:01 - Laboratory Result Diagrams: 09/24/17 21:11 09/24/17 21:11 Laboratory results interpreted by me: 09/24/17 09/24/17 21:11 21:11 WBC 15.3 H RBC 3.71 L Hgb 10.3 L Hct 32.5 L MCHC 31.5 L RDW 15.7 H Seg Neuts % (Manual) 89 H Lymphocytes % (Manual) 7 L Abs Neuts (Manual) 13.6 H BUN 29 H Est GFR (Non-Af Amer) 55 L Glucose 244 H Discharge - Discharge Clinical Impression: Small bowel obstruction Aspiration into respiratory tract Qualifiers: Encounter type: initial encounter Qualified Code(s): T17.908A - Unspecified foreign body in respiratory tract, part unspecified causing other injury, initial encounter Pneumonia Qualifiers: Pneumonia type: due to unspecified organism Laterality: bilateral Lung location : lower lobe of lung Qualified Code(s): J18.9 - Pneumonia, unspecified organism Condition: Fair Disposition: ADMITTED INPATIENT Admitting Provider: Hospitalist Unit Admitted: [facility] Referrals: ISATU CHARLES MD [Primary Care Provider] - Follow up as needed
[2017-09-24 21:26] LABS: VENOUS BLOOD BASE EXCESS -0.3 mmol/L; VENOUS BLOOD HCO3 26.5 mmol/L (20-32); VENOUS BLOOD PCO2 52.8 mmHg (35-63); VENOUS BLOOD PH 7.32 (7.30-7.42)
[2017-09-24 21:41] LABS: HEMATOCRIT 32.5 % (36.0-47.0); HEMOGLOBIN 10.3 g/dL (12.0-15.5); MEAN CORPUSCULAR HEMOGLOBIN 27.6 pg (27.0-33.4); MEAN CORPUSCULAR HGB CONC 31.5 g/dL (32.0-36.0); MEAN CORPUSCULAR VOLUME 88 fl (80-97); PLATELET COUNT 190 10^3/uL (150-450); RED BLOOD COUNT 3.71 10^6/uL (3.72-5.28); RED CELL DISTRIBUTION WIDTH 15.7 % (11.5-14.0); WHITE BLOOD COUNT 15.3 10^3/uL (4.0-10.5)
--- NOTE | 2017-09-24 21:41 | RADIOLOGY REPORT (SQ) ---
EXAM DESCRIPTION: CHEST SINGLE VIEW COMPLETED DATE/TIME: 09/24/2017 9:21 pm REASON FOR STUDY: difficulty breathing COMPARISON: 09/22/2017 EXAM PARAMETERS: NUMBER OF VIEWS: One view. TECHNIQUE: Single frontal radiographic view of the chest acquired. RADIATION DOSE: NA LIMITATIONS: None. FINDINGS: LUNGS AND PLEURA: No acute opacities, masses or pneumothorax. No pleural effusion. MEDIASTINUM AND HILAR STRUCTURES: Stable. HEART AND VASCULAR STRUCTURES: Stable. BONES: No acute findings. HARDWARE: None in the chest. OTHER: No other significant finding. IMPRESSION: NO ACUTE RADIOGRAPHIC FINDING IN THE CHEST. TECHNICAL DOCUMENTATION: JOB ID: [id number] [employer]- All Rights Reserved
[2017-09-24 21:42] LABS: ALANINE AMINOTRANSFERASE 26 U/L (9-52); ALBUMIN 3.5 g/dL (3.5-5.0); ALKALINE PHOSPHATASE 88 U/L (38-126); ANION GAP 8 (5-19); ASPARTATE AMINO TRANSFERASE 23 U/L (14-36); BILIRUBIN,DIRECT 0.2 mg/dL (0.0-0.4); BILIRUBIN,TOTAL 0.3 mg/dL (0.2-1.3); BLOOD UREA NITROGEN 29 mg/dL (7-20); CARBON DIOXIDE 29 mmol/L (22-30); CHLORIDE 106 mmol/L (98-107); CREATINE KINASE 66 U/L (30-135); GLUCOSE 244 mg/dL (75-110); POTASSIUM 4.5 mmol/L (3.6-5.0); SODIUM 142.8 mmol/L (137-145); TOTAL PROTEIN 6.8 g/dL (6.3-8.2)
[2017-09-24 21:53] LABS: CREATINE KINASE MB 2.54 ng/mL (<4.55)
[2017-09-24 21:58] LABS: TROPONIN I < 0.012 ng/mL
[2017-09-24 22:02] LABS: ABSOLUTE LYMPHOCYTES# (MANUAL) 1.1 10^3/uL (0.5-4.7); ABSOLUTE MONOCYTES # (MANUAL) 0.6 10^3/uL (0.1-1.4); ABSOLUTE NEUTROPHILS# (MANUAL) 13.6 10^3/uL (1.7-8.2); BASOPHILS % (MANUAL) 0 % (0-2); EOSINOPHILS % (MANUAL) 0 % (0-6); LYMPHOCYTES % (MANUAL) 7 % (13-45); MONOCYTES % (MANUAL) 4 % (3-13); SEGMENTED NEUTROPHILS % (MAN) 89 % (42-78); TOTAL CELLS COUNTED 100
[2017-09-24 22:03] LABS: ANISOCYTOSIS SLIGHT; OVALOCYTES SLIGHT; PLATELET COMMENT ADEQUATE; POIKILOCYTOSIS SLIGHT
--- NOTE | 2017-09-24 23:55 | RADIOLOGY REPORT (SQ) ---
EXAM DESCRIPTION: ABDOMEN 2 VIEWS COMPLETED DATE/TIME: 09/24/2017 11:04 pm REASON FOR STUDY: vomiting, no bowel movement x 3 days COMPARISON: None. NUMBER OF VIEWS: Two views. TECHNIQUE: Supine and erect/decubitus radiographic images of the abdomen acquired. LIMITATIONS: None. FINDINGS: FREE AIR: None. No abnormal gas collections. LUNG BASES: Mild subsegmental atelectasis in the right lung. BOWEL GAS PATTERN: Multiple dilated small bowel loops with air fluid levels. Moderate colonic stool. CALCIFICATIONS: No suspicious calcifications. SOFT TISSUES: No gross mass or suggestion of organomegaly. HARDWARE: None in the abdomen. BONES: No acute fracture. No worrisome bone lesions. OTHER: No other significant finding. IMPRESSION: Multiple dilated small bowel loops with air fluid levels, suggesting developing obstruct ion or ileus. Moderate colonic stool. TECHNICAL DOCUMENTATION: JOB ID: [id number] [id number] 2010 [employer]- All Rights Reserved
[2017-09-25] MEDS ORDERED: AMPICILLIN SOD/SULBACTAM 3 GM VIAL IV ONE (00:22)
[2017-09-25] MEDS ORDERED: MORPHINE SULFATE 10 MG/ML INJ IV ONE (00:22)
--- NOTE | 2017-09-25 03:26 | RADIOLOGY REPORT (SQ) ---
EXAM DESCRIPTION: CT ABDOMEN AND PELVIS WITH CONTRAST CLINICAL HISTORY: eval possible SBO, vomiting COMPARISON: None Available. TECHNIQUE: CT of the abdomen and pelvis are performed during IV bolus administration of mL of Isovue 300. DLP: mGycm FINDINGS: Abdomen: Beam hardening artifact from left upper extremity as well as artifact from the right abdominal wall being in contact with the gantry obscure portions of the abdomen. The liver has normal size and density. No intrahepatic mass or biliary dilatation. No calcified gallstones. The spleen, pancreas, and right adrenal gland are unremarkable. 2.1 cm left adrenal adenoma is stable. The kidneys have normal size and contour without evidence of solid mass or hydronephrosis. Aortoiliac atherosclerosis. IVC is unremarkable. The portal vein patent. The proximal visceral and renal arteries are patent. No free intraperitoneal air. The stomach and duodenum have normal course. Pelvis: Likely calcified fibroid in the uterus. Urinary bladder is unremarkable. No free pelvic fluid or lymphadenopathy. Large amount stool in the colon. Dilated loops of small bowel with transition to normal caliber bowel distally. Exact transition point is not definitely identified. Normal appendix. Patchy bilateral airspace opacities. Coronary artery atherosclerosis. No destructive bone lesions identified. Degenerative change of the spine. IMPRESSION: 1. There is compatible with small bowel obstruction with transition point likely in the right lower abdomen however transition point is not identified. 2. Patchy bilateral airspace opacities in the visualized lung bases. These findings suggest bilateral pneumonia. This exam was performed according to our departmental dose-optimization program, which includes automated exposure control, adjustment of the mA and/or kV according to patient size and/or use of iterative reconstruction technique.
[2017-09-25] MEDS ORDERED: LIDOCAINE 1% INJ-PF (10 MG/ML) 30 ML SDV NEB ONE (03:31)
--- NOTE | 2017-09-25 06:50 | PDOC CONSULTATION ---
Consultation Consult Date: 09/25/17 Consult reason:: nausea vomiting History of Present Illness Admission Date/PCP: ISATU CHARLES History of Present Illness: BO BARBA is a 82 year old female obese, hx of abdominal surgery years ago, recent onset of constipation, vomiting and enlarged abdomen. Flatus present till this AM. A CT scan A/P was done and shows large amount of fecal matter, gas in colon distended loops of small bowel, no starla transition point seen. Past Medical History Cardiac Medical History: Reports: Coronary Artery Disease, Myocardial Infarction - Patient does not remember year, Hyperlipidema - Borderline, Hypertension Pulmonary Medical History: Reports: Bronchitis Denies: Asthma, Chronic Obstructive Pulmonary Disease (COPD), Pneumonia Neurological Medical History: Denies: Seizures Endocrine Medical History: Reports: Diabetes Mellitus Type 1, Diabetes Mellitus Type 2 Malignancy Medical History: Reports: Breast Cancer GI Medical History: Denies: Hepatitis, Hiatal Hernia Musculoskeltal Medical History: Reports: Arthritis Hematology: Reports: Anemia Denies: Sickle Cell Disease Past Surgical History Past Surgical History: Reports: Cardiac Catheterization - 2 Stents, Mastectomy - LUMPECTOMY, RIGHT ARM RESTRICTED, Tonsillectomy Denies: Amputation, Pacemaker Social History Lives with: Assisted Smoking Status: Former Smoker Frequency of Alcohol Use: None Hx Recreational Drug Use: No Hx Prescription Drug Abuse: No Family History Family History: CAD, CVA, DM, Hypertension Parental Family History Reviewed: No Children Family History Reviewed: No Sibling(s) Family History Reviewed.: No Medication/Allergy Home Medications: Albuterol Sulfate [Ventolin Hfa] 2 puff IH Q4HP PRN 07/14/17 Amlodipine Besylate/Benazepril [Lotrel 10-40 mg Capsule] 1 tab PO DAILY Atorvastatin Calcium [Lipitor 40 mg Tablet] 40 mg PO QHS 07/14/17 Bumetanide [Bumex 0.5 mg Tablet] 0.5 mg PO Q12 07/14/17 Diclofenac Sodium [Voltaren] 2 gm TOP Q8 07/14/17 Levocetirizine Dihydrochloride [Xyzal] 5 mg PO DAILY 07/14/17 Metolazone [Zaroxolyn 2.5 mg Tablet] 2.5 mg PO MOWEFR@1000 07/14/17 Metoprolol Succinate [Toprol Xl 25 mg Tab.sr] 25 mg PO DAILY 07/14/17 Nitroglycerin [Nitro-Dur 15 mg (0.6 mg/1 Hr) Transderm Patch] 1 patch TD DAILY 07/14/17 Polyethylene Glycol 3350 [Miralax Powder 17 gm/Packet] 17 gm PO DAILY 07/14/17 Potassium Chloride [Klor-Con 10 Meq Tablet.sa] 10 meq PO DAILY 07/14/17 Pramipexole Di-HCl [Mirapex] 1 mg PO Q8 07/14/17 Carbidopa/Levodopa ER [Sinemet-Cr 50-200 mg Tablet.sa] 1 tab PO QHS #0 08/06/17 Docusate Sodium [Colace 100 mg Capsule] 200 mg PO DAILY capsule 08/06/17 Insulin Glargine,Hum.rec.anlog [Lantus Solostar] 60 units SQ DAILY #0 08/06/17 Insulin Lispro [Humalog Insulin (Lispro) 100 unit/mL] 0 - 12 unit SUBCUT ACHSP PRN unit 08/06/17 Linaclotide [Linzess 145 Mcg Capsule] 145 mcg PO ACBRKFST #0 08/06/17 Prednisone [Deltasone 20 mg Tablet] 3 tab PO DAILY 5 Days #15 tablet 09/22/17 Allergies/Adverse Reactions: promethazine Allergy (Verified 07/14/17 06:27) Physical Exam Vital Signs: Temp Pulse Resp BP Pulse Ox 98.7 F 13 156/68 H 96 09/24/17 20:52 09/25/17 06:01 09/25/17 06:01 09/25/17 06:01 Intake & Output 09/23/17 09/24/17 09/25/17 06:59 06:59 06:59 Output Total 30 Balance -30 Weight 129.274 kg General appearance: PRESENT: mild distress, other - obese Mouth exam: PRESENT: dry mucosa Neck exam: PRESENT: full ROM Respiratory exam: PRESENT: clear to auscultation carole Cardiovascular exam: PRESENT: RRR GI/Abdominal exam: PRESENT: distended, normal bowel sounds, soft Musculoskeletal exam: PRESENT: full ROM Neurological exam: PRESENT: other - sleepy but arousable Results Laboratory Results: 09/24/17 21:11 09/24/17 21:11 09/24/17 09/24/17 09/24/17 21:11 21:11 21:11 WBC 15.3 H RBC 3.71 L Hgb 10.3 L Hct 32.5 L MCV 88 MCH 27.6 MCHC 31.5 L RDW 15.7 H Plt Count 190 Seg Neutrophils % Not Reportable Lymphocytes % Not Reportable Monocytes % Not Reportable Eosinophils % Not Reportable Basophils % Not Reportable Absolute Neutrophils Not Reportable Absolute Lymphocytes Not Reportable Absolute Monocytes Not Reportable Absolute Eosinophils Not Reportable Absolute Basophils Not Reportable VBG pH 7.32 VBG pCO2 52.8 VBG HCO3 26.5 VBG Base Excess -0.3 Sodium 142.8 Potassium 4.5 Chloride 106 Carbon Dioxide 29 Anion Gap 8 BUN 29 H Creatinine 0.97 Est GFR ( Amer) > 60 Est GFR (Non-Af Amer) 55 L Glucose 244 H Calcium 9.0 Total Bilirubin 0.3 AST 23 ALT 26 Alkaline Phosphatase 88 Total Protein 6.8 Albumin 3.5 09/24/17 09/24/17 21:11 21:11 Creatine Kinase 66 CK-MB (CK-2) 2.54 Troponin I < 0.012 Impressions: Chest X-Ray 09/24/17 20:52 IMPRESSION: NO ACUTE RADIOGRAPHIC FINDING IN THE CHEST. Abdomen X-Ray 09/24/17 22:19 IMPRESSION: Multiple dilated small bowel loops with air fluid levels, suggesting developing obstruction or ileus. Moderate colonic stool. Abdomen/Pelvis CT 09/25/17 00:00 IMPRESSION: 1. There is compatible with small bowel obstruction with transition point likely in the right lower abdomen however transition point is not identified. 2. Patchy bilateral airspace opacities in the visualized lung bases. These findings suggest bilateral pneumonia. This exam was performed according to our departmental dose-optimization program, which includes automated exposure control, adjustment of the mA and/or kV according to patient size and/or use of iterative reconstruction technique. Assessment & Plan - Diagnosis (1) Constipation Qualifiers: Constipation type: slow transit constipation Qualified Code(s): K59.01 - Slow transit constipation Is this a current diagnosis for this admission?: Yes - Plan Summary Plan Summary: A/ Obese female with constipation, vomiting, distended abdomen and small bowel loops on CT scan Flatus present Large amount of fecal matter in colon with gas: Radiologist cannot identify P/ NGT IVF NPO Will follow
[2017-09-25] MEDS ORDERED: DEXTROSE 40% GEL 15 GM TUBE PO PRN ×2 (08:10)
[2017-09-25] MEDS ORDERED: DEXTROSE 50%-WATER 25 GM/50 ML DISP.SYRIN IV PRN ×2 (08:10)
[2017-09-25] MEDS ORDERED: GLUCAGON,HUMAN RECOMB 1 MG INJ SUBCUT PRN (08:10)
[2017-09-25] MEDS ORDERED: ACETAMINOPHEN 650 MG SUPP.RECT PR PRN (08:15)
[2017-09-25] MEDS ORDERED: BISACODYL 10 MG SUPP.RECT PR ONE ×2 (09:00→19:47)
[2017-09-25 09:07] LABS: APPEARANCE,URINE CLEAR; BILIRUBIN,URINE NEGATIVE (NEGATIVE); COLOR,URINE YELLOW; GLUCOSE, URINE NEGATIVE (NEGATIVE); KETONES,URINE NEGATIVE (NEGATIVE); LEUKOCYTE ESTERASE,URINE NEGATIVE (NEGATIVE); NITRITE,URINE NEGATIVE (NEGATIVE); PROTEIN,URINE NEGATIVE (NEGATIVE); URINE SPECIFIC GRAVITY 1.051; UROBILINOGEN,URINE NEGATIVE mg/dL (<2.0)
[2017-09-25] MEDS ORDERED: LANSOPRAZOLE 30 MG TAB.RAP.DR PO ONE (09:30)
[2017-09-25] MEDS: IPRATROPIUM/ALBUTEROL 0.5-2.5 MG/3 ML AMPUL NEB PRN ×2 (10:03→23:57)
[2017-09-25 10:10] LABS: INTERNATIONAL RATION (INR) 0.96; PROTHROMBIN TIME 13.4 SEC (11.4-15.4)
[2017-09-25 10:11] LABS: PARTIAL THROMBOPLASTIN TIME 23.1 SEC (23.5-35.8)
[2017-09-25] MEDS: INSULIN LISPRO 100 UNIT/ML 3 ML VIAL SUBCUT PRN (11:32)
[2017-09-25] MEDS: ENOXAPARIN SODIUM INJ 40 MG/0.4 ML DISP.SYRIN SUBCUT SCH (11:32)
[2017-09-25] MEDS ORDERED: IMIPENEM/CILASTATIN SODIUM 500 MG in NORMAL SALINE 100 ML IV SCH (12:00)
--- NOTE | 2017-09-25 12:02 | EKG REPORT ---
SEVERITY:- NORMAL ECG - SINUS RHYTHM : Confirmed by: Bob Scott 25-Sep-2017 12:00:54
[2017-09-25] MEDS: NORMAL SALINE 1000 ML 1,000 ML IV PRN (13:14)
--- NOTE | 2017-09-25 19:26 | PDOC H&P ---
History of Present Illness Admission Date/PCP: 09/25/17 06:41 ISATU OSUNKGEOFFA Patient complains of: Difficulty with breathing History of Present Illness: Princess Bermeo is 82 years old female patient known to my practice who was brought to the ED from [facility] by EMS service after development of difficulty with breathing. Patient had episode of vomiting preceding her symptom development with concern for possible aspiration. he was found initially not very responsive by the EMS crew but following administration of supplemental oxygen she gradually became arousable. Upon arrival in the ED her initial evaluation revealed some degree of wheezing. She was responsive enough to complain about been dizziness and coughing. Her initial radiologic assessment suggested possible aspiration pneumonia, her abdominal distention led to further assessment with abdominal X ray that suggested possible small bowel obstruction with multiple dilated loops and colonic fecal burden. Concern for obstruction led to her CT scan of abdomen and pelvis that revealed moderate fecal burden and bilateral airspace disease process in the visualized lung bases. She was seen in consultation by surgicalist with recommendation of NG tube placement for GI decompression. There is no reported fever or chills, She denied any chest pain or palpitation. No dysuria, flank pain or hematuria. Her morbidities include diabetes mellitus type 2, Parkinson's disease, Hypertension , chronic systolic CHF, CAD s/p Stent placement, Old NM, Hyperlipidemia, morbid obesity with hypoventilation syndrome, and osteoarthritis. Past Medical History Cardiac Medical History: Reports: Coronary Artery Disease, Myocardial Infarction - Patient does not remember year, Hyperlipidema - Borderline, Hypertension Pulmonary Medical History: Reports: Bronchitis Denies: Asthma, Chronic Obstructive Pulmonary Disease (COPD), Pneumonia Neurological Medical History: Denies: Seizures Endocrine Medical History: Reports: Diabetes Mellitus Type 1, Diabetes Mellitus Type 2 Malignancy Medical History: Reports: Breast Cancer GI Medical History: Denies: Hepatitis, Hiatal Hernia Musculoskeltal Medical History: Reports: Arthritis Hematology: Reports: Anemia Denies: Sickle Cell Disease Past Surgical History Past Surgical History: Reports: Cardiac Catheterization - 2 Stents, Mastectomy - LUMPECTOMY, RIGHT ARM RESTRICTED, Tonsillectomy Denies: Amputation, Pacemaker Social History Lives with: Longterm Smoking Status: Former Smoker Frequency of Alcohol Use: None Hx Recreational Drug Use: No Hx Prescription Drug Abuse: No Family History Family History: CAD, CVA, DM, Hypertension Parental Family History Reviewed: Yes Children Family History Reviewed: Yes Sibling(s) Family History Reviewed.: Yes Medication/Allergy Home Medications: Acetaminophen [Tylenol 325 mg Tablet] 650 mg PO Q4HP PRN 09/25/17 Amlodipine Besylate [Norvasc 10 mg Tablet] 10 mg PO DAILY 09/25/17 Aspirin [Aspirin 81 mg Chewable Tablet] 81 mg PO DAILY 09/25/17 Atorvastatin Calcium [Lipitor 40 mg Tablet] 40 mg PO QHS 09/25/17 Carbidopa/Levodopa [Sinemet 25-100 mg Tablet] 2 tab PO QHS 09/25/17 Cetirizine HCl [Zyrtec 10 mg Tablet] 10 mg PO DAILY 09/25/17 Diclofenac Sodium [Voltaren] 1 applic TP QIDP PRN 09/25/17 Docusate Sodium [Colace 100 mg Capsule] 200 mg PO DAILY 09/25/17 Insulin Aspart [Novolog Flexpen] 0 unit SUBCUT .SLD SCALE 09/25/17 Insulin Detemir [Levemir Flextouch] 35 unit SUBCUT Q12 09/25/17 Ipratropium/Albuterol Sulfate [Duoneb 3 ml Ampul] 3 ml NEB RTQ4HP PRN 09/25/17 Lidocaine [Lidoderm] 1 each TP DAILYP PRN 09/25/17 Metoprolol Succinate [Toprol Xl 25 mg Tab.sr] 25 mg PO DAILY 09/25/17 Nitroglycerin [Nitro-Dur 15 mg (0.6 mg/hr) TD Patch] 1 patch TD QAM 09/25/17 Omeprazole 40 mg PO Q6AM 09/25/17 Oseltamivir Phosphate [Tamiflu 75 mg Capsule] 75 mg PO DAILY MDD STOP 10/05/17 Polyethylene Glycol 3350 [Miralax Powder 17 gm/Packet] 1 packet PO MOWEFR@1000 09/25/17 Pramipexole Di-HCl [Mirapex] 1 mg PO Q8 09/25/17 Prednisone [Deltasone 20 mg Tablet] 60 mg PO DAILY MDD STOP 09/27/17 09/25/17 Simethicone [Mylicon 80 mg Chewable Tablet] 80 mg PO Q6HP PRN 09/25/17 Allergies/Adverse Reactions: promethazine Allergy (Verified 07/14/17 06:27) Review of Systems All systems: reviewed and no additional remarkable complaints except as stated Physical Exam Vital Signs: Temp Pulse Resp BP Pulse Ox 98.7 F 77 18 131/68 H 98 09/24/17 20:52 09/25/17 10:03 09/25/17 18:01 09/25/17 18:01 09/25/17 18:01 Intake & Output 09/24/17 09/25/17 09/26/17 06:59 06:59 06:59 Weight 129.274 kg Results Laboratory Results: 09/25/17 08:55 Urine Color YELLOW Urine Appearance CLEAR Urine pH 5.0 Ur Specific [place] 1.051 Urine Protein NEGATIVE Urine Glucose (UA) NEGATIVE Urine Ketones NEGATIVE Urine Blood MODERATE H Urine Nitrite NEGATIVE Ur Leukocyte Esterase NEGATIVE Urine WBC (Auto) 15 Urine RBC (Auto) 10 Impressions: Chest X-Ray 09/24/17 20:52 IMPRESSION: NO ACUTE RADIOGRAPHIC FINDING IN THE CHEST. Abdomen X-Ray 09/24/17 22:19 IMPRESSION: Multiple dilated small bowel loops with air fluid levels, suggesting developing obstruction or ileus. Moderate colonic stool. Abdomen/Pelvis CT 09/25/17 00:00 IMPRESSION: 1. There is compatible with small bowel obstruction with transition point likely in the right lower abdomen however transition point is not identified. 2. Patchy bilateral airspace opacities in the visualized lung bases. These findings suggest bilateral pneumonia. This exam was performed according to our departmental dose-optimization program, which includes automated exposure control, adjustment of the mA and/or kV according to patient size and/or use of iterative reconstruction technique. Assessment & Plan - Diagnosis (1) Aspiration pneumonia Qualifiers: Aspiration pneumonia type: unspecified Laterality: bilateral Lung location: lower lobe of lung Qualified Code(s): J69.0 - Pneumonitis due to inhalation of food and vomit Is this a current diagnosis for this admission?: Yes Plan: See attending physician admitting orders. (2) Constipation due to slow transit Is this a current diagnosis for this admission?: Yes Plan: See attending physician admitting orders. (3) Urinary tract bacterial infections Is this a current diagnosis for this admission?: Yes Plan: See attending physician admitting orders. (4) Diabetes mellitus type 2 in obese Is this a current diagnosis for this admission?: Yes Plan: See attending physician admitting orders. (5) HTN (hypertension) Qualifiers: Hypertension type: essential hypertension Qualified Code(s): I10 - Essential (primary) hypertension Is this a current diagnosis for this admission?: Yes Plan: See attending physician admitting orders. (6) Chronic systolic CHF (congestive heart failure) Is this a current diagnosis for this admission?: Yes Plan: See attending physician admitting orders. (7) HLD (hyperlipidemia) Qualifiers: Hyperlipidemia type: pure hypercholesterolemia Qualified Code(s): E78.00 - Pure hypercholesterolemia, unspecified; E78.0 - Pure hypercholesterolemia Is this a current diagnosis for this admission?: Yes Plan: See attending physician admitting orders. (8) Parkinson disease Is this a current diagnosis for this admission?: Yes Plan: See attending physician admitting orders. (9) Obesity hypoventilation syndrome Is this a current diagnosis for this admission?: Yes Plan: See attending physician admitting orders. (10) Morbid obesity with BMI of 50.0-59.9, adult Is this a current diagnosis for this admission?: Yes Plan: See attending physician admitting orders. - Time Time Spent: 50 to 70 Minutes Medications reviewed and adjusted accordingly: Yes Anticipated discharge: SNF Within: Other - Inpatient Certification Based on my medical assessment, after consideration of the patient's comorbidities, presenting symptoms, or acuity I expect that the services needed warrant INPATIENT care.: Yes I certify that my determination is in accordance with my understanding of Medicare's requirements for reasonable and necessary INPATIENT services [42 CFR 412.3e].: Yes Medical Necessity: Need Close Monitoring Due to Risk of Patient Decompensation, Need For IV Fluids, Need For Continuous Telemetry Monitoring, Need for IV Antibiotics, Risk of Complication if Not Cared For in Hospital Post Hospital Care: D/C or Transfer Summary - Plan Summary Plan Summary: See attending physician admitting orders.
[2017-09-25] MEDS: IMIPENEM/CILASTATIN SODIUM 500 MG in NORMAL SALINE 100 ML IV SCH (21:36)
[2017-09-26] MEDS: IMIPENEM/CILASTATIN SODIUM 500 MG in NORMAL SALINE 100 ML IV SCH ×4 (03:26→23:47)
[2017-09-26] MEDS: NORMAL SALINE 1000 ML 1,000 ML IV PRN ×2 (03:27→23:47)
[2017-09-26] MEDS: IPRATROPIUM/ALBUTEROL 0.5-2.5 MG/3 ML AMPUL NEB PRN ×2 (03:46→08:04)
[2017-09-26] MEDS: LANSOPRAZOLE 30 MG TAB.RAP.DR PO SCH (06:09)
[2017-09-26 07:21] LABS: ABSOLUTE EOSINOPHILS # (AUTO) 0.1 10^3/uL (0.0-0.6); ABSOLUTE MONOCYTES (AUTO) 0.8 10^3/uL (0.1-1.4); ABSOLUTE NEUT (AUTO) 9.1 10^3/uL (1.7-8.2); BASOPHILS % (AUTO) 0.2 % (0-2); EOSINOPHILS % (AUTO) 0.5 % (0-6); HEMATOCRIT 33.6 % (36.0-47.0); HEMOGLOBIN 10.8 g/dL (12.0-15.5); LYMPHOCYTES % (AUTO) 9.2 % (13-45); MEAN CORPUSCULAR HEMOGLOBIN 28.3 pg (27.0-33.4); MEAN CORPUSCULAR VOLUME 88 fl (80-97); MONOCYTES % (AUTO) 7.6 % (3-13); RED CELL DISTRIBUTION WIDTH 15.6 % (11.5-14.0); SEGMENTED NEUTROPHILS % (AUTO) 82.5 % (42-78); TOTAL CELLS COUNTED % (AUTO) 100 %; WHITE BLOOD COUNT 11.1 10^3/uL (4.0-10.5)
[2017-09-26 07:42] LABS: ALANINE AMINOTRANSFERASE 33 U/L (9-52); ALBUMIN 3.1 g/dL (3.5-5.0); ALKALINE PHOSPHATASE 81 U/L (38-126); ANION GAP 7 (5-19); ASPARTATE AMINO TRANSFERASE 22 U/L (14-36); BILIRUBIN,DIRECT 0.3 mg/dL (0.0-0.4); BILIRUBIN,TOTAL 0.5 mg/dL (0.2-1.3); BLOOD UREA NITROGEN 29 mg/dL (7-20); CALCIUM 8.7 mg/dL (8.4-10.2); CARBON DIOXIDE 30 mmol/L (22-30); CHLORIDE 108 mmol/L (98-107); GLUCOSE 113 mg/dL (75-110); POTASSIUM 4.1 mmol/L (3.6-5.0); SODIUM 144.5 mmol/L (137-145); TOTAL PROTEIN 6.2 g/dL (6.3-8.2)
[2017-09-26 07:54] LABS: PLATELET COUNT 140 10^3/uL (150-450)
[2017-09-26] MEDS: ENOXAPARIN SODIUM INJ 40 MG/0.4 ML DISP.SYRIN SUBCUT SCH (13:53)
[2017-09-26] MEDS ORDERED: ENALAPRILAT DIHYDRATE INJ/PF 2.5 MG/2 ML SDV IV PRN (17:59)
--- NOTE | 2017-09-26 17:59 | PDOC PROGRESS REPORT ---
Subjective Progress Note for:: 09/26/17 Subjective:: She denied chest pain or difficulty with breathing. NG tube remain in situ with intermittent suction device. No fever or chills. She denied abdominal pain. No bowel movement. Patient did not receive prescribed soap sub enema since last clinical evaluation. Reason For Visit: ASPIRATION PNEUMONIA,PROBABLE SMALL BOWEL Physical Exam Vital Signs: Temp Pulse Resp BP Pulse Ox 98.4 F 77 18 167/113 H 90 L 09/26/17 03:45 09/25/17 10:03 09/26/17 09:01 09/26/17 09:01 09/26/17 09:01 Intake & Output 09/25/17 09/26/17 09/27/17 06:59 06:59 06:59 Weight 129.274 kg General appearance: PRESENT: morbidly obese Head exam: PRESENT: atraumatic, normocephalic Eye exam: PRESENT: conjunctiva pink, EOMI, PERRLA. ABSENT: scleral icterus Mouth exam: PRESENT: moist Respiratory exam: PRESENT: clear to auscultation carole, decreased breath sounds - at lung bases Cardiovascular exam: PRESENT: RRR. ABSENT: diastolic murmur, rubs, systolic murmur GI/Abdominal exam: PRESENT: normal bowel sounds, soft. ABSENT: distended, guarding, mass, organolmegaly, rebound, tenderness Extremities exam: ABSENT: pedal edema Musculoskeletal exam: PRESENT: deformity - related to joint involvement with arthritis Neurological exam: PRESENT: alert, awake, oriented to person, oriented to place , oriented to time, oriented to situation, CN II-XII grossly intact, other - generalized deconditioning. ABSENT: motor sensory deficit Psychiatric exam: PRESENT: appropriate affect, normal mood. ABSENT: homicidal ideation, suicidal ideation Skin exam: PRESENT: dry, intact, warm. ABSENT: cyanosis, rash Results Laboratory Results: 09/26/17 06:50 09/26/17 06:50 09/26/17 09/26/17 06:50 06:50 WBC 11.1 H RBC 3.80 Hgb 10.8 L Hct 33.6 L MCV 88 MCH 28.3 MCHC 32.0 RDW 15.6 H Plt Count 140 L Seg Neutrophils % 82.5 H Lymphocytes % 9.2 L Monocytes % 7.6 Eosinophils % 0.5 Basophils % 0.2 Absolute Neutrophils 9.1 H Absolute Lymphocytes 1.0 Absolute Monocytes 0.8 Absolute Eosinophils 0.1 Absolute Basophils 0.0 Sodium 144.5 Potassium 4.1 Chloride 108 H Carbon Dioxide 30 Anion Gap 7 BUN 29 H Creatinine 0.69 Est GFR ( Amer) > 60 Est GFR (Non-Af Amer) > 60 Glucose 113 H Calcium 8.7 Total Bilirubin 0.5 AST 22 ALT 33 Alkaline Phosphatase 81 Total Protein 6.2 L Albumin 3.1 L Impressions: Chest X-Ray 09/24/17 20:52 IMPRESSION: NO ACUTE RADIOGRAPHIC FINDING IN THE CHEST. Abdomen X-Ray 09/24/17 22:19 IMPRESSION: Multiple dilated small bowel loops with air fluid levels, suggesting developing obstruction or ileus. Moderate colonic stool. Abdomen/Pelvis CT 09/25/17 00:00 IMPRESSION: 1. There is compatible with small bowel obstruction with transition point likely in the right lower abdomen however transition point is not identified. 2. Patchy bilateral airspace opacities in the visualized lung bases. These findings suggest bilateral pneumonia. This exam was performed according to our departmental dose-optimization program, which includes automated exposure control, adjustment of the mA and/or kV according to patient size and/or use of iterative reconstruction technique. Assessment & Plan - Diagnosis (1) Aspiration pneumonia Qualifiers: Aspiration pneumonia type: unspecified Laterality: bilateral Lung location: lower lobe of lung Qualified Code(s): J69.0 - Pneumonitis due to inhalation of food and vomit Is this a current diagnosis for this admission?: Yes (2) Constipation due to slow transit Is this a current diagnosis for this admission?: Yes (3) Urinary tract bacterial infections Is this a current diagnosis for this admission?: Yes (4) Diabetes mellitus type 2 in obese Is this a current diagnosis for this admission?: Yes (5) HTN (hypertension) Qualifiers: Hypertension type: essential hypertension Qualified Code(s): I10 - Essential (primary) hypertension Is this a current diagnosis for this admission?: Yes (6) Chronic systolic CHF (congestive heart failure) Is this a current diagnosis for this admission?: Yes (7) HLD (hyperlipidemia) Qualifiers: Hyperlipidemia type: pure hypercholesterolemia Qualified Code(s): E78.00 - Pure hypercholesterolemia, unspecified; E78.0 - Pure hypercholesterolemia Is this a current diagnosis for this admission?: Yes (8) Parkinson disease Is this a current diagnosis for this admission?: Yes (9) Obesity hypoventilation syndrome Is this a current diagnosis for this admission?: Yes (10) Morbid obesity with BMI of 50.0-59.9, adult Is this a current diagnosis for this admission?: Yes - Time Time Spent with patient: 35 or more minutes Medications reviewed and adjusted accordingly: Yes Anticipated discharge: SNF Within: Other - Inpatient Certification Based on my medical assessment, after consideration of the patient's comorbidities, presenting symptoms, or acuity I expect that the services needed warrant INPATIENT care.: Yes I certify that my determination is in accordance with my understanding of Medicare's requirements for reasonable and necessary INPATIENT services [42 CFR 412.3e].: Yes Medical Necessity: Need Close Monitoring Due to Risk of Patient Decompensation, Need For IV Fluids, Need For Continuous Telemetry Monitoring, Need for Nebulizer Therapy and Monitoring of Response, Need for IV Antibiotics, Risk of Complication if Not Cared For in Hospital Post Hospital Care: D/C or Transfer Summary - Plan Summary Plan Summary: Maintain on IV Zosyn therapy. Emphasized need for enema to aid bowel movement. Obtain abdominal KUB after bowel movement. Maintain on NG tube with intermittent suction device. Start on IV Vasotec for blood pressure management. Obtain CBC with Diff, CMP in the morning.
[2017-09-26] MEDS ORDERED: BISACODYL 10 MG SUPP.RECT PR ONE (19:00)
--- NOTE | 2017-09-27 01:39 | PDOC PROGRESS REPORT ---
Subjective Progress Note for:: 09/26/17 Subjective:: She is without complaints at this time Reason For Visit: ASPIRATION PNEUMONIA,PROBABLE SMALL BOWEL Physical Exam Vital Signs: Temp Pulse Resp BP Pulse Ox 99.2 F 83 20 138/44 H 96 09/26/17 18:57 09/26/17 18:57 09/26/17 18:57 09/26/17 18:57 09/27/17 00:00 Intake & Output 09/25/17 09/26/17 09/27/17 06:59 06:59 06:59 Weight 129.274 kg 127 kg General appearance: PRESENT: no acute distress Mouth exam: PRESENT: moist, neck supple Respiratory exam: PRESENT: clear to auscultation carole Cardiovascular exam: PRESENT: RRR GI/Abdominal exam: PRESENT: normal bowel sounds, soft. ABSENT: distended, guarding, hernia, rebound, tenderness Results Laboratory Results: 09/26/17 06:50 09/26/17 06:50 09/26/17 09/26/17 06:50 06:50 WBC 11.1 H RBC 3.80 Hgb 10.8 L Hct 33.6 L MCV 88 MCH 28.3 MCHC 32.0 RDW 15.6 H Plt Count 140 L Seg Neutrophils % 82.5 H Lymphocytes % 9.2 L Monocytes % 7.6 Eosinophils % 0.5 Basophils % 0.2 Absolute Neutrophils 9.1 H Absolute Lymphocytes 1.0 Absolute Monocytes 0.8 Absolute Eosinophils 0.1 Absolute Basophils 0.0 Sodium 144.5 Potassium 4.1 Chloride 108 H Carbon Dioxide 30 Anion Gap 7 BUN 29 H Creatinine 0.69 Est GFR ( Amer) > 60 Est GFR (Non-Af Amer) > 60 Glucose 113 H Calcium 8.7 Total Bilirubin 0.5 AST 22 ALT 33 Alkaline Phosphatase 81 Total Protein 6.2 L Albumin 3.1 L Impressions: Chest X-Ray 09/24/17 20:52 IMPRESSION: NO ACUTE RADIOGRAPHIC FINDING IN THE CHEST. Abdomen X-Ray 09/24/17 22:19 IMPRESSION: Multiple dilated small bowel loops with air fluid levels, suggesting developing obstruction or ileus. Moderate colonic stool. Abdomen/Pelvis CT 09/25/17 00:00 IMPRESSION: 1. There is compatible with small bowel obstruction with transition point likely in the right lower abdomen however transition point is not identified. 2. Patchy bilateral airspace opacities in the visualized lung bases. These findings suggest bilateral pneumonia. This exam was performed according to our departmental dose-optimization program, which includes automated exposure control, adjustment of the mA and/or kV according to patient size and/or use of iterative reconstruction technique. Assessment & Plan - Plan Summary Plan Summary: The gastric tube has been removed, and patient will be started on clear liquid diet.
[2017-09-27] MEDS: IMIPENEM/CILASTATIN SODIUM 500 MG in NORMAL SALINE 100 ML IV SCH ×4 (03:24→20:26)
[2017-09-27 05:31] LABS: ABSOLUTE EOSINOPHILS # (AUTO) 0.1 10^3/uL (0.0-0.6); ABSOLUTE LYMPHOCYTES (AUTO) 0.9 10^3/uL (0.5-4.7); ABSOLUTE MONOCYTES (AUTO) 0.7 10^3/uL (0.1-1.4); ABSOLUTE NEUT (AUTO) 6.1 10^3/uL (1.7-8.2); BASOPHILS % (AUTO) 0.1 % (0-2); EOSINOPHILS % (AUTO) 1.8 % (0-6); HEMATOCRIT 28.8 % (36.0-47.0); HEMOGLOBIN 9.4 g/dL (12.0-15.5); LYMPHOCYTES % (AUTO) 11.7 % (13-45); MEAN CORPUSCULAR HEMOGLOBIN 28.6 pg (27.0-33.4); MEAN CORPUSCULAR HGB CONC 32.8 g/dL (32.0-36.0); MEAN CORPUSCULAR VOLUME 87 fl (80-97); MONOCYTES % (AUTO) 8.9 % (3-13); PLATELET COUNT 128 10^3/uL (150-450); RED CELL DISTRIBUTION WIDTH 15.3 % (11.5-14.0); SEGMENTED NEUTROPHILS % (AUTO) 77.5 % (42-78); TOTAL CELLS COUNTED % (AUTO) 100 %; WHITE BLOOD COUNT 7.9 10^3/uL (4.0-10.5)
[2017-09-27 05:53] LABS: ALANINE AMINOTRANSFERASE 30 U/L (9-52); ALBUMIN 2.7 g/dL (3.5-5.0); ALKALINE PHOSPHATASE 68 U/L (38-126); ANION GAP 5 (5-19); ASPARTATE AMINO TRANSFERASE 20 U/L (14-36); BILIRUBIN,DIRECT 0.4 mg/dL (0.0-0.4); BILIRUBIN,TOTAL 0.5 mg/dL (0.2-1.3); BLOOD UREA NITROGEN 18 mg/dL (7-20); CALCIUM 8.4 mg/dL (8.4-10.2); CARBON DIOXIDE 33 mmol/L (22-30); CHLORIDE 107 mmol/L (98-107); GLUCOSE 75 mg/dL (75-110); SODIUM 144.5 mmol/L (137-145); TOTAL PROTEIN 5.6 g/dL (6.3-8.2)
[2017-09-27] MEDS: LANSOPRAZOLE 30 MG TAB.RAP.DR PO SCH (06:16)
[2017-09-27] MEDS: IPRATROPIUM/ALBUTEROL 0.5-2.5 MG/3 ML AMPUL NEB PRN ×3 (08:59→19:50)
[2017-09-27] MEDS: ENOXAPARIN SODIUM INJ 40 MG/0.4 ML DISP.SYRIN SUBCUT SCH (10:37)
--- NOTE | 2017-09-27 18:33 | PDOC PROGRESS REPORT ---
Subjective Progress Note for:: 09/27/17 Subjective:: Seen by the bedside complaining of cough shortness of breath Reason For Visit: ASPIRATION PNEUMONIA,PROBABLE SMALL BOWEL Physical Exam Vital Signs: Temp Pulse Resp BP Pulse Ox 99.1 F 114 H 20 147/67 H 94 09/27/17 12:08 09/27/17 13:56 09/27/17 13:56 09/27/17 12:08 09/27/17 13:56 Intake & Output 09/26/17 09/27/17 09/28/17 06:59 06:59 06:59 Intake Total 350 386 Output Total 1 Balance 350 385 Weight 129.274 kg 127 kg 127 kg General appearance: PRESENT: mild distress Head exam: PRESENT: atraumatic, normocephalic Eye exam: PRESENT: PERRLA Ear exam: PRESENT: normal external ear exam Mouth exam: PRESENT: moist, tongue midline Neck exam: PRESENT: full ROM Respiratory exam: PRESENT: wheezes Cardiovascular exam: PRESENT: RRR, +S1, +S2 Vascular exam: PRESENT: normal capillary refill GI/Abdominal exam: PRESENT: normal bowel sounds, soft Rectal exam: PRESENT: deferred Neurological exam: PRESENT: alert. ABSENT: motor sensory deficit Psychiatric exam: PRESENT: appropriate affect, normal mood. ABSENT: homicidal ideation, suicidal ideation Skin exam: PRESENT: dry, intact, warm. ABSENT: cyanosis, rash Results Laboratory Results: 09/27/17 04:19 09/27/17 04:19 09/27/17 09/27/17 04:19 04:19 WBC 7.9 RBC 3.30 L Hgb 9.4 L Hct 28.8 L MCV 87 MCH 28.6 MCHC 32.8 RDW 15.3 H Plt Count 128 L Seg Neutrophils % 77.5 Lymphocytes % 11.7 L Monocytes % 8.9 Eosinophils % 1.8 Basophils % 0.1 Absolute Neutrophils 6.1 Absolute Lymphocytes 0.9 Absolute Monocytes 0.7 Absolute Eosinophils 0.1 Absolute Basophils 0.0 Sodium 144.5 Potassium 4.0 Chloride 107 Carbon Dioxide 33 H Anion Gap 5 BUN 18 Creatinine 0.66 Est GFR ( Amer) > 60 Est GFR (Non-Af Amer) > 60 Glucose 75 Calcium 8.4 Total Bilirubin 0.5 AST 20 ALT 30 Alkaline Phosphatase 68 Total Protein 5.6 L Albumin 2.7 L 09/25/17 08:55 Catheterized Urine Urine Culture - Final NO GROWTH 2 DAYS Impressions: Chest X-Ray 09/24/17 20:52 IMPRESSION: NO ACUTE RADIOGRAPHIC FINDING IN THE CHEST. Abdomen X-Ray 09/24/17 22:19 IMPRESSION: Multiple dilated small bowel loops with air fluid levels, suggesting developing obstruction or ileus. Moderate colonic stool. Abdomen/Pelvis CT 09/25/17 00:00 IMPRESSION: 1. There is compatible with small bowel obstruction with transition point likely in the right lower abdomen however transition point is not identified. 2. Patchy bilateral airspace opacities in the visualized lung bases. These findings suggest bilateral pneumonia. This exam was performed according to our departmental dose-optimization program, which includes automated exposure control, adjustment of the mA and/or kV according to patient size and/or use of iterative reconstruction technique. Assessment & Plan - Diagnosis (1) Aspiration pneumonia Qualifiers: Aspiration pneumonia type: unspecified Laterality: bilateral Lung location: lower lobe of lung Qualified Code(s): J69.0 - Pneumonitis due to inhalation of food and vomit Is this a current diagnosis for this admission?: Yes (2) Chronic systolic CHF (congestive heart failure) Is this a current diagnosis for this admission?: Yes (3) Small bowel obstruction Is this a current diagnosis for this admission?: Yes
[2017-09-27] MEDS: INSULIN LISPRO 100 UNIT/ML 3 ML VIAL SUBCUT PRN (21:56)
[2017-09-28] MEDS: IPRATROPIUM/ALBUTEROL 0.5-2.5 MG/3 ML AMPUL NEB PRN ×4 (02:05→19:48)
[2017-09-28] MEDS: IMIPENEM/CILASTATIN SODIUM 500 MG in NORMAL SALINE 100 ML IV SCH ×4 (03:39→20:33)
[2017-09-28] MEDS: LANSOPRAZOLE 30 MG TAB.RAP.DR PO SCH (05:44)
[2017-09-28] MEDS: ENOXAPARIN SODIUM INJ 40 MG/0.4 ML DISP.SYRIN SUBCUT SCH (10:15)
--- NOTE | 2017-09-28 12:23 | PDOC PROGRESS REPORT ---
Subjective Progress Note for:: 09/28/17 Subjective:: Patient has no complaints today. She was seen in the room with her and son. She is on a regular diet. She has having bowel movements. Reason For Visit: ASPIRATION PNEUMONIA,PROBABLE SMALL BOWEL Physical Exam Vital Signs: Temp Pulse Resp BP Pulse Ox 99.0 F 90 20 151/52 H 95 09/28/17 07:36 09/28/17 09:12 09/28/17 09:12 09/28/17 07:36 09/28/17 09:12 Intake & Output 09/27/17 09/28/17 09/29/17 06:59 06:59 06:59 Intake Total 350 2140 Output Total 1 Balance 350 2139 Weight 127 kg 135.5 kg General appearance: PRESENT: no acute distress, cooperative Respiratory exam: PRESENT: clear to auscultation carole. ABSENT: accessory muscle use Cardiovascular exam: PRESENT: RRR GI/Abdominal exam: PRESENT: normal bowel sounds, other - Incision is clean dry and intact Results Laboratory Results: 09/27/17 04:19 09/27/17 04:19 09/25/17 08:55 Catheterized Urine Urine Culture - Final NO GROWTH 2 DAYS Impressions: Chest X-Ray 09/24/17 20:52 IMPRESSION: NO ACUTE RADIOGRAPHIC FINDING IN THE CHEST. Abdomen X-Ray 09/24/17 22:19 IMPRESSION: Multiple dilated small bowel loops with air fluid levels, suggesting developing obstruction or ileus. Moderate colonic stool. Abdomen/Pelvis CT 09/25/17 00:00 IMPRESSION: 1. There is compatible with small bowel obstruction with transition point likely in the right lower abdomen however transition point is not identified. 2. Patchy bilateral airspace opacities in the visualized lung bases. These findings suggest bilateral pneumonia. This exam was performed according to our departmental dose-optimization program, which includes automated exposure control, adjustment of the mA and/or kV according to patient size and/or use of iterative reconstruction technique. Assessment & Plan - Plan Summary Plan Summary: SBO is resolved. She has return of bowel function with BM. She is on a regular diet. Surgery will sign off.
--- NOTE | 2017-09-28 12:30 | PDOC PROGRESS REPORT ---
Subjective Progress Note for:: 09/28/17 Subjective:: Patient was seen by the bedside, she was admitted for the management of aspiration pneumonia associated with small bowel obstruction. Reason For Visit: ASPIRATION PNEUMONIA,PROBABLE SMALL BOWEL Physical Exam Vital Signs: Temp Pulse Resp BP Pulse Ox 99.0 F 90 20 151/52 H 95 09/28/17 07:36 09/28/17 09:12 09/28/17 09:12 09/28/17 07:36 09/28/17 09:12 Intake & Output 09/27/17 09/28/17 09/29/17 06:59 06:59 06:59 Intake Total 350 2140 Output Total 1 Balance 350 2139 Weight 127 kg 135.5 kg General appearance: PRESENT: mild distress Respiratory exam: PRESENT: crackles Cardiovascular exam: PRESENT: +S1, +S2 GI/Abdominal exam: PRESENT: distended, soft Neurological exam: PRESENT: alert Results Laboratory Results: 09/27/17 04:19 09/27/17 04:19 09/25/17 08:55 Catheterized Urine Urine Culture - Final NO GROWTH 2 DAYS Impressions: Chest X-Ray 09/24/17 20:52 IMPRESSION: NO ACUTE RADIOGRAPHIC FINDING IN THE CHEST. Abdomen X-Ray 09/24/17 22:19 IMPRESSION: Multiple dilated small bowel loops with air fluid levels, suggesting developing obstruction or ileus. Moderate colonic stool. Abdomen/Pelvis CT 09/25/17 00:00 IMPRESSION: 1. There is compatible with small bowel obstruction with transition point likely in the right lower abdomen however transition point is not identified. 2. Patchy bilateral airspace opacities in the visualized lung bases. These findings suggest bilateral pneumonia. This exam was performed according to our departmental dose-optimization program, which includes automated exposure control, adjustment of the mA and/or kV according to patient size and/or use of iterative reconstruction technique. Assessment & Plan - Diagnosis (1) Aspiration pneumonia Qualifiers: Aspiration pneumonia type: unspecified Laterality: bilateral Lung location: lower lobe of lung Qualified Code(s): J69.0 - Pneumonitis due to inhalation of food and vomit Is this a current diagnosis for this admission?: Yes Plan: Continue IV antibiotic (2) Small bowel obstruction Is this a current diagnosis for this admission?: Yes
[2017-09-28] MEDS: INSULIN LISPRO 100 UNIT/ML 3 ML VIAL SUBCUT PRN ×2 (14:17→22:59)
[2017-09-28] MEDS ORDERED: ACETAMINOPHEN 325 MG TABLET PO PRN (18:22)
[2017-09-28] MEDS: CARBIDOPA/LEVODOPA 25-100 MG TABLET PO SCH (22:59)
[2017-09-28] MEDS ORDERED: PRAMIPEXOLE DI-HCL 0.5 MG TABLET ONE (23:07)
[2017-09-28] MEDS: PRAMIPEXOLE DI-HCL 0.5 MG TABLET PO SCH (23:14)
[2017-09-28] MEDS: ATORVASTATIN CALCIUM 40 MG TABLET PO SCH (23:14)
[2017-09-29] MEDS: IMIPENEM/CILASTATIN SODIUM 500 MG in NORMAL SALINE 100 ML IV SCH ×4 (02:17→21:45)
[2017-09-29] MEDS: IPRATROPIUM/ALBUTEROL 0.5-2.5 MG/3 ML AMPUL NEB PRN ×4 (02:26→18:23)
[2017-09-29] MEDS ORDERED: PRAMIPEXOLE DI-HCL 0.5 MG TABLET ONE (05:57)
[2017-09-29] MEDS: LANSOPRAZOLE 30 MG TAB.RAP.DR PO SCH (06:30)
[2017-09-29] MEDS: PRAMIPEXOLE DI-HCL 0.5 MG TABLET PO SCH ×3 (06:30→23:50)
[2017-09-29] MEDS: ENOXAPARIN SODIUM INJ 40 MG/0.4 ML DISP.SYRIN SUBCUT SCH (09:11)
[2017-09-29] MEDS: POLYETHYLENE GLYCOL 3350 POWDER 17 GM/1 PACKET PO SCH (11:07)
[2017-09-29] MEDS: DOCUSATE SODIUM 100 MG CAPSULE PO SCH (11:08)
[2017-09-29] MEDS: AMLODIPINE BESYLATE 10 MG TABLET PO SCH (11:08)
[2017-09-29] MEDS: METOPROLOL SUCCINATE 25 MG TAB.SR.24H PO SCH (11:09)
[2017-09-29] MEDS: ASPIRIN 81 MG TABLET, CHEWABLE PO SCH (11:09)
[2017-09-29] MEDS: CETIRIZINE 10 MG TABLET PO SCH (11:10)
[2017-09-29] MEDS: NITROGLYCERIN 15 MG (0.6 MG/1 HR) PATCH.TD24 TD SCH (11:10)
[2017-09-29] MEDS: INSULIN LISPRO 100 UNIT/ML 3 ML VIAL SUBCUT PRN ×2 (13:49→23:06)
--- NOTE | 2017-09-29 18:46 | PDOC PROGRESS REPORT ---
Subjective Progress Note for:: 09/29/17 Subjective:: Patient had episode of wheezing after meal necessitating nebulizer treating probably due to aspiration. No chest pain but reported chest tightness. No nausea or vomiting. No abdominal pain. No fever or chills. Reason For Visit: ASPIRATION PNEUMONIA,PROBABLE SMALL BOWEL Physical Exam Vital Signs: Temp Pulse Resp BP Pulse Ox 98.4 F 76 19 137/65 H 99 09/29/17 16:30 09/29/17 16:30 09/29/17 16:30 09/29/17 16:30 09/29/17 16:30 Intake & Output 09/28/17 09/29/17 09/30/17 06:59 06:59 06:59 Intake Total 2140 1531 320 Output Total 1 Balance 2139 1531 320 Weight 135.5 kg 133.5 kg Physical Exam: General appearance: PRESENT: morbidly obese Head exam: PRESENT: atraumatic, normocephalic Eye exam: PRESENT: conjunctiva pink, EOMI, PERRLA. ABSENT: scleral icterus Mouth exam: PRESENT: moist Respiratory exam: PRESENT: expiratory rhonchi and wheezing, decreased breath sounds - at lung bases Cardiovascular exam: PRESENT: RRR. ABSENT: diastolic murmur, rubs, systolic murmur GI/Abdominal exam: PRESENT: normal bowel sounds, soft. ABSENT: distended, guarding, mass, organomegaly, rebound, tenderness Extremities exam: ABSENT: pedal edema Musculoskeletal exam: PRESENT: deformity - related to joint involvement with arthritis Neurological exam: PRESENT: alert, awake, oriented to person, oriented to place , oriented to time, oriented to situation, CN II-XII grossly intact, other - generalized deconditioning. ABSENT: motor sensory deficit Psychiatric exam: PRESENT: appropriate affect, normal mood. ABSENT: homicidal ideation, suicidal ideation Skin exam: PRESENT: dry, intact, warm. ABSENT: cyanosis, rash Results Laboratory Results: 09/27/17 04:19 09/27/17 04:19 Impressions: Chest X-Ray 09/24/17 20:52 IMPRESSION: NO ACUTE RADIOGRAPHIC FINDING IN THE CHEST. Abdomen X-Ray 09/24/17 22:19 IMPRESSION: Multiple dilated small bowel loops with air fluid levels, suggesting developing obstruction or ileus. Moderate colonic stool. Abdomen/Pelvis CT 09/25/17 00:00 IMPRESSION: 1. There is compatible with small bowel obstruction with transition point likely in the right lower abdomen however transition point is not identified. 2. Patchy bilateral airspace opacities in the visualized lung bases. These findings suggest bilateral pneumonia. This exam was performed according to our departmental dose-optimization program, which includes automated exposure control, adjustment of the mA and/or kV according to patient size and/or use of iterative reconstruction technique. Assessment & Plan - Diagnosis (1) Aspiration pneumonia Qualifiers: Aspiration pneumonia type: unspecified Laterality: bilateral Lung location: lower lobe of lung Qualified Code(s): J69.0 - Pneumonitis due to inhalation of food and vomit Is this a current diagnosis for this admission?: Yes (2) Constipation due to slow transit Is this a current diagnosis for this admission?: Yes (3) Urinary tract bacterial infections Is this a current diagnosis for this admission?: Yes (4) Diabetes mellitus type 2 in obese Is this a current diagnosis for this admission?: Yes (5) HTN (hypertension) Qualifiers: Hypertension type: essential hypertension Qualified Code(s): I10 - Essential (primary) hypertension Is this a current diagnosis for this admission?: Yes (6) Chronic systolic CHF (congestive heart failure) Is this a current diagnosis for this admission?: Yes (7) HLD (hyperlipidemia) Qualifiers: Hyperlipidemia type: pure hypercholesterolemia Qualified Code(s): E78.00 - Pure hypercholesterolemia, unspecified; E78.0 - Pure hypercholesterolemia Is this a current diagnosis for this admission?: Yes (8) Parkinson disease Is this a current diagnosis for this admission?: Yes (9) Obesity hypoventilation syndrome Is this a current diagnosis for this admission?: Yes (10) Morbid obesity with BMI of 50.0-59.9, adult Is this a current diagnosis for this admission?: Yes - Time Time Spent with patient: 25-34 minutes Medications reviewed and adjusted accordingly: Yes Anticipated discharge: SNF Within: Other - Inpatient Certification Based on my medical assessment, after consideration of the patient's comorbidities, presenting symptoms, or acuity I expect that the services needed warrant INPATIENT care.: Yes I certify that my determination is in accordance with my understanding of Medicare's requirements for reasonable and necessary INPATIENT services [42 CFR 412.3e].: Yes Medical Necessity: Need Close Monitoring Due to Risk of Patient Decompensation, Need For IV Fluids, Need For Continuous Telemetry Monitoring, Need for IV Antibiotics, Risk of Complication if Not Cared For in Hospital Post Hospital Care: D/C or Transfer Summary - Plan Summary Plan Summary: Change DuoNeb treatment to [id number], change diet to mechanical soft with cut meat , and emphasized aspiration precautions. Maintain on antibiotic therapy coverage. Emphasized use of bedside incentive spirometry and Flutter devices to air pulmonary toileting. Obtain CBC with diff, CMP in AM. Obtain PT/OT/Speech pathology evaluation in AM.
[2017-09-29] MEDS: IPRATROPIUM/ALBUTEROL 0.5-2.5 MG/3 ML AMPUL NEB SCH (19:43)
[2017-09-29] MEDS ORDERED: ONDANSETRON HCL INJ/PF 4 MG/2 ML SDV ONE ×2 (21:41→23:35)
[2017-09-29] MEDS ORDERED: ONDANSETRON 4 MG TAB.RAPDIS ONE (21:44)
[2017-09-29] MEDS: ONDANSETRON 4 MG TAB.RAPDIS SL PRN (22:06)
[2017-09-29] MEDS ORDERED: ONDANSETRON HCL INJ/PF 4 MG/2 ML SDV IV ONE (23:45)
[2017-09-29] MEDS: ATORVASTATIN CALCIUM 40 MG TABLET PO SCH (23:50)
[2017-09-29] MEDS: CARBIDOPA/LEVODOPA 25-100 MG TABLET PO SCH (23:50)
[2017-09-30] MEDS: IPRATROPIUM/ALBUTEROL 0.5-2.5 MG/3 ML AMPUL NEB SCH ×4 (01:52→19:38)
[2017-09-30] MEDS: ONDANSETRON 4 MG TAB.RAPDIS SL PRN (02:07)
[2017-09-30] MEDS: IMIPENEM/CILASTATIN SODIUM 500 MG in NORMAL SALINE 100 ML IV SCH ×4 (02:08→22:07)
[2017-09-30] MEDS: PRAMIPEXOLE DI-HCL 0.5 MG TABLET PO SCH ×3 (06:02→22:14)
[2017-09-30] MEDS: LANSOPRAZOLE 30 MG TAB.RAP.DR PO SCH (06:02)
[2017-09-30] MEDS: METOPROLOL SUCCINATE 25 MG TAB.SR.24H PO SCH (09:05)
[2017-09-30] MEDS: ASPIRIN 81 MG TABLET, CHEWABLE PO SCH (09:06)
[2017-09-30] MEDS: CETIRIZINE 10 MG TABLET PO SCH (09:06)
[2017-09-30] MEDS: NITROGLYCERIN 15 MG (0.6 MG/1 HR) PATCH.TD24 TD SCH (09:06)
[2017-09-30] MEDS: INSULIN LISPRO 100 UNIT/ML 3 ML VIAL SUBCUT PRN ×2 (09:07→22:10)
[2017-09-30] MEDS: AMLODIPINE BESYLATE 10 MG TABLET PO SCH (09:07)
[2017-09-30] MEDS: DOCUSATE SODIUM 100 MG CAPSULE PO SCH (09:07)
[2017-09-30] MEDS: ENOXAPARIN SODIUM INJ 40 MG/0.4 ML DISP.SYRIN SUBCUT SCH (09:07)
--- NOTE | 2017-09-30 17:39 | PDOC PROGRESS REPORT ---
Subjective Progress Note for:: 09/30/17 Subjective:: Patient denied chest pain. Breathing is getting better. No nausea or vomiting. No abdominal pain. No fever or chills. Reason For Visit: ASPIRATION PNEUMONIA,PROBABLE SMALL BOWEL Physical Exam Vital Signs: Temp Pulse Resp BP Pulse Ox 97.7 F 74 14 146/66 H 100 09/30/17 13:40 09/30/17 14:14 09/30/17 14:14 09/30/17 13:40 09/30/17 13:40 Intake & Output 09/29/17 09/30/17 10/01/17 06:59 06:59 06:59 Intake Total 1531 1352 0 Balance 1531 1352 0 Weight 133.5 kg 133.9 kg Physical Exam: General appearance: PRESENT: morbidly obese Head exam: PRESENT: atraumatic, normocephalic Eye exam: PRESENT: conjunctiva pink, EOMI, PERRLA. ABSENT: scleral icterus Mouth exam: PRESENT: moist Respiratory exam: PRESENT: decreased breath sounds - at lung bases Cardiovascular exam: PRESENT: RRR. ABSENT: diastolic murmur, rubs, systolic murmur GI/Abdominal exam: PRESENT: normal bowel sounds, soft. ABSENT: distended, guarding, mass, organomegaly, rebound, tenderness Extremities exam: ABSENT: pedal edema Musculoskeletal exam: PRESENT: deformity - related to joint involvement with arthritis Neurological exam: PRESENT: alert, awake, oriented to person, oriented to place , oriented to time, oriented to situation, CN II-XII grossly intact, other - generalized deconditioning. ABSENT: motor sensory deficit Psychiatric exam: PRESENT: appropriate affect, normal mood. ABSENT: homicidal ideation, suicidal ideation Skin exam: PRESENT: dry, intact, warm. ABSENT: cyanosis, rash Results Laboratory Results: 09/27/17 04:19 09/27/17 04:19 Impressions: Chest X-Ray 09/24/17 20:52 IMPRESSION: NO ACUTE RADIOGRAPHIC FINDING IN THE CHEST. Abdomen X-Ray 09/24/17 22:19 IMPRESSION: Multiple dilated small bowel loops with air fluid levels, suggesting developing obstruction or ileus. Moderate colonic stool. Abdomen/Pelvis CT 09/25/17 00:00 IMPRESSION: 1. There is compatible with small bowel obstruction with transition point likely in the right lower abdomen however transition point is not identified. 2. Patchy bilateral airspace opacities in the visualized lung bases. These findings suggest bilateral pneumonia. This exam was performed according to our departmental dose-optimization program, which includes automated exposure control, adjustment of the mA and/or kV according to patient size and/or use of iterative reconstruction technique. Assessment & Plan - Diagnosis (1) Aspiration pneumonia Qualifiers: Aspiration pneumonia type: unspecified Laterality: bilateral Lung location: lower lobe of lung Qualified Code(s): J69.0 - Pneumonitis due to inhalation of food and vomit Is this a current diagnosis for this admission?: Yes (2) Constipation due to slow transit Is this a current diagnosis for this admission?: Yes (3) Urinary tract bacterial infections Is this a current diagnosis for this admission?: Yes (4) Diabetes mellitus type 2 in obese Is this a current diagnosis for this admission?: Yes (5) HTN (hypertension) Qualifiers: Hypertension type: essential hypertension Qualified Code(s): I10 - Essential (primary) hypertension Is this a current diagnosis for this admission?: Yes (6) Chronic systolic CHF (congestive heart failure) Is this a current diagnosis for this admission?: Yes (7) HLD (hyperlipidemia) Qualifiers: Hyperlipidemia type: pure hypercholesterolemia Qualified Code(s): E78.00 - Pure hypercholesterolemia, unspecified; E78.0 - Pure hypercholesterolemia Is this a current diagnosis for this admission?: Yes (8) Parkinson disease Is this a current diagnosis for this admission?: Yes (9) Obesity hypoventilation syndrome Is this a current diagnosis for this admission?: Yes (10) Morbid obesity with BMI of 50.0-59.9, adult Is this a current diagnosis for this admission?: Yes - Time Time Spent with patient: 25-34 minutes Medications reviewed and adjusted accordingly: Yes Anticipated discharge: SNF Within: Other - Inpatient Certification Based on my medical assessment, after consideration of the patient's comorbidities, presenting symptoms, or acuity I expect that the services needed warrant INPATIENT care.: Yes I certify that my determination is in accordance with my understanding of Medicare's requirements for reasonable and necessary INPATIENT services [42 CFR 412.3e].: Yes Medical Necessity: Need Close Monitoring Due to Risk of Patient Decompensation, Need For IV Fluids, Need For Continuous Telemetry Monitoring, Need for Nebulizer Therapy and Monitoring of Response, Need for IV Antibiotics, Risk of Complication if Not Cared For in Hospital Post Hospital Care: D/C or Transfer Summary - Plan Summary Plan Summary: See attending physician orders.
[2017-09-30] MEDS: ATORVASTATIN CALCIUM 40 MG TABLET PO SCH (22:14)
[2017-09-30] MEDS: CARBIDOPA/LEVODOPA 25-100 MG TABLET PO SCH (22:14)
[2017-10-01] MEDS: IPRATROPIUM/ALBUTEROL 0.5-2.5 MG/3 ML AMPUL NEB SCH ×4 (02:28→21:34)
[2017-10-01] MEDS: IMIPENEM/CILASTATIN SODIUM 500 MG in NORMAL SALINE 100 ML IV SCH ×4 (02:34→21:24)
[2017-10-01] MEDS: LANSOPRAZOLE 30 MG TAB.RAP.DR PO SCH (05:53)
[2017-10-01] MEDS: PRAMIPEXOLE DI-HCL 0.5 MG TABLET PO SCH ×3 (05:53→21:25)
[2017-10-01] MEDS: NITROGLYCERIN 15 MG (0.6 MG/1 HR) PATCH.TD24 TD SCH (10:40)
[2017-10-01] MEDS: CETIRIZINE 10 MG TABLET PO SCH (10:40)
[2017-10-01] MEDS: METOPROLOL SUCCINATE 25 MG TAB.SR.24H PO SCH (10:40)
[2017-10-01] MEDS: DOCUSATE SODIUM 100 MG CAPSULE PO SCH (10:40)
[2017-10-01] MEDS: AMLODIPINE BESYLATE 10 MG TABLET PO SCH (10:41)
[2017-10-01] MEDS: POLYETHYLENE GLYCOL 3350 POWDER 17 GM/1 PACKET PO SCH (10:41)
[2017-10-01] MEDS: ASPIRIN 81 MG TABLET, CHEWABLE PO SCH (11:02)
[2017-10-01] MEDS: ENOXAPARIN SODIUM INJ 40 MG/0.4 ML DISP.SYRIN SUBCUT SCH (11:02)
[2017-10-01] MEDS: INSULIN LISPRO 100 UNIT/ML 3 ML VIAL SUBCUT PRN (13:27)
--- NOTE | 2017-10-01 19:14 | PDOC PROGRESS REPORT ---
Subjective Progress Note for:: 10/01/17 Subjective:: Patient participated in PT/OT/SP sessions today. Noted for high risk of aspiration on thin liquid. She denied any difficulty with breathing. No chest pain. No nausea, vomiting, or abdominal pain. Remain on IV Primaxin coverage. Blood culture is no growth to date. Reason For Visit: ASPIRATION PNEUMONIA,PROBABLE SMALL BOWEL Physical Exam Vital Signs: Temp Pulse Resp BP Pulse Ox 98.6 F 81 18 132/59 H 99 10/01/17 16:06 10/01/17 16:06 10/01/17 16:06 10/01/17 16:06 10/01/17 16:06 Intake & Output 09/30/17 10/01/17 10/02/17 06:59 06:59 06:59 Intake Total 1352 730 Output Total 0 Balance 1352 730 Weight 133.9 kg Physical Exam: General appearance: PRESENT: morbidly obese Head exam: PRESENT: atraumatic, normocephalic Eye exam: PRESENT: conjunctiva pink, EOMI, PERRLA. ABSENT: scleral icterus Mouth exam: PRESENT: moist Respiratory exam: PRESENT: decreased breath sounds - at lung bases Cardiovascular exam: PRESENT: RRR. ABSENT: diastolic murmur, rubs, systolic murmur GI/Abdominal exam: PRESENT: normal bowel sounds, soft. ABSENT: distended, guarding, mass, organomegaly, rebound, tenderness Extremities exam: ABSENT: pedal edema Musculoskeletal exam: PRESENT: deformity - related to joint involvement with arthritis Neurological exam: PRESENT: alert, awake, oriented to person, oriented to place , oriented to time, oriented to situation, CN II-XII grossly intact, other - generalized deconditioning. ABSENT: motor sensory deficit Psychiatric exam: PRESENT: appropriate affect, normal mood. ABSENT: homicidal ideation, suicidal ideation Skin exam: PRESENT: dry, intact, warm. ABSENT: cyanosis, rash Results Laboratory Results: 09/27/17 04:19 09/27/17 04:19 09/26/17 11:48 Blood Blood Culture - Final NO GROWTH IN 5 DAYS 09/26/17 10:17 Blood Blood Culture - Final NO GROWTH IN 5 DAYS Impressions: Chest X-Ray 09/24/17 20:52 IMPRESSION: NO ACUTE RADIOGRAPHIC FINDING IN THE CHEST. Abdomen X-Ray 09/24/17 22:19 IMPRESSION: Multiple dilated small bowel loops with air fluid levels, suggesting developing obstruction or ileus. Moderate colonic stool. Abdomen/Pelvis CT 09/25/17 00:00 IMPRESSION: 1. There is compatible with small bowel obstruction with transition point likely in the right lower abdomen however transition point is not identified. 2. Patchy bilateral airspace opacities in the visualized lung bases. These findings suggest bilateral pneumonia. This exam was performed according to our departmental dose-optimization program, which includes automated exposure control, adjustment of the mA and/or kV according to patient size and/or use of iterative reconstruction technique. Assessment & Plan - Diagnosis (1) Aspiration pneumonia Qualifiers: Aspiration pneumonia type: unspecified Laterality: bilateral Lung location: lower lobe of lung Qualified Code(s): J69.0 - Pneumonitis due to inhalation of food and vomit Is this a current diagnosis for this admission?: Yes (2) Constipation due to slow transit Is this a current diagnosis for this admission?: Yes (3) Urinary tract bacterial infections Is this a current diagnosis for this admission?: Yes (4) Diabetes mellitus type 2 in obese Is this a current diagnosis for this admission?: Yes (5) HTN (hypertension) Qualifiers: Hypertension type: essential hypertension Qualified Code(s): I10 - Essential (primary) hypertension Is this a current diagnosis for this admission?: Yes (6) Chronic systolic CHF (congestive heart failure) Is this a current diagnosis for this admission?: Yes (7) HLD (hyperlipidemia) Qualifiers: Hyperlipidemia type: pure hypercholesterolemia Qualified Code(s): E78.00 - Pure hypercholesterolemia, unspecified; E78.0 - Pure hypercholesterolemia Is this a current diagnosis for this admission?: Yes (8) Parkinson disease Is this a current diagnosis for this admission?: Yes (9) Obesity hypoventilation syndrome Is this a current diagnosis for this admission?: Yes (10) Morbid obesity with BMI of 50.0-59.9, adult Is this a current diagnosis for this admission?: Yes - Time Time Spent with patient: 25-34 minutes Medications reviewed and adjusted accordingly: Yes Anticipated discharge: SNF - Inpatient Certification Based on my medical assessment, after consideration of the patient's comorbidities, presenting symptoms, or acuity I expect that the services needed warrant INPATIENT care.: Yes I certify that my determination is in accordance with my understanding of Medicare's requirements for reasonable and necessary INPATIENT services [42 CFR 412.3e].: Yes Medical Necessity: Need Close Monitoring Due to Risk of Patient Decompensation, Need For IV Fluids, Need For Continuous Telemetry Monitoring, Need for IV Antibiotics, Risk of Complication if Not Cared For in Hospital Post Hospital Care: D/C or Transfer Summary - Plan Summary Plan Summary: Continue IV Primaxin coverage. Consider transition to oral Augmentin in AM. I discussed with speech pathologist and in agreement with need for further swallowing assessment if patient's weight/habitus will allow testing. Obtain CBC with diff, CMP in am.
[2017-10-01] MEDS: ATORVASTATIN CALCIUM 40 MG TABLET PO SCH (21:24)
[2017-10-01] MEDS: CARBIDOPA/LEVODOPA 25-100 MG TABLET PO SCH (21:25)
[2017-10-02] MEDS: INSULIN LISPRO 100 UNIT/ML 3 ML VIAL SUBCUT PRN ×2 (00:33→16:40)
[2017-10-02] MEDS: IPRATROPIUM/ALBUTEROL 0.5-2.5 MG/3 ML AMPUL NEB SCH ×4 (02:27→19:55)
[2017-10-02] MEDS: IMIPENEM/CILASTATIN SODIUM 500 MG in NORMAL SALINE 100 ML IV SCH ×3 (04:25→14:04)
[2017-10-02 04:57] LABS: ABSOLUTE EOSINOPHILS # (AUTO) 0.1 10^3/uL (0.0-0.6); ABSOLUTE LYMPHOCYTES (AUTO) 0.9 10^3/uL (0.5-4.7); ABSOLUTE MONOCYTES (AUTO) 0.7 10^3/uL (0.1-1.4); ABSOLUTE NEUT (AUTO) 3.8 10^3/uL (1.7-8.2); BASOPHILS % (AUTO) 0.4 % (0-2); EOSINOPHILS % (AUTO) 2.7 % (0-6); HEMATOCRIT 26.6 % (36.0-47.0); HEMOGLOBIN 8.9 g/dL (12.0-15.5); LYMPHOCYTES % (AUTO) 15.8 % (13-45); MEAN CORPUSCULAR HEMOGLOBIN 28.5 pg (27.0-33.4); MEAN CORPUSCULAR HGB CONC 33.3 g/dL (32.0-36.0); MEAN CORPUSCULAR VOLUME 86 fl (80-97); MONOCYTES % (AUTO) 12.1 % (3-13); PLATELET COUNT 129 10^3/uL (150-450); RED BLOOD COUNT 3.11 10^6/uL (3.72-5.28); RED CELL DISTRIBUTION WIDTH 14.7 % (11.5-14.0); TOTAL CELLS COUNTED % (AUTO) 100 %; WHITE BLOOD COUNT 5.5 10^3/uL (4.0-10.5)
[2017-10-02 05:20] LABS: BLOOD UREA NITROGEN 10 mg/dL (7-20); CALCIUM 8.4 mg/dL (8.4-10.2); CHLORIDE 101 mmol/L (98-107); GLUCOSE 132 mg/dL (75-110); POTASSIUM 3.7 mmol/L (3.6-5.0)
[2017-10-02 05:34] LABS: CARBON DIOXIDE 38 mmol/L (22-30); SODIUM 141.9 mmol/L (137-145)
[2017-10-02 05:37] LABS: ANION GAP 3 (5-19)
[2017-10-02] MEDS: PRAMIPEXOLE DI-HCL 0.5 MG TABLET PO SCH ×3 (06:18→21:14)
[2017-10-02] MEDS: LANSOPRAZOLE 30 MG TAB.RAP.DR PO SCH (06:18)
[2017-10-02] MEDS: NITROGLYCERIN 15 MG (0.6 MG/1 HR) PATCH.TD24 TD SCH (09:03)
[2017-10-02] MEDS: ASPIRIN 81 MG TABLET, CHEWABLE PO SCH (09:10)
[2017-10-02] MEDS: CETIRIZINE 10 MG TABLET PO SCH (09:11)
[2017-10-02] MEDS: AMLODIPINE BESYLATE 10 MG TABLET PO SCH (09:11)
[2017-10-02] MEDS: METOPROLOL SUCCINATE 25 MG TAB.SR.24H PO SCH (09:11)
[2017-10-02] MEDS: DOCUSATE SODIUM 100 MG CAPSULE PO SCH (09:12)
[2017-10-02] MEDS: ENOXAPARIN SODIUM INJ 40 MG/0.4 ML DISP.SYRIN SUBCUT SCH (09:13)
--- NOTE | 2017-10-02 19:00 | PDOC PROGRESS REPORT ---
Subjective Progress Note for:: 10/02/17 Subjective:: She denied any difficulty with breathing or chest pain. No nausea, vomiting, or abdominal pain. She will receive last dose of IV Primaxin tonight. Blood culture is no growth to date. I will start on oral Augmentin tomorrow morning. Reason For Visit: ASPIRATION PNEUMONIA,PROBABLE SMALL BOWEL Physical Exam Vital Signs: Temp Pulse Resp BP Pulse Ox 98.6 F 77 18 148/59 H 98 10/02/17 16:12 10/02/17 16:12 10/02/17 16:12 10/02/17 16:12 10/02/17 16:12 Intake & Output 10/01/17 10/02/17 10/03/17 06:59 06:59 06:59 Intake Total 730 1289 266 Output Total 0 Balance 730 1289 266 Weight 134.4 kg Physical Exam: General appearance: PRESENT: morbidly obese Head exam: PRESENT: atraumatic, normocephalic Eye exam: PRESENT: conjunctiva pink, EOMI, PERRLA. ABSENT: scleral icterus Mouth exam: PRESENT: moist Respiratory exam: PRESENT: decreased breath sounds - at lung bases Cardiovascular exam: PRESENT: RRR. ABSENT: diastolic murmur, rubs, systolic murmur GI/Abdominal exam: PRESENT: normal bowel sounds, soft. ABSENT: distended, guarding, mass, organomegaly, rebound, tenderness Extremities exam: ABSENT: pedal edema Musculoskeletal exam: PRESENT: deformity - related to joint involvement with arthritis Neurological exam: PRESENT: alert, awake, oriented to person, oriented to place , oriented to time, oriented to situation, CN II-XII grossly intact, other - generalized deconditioning. ABSENT: motor sensory deficit Psychiatric exam: PRESENT: appropriate affect, normal mood. ABSENT: homicidal ideation, suicidal ideation Skin exam: PRESENT: dry, intact, warm. ABSENT: cyanosis, rash Results Laboratory Results: 10/02/17 04:16 10/02/17 04:16 10/02/17 10/02/17 04:16 04:16 WBC 5.5 RBC 3.11 L Hgb 8.9 L Hct 26.6 L MCV 86 MCH 28.5 MCHC 33.3 RDW 14.7 H Plt Count 129 L Seg Neutrophils % 69.0 Lymphocytes % 15.8 Monocytes % 12.1 Eosinophils % 2.7 Basophils % 0.4 Absolute Neutrophils 3.8 Absolute Lymphocytes 0.9 Absolute Monocytes 0.7 Absolute Eosinophils 0.1 Absolute Basophils 0.0 Sodium 141.9 Potassium 3.7 Chloride 101 Carbon Dioxide 38 H Anion Gap 3 L BUN 10 Creatinine 0.54 Est GFR ( Amer) > 60 Est GFR (Non-Af Amer) > 60 Glucose 132 H Calcium 8.4 Impressions: Chest X-Ray 09/24/17 20:52 IMPRESSION: NO ACUTE RADIOGRAPHIC FINDING IN THE CHEST. Abdomen X-Ray 09/24/17 22:19 IMPRESSION: Multiple dilated small bowel loops with air fluid levels, suggesting developing obstruction or ileus. Moderate colonic stool. Abdomen/Pelvis CT 09/25/17 00:00 IMPRESSION: 1. There is compatible with small bowel obstruction with transition point likely in the right lower abdomen however transition point is not identified. 2. Patchy bilateral airspace opacities in the visualized lung bases. These findings suggest bilateral pneumonia. This exam was performed according to our departmental dose-optimization program, which includes automated exposure control, adjustment of the mA and/or kV according to patient size and/or use of iterative reconstruction technique. Assessment & Plan - Diagnosis (1) Aspiration pneumonia Qualifiers: Aspiration pneumonia type: unspecified Laterality: bilateral Lung location: lower lobe of lung Qualified Code(s): J69.0 - Pneumonitis due to inhalation of food and vomit Is this a current diagnosis for this admission?: Yes (2) Constipation due to slow transit Is this a current diagnosis for this admission?: Yes (3) Urinary tract bacterial infections Is this a current diagnosis for this admission?: Yes (4) Diabetes mellitus type 2 in obese Is this a current diagnosis for this admission?: Yes (5) HTN (hypertension) Qualifiers: Hypertension type: essential hypertension Qualified Code(s): I10 - Essential (primary) hypertension Is this a current diagnosis for this admission?: Yes (6) Chronic systolic CHF (congestive heart failure) Is this a current diagnosis for this admission?: Yes (7) HLD (hyperlipidemia) Qualifiers: Hyperlipidemia type: pure hypercholesterolemia Qualified Code(s): E78.00 - Pure hypercholesterolemia, unspecified; E78.0 - Pure hypercholesterolemia Is this a current diagnosis for this admission?: Yes (8) Parkinson disease Is this a current diagnosis for this admission?: Yes (9) Obesity hypoventilation syndrome Is this a current diagnosis for this admission?: Yes (10) Morbid obesity with BMI of 50.0-59.9, adult Is this a current diagnosis for this admission?: Yes - Time Time Spent with patient: 25-34 minutes Medications reviewed and adjusted accordingly: Yes Anticipated discharge: SNF Within: Other - Inpatient Certification Based on my medical assessment, after consideration of the patient's comorbidities, presenting symptoms, or acuity I expect that the services needed warrant INPATIENT care.: Yes I certify that my determination is in accordance with my understanding of Medicare's requirements for reasonable and necessary INPATIENT services [42 CFR 412.3e].: Yes Medical Necessity: Need Close Monitoring Due to Risk of Patient Decompensation, Need For Continuous Telemetry Monitoring, Need for Nebulizer Therapy and Monitoring of Response, Need for IV Antibiotics, Risk of Complication if Not Cared For in Hospital Post Hospital Care: D/C or Transfer Summary - Plan Summary Plan Summary: Continue IV Primaxin coverage until last dose tonight. Start on Augmentin 875/ 125 mg p.o bid from tomorrow morning x 7 days. Emphasized aspiration precautions. Possible discharge to SNF tomorrow was discussed with her during this bedside visit.
[2017-10-02] MEDS: CARBIDOPA/LEVODOPA 25-100 MG TABLET PO SCH (21:13)
[2017-10-02] MEDS: ATORVASTATIN CALCIUM 40 MG TABLET PO SCH (21:14)
[2017-10-03] MEDS: INSULIN LISPRO 100 UNIT/ML 3 ML VIAL SUBCUT PRN ×3 (01:16→13:11)
[2017-10-03] MEDS: IPRATROPIUM/ALBUTEROL 0.5-2.5 MG/3 ML AMPUL NEB SCH ×3 (01:44→14:53)
[2017-10-03] MEDS: LANSOPRAZOLE 30 MG TAB.RAP.DR PO SCH (06:20)
[2017-10-03] MEDS: ONDANSETRON 4 MG TAB.RAPDIS SL PRN (06:20)
[2017-10-03] MEDS: PRAMIPEXOLE DI-HCL 0.5 MG TABLET PO SCH ×2 (06:21→13:13)
[2017-10-03] MEDS: NITROGLYCERIN 15 MG (0.6 MG/1 HR) PATCH.TD24 TD SCH (09:41)
[2017-10-03] MEDS: ENOXAPARIN SODIUM INJ 40 MG/0.4 ML DISP.SYRIN SUBCUT SCH (09:42)
[2017-10-03] MEDS: ASPIRIN 81 MG TABLET, CHEWABLE PO SCH (09:43)
[2017-10-03] MEDS: POLYETHYLENE GLYCOL 3350 POWDER 17 GM/1 PACKET PO SCH (09:44)
[2017-10-03] MEDS: METOPROLOL SUCCINATE 25 MG TAB.SR.24H PO SCH (09:44)
[2017-10-03] MEDS: CETIRIZINE 10 MG TABLET PO SCH (09:45)
[2017-10-03] MEDS: AMLODIPINE BESYLATE 10 MG TABLET PO SCH (09:45)
[2017-10-03] MEDS: DOCUSATE SODIUM 100 MG CAPSULE PO SCH (09:45)
[2017-10-03] MEDS ORDERED: AMOXICILLIN TR/POT CLAVULANATE 500-125 MG TAB PO ONE (14:35)
[2017-10-03 14:43] VITALS: BP 120/56
--- NOTE | 2017-10-03 15:03 | PDOC TRANSFER SUMMARY ---
General - Admit/Disc Date/PCP Admission Date/Primary Care Provider: 09/25/17 06:41 ISATUGIFTY CHARLES Discharge Date: 10/03/17 - Discharge Diagnosis (1) Aspiration pneumonia Is this a current diagnosis for this admission?: Yes (2) Constipation due to slow transit Is this a current diagnosis for this admission?: Yes (3) Urinary tract bacterial infections Is this a current diagnosis for this admission?: Yes (4) Diabetes mellitus type 2 in obese Is this a current diagnosis for this admission?: Yes (5) HTN (hypertension) Is this a current diagnosis for this admission?: Yes (6) Chronic systolic CHF (congestive heart failure) Is this a current diagnosis for this admission?: Yes (7) HLD (hyperlipidemia) Is this a current diagnosis for this admission?: Yes (8) Parkinson disease Is this a current diagnosis for this admission?: Yes (9) Obesity hypoventilation syndrome Is this a current diagnosis for this admission?: Yes (10) Morbid obesity with BMI of 50.0-59.9, adult Is this a current diagnosis for this admission?: Yes - Additional Information Prescriptions: Amoxicillin/Potassium Clav [Augmentin 500-125 Tablet] 1 each PO BID #14 tablet Ondansetron [Zofran Odt 4 mg Tablet] 4 mg SL Q4HP PRN #60 tab.rapdis PRN Reason: For Nausea/Vomiting Home Medications: Acetaminophen [Tylenol 325 mg Tablet] 650 mg PO Q4HP PRN 09/25/17 Amlodipine Besylate [Norvasc 10 mg Tablet] 10 mg PO DAILY 09/25/17 Aspirin [Aspirin 81 mg Chewable Tablet] 81 mg PO DAILY 09/25/17 Atorvastatin Calcium [Lipitor 40 mg Tablet] 40 mg PO QHS 09/25/17 Carbidopa/Levodopa [Sinemet 25-100 mg Tablet] 2 tab PO QHS 09/25/17 Cetirizine HCl [Zyrtec 10 mg Tablet] 10 mg PO DAILY 09/25/17 Docusate Sodium [Colace 100 mg Capsule] 200 mg PO DAILY 09/25/17 Insulin Aspart [Novolog Flexpen] 0 unit SUBCUT .SLD SCALE 09/25/17 Insulin Detemir [Levemir Flextouch] 35 unit SUBCUT Q12 09/25/17 Metoprolol Succinate [Toprol Xl 25 mg Tab.sr] 25 mg PO DAILY 09/25/17 Nitroglycerin [Nitro-Dur 15 mg (0.6 mg/1 Hr) Transderm Patch] 1 patch TD QAM Omeprazole 40 mg PO Q6AM 09/25/17 Polyethylene Glycol 3350 [Miralax Powder 17 gm/Packet] 1 packet PO MOWEFR@1000 09/25/17 Pramipexole Di-HCl [Mirapex] 1 mg PO Q8 09/25/17 Amoxicillin/Potassium Clav [Augmentin 500-125 Tablet] 1 each PO BID #14 tablet 10/03/17 Ipratropium/Albuterol Sulfate [Duoneb 3 ml Ampul] 3 ml NEB Q6H 30 Days #120 10/19 Ondansetron [Zofran Odt 4 mg Tablet] 4 mg SL Q4HP PRN #60 tab.rapdis 10/03/17 History of Present Illness Admission Date/PCP: 09/25/17 06:41 ISATU ARACELI History of Present Illness: Princess Bermeo is 82 years old female patient known to my practice who was brought to the ED from [facility] by EMS service after development of difficulty with breathing. Patient had episode of vomiting preceding her symptom development with concern for possible aspiration. he was found initially not very responsive by the EMS crew but following administration of supplemental oxygen she gradually became arousable. Upon arrival in the ED her initial evaluation revealed some degree of wheezing. She was responsive enough to complain about been dizziness and coughing. Her initial radiologic assessment suggested possible aspiration pneumonia, her abdominal distention led to further assessment with abdominal X ray that suggested possible small bowel obstruction with multiple dilated loops and colonic fecal burden. Concern for obstruction led to her CT scan of abdomen and pelvis that revealed moderate fecal burden and bilateral airspace disease process in the visualized lung bases. She was seen in consultation by surgicalist with recommendation of NG tube placement for GI decompression. There is no reported fever or chills, She denied any chest pain or palpitation. No dysuria, flank pain or hematuria. Her morbidities include diabetes mellitus type 2, Parkinson's disease, Hypertension , chronic systolic CHF, CAD s/p Stent placement, Old [place], Hyperlipidemia, morbid obesity with hypoventilation syndrome, and osteoarthritis. Hospital Course Hospital Course: Patient was admitted for aspiration pneumonia with concern for bowel obstruction. She was seen by network control operators supervisor surgicalist with conservative treatment involving NGT placement with intermittent wall suction. She was eventually allowed oral feeding. Due to recurrent episodes of aspiration, she was seen in consultation by speech pathologist with recommendation of nectar thicken fluid and full aspiration precautions. She had 7 days course of IV Primaxin. Her blood culture and urine cultures were no growth over appropriate period of incubation. She eileen be started on Augmentin 875/125 mg po bid x 7 days. she will be discharge back to [facility] today for short term rehabilitation on schedule for twice daily after breakfast and Lunch for at least 5 days per week. Also, she will need compliance with full aspiration precaution and nectar thicken liquid until significant improvement in her swallowing ability. She will follow up in the office upon discharge from the SNF. Physical Exam Vital Signs: Temp Pulse Resp BP Pulse Ox 98.8 F 75 20 144/59 H 100 10/03/17 07:26 10/03/17 08:38 10/03/17 08:38 10/03/17 07:26 10/03/17 08:38 Intake & Output 10/02/17 10/03/17 10/04/17 06:59 06:59 06:59 Intake Total 1289 726 Balance 1289 726 Weight 134.4 kg 135.6 kg General appearance: PRESENT: morbidly obese Head exam: PRESENT: atraumatic, normocephalic Eye exam: PRESENT: conjunctiva pink, EOMI, PERRLA. ABSENT: scleral icterus Mouth exam: PRESENT: moist Respiratory exam: PRESENT: decreased breath sounds - at lung bases Cardiovascular exam: PRESENT: RRR. ABSENT: diastolic murmur, rubs, systolic murmur GI/Abdominal exam: PRESENT: normal bowel sounds, soft. ABSENT: distended, guarding, mass, organomegaly, rebound, tenderness Extremities exam: ABSENT: pedal edema Musculoskeletal exam: PRESENT: deformity - related to joint involvement with arthritis Neurological exam: PRESENT: alert, awake, oriented to person, oriented to place , oriented to time, oriented to situation, CN II-XII grossly intact, other - generalized deconditioning. ABSENT: motor sensory deficit Psychiatric exam: PRESENT: appropriate affect, normal mood. ABSENT: homicidal ideation, suicidal ideation Skin exam: PRESENT: dry, intact, warm. ABSENT: cyanosis, rash Results Laboratory Results: 10/02/17 04:16 10/02/17 04:16 Impressions: Chest X-Ray 09/24/17 20:52 IMPRESSION: NO ACUTE RADIOGRAPHIC FINDING IN THE CHEST. Abdomen X-Ray 09/24/17 22:19 IMPRESSION: Multiple dilated small bowel loops with air fluid levels, suggesting developing obstruction or ileus. Moderate colonic stool. Abdomen/Pelvis CT 09/25/17 00:00 IMPRESSION: 1. There is compatible with small bowel obstruction with transition point likely in the right lower abdomen however transition point is not identified. 2. Patchy bilateral airspace opacities in the visualized lung bases. These findings suggest bilateral pneumonia. This exam was performed according to our departmental dose-optimization program, which includes automated exposure control, adjustment of the mA and/or kV according to patient size and/or use of iterative reconstruction technique. Transfer Plan - Disposition Transfer Plan: [facility] for short term rehabilitation on schedule of twice daily at least 5 days / week. Qualifiers PATEINT BEING DISCHARGED WITH ANY OF THE FOLLOWING DIAGNOSIS?: No Plan Discharge Plan: [facility] for short term rehabilitation on schedule of twice daily at least 5 days / week. Full aspiration precautions with food and medication administration. Time Spent: Greater than 30 Minutes
== END 2017-10-03 17:53 | DRG 388 ==
LOC: ER 20:48 → EH 09-25 06:41 → 3N 09-26 18:31
PROVIDERS: ADMIT Internal Medicine Geriatric Medicine; ATTEND Internal Medicine Geriatric Medicine
PROC: 0D9670Z Drainage of Stomach with Drainage Device, Via Natural or Artificial Opening (ICD-10-PCS; principal; 2017-09-25)
PROC: 3E0F73Z Introduction of Anti-inflammatory into Respiratory Tract, Via Natural or Artificial Opening (ICD-10-PCS; 2017-09-25)
DX: K56.609 Unspecified intestinal obstruction, unspecified as to partial versus complete obstruction (principal); J69.0 Pneumonitis due to inhalation of food and vomit; N39.0 Urinary tract infection, site not specified; Z68.43 Body mass index [BMI] 50.0-59.9, adult; I50.22 Chronic systolic (congestive) heart failure; E66.2 Morbid (severe) obesity with alveolar hypoventilation; Z78.1 Physical restraint status; K59.01 Slow transit constipation; E11.9 Type 2 diabetes mellitus without complications; I11.0 Hypertensive heart disease with heart failure; G20 Parkinson's disease; I25.10 Atherosclerotic heart disease of native coronary artery without angina pectoris; M19.90 Unspecified osteoarthritis, unspecified site; D64.9 Anemia, unspecified; E78.00 Pure hypercholesterolemia, unspecified; I25.2 Old myocardial infarction; Z79.899 Other long term (current) drug therapy; Z79.4 Long term (current) use of insulin; Z79.82 Long term (current) use of aspirin; Z95.5 Presence of coronary angioplasty implant and graft; Z85.3 Personal history of malignant neoplasm of breast; Z90.10 Acquired absence of unspecified breast and nipple; Z88.8 Allergy status to other drugs, medicaments and biological substances; Z87.891 Personal history of nicotine dependence; Z82.49 Family history of ischemic heart disease and other diseases of the circulatory system; Z82.3 Family history of stroke; Z83.3 Family history of diabetes mellitus
CPT/HCPCS: 36415; 71045; 74019; 74177; 80048; 80053; 81001; 82550; 82553; 82803; 82962; 83605; 84484; 85025; 85610; 85730; 87040; 87086; 87804; 93005; 93010; 94640; 94667; 96365; 96375; 99285; G8978-GP; G8979-GP; G8987-GO; G8988-GO; G8996-GN; G8997-GN; J0295; J0743; J1650; J1815; J2270; J2405; J2930; J3490; J7030; J7620; S0119

== ENCOUNTER → 2017-12-31 | Outpatient (CLI) | payer MEDICARE, MEDICAID ==
--- NOTE | 2018-01-01 08:16 | WOMENS IMAGING REPORT ---
EXAM DESCRIPTION: U/S BREAST UNILAT LIMITED COMPLETED DATE/TIME: 12/31/2017 11:16 am REASON FOR STUDY: RIGHT NIPPLE DISCHARGE; N64.52 COMPARISON: None. TECHNIQUE: Real-time and static grayscale imaging performed of the right breast targeted to the area of clinical concern. Selected color Doppler images recorded. Comparison left breast images were obt ained of the left nipple areola complex LIMITATIONS: None. FINDINGS: The patient has had a CVA and was unable to be positioned for mammograms. On the right side, there diffuse skin thickening of the nipple with clear nipple discharge. No right retroareolar discrete masses or dilated ducts. Asymmetric right nipple skin thickening could be see n in Paget's disease of the nipple. Surgical consultation and nipple skin biopsy recommended. On the left side, ultrasound of the nipple and areola, and retroareolar breast is unremarkable. No f ocal skin thickening. No discrete masses. No cysts. No dilated ducts. No worrisome acoustic absor ption IMPRESSION: Right nipple skin thickening worrisome for Paget's disease of the nipple. Surgical cons ultation and right nipple skin biopsy recommended. Ultrasound of the left nipple and retroareolar tissues unremarkable. BIRAD: 5 Highly suggestive of malignancy. Appropriate action should be taken. RECOMMENDATION: RECOMMENDED FOLLOW-UP: Surgical consultation with right nipple skin biopsy COMMENT: The [employer] (A[employer]) has developed recommendations for screening MRI of the breasts in certain patient populations, to be used in conjunction with mammography. Breast MRI s urveillance may be appropriate for women with more than 20% lifetime risk of developing breast cancer as determined by genetic testing, significant family history of the disease, or history of mantle r adiation for Hodgkins Disease. ACR Practice Guidelines 2008. TECHNICAL DOCUMENTATION: JOB ID: [id number] [employer]- All Rights Reserved Reading location - IP/workstation name: [email or web address]
== END ==
LOC: WI 09:37
PROVIDERS: ATTEND Nurse Practitioner
DX: C50.911 Malignant neoplasm of unspecified site of right female breast (principal)
CPT/HCPCS: 76642

== ENCOUNTER → 2018-01-08 | Outpatient (CLI) | payer MEDICARE, MEDICAID ==
--- NOTE | 2018-01-08 15:15 | RADIOLOGY REPORT (SQ) ---
EXAM DESCRIPTION: CT CHEST WITHOUT COMPLETED DATE/TIME: 01/08/2018 1:14 pm REASON FOR STUDY: ACUTE RESPIRATORY FAILURE, UNSP W HYPOXIA OR HYPERCAPNIA (J96.00) J96.00 ACUTE RE SPIRATORY FAILURE, UNSP W HYPOXIA OR HYPERCAP COMPARISON: 07/26/2017. TECHNIQUE: CT scan performed of the chest without intravenous contrast. Images reviewed with lung, soft tissue and bone windows. Reconstructed coronal and sagittal MPR images reviewed. All images st ored on PACS. All CT scanners at this facility use dose modulation, iterative reconstruction, and/or weight based d osing when appropriate to reduce radiation dose to as low as reasonably achievable (ALARA). [facility]: Dose Right [facility]: CareDose [facility]: Dose Right [facility]: Teradose 4D [facility]: Trinean RADIATION DOSE: CT Rad equipment meets quality standard of care and radiation dose reduction techniq ues were employed. CTDIvol: 23.9 mGy. DLP: 774 mGy-cm. mGy. LIMITATIONS: Body habitus. Positioning. Motion. FINDINGS: LUNGS AND PLEURA: Diffuse ground-glass attenuation with some interlobular septal thickenin g in the lower lungs. Perihilar air bronchograms. HILAR AND MEDIASTINAL STRUCTURES: No identified masses or abnormal nodes. No obvious aneurysm. HEART AND VASCULAR STRUCTURES: Cardiomegaly. No pericardial effusion. UPPER ABDOMEN: No significant findings. Limited exam. THYROID AND OTHER SOFT TISSUES: No masses. No adenopathy. BONES: No significant finding. HARDWARE: None in the chest. OTHER: No other significant findings. IMPRESSION: Pulmonary vascular congestion. Mild pulmonary edema. TECHNICAL DOCUMENTATION: JOB ID: [id number] Quality ID # [id number]: Final reports with documentation of one or more dose reduction techniques (e.g., Au tomated exposure control, adjustment of the mA and/or kV according to patient size, use of iterative reconstruction technique) 2010 [employer]- All Rights Reserved Reading location - IP/workstation name: [email or web address]
== END ==
LOC: RAD 12:44
PROVIDERS: ATTEND Physician Assistant
DX: J96.00 Acute respiratory failure, unspecified whether with hypoxia or hypercapnia (principal); J81.1 Chronic pulmonary edema
CPT/HCPCS: 71250

== ENCOUNTER 2018-01-22 12:38 | Emergency (ER) | payer MEDICARE, MEDICAID ==
--- NOTE | 2018-01-22 13:06 | ER Document Report ---
ED General - General Stated Complaint: GENERAL WEAKNESS Time Seen by Provider: 01/22/18 12:47 Notes: Patient is a resident at [facility] since September. She is in rehab there after having been treated for pneumonia couple of times in the past 6 months. She normally does not stand or ambulate. This morning she does not awaken at her usual time and the staff became concerned because she was moving her mouth as if to talk, but not making any sound. Her blood sugar was 400 and they gave her insulin. When EMS arrived at the scene, her blood sugar was 150. Her daughter says that she still sleepy at this time but seems to be getting better. Patient is speaking and seems to understand everything that said to her and answers questions appropriately. She denies having any pains anywhere. Denies feeling short of breath. She has not had a significant cough or chest congestion like she has had with pneumonia in the past. Has not had any urinary tract symptoms. No fevers. TRAVEL OUTSIDE OF THE [place] IN LAST 30 DAYS: No - Related Data Allergies/Adverse Reactions: promethazine Allergy (Verified 09/26/17 07:04) Past Medical History - Social History Smoking Status: Never Smoker Family History: Reviewed & Not Pertinent, CAD, CVA, DM, Hypertension - Past Medical History Cardiac Medical History: Reports: Hx Coronary Artery Disease, Hx Heart Attack - Patient does not remember year, Hx Hypercholesterolemia - Borderline, Hx Hypertension Pulmonary Medical History: Reports: Hx Bronchitis, Hx Pneumonia - Several episodes of pneumonia, apparently aspiration, in recent months. Denies: Hx Asthma, Hx COPD Neurological Medical History: Reports: Hx Cerebrovascular Accident, Other - Parkinson's disease.. Denies: Hx Seizures Endocrine Medical History: Reports: Hx Diabetes Mellitus Type 1, Hx Diabetes Mellitus Type 2 Malignancy Medical History: Reports: Hx Breast Cancer Musculoskeltal Medical History: Reports Hx Arthritis Infectious Medical History: Denies: Hx Hepatitis Past Surgical History: Reports: Hx Bowel Surgery - Bowel ressection, Hx Cardiac Catheterization - 2 Stents, Hx Mastectomy - LUMPECTOMY, RIGHT ARM RESTRICTED, Hx Tonsillectomy. Denies: Hx Open Heart Surgery, Hx Pacemaker - Immunizations Immunizations up to date: Yes Hx Diphtheria, Pertussis, Tetanus Vaccination: No Review of Systems - Review of Systems Notes: REVIEW OF SYSTEMS: CONSTITUTIONAL : Denies fever. EENT: Denies eye, ear, nose or mouth or throat pain or other symptoms. CARDIOVASCULAR: Denies chest pain. Swelling of both lower extremities. No pain. RESPIRATORY: Denies cough, chest congestion, or shortness of breath. GASTROINTESTINAL: Denies abdominal pain or nausea, vomiting, or diarrhea. GENITOURINARY: Denies difficulty or painful urinating, urinary frequency, blood in urine. MUSCULOSKELETAL: Denies back or neck pain. Denies joint pain or swelling. SKIN: Denies rash or skin lesions. NEUROLOGICAL: Altered mental status. See HPI. Unable to stand. Unable to ambulate. ALL OTHER SYSTEMS REVIEWED AND NEGATIVE. Physical Exam - Vital signs Vitals: Resp BP Pulse Ox 14 123/57 L 98 01/22/18 12:49 01/22/18 12:49 01/22/18 12:49 Interpretation: Normal - Notes Notes: PHYSICAL EXAMINATION: GENERAL: Well-appearing, in no acute distress. HEAD: Atraumatic, normocephalic. EYES: Pupils equal round and reactive to light, extraocular movements intact. ENT: oropharynx clear without exudates. Moist mucous membranes. NECK: Normal range of motion, supple. LUNGS: Breath sounds clear and equal bilaterally. HEART: Regular rate and rhythm without murmurs. ABDOMEN: Soft, nontender. No guarding or rebound. No masses. BACK: No tenderness throughout entire back. EXTREMITIES: Normal range of motion without pain. NEUROLOGICAL: Normal speech, gait not tested. Grossly normal sensory, motor exams. Awake, alert, and oriented x3. PSYCH: Normal mood, normal affect. SKIN: Warm, dry, no rashes. Course - Re-evaluation Re-evalutation: 01/22/18 16:[address] Joseph who is caring for the patient at [facility]. Related the patient's findings which were all essentially unremarkable are normal. I feel that she may have had a small TIA this morning, but her symptoms have resolved and [facility] can [facility] and Dr. Joseph is in agreement with that plan. - Vital Signs Vital signs: Temp Pulse Resp BP Pulse Ox 99.4 F 17 143/82 H 100 01/22/18 17:37 01/22/18 17:42 01/22/18 17:42 01/22/18 17:42 - Laboratory Result Diagrams: 01/22/18 12:48 01/22/18 12:48 Laboratory results interpreted by me: 01/22/18 01/22/18 01/22/18 12:48 12:48 13:53 RBC 3.19 L Hgb 8.9 L Hct 27.5 L RDW 15.1 H Plt Count 140 L Sodium 147.1 H Carbon Dioxide 41 H* Glucose 178 H Indirect Bilirubin 0.0 L Albumin 3.4 L Urine Urobilinogen 2.0 H Discharge - Discharge Clinical Impression: Altered mental status, TIA (transient ischemic attack) Condition: Stable Disposition: HOME, SELF-CARE Additional Instructions: Altered Mental Status An altered mental status is a change in the normal functioning of the brain. This alteration of function can range from minor decreased brain function with some forgetfulness and confusion to complete loss of consciousness and coma. There are many possible causes of an altered mental status and include brain injuries such as trauma or strokes, problems with oxygen supply to the brain, fever and infections of the brain and/or elsewhere in the body, metabolic abnormalities such as low or high blood sugar, overdoses or excessive medication ingestion, and mental and psychiatric illnesses. Sometimes the altered mental status resolves and a definite cause is not determined. If a cause for your altered mental status was found, it has likely been corrected. Your evaluation has not shown any condition that requires that you be admitted to the hospital. It is believed that you are safe to leave and return to your home. If you have a return of your symptoms, you should return for re-evaluation. Transient Ischemic Attack You have been diagnosed as having a transient ischemic attack (TIA). This is caused when an artery to the brain has been temporarily blocked. It can result in visual changes, difficulty with speech, and weakness or numbness -- usually limited to one side of the body. TIA symptoms usually resolve within an hour, but a TIA is serious, as it may be a warning sign of an impending stroke. To prevent further episodes, you may be placed on medication to reduce the possibility that your platelets will aggregate and form blood clots in the arteries that supply the brain. Usually, this includes aspirin and sometimes other platelet inhibitors. Further evaluation is often necessary to make an exact diagnosis as to where these blood clots are originating, and if anything else needs to be done to correct the problem. Call the physician or go to the emergency room if episodes occur with increasing frequency. If symptoms occur that don't go away within a few minutes , call 911. NORMAL EXAM AND WORKUP: At this time, your examination and workup show no significant abnormality. No significant abnormal physical findings were noted. All laboratory, EKG, and imaging (x-ray, CT scans, ultrasound) studies that were ordered show no significant abnormality. Although your examination and all studies that were ordered showed no significant abnormal finding, there are no examinations and no studies that are 100% accurate. There is always the possibility that some abnormality could exist and not be detected with physical examination or within the limits and capabilities of laboratory and other studies. You should return or follow up as you were instructed on your visit today for further evaluation if your symptoms do not resolve. Follow-up with your primary care provider, Dr. Joseph, at [facility]. FOLLOW-UP CARE: If you have been referred to a physician for follow-up care, call the physician s office for an appointment as you were instructed or within the next two days. If you experience worsening or a significant change in your symptoms, notify the physician immediately or return to the Emergency Department at any time for re-evaluation. Referrals: ISATU CHARLES MD [Primary Care Provider] - Follow up as needed
[2018-01-22 13:31] LABS: ABSOLUTE EOSINOPHILS # (AUTO) 0.2 10^3/uL (0.0-0.6); ABSOLUTE LYMPHOCYTES (AUTO) 1.3 10^3/uL (0.5-4.7); ABSOLUTE MONOCYTES (AUTO) 0.5 10^3/uL (0.1-1.4); ABSOLUTE NEUT (AUTO) 2.3 10^3/uL (1.7-8.2); BASOPHILS % (AUTO) 0.3 % (0-2); EOSINOPHILS % (AUTO) 5.3 % (0-6); HEMATOCRIT 27.5 % (36.0-47.0); HEMOGLOBIN 8.9 g/dL (12.0-15.5); LYMPHOCYTES % (AUTO) 30.6 % (13-45); MEAN CORPUSCULAR HEMOGLOBIN 27.7 pg (27.0-33.4); MEAN CORPUSCULAR HGB CONC 32.2 g/dL (32.0-36.0); MEAN CORPUSCULAR VOLUME 86 fl (80-97); PLATELET COUNT 140 10^3/uL (150-450); RED BLOOD COUNT 3.19 10^6/uL (3.72-5.28); RED CELL DISTRIBUTION WIDTH 15.1 % (11.5-14.0); SEGMENTED NEUTROPHILS % (AUTO) 52.8 % (42-78); TOTAL CELLS COUNTED % (AUTO) 100 %; WHITE BLOOD COUNT 4.3 10^3/uL (4.0-10.5)
[2018-01-22 13:38] LABS: ALANINE AMINOTRANSFERASE 17 U/L (9-52); ALBUMIN 3.4 g/dL (3.5-5.0); ALKALINE PHOSPHATASE 77 U/L (38-126); ASPARTATE AMINO TRANSFERASE 22 U/L (14-36); BILIRUBIN,DIRECT 0.2 mg/dL (0.0-0.4); BILIRUBIN,TOTAL 0.2 mg/dL (0.2-1.3); BLOOD UREA NITROGEN 18 mg/dL (7-20); CALCIUM 8.5 mg/dL (8.4-10.2); CHLORIDE 99 mmol/L (98-107); GLUCOSE 178 mg/dL (75-110); POTASSIUM 3.9 mmol/L (3.6-5.0); SODIUM 147.1 mmol/L (137-145); TOTAL PROTEIN 7.1 g/dL (6.3-8.2)
--- NOTE | 2018-01-22 13:41 | RADIOLOGY REPORT (SQ) ---
EXAM DESCRIPTION: CT HEAD WITHOUT COMPLETED DATE/TIME: 01/22/2018 1:24 pm REASON FOR STUDY: Altered mental status, week COMPARISON: CT brain 03/02/2010, 11/28/2014, 04/11/2016 TECHNIQUE: Axial images acquired through the brain without intravenous contrast. Images reviewed wi th bone, brain and subdural windows. Additional sagittal and coronal reconstructions were generated. Images stored on PACS. All CT scanners at this facility use dose modulation, iterative reconstruction, and/or weight based d osing when appropriate to reduce radiation dose to as low as reasonably achievable (ALARA). [facility]: Dose Right [facility]: CareDose [facility]: Dose Right [facility]: Teradose 4D [facility]: Superfish RADIATION DOSE: CT Rad equipment meets quality standard of care and radiation dose reduction techniq ues were employed. CTDIvol: 53.2 mGy. DLP: 991 mGy-cm. mGy. LIMITATIONS: None. FINDINGS: VENTRICLES: Normal size and contour. CEREBRUM: No masses. No hemorrhage. No midline shift. No evidence for acute infarction. Normal gra y/white matter differentiation. No areas of low density in the white matter. Tiny chronic lacunar in farct right caudate CEREBELLUM: No masses. No hemorrhage. No alteration of density. No evidence for acute infarction. EXTRAAXIAL SPACES: No fluid collections. No masses. ORBITS AND GLOBE: No intra- or extraconal masses. Bilateral cataract surgery. CALVARIUM: No fracture. PARANASAL SINUSES: No fluid or mucosal thickening. SOFT TISSUES: No mass or hematoma. OTHER: Minimal fluid inferior right mastoid air cells IMPRESSION: No acute findings EVIDENCE OF ACUTE STROKE: NO. COMMENT: Quality ID # [id number]: Final reports with documentation of one or more dose reduction techniques (e.g., Automated exposure control, adjustment of the mA and/or kV according to patient size, use of iterative reconstruction technique) TECHNICAL DOCUMENTATION: JOB ID: [id number] [employer]- All Rights Reserved Reading location - IP/workstation name: [email or web address]
[2018-01-22 13:48] LABS: ANION GAP 7 (5-19)
[2018-01-22 13:49] LABS: CARBON DIOXIDE 41 mmol/L (22-30); CREATINE KINASE MB 0.35 ng/mL (<4.55)
[2018-01-22 13:50] LABS: TROPONIN I < 0.012 ng/mL
--- NOTE | 2018-01-22 13:50 | RADIOLOGY REPORT (SQ) ---
EXAM DESCRIPTION: CHEST SINGLE VIEW COMPLETED DATE/TIME: 01/22/2018 1:30 pm REASON FOR STUDY: Congested, history of pneumonia COMPARISON: CT chest 01/08/2018 AP chest 09/24/2017 EXAM PARAMETERS: NUMBER OF VIEWS: One view. TECHNIQUE: Single frontal radiographic view of the chest acquired. RADIATION DOSE: NA LIMITATIONS: Morbidly obese patient, portable technique, EKG leads over the chest FINDINGS: LUNGS AND PLEURA: No fluffy alveolar infiltrates worrisome for edema or pneumonia. Minima l lingular atelectasis. No pleural effusion. No pneumothorax. MEDIASTINUM AND HILAR STRUCTURES: No masses. Contour normal. HEART AND VASCULAR STRUCTURES: Moderate to marked cardiomegaly, stable. BONES: No acute findings. HARDWARE: None in the chest. OTHER: No other significant finding. IMPRESSION: Stable cardiomegaly. No acute infiltrates worrisome for pneumonia TECHNICAL DOCUMENTATION: JOB ID: [id number] [employer]- All Rights Reserved Reading location - IP/workstation name: [email or web address]
[2018-01-22 14:41] LABS: APPEARANCE,URINE CLEAR; BILIRUBIN,URINE NEGATIVE (NEGATIVE); COLOR,URINE YELLOW; GLUCOSE, URINE NEGATIVE (NEGATIVE); KETONES,URINE NEGATIVE (NEGATIVE); LEUKOCYTE ESTERASE,URINE NEGATIVE (NEGATIVE); NITRITE,URINE NEGATIVE (NEGATIVE); PROTEIN,URINE NEGATIVE (NEGATIVE); URINE SPECIFIC GRAVITY 1.009
[2018-01-22 17:49] VITALS: BP 143/82
== END 2018-01-22 17:49 | disposition home or self-care (01) ==
LOC: ER 12:38
DX: G45.9 Transient cerebral ischemic attack, unspecified (principal); R41.82 Altered mental status, unspecified; E11.9 Type 2 diabetes mellitus without complications; I25.10 Atherosclerotic heart disease of native coronary artery without angina pectoris; I10 Essential (primary) hypertension; I25.2 Old myocardial infarction; Z85.3 Personal history of malignant neoplasm of breast; Z88.8 Allergy status to other drugs, medicaments and biological substances
CPT/HCPCS: 36415; 51701; 70450; 71045; 80053; 81001; 82553; 84484; 85025; 87040; 87086; 87186; 99285

== ENCOUNTER 2018-01-24 17:54 | Emergency (ER) | payer MEDICARE, MEDICAID ==
[2018-01-24] MEDS ORDERED: VANCOMYCIN HCL INJ 1000 MG VIAL IV ONE (18:01)
[2018-01-24 18:44] LABS: ABSOLUTE EOSINOPHILS # (AUTO) 0.2 10^3/uL (0.0-0.6); ABSOLUTE LYMPHOCYTES (AUTO) 1.2 10^3/uL (0.5-4.7); ABSOLUTE MONOCYTES (AUTO) 0.4 10^3/uL (0.1-1.4); ABSOLUTE NEUT (AUTO) 2.4 10^3/uL (1.7-8.2); BASOPHILS % (AUTO) 0.4 % (0-2); EOSINOPHILS % (AUTO) 5.2 % (0-6); HEMOGLOBIN 8.8 g/dL (12.0-15.5); LYMPHOCYTES % (AUTO) 28.4 % (13-45); MEAN CORPUSCULAR HEMOGLOBIN 27.9 pg (27.0-33.4); MEAN CORPUSCULAR HGB CONC 32.6 g/dL (32.0-36.0); MEAN CORPUSCULAR VOLUME 86 fl (80-97); MONOCYTES % (AUTO) 8.8 % (3-13); PLATELET COUNT 139 10^3/uL (150-450); RED BLOOD COUNT 3.15 10^6/uL (3.72-5.28); RED CELL DISTRIBUTION WIDTH 15.3 % (11.5-14.0); SEGMENTED NEUTROPHILS % (AUTO) 57.2 % (42-78); TOTAL CELLS COUNTED % (AUTO) 100 %; WHITE BLOOD COUNT 4.3 10^3/uL (4.0-10.5)
--- NOTE | 2018-01-24 18:45 | ER Document Report ---
ED General - General Chief Complaint: Abnormal Lab Results Stated Complaint: ABNORMAL LABS Time Seen by Provider: 01/24/18 17:58 Notes: The patient is an 82-year-old female from [facility] after she had a single positive blood culture that grew out gram-positive cocci in clumps today. She was seen in the ER 2 days ago for altered mental status and her workup was negative. Family member at bedside said her altered mental status has resolved and her mental status is at baseline currently. Pt was called back to the ER for a recheck of her symptoms. She does have a cough, which she has had for several months. Patient denies fevers, nausea, vomiting, urinary symptoms, rash, headache, neck stiffness or chills. TRAVEL OUTSIDE OF THE [place] IN LAST 30 DAYS: No - Related Data Allergies/Adverse Reactions: promethazine Allergy (Verified 09/26/17 07:04) Past Medical History - General Information source: Patient - Social History Smoking Status: Never Smoker Chew tobacco use (# tins/day): No Frequency of alcohol use: None Drug Abuse: None Family History: Reviewed & Not Pertinent, CAD, CVA, DM, Hypertension Patient has suicidal ideation: No Patient has homicidal ideation: No - Past Medical History Cardiac Medical History: Reports: Hx Coronary Artery Disease, Hx Heart Attack - Patient does not remember year, Hx Hypercholesterolemia - Borderline, Hx Hypertension Pulmonary Medical History: Reports: Hx Bronchitis, Hx Pneumonia - Several episodes of pneumonia, apparently aspiration, in recent months. Denies: Hx Asthma, Hx COPD Neurological Medical History: Reports: Hx Cerebrovascular Accident. Denies: Hx Seizures Endocrine Medical History: Reports: Hx Diabetes Mellitus Type 1, Hx Diabetes Mellitus Type 2 Renal/ Medical History: Denies: Hx Peritoneal Dialysis Malignancy Medical History: Reports: Hx Breast Cancer GI Medical History: Denies: Hx Hepatitis, Hx Hiatal Hernia, Hx Ulcer Musculoskeltal Medical History: Reports Hx Arthritis Infectious Medical History: Denies: Hx Hepatitis Past Surgical History: Reports: Hx Bowel Surgery - Bowel ressection, Hx Cardiac Catheterization - 2 Stents, Hx Mastectomy - LUMPECTOMY, RIGHT ARM RESTRICTED, Hx Tonsillectomy. Denies: Hx Open Heart Surgery, Hx Pacemaker - Immunizations Immunizations up to date: Yes Hx Diphtheria, Pertussis, Tetanus Vaccination: No Review of Systems - Review of Systems Notes: REVIEW OF SYSTEMS: CONSTITUTIONAL: -fevers, -chills EENT: -eye pain, -difficulty swallowing, -nasal congestion CARDIOVASCULAR: -chest pain, -syncope. RESPIRATORY: +cough, -SOB GASTROINTESTINAL: -abdominal pain, -nausea, -vomiting, -diarrhea GENITOURINARY: -dysuria, -hematuria MUSCULOSKELETAL: -back pain, -neck pain SKIN: -rash or skin lesions. HEMATOLOGIC: -easy bruising or bleeding. LYMPHATIC: -swollen, enlarged glands. NEUROLOGICAL: -altered mental status or loss of consciousness, -headache, - neurologic symptoms PSYCHIATRIC: -anxiety, -depression. ALL OTHER SYSTEMS REVIEWED AND NEGATIVE. Physical Exam - Vital signs Vitals: Temp Pulse Resp BP Pulse Ox 98.5 F 59 L 20 138/50 H 97 01/24/18 18:04 01/24/18 18:04 01/24/18 18:04 01/24/18 18:04 01/24/18 18:04 - Notes Notes: PHYSICAL EXAMINATION: GENERAL: Well-appearing, well-nourished and in no acute distress. HEAD: Atraumatic, normocephalic. EYES: Pupils equal round and reactive to light, extraocular movements intact, sclera anicteric, conjunctiva are normal. ENT: nares patent, oropharynx clear without exudates. Moist mucous membranes. NECK: Normal range of motion, supple without lymphadenopathy LUNGS: Breath sounds clear to auscultation bilaterally and equal. No wheezes rales or rhonchi. HEART: Regular rate and rhythm without murmurs ABDOMEN: Soft, nontender, normoactive bowel sounds. No guarding, no rebound. No masses appreciated. EXTREMITIES: Normal range of motion, no pitting or edema. No cyanosis. NEUROLOGICAL: Cranial nerves grossly intact. Normal speech. Normal sensory and motor exams. PSYCH: Normal mood, normal affect. SKIN: Warm, Dry, normal turgor, no rashes or lesions noted. Course - Re-evaluation Re-evalutation: Suspect that the positive blood culture in one out of two cultures two days ago may be a contaminant, but she was brought back to the ER due to the gram- positive cocci in clusters, which may be staph aureus. Patient appears very well and her vital signs are normal. She does not have a fever and no concern for sepsis. She was provided with a dose of IV antibiotics and blood cultures were resent using sterile technique. Due to her well appearance, will discharge patient home. Given strict return precautions and she understands. - Vital Signs Vital signs: Temp Pulse Resp BP Pulse Ox 98.5 F 59 L 18 138/50 H 97 01/24/18 18:04 01/24/18 18:04 01/24/18 18:06 01/24/18 18:04 01/24/18 18:04 - Laboratory Result Diagrams: 01/24/18 18:26 Laboratory results interpreted by me: 01/24/18 18:26 RBC 3.15 L Hgb 8.8 L Hct 27.0 L RDW 15.3 H Plt Count 139 L - Diagnostic Test Radiology reviewed: Image reviewed, Reports reviewed Radiology results interpreted by me: CXR: NAD Discharge - Discharge Clinical Impression: Positive blood culture Condition: Stable Disposition: HOME, SELF-CARE Additional Instructions: Pt appears well. Repeat chest x-ray due to cough did not show any evidence of pneumonia or other acute abnormalities. Repeat blood cultures were sent today. Will send her home on Bactrim until her repeat cultures return. She will be called if these are positive. Prescriptions: Sulfamethoxazole/Trimethoprim [Septra-Ds 800-160 mg Tablet] 1 tab PO BID 7 Days tablet Forms: Elevated Blood Pressure Referrals: ISATU CHARLES MD [Primary Care Provider] - Follow up as needed
--- NOTE | 2018-01-24 19:55 | RADIOLOGY REPORT (SQ) ---
EXAM DESCRIPTION: CHEST SINGLE VIEW COMPLETED DATE/TIME: 01/24/2018 7:35 pm REASON FOR STUDY: cough COMPARISON: 01/22/2018 NUMBER OF VIEWS: One view. TECHNIQUE: Single frontal radiographic view of the chest acquired. LIMITATIONS: None. FINDINGS: LUNGS AND PLEURA: No opacities, masses or pneumothorax. No pleural effusion. MEDIASTINUM AND HILAR STRUCTURES: No masses. Contour unchanged. HEART AND VASCULAR STRUCTURES: Heart enlarged without failure. Stable vasculature. BONES: No acute findings. HARDWARE: None in the chest. OTHER: No other significant finding. IMPRESSION: Stable radiographic appearance of the chest demonstrating cardiomegaly. No acute findin gs. TECHNICAL DOCUMENTATION: JOB ID: [id number] [employer] All Rights Reserved Reading location - IP/workstation name: [email or web address]
[2018-01-24 22:29] VITALS: BP 131/53
== END 2018-01-24 22:10 | disposition home or self-care (01) ==
LOC: ER 17:54
DX: R78.81 Bacteremia (principal); R05 Cough; I25.10 Atherosclerotic heart disease of native coronary artery without angina pectoris; I10 Essential (primary) hypertension; E11.9 Type 2 diabetes mellitus without complications; Z88.8 Allergy status to other drugs, medicaments and biological substances; Z95.5 Presence of coronary angioplasty implant and graft
CPT/HCPCS: 99285; 36415; 87040; 85025; 71045; J3370

== ENCOUNTER 2018-02-05 15:05 | Emergency (ER) | payer MEDICARE ==
--- NOTE | 2018-02-05 16:00 | ER Document Report ---
ED General - General Chief Complaint: Low Blood Sugar Stated Complaint: WEAKNESS Time Seen by Provider: 02/05/18 15:23 Mode of Arrival: Medic Information source: Patient, Transfer Record, Emergency Med Personnel Notes: This is an 82-year-old female with multiple medical problems including CVA, COPD , CHF, Parkinson's disease, insulin requiring diabetes. The patient is a resident of [facility] and was sent in today because of altered mental status in the setting of hypoglycemia with a fingerstick at the facility of 40. Patient was given 1 gram of glucagon prior to arrival. On questioning in the ER, patient is alert and answering questions and conversant. She does not recall the events immediately prior to arrival. She denies any chest pain, shortness of breath or abdominal pain. Nurses did note some diarrhea. Patient states she was recently treated for constipation and she feels this is the etiology of today's diarrhea. TRAVEL OUTSIDE OF THE [place] IN LAST 30 DAYS: No - HPI Onset: Just prior to arrival Onset/Duration: Gradual Quality of pain: No pain Severity: None Pain Level: Denies Associated symptoms: denies: Chest pain, Fever, Shortness of breath Exacerbated by: Denies Relieved by: Denies Similar symptoms previously: Yes Recently seen / treated by doctor: Yes - Related Data Allergies/Adverse Reactions: promethazine Allergy (Verified 09/26/17 07:04) Past Medical History - General Information source: Patient - Social History Smoking Status: Never Smoker Cigarette use (# per day): No Chew tobacco use (# tins/day): No Frequency of alcohol use: None Drug Abuse: None Lives with: Skilled Nursing Family History: Reviewed & Not Pertinent, CAD, CVA, DM, Hypertension - Past Medical History Cardiac Medical History: Reports: Hx Coronary Artery Disease, Hx Heart Attack - Patient does not remember year, Hx Hypercholesterolemia - Borderline, Hx Hypertension Pulmonary Medical History: Reports: Hx Bronchitis, Hx Pneumonia - Several episodes of pneumonia, apparently aspiration, in recent months. Denies: Hx Asthma, Hx COPD Neurological Medical History: Reports: Hx Cerebrovascular Accident. Denies: Hx Seizures Endocrine Medical History: Reports: Hx Diabetes Mellitus Type 1, Hx Diabetes Mellitus Type 2 Renal/ Medical History: Denies: Hx Peritoneal Dialysis Malignancy Medical History: Reports: Hx Breast Cancer GI Medical History: Denies: Hx Hepatitis, Hx Hiatal Hernia, Hx Ulcer Musculoskeltal Medical History: Reports Hx Arthritis Infectious Medical History: Denies: Hx Hepatitis Past Surgical History: Reports: Hx Bowel Surgery - Bowel ressection, Hx Cardiac Catheterization - 2 Stents, Hx Mastectomy - LUMPECTOMY, RIGHT ARM RESTRICTED, Hx Tonsillectomy. Denies: Hx Open Heart Surgery, Hx Pacemaker - Immunizations Immunizations up to date: Yes Hx Diphtheria, Pertussis, Tetanus Vaccination: No Review of Systems - Review of Systems Constitutional: denies: Chills, Fever EENT: No symptoms reported Cardiovascular: No symptoms reported Respiratory: No symptoms reported Gastrointestinal: No symptoms reported Genitourinary: No symptoms reported Female Genitourinary: No symptoms reported Musculoskeletal: No symptoms reported Skin: No symptoms reported Hematologic/Lymphatic: No symptoms reported Neurological/Psychological: See HPI Physical Exam - Vital signs Vitals: Resp Pulse Ox 14 96 02/05/18 15:27 02/05/18 15:27 Notes: Physical exam: GENERAL: 82-year-old female, she is alert and answering questions, moving all extremities, she denies any pain at this time. Blood pressure is 180/90, pulse is 71, O2 sat is 100% on room air, respiratory rate is 18. Accu-Chek on presentation to the ER was 69. HEAD: Atraumatic, normocephalic. EYES: Pupils equal round and reactive to light, extraocular movements intact, sclera anicteric, conjunctiva are normal. ENT: TMs normal, nares patent, oropharynx clear without exudates. Moist mucous membranes. NECK: Normal range of motion, supple without obvious mass or JVD. LUNGS: Breath sounds clear to auscultation bilaterally and equal. No wheezes rales or rhonchi. HEART: Regular rate and rhythm without murmurs, rubs or gallops. ABDOMEN: Soft, normoactive bowel sounds. No tenderness to palpation. No guarding, no rebound. No masses appreciated. EXTREMITIES: Normal range of motion, no pitting or edema. No clubbing or cyanosis. NEUROLOGICAL: Patient is alert, conversant, pleasant and joking. She does have some baseline dementia. PSYCH: Normal mood, normal affect. SKIN: Warm, Dry, normal turgor, no rashes or lesions noted. Course - Vital Signs Vital signs: Temp Pulse Resp BP Pulse Ox 15 109/56 L 99 02/05/18 22:01 02/05/18 22:01 02/05/18 22:01 - Laboratory Result Diagrams: 02/05/18 15:45 02/05/18 15:45 Laboratory results interpreted by me: 02/05/18 02/05/18 02/05/18 15:45 15:45 17:05 WBC 3.5 L RBC 3.71 L Hgb 10.2 L Hct 32.3 L MCHC 31.6 L RDW 15.9 H Seg Neutrophils % 39.1 L Eosinophils % 6.2 H Absolute Neutrophils 1.4 L Sodium 149.7 H Carbon Dioxide 40 H* BUN 24 H POC Glucose Urine Urobilinogen 2.0 H 02/05/18 18:46 WBC RBC Hgb Hct MCHC RDW Seg Neutrophils % Eosinophils % Absolute Neutrophils Sodium Carbon Dioxide BUN POC Glucose 52 L Urine Urobilinogen Discharge - Discharge Clinical Impression: Hypoglycemia Condition: Stable Disposition: HOME, SELF-CARE Additional Instructions: Note: You want several hours in the ER. Your sugars remained fine. Your vital signs were stable. There is no evidence of infection. Your kidneys , electrolytes and urine analysis were good. Continue current medicines and follow-up with your doctor as needed. Referrals: ISATU CHARLES MD [Primary Care Provider] - Follow up as needed
[2018-02-05 16:19] LABS: ABSOLUTE EOSINOPHILS # (AUTO) 0.2 10^3/uL (0.0-0.6); ABSOLUTE LYMPHOCYTES (AUTO) 1.4 10^3/uL (0.5-4.7); ABSOLUTE MONOCYTES (AUTO) 0.4 10^3/uL (0.1-1.4); ABSOLUTE NEUT (AUTO) 1.4 10^3/uL (1.7-8.2); BASOPHILS % (AUTO) 0.7 % (0-2); EOSINOPHILS % (AUTO) 6.2 % (0-6); HEMATOCRIT 32.3 % (36.0-47.0); HEMOGLOBIN 10.2 g/dL (12.0-15.5); LYMPHOCYTES % (AUTO) 41.5 % (13-45); MEAN CORPUSCULAR HEMOGLOBIN 27.6 pg (27.0-33.4); MEAN CORPUSCULAR HGB CONC 31.6 g/dL (32.0-36.0); MEAN CORPUSCULAR VOLUME 87 fl (80-97); MONOCYTES % (AUTO) 12.5 % (3-13); PLATELET COUNT 161 10^3/uL (150-450); RED BLOOD COUNT 3.71 10^6/uL (3.72-5.28); RED CELL DISTRIBUTION WIDTH 15.9 % (11.5-14.0); SEGMENTED NEUTROPHILS % (AUTO) 39.1 % (42-78); TOTAL CELLS COUNTED % (AUTO) 100 %; WHITE BLOOD COUNT 3.5 10^3/uL (4.0-10.5)
[2018-02-05 16:43] LABS: ALANINE AMINOTRANSFERASE 13 U/L (9-52); ALBUMIN 3.8 g/dL (3.5-5.0); ALKALINE PHOSPHATASE 77 U/L (38-126); ASPARTATE AMINO TRANSFERASE 33 U/L (14-36); BILIRUBIN,DIRECT 0.3 mg/dL (0.0-0.4); BILIRUBIN,TOTAL 0.3 mg/dL (0.2-1.3); BLOOD UREA NITROGEN 24 mg/dL (7-20); CALCIUM 8.7 mg/dL (8.4-10.2); CHLORIDE 100 mmol/L (98-107); GLUCOSE 100 mg/dL (75-110); SODIUM 149.7 mmol/L (137-145)
[2018-02-05 16:44] LABS: ANION GAP 10 (5-19)
[2018-02-05 16:55] LABS: CARBON DIOXIDE 40 mmol/L (22-30)
[2018-02-05 17:40] LABS: APPEARANCE,URINE CLEAR; BILIRUBIN,URINE NEGATIVE (NEGATIVE); COLOR,URINE YELLOW; GLUCOSE, URINE NEGATIVE (NEGATIVE); KETONES,URINE NEGATIVE (NEGATIVE); LEUKOCYTE ESTERASE,URINE NEGATIVE (NEGATIVE); NITRITE,URINE NEGATIVE (NEGATIVE); PROTEIN,URINE NEGATIVE (NEGATIVE); URINE SPECIFIC GRAVITY 1.011
[2018-02-05] MEDS ORDERED: ACETAMINOPHEN 325 MG TABLET PO ONE (18:36)
[2018-02-05 22:44] VITALS: BP 109/56
== END 2018-02-05 22:45 | disposition home or self-care (01) ==
LOC: ER 15:05
DX: E11.649 Type 2 diabetes mellitus with hypoglycemia without coma (principal); R53.1 Weakness; Z86.73 Personal history of transient ischemic attack (TIA), and cerebral infarction without residual deficits; J44.9 Chronic obstructive pulmonary disease, unspecified; G20 Parkinson's disease; I50.9 Heart failure, unspecified; I25.10 Atherosclerotic heart disease of native coronary artery without angina pectoris; I25.2 Old myocardial infarction; I10 Essential (primary) hypertension
CPT/HCPCS: 99285; 51701; 36415; 82962; 85025; 80053; 81001; A9270

== ENCOUNTER → 2018-04-17 | Outpatient (CLI) | payer MEDICARE, MEDICAID ==
[2018-04-17 16:58] LABS: ARTERIAL BLOOD BASE EXCESS 10.8 mmol/L; ARTERIAL BLOOD H2CO3 1.67 mmol/L (1.05-1.35); ARTERIAL BLOOD HCO3 36.8 mmol/L (20-26); ARTERIAL BLOOD O2 SATURATION 88.6 % (94-98); ARTERIAL BLOOD PCO2 55.6 mmHg (35-45); ARTERIAL BLOOD PH 7.44 (7.35-7.45); ARTERIAL BLOOD PO2 54.3 mmHg (80-100); ARTERIAL BLOOD TOTAL CO2 38.5 mmol/L (21-25)
[2018-04-17 17:01] LABS: ARTERIAL BLOOD FIO2 ROOM AIR
== END ==
LOC: LAB 15:57
PROVIDERS: ATTEND Physician Assistant
DX: E66.2 Morbid (severe) obesity with alveolar hypoventilation (principal); R40.0 Somnolence
CPT/HCPCS: 82803

== ENCOUNTER → 2018-07-21 | Outpatient (CLI) | payer MEDICARE, MEDICAID | LOC: WI 10:51 | PROVIDERS: ATTEND Internal Medicine Geriatric Medicine | DX: Z53.9 Procedure and treatment not carried out, unspecified reason (principal) ==

== ENCOUNTER → 2018-08-18 | Outpatient (CLI) | payer MEDICARE, MEDICAID ==
--- NOTE | 2018-08-18 19:31 | XCELERA REPORT ---
[address] [address] Transthoracic Echocardiogram Report Name: BO BARBA Age: 83 yrs Gender: Female : 1935 Patient Status: Outpatient Patient Location: [facility] Study Date: 08/18/2018 02:11 PM Procedure: A two-dimensional transthoracic echocardiogram with color flow and Doppler was performed. Study Quality: Poor. The study was technically difficult with many images being suboptimal in quality. Images were not obtained from all of the standard acoustic windows due to the limited scope of the study. Reason For Study: SOB History: Shortness of breath. Ordering Physician: LUCI KINNEY Performed By: Lexie Marino Interpretation Summary The left ventricle is normal in size. No True apical 2 chamber views obtained.Hence cannot comment on the apical anterior , the basal anterior, the basal inferior and apical inferior kimball.The mid anterior , the mid inferior and the rest of the LV kimball contract normally.LVEF is normal and is greater than 60% in the limited views. Doppler measurements suggest normal left ventricular diastolic function The left atrial size is normal. There is no evidence of mitral valve prolapse. There is no mitral valve stenosis. There is no mitral regurgitation noted. Not adeqautely seen , and no dopplers.Visually no . The tricuspid valve is not well visualized secondary to technical limitations There is no pulmonic valvular stenosis. There is no pulmonic valvular regurgitation. The aortic root is not well visualized. There is no pericardial effusion. MMode/2D Measurements & Calculations RVDd: 2.8 cm LVIDd: 3.4 cm FS: 19.7 % Ao root diam: 3.2 cm IVSd: 1.2 cm LVIDs: 2.7 cm EDV(Teich): 46.6 ml Ao root area: 8.1 cm2 LVPWd: 1.6 cm ESV(Teich): 27.3 ml EF(Teich): 41.4 % Doppler Measurements & Calculations MV E max dipti: 69.5 cm/sec PA V2 max: 69.8 cm/sec MV A max dipti: 63.2 cm/sec MV dec slope: 753.1 cm/sec2 PA max P.0 mmHg MV E/A: 1.1 MV dec time: 0.09 sec Left Ventricle The left ventricle is normal in size. There is moderate concentric left ventricular hypertrophy. No True apical 2 chamber views obtained.Hence cannot comment on the apical anterior , the basal anterior, the basal inferior and apical inferior kimball.The mid anterior , the mid inferior and the rest of the LV kimball contract normally.LVEF is normal and is greater than 60% in the limited views. Doppler measurements suggest normal left ventricular diastolic function. Right Ventricle The right ventricle is not well visualized secondary to technical limitations. Atria Right atrium not well visualized secondary to technical limitations. The left atrial size is normal. Mitral Valve There is no evidence of mitral valve prolapse. There is no mitral valve stenosis. There is no mitral regurgitation noted. Aortic Valve Not adeqautely seen , and no dopplers.Visually no . Tricuspid Valve The tricuspid valve is not well visualized secondary to technical limitations. Pulmonic Valve There is no pulmonic valvular stenosis. There is no pulmonic valvular regurgitation. Great Vessels The aortic root is not well visualized. Effusions There is no pericardial effusion. : LUCI KINNEY > Luci Kinney
== END ==
LOC: SP 12:23
PROVIDERS: ATTEND Specialist
DX: R06.02 Shortness of breath (principal)
CPT/HCPCS: 93306

== ENCOUNTER → 2019-01-27 | Outpatient (CLI) | payer MEDICAID, MEDICARE ==
--- NOTE | 2019-01-27 15:23 | RADIOLOGY REPORT (SQ) ---
EXAM DESCRIPTION: CAROTID DOPPLER COMPLETED DATE/TIME: 01/27/2019 2:45 pm REASON FOR STUDY: RT CENTRAL RETINAL A. OCCLUSION H34.11 CENTRAL RETINAL ARTERY OCCLUSION, RIGHT EY E COMPARISON: 04/12/2016 TECHNIQUE: Grayscale ultrasound, Doppler velocity and spectra, and color Doppler images acquired of the extra-cranial carotid and vertebral arteries. Images stored on PACS. LIMITATIONS: Limited exam secondary to patient mobility FINDINGS: RIGHT CAROTID CCA Velocities: Within normal limits. ICA Velocities Peak systolic 115 cm/s. End diastolic 28 cm/s. Proximal ICA/CCA peak systolic ratio 1.85. Spectra normal. No significant plaque. LEFT CAROTID CCA Velocities: Within normal limits. ICA Velocities Peak systolic 76 cm/s. End diastolic 20 cm/s. Proximal ICA/CCA peak systolic ratio 1.09. Spectra normal. No significant plaque. VERTEBRAL ARTERIES: Antegrade flow. Normal waveforms. SUBCLAVIAN ARTERIES: Not imaged OTHER: No other significant finding. IMPRESSION: Limited exam secondary to patient mobility. No evidence of hemodynamically significant stenosis. COMMENT: Quality ID #[id number]: Velocity criteria are extrapolated from the diameter data as defined by t he Society of Radiologists in Ultrasound Consensus Conference. Radiology 2003: 229; 340-346. TECHNICAL DOCUMENTATION: JOB ID: [id number] [employer]- All Rights Reserved Reading location - IP/workstation name: [email or web address]
== END ==
LOC: RAD 10:37
PROVIDERS: ATTEND Internal Medicine Geriatric Medicine
DX: H34.11 Central retinal artery occlusion, right eye (principal)
CPT/HCPCS: 36415; 85652; 86140; 93880

== ENCOUNTER → 2019-02-09 | Outpatient (CLI) | payer MEDICARE ==
--- NOTE | 2019-02-09 18:49 | XCELERA REPORT ---
[address] [address] Transthoracic Echocardiogram Report Name: BO BARBA Age: 83 yrs Gender: Female : 1935 Patient Status: Outpatient Patient Location: Study Date: 02/09/2019 11:05 AM Height: 66 in Weight: 289 lb BSA: 2.3 m2 Procedure: A complete two-dimensional transthoracic echocardiogram was performed (2D, M-mode, spectral and color flow Doppler). The study was technically difficult with many images being suboptimal in quality. The study was technically limited with all images being suboptimal in quality. There was technical limitations during this study due to patients body habitas. The apical views were difficult to obtain and are suboptimal in quality. The subcostal views were not obtained due to patient sitting in wheel chair during study.. Reason For Study: SOB Ordering Physician: JUDSON KINNEY Performed By: Marisa Canales Interpretation Summary Study quality suboptimal with some poor images limiting detailed cardiac evaluation. Lack of contrast opacification limits evaluation for intracardiac mass/thrombus. LVEF visually estimated normal at 55-60% with mild LVH. The right ventricular systolic function is normal. The transmitral spectral Doppler flow pattern is abnormal for age Aortic valve leaflets not well visualized but doppler data provided does not suggest any significant stenosis There is a trace amount of tricuspid regurgitation RVSP could not be estimated. MMode/2D Measurements & Calculations RVDd: 2.8 cm LVIDd: 3.9 cm FS: 34.9 % Ao root diam: 3.1 cm IVSd: 1.1 cm LVIDs: 2.6 cm EDV(Teich): 67.3 ml Ao root area: 7.8 cm2 LVPWd: 1.1 cm ESV(Teich): 23.7 ml LA dimension: 3.6 cm EF(Teich): 64.8 % Doppler Measurements & Calculations MV E max dipti: MV P1/2t max dipti: Ao V2 max: LV V1 max P.3 cm/sec 53.8 cm/sec 107.2 cm/sec 2.9 mmHg MV A max dipti: MV P1/2t: 92.5 msec Ao max P.6 mmHg LV V1 max: 79.0 cm/sec MVA(P1/2t): 2.4 cm2 84.9 cm/sec MV E/A: 0.67 MV dec slope: 170.4 cm/sec2 MV dec time: 0.31 sec PA V2 max: TR max dipti: MV P1/2t-pr_phl: 94.8 cm/sec 200.9 cm/sec 92.5 msec PA max PG: TR max P.1 mmHg 3.6 mmHg Left Ventricle There is mild concentric left ventricular hypertrophy. The left ventricular ejection fraction is normal. LV EF is 55-60%. The transmitral spectral Doppler flow pattern is abnormal for age. Right Ventricle The right ventricle is not well visualized secondary to technical limitations. The right ventricular systolic function is normal. Atria Right atrium not well visualized secondary to technical limitations. The left atrium is not well visualized secondary to technical limitations. Mitral Valve The mitral valve is not well visualized. Aortic Valve The aortic valve is not well visualized secondary to technical limitations. The aortic valve is calcified. Tricuspid Valve The tricuspid valve is not well visualized secondary to technical limitations. There is a trace amount of tricuspid regurgitation. RVSP could not be estimated. Pulmonic Valve The pulmonic valve is not well visualized. Great Vessels The aortic root is not well visualized. The inferior vena cava was not well visualized. Effusions Pericardium not well visualized but no significant pericardial effusion noted. : JUDSON KINNEY > Pillo Quintanilla
== END ==
LOC: SP 10:47
PROVIDERS: ATTEND Specialist
DX: R06.02 Shortness of breath (principal)
CPT/HCPCS: 93306

== ENCOUNTER 2019-09-05 14:53 | Emergency (ER) | payer MEDICARE ==
--- NOTE | 2019-09-05 18:43 | ER Document Report ---
ED General - General Chief Complaint: Eye Pain Stated Complaint: RIGHT EYE PAIN Time Seen by Provider: 09/05/19 18:18 Primary Care Provider: ISATU CHARLES MD [Primary Care Provider] - Follow up as needed TRAVEL OUTSIDE OF THE [place] IN LAST 30 DAYS: No - Related Data Allergies/Adverse Reactions: promethazine Allergy (Verified 09/26/17 07:04) Past Medical History - Social History Smoking Status: Unknown if Ever Smoked Family History: Reviewed & Not Pertinent, CAD, CVA, DM, Hypertension Patient has suicidal ideation: No Patient has homicidal ideation: No - Past Medical History Cardiac Medical History: Reports: Hx Coronary Artery Disease, Hx Heart Attack - Patient does not remember year, Hx Hypercholesterolemia - Borderline, Hx Hypertension Pulmonary Medical History: Reports: Hx Bronchitis, Hx Pneumonia - Several episodes of pneumonia, apparently aspiration, in recent months. Denies: Hx Asthma, Hx COPD Neurological Medical History: Reports: Hx Cerebrovascular Accident. Denies: Hx Seizures Endocrine Medical History: Reports: Hx Diabetes Mellitus Type 1, Hx Diabetes Mellitus Type 2 Renal/ Medical History: Denies: Hx Peritoneal Dialysis Malignancy Medical History: Reports: Hx Breast Cancer GI Medical History: Denies: Hx Hepatitis, Hx Hiatal Hernia, Hx Ulcer Musculoskeletal Medical History: Reports Hx Arthritis Infectious Medical History: Denies: Hx Hepatitis Past Surgical History: Reports: Hx Bowel Surgery - Bowel ressection, Hx Cardiac Catheterization - 2 Stents, Hx Mastectomy - LUMPECTOMY, RIGHT ARM RESTRICTED, Hx Tonsillectomy. Denies: Hx Open Heart Surgery, Hx Pacemaker - Immunizations Immunizations up to date: Yes Hx Diphtheria, Pertussis, Tetanus Vaccination: No Physical Exam - Vital signs Vitals: Temp Pulse Resp BP Pulse Ox 98.4 F 63 17 184/96 H 99 09/05/19 15:00 09/05/19 15:00 09/05/19 15:00 09/05/19 15:00 09/05/19 15:00 - Notes Notes: Patient presents emerge department complaint of right eye pain is been on all day today. She is noted some redness in the eye and a questionable foreign body sensation. Over this been no discharge at all. She denies any recent fevers or URI URI symptoms. No chest pain shortness of breath nausea vomiting or abdominal pain sore throat or runny nose. Reports a headache at this morning on the top of the head however the right frontal area. Headache came on gradually got progressively worse was not a thunderclap headache and has improved since then. Denies any change in her vision. 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 She only has able to see shadows with the right eye also has Parkinson's disease and bedridden because of the Parkinson's Social history she does not smoke or drink at all Review of systems pertinent positives and negatives in HPI otherwise all the systems were reviewed and acutely negative PHYSICIAN EXAM -vital signs are noted triage note and note from triage reviewed GENERAL: Well-appearing, well-nourished and in __no acute distress____ HEAD: Atraumatic, normocephalic. EYES: Pupils equal round and reactive to light, extraocular movements intact, sclera anicteric, the right conjunctiva is injected. Anterior chamber appears to be deep no discharge. Vision is grossly intact in the left eye. She is not able to count fingers that even at 1 finger foot in the right family says is pretty much baseline ENT: nares patent, oropharynx clear without exudates. Moist mucous membranes. Face is nontender is no tenderness in the temporal area and no pulsatile masses NECK: supple without lymphadenopathy no meningeal signs LUNGS: Breath sounds clear to auscultation bilaterally and equal. No wheezes rales or rhonchi. HEART: Regular rate and rhythm without murmurs ABDOMEN: Soft, nontender, normoactive bowel sounds. EXTREMITIES: No deformity, no edema. NEUROLOGICAL: Alert and oriented x4 cranial nerves symmetrical smile and faces. Resting tremors and contractures of the extremities with decreased range of motion of the elbow but appears to have good strength to flexion extension of the elbow limited movement her toes are downgoing but there is minimal plantar reflex. Minimal movement in both feet which is chronic PSYCH: Normal mood, normal affect. SKIN: Warm, Dry, normal turgor, no rashes or lesions noted. BACK-nontender in the midline Differential diagnosis conjunctivitis foreign body ANGELA and CVA Course - Re-evaluation Re-evalutation: 09/05/19 20:53 Procedure tetracaine and fluorescein was applied to the right eye. There is no points of uptake. The upper lid was everted and swept with a Q-tip with no foreign body the fornices were swept no foreign body tolerated procedure well ED patient is remained stable Medical decision making patient presents with right eye pain and redness. She has no vision in the eye secondary to her previous stroke. She does have evid ence of a conjunctivitis but no foreign body at this was the cause of her headache. She looks well be discharged home with antibiotic drops her sed rate is not significantly elevated to suggest a temporal arteritis at this time there is no indication for admission. I have discussed the findings with patient/family with return precautions and follow-up recommendations. Verbal discharge instructions given at the bedside and opportunity for questions given. Medication warnings were given if indicated. Patient is in agreement with this plan and has verbalized understanding of return precautions and the need for primary care follow-up as directed.. 09/05/19 20:54 - Vital Signs Vital signs: Temp Pulse Resp BP Pulse Ox 98.4 F 63 17 184/96 H 99 09/05/19 15:00 09/05/19 15:00 09/05/19 15:00 09/05/19 15:00 09/05/19 15:00 - Laboratory Result Diagrams: 09/05/19 19:25 09/05/19 19:25 Laboratory results interpreted by me: 09/05/19 09/05/19 19:25 19:25 Hct 35.6 L Plt Count 128 L ESR 45 H Carbon Dioxide 31 H BUN 30 H Discharge - Discharge Clinical Impression: Headache Qualifiers: Headache type: other headache syndrome Qualified Code(s): G44.89 - Other headache syndrome Conjunctivitis Qualifiers: Conjunctivitis type: acute Condition: Good Disposition: HOME, SELF-CARE Additional Instructions: Conjunctivitis You have an infection in your eye, commonly known as "pink eye." Conjunctivitis causes redness, mild discomfort, itching, and mattering on the eyelids. It is very contagious, so you must be careful to wash your hands after touching your face so you don't pass the infection on to others. Conjunctivitis is caused by both viruses and bacteria. It usually responds quickly to treatment with antibiotic drops. These should be placed in the eye as prescribed (usually every three to four hours while you're awake). If you wear contact lenses, don't put them in your eyes until the infection is cleared and you are no longer using the drops (unless your doctor advises you otherwise). Should you develop increasing eye pain, severe swelling, decreased vision, or fail to improve as expected, please return for re-examination. Please review the discharge instructions, they will tell you about your disease/injury and what you need to return to the ED for Return to the ED if you feel worse or can follow-up with your family doctor Your blood pressure was elevated today needs to be rechecked again in 1 to 2 weeks to determine if need to be on medication or have your medications adjusted. Untreated hypertension can cause heart attack stroke and kidney failure Follow-up with your family doctor to 3 days if not better otherwise in 1 week to recheck your blood pressure Forms: Elevated Blood Pressure Referrals: ISATU CHARLES MD [Primary Care Provider] - Follow up as needed
--- NOTE | 2019-09-05 19:27 | RADIOLOGY REPORT (SQ) ---
EXAM DESCRIPTION: CT HEAD WITHOUT COMPLETED DATE/TIME: 09/05/2019 7:13 pm REASON FOR STUDY: Headache COMPARISON: 01/22/2018 TECHNIQUE: Axial images acquired through the brain without intravenous contrast. Images reviewed wi th bone, brain and subdural windows. Additional sagittal and coronal reconstructions were generated. Images stored on PACS. All CT scanners at this facility use dose modulation, iterative reconstruction, and/or weight based d osing when appropriate to reduce radiation dose to as low as reasonably achievable (ALARA). [facility]: Dose Right [facility]: CareDose [facility]: Dose Right [facility]: Teradose 4D [facility]: Smart Zephyr RADIATION DOSE: CT Rad equipment meets quality standard of care and radiation dose reduction techniq ues were employed. CTDIvol: 48.6 mGy. DLP: 928 mGy-cm. mGy. LIMITATIONS: None. FINDINGS: VENTRICLES: Normal size and contour. CEREBRUM: No masses. No hemorrhage. No midline shift. No evidence for acute infarction. Few scatte red areas of low density in the white matter most likely chronic small vessel ischemic changes. CEREBELLUM: No masses. No hemorrhage. No alteration of density. No evidence for acute infarction. EXTRAAXIAL SPACES: No fluid collections. No masses. ORBITS AND GLOBE: No intra- or extraconal masses. Normal contour of globe without masses. CALVARIUM: No fracture. PARANASAL SINUSES: No fluid or mucosal thickening. SOFT TISSUES: No mass or hematoma. OTHER: No other significant finding. IMPRESSION: No acute intracranial pathology. EVIDENCE OF ACUTE STROKE: NO. COMMENT: Quality ID # [id number]: Final reports with documentation of one or more dose reduction techniques (e.g., Automated exposure control, adjustment of the mA and/or kV according to patient size, use of iterative reconstruction technique) TECHNICAL DOCUMENTATION: JOB ID: [id number] [employer]- All Rights Reserved Reading location - IP/workstation name: [email or web address]
[2019-09-05 19:42] LABS: ABSOLUTE EOSINOPHILS # (AUTO) 0.2 10^3/uL (0.0-0.6); ABSOLUTE MONOCYTES (AUTO) 0.7 10^3/uL (0.1-1.4); EOSINOPHILS % (AUTO) 2.5 % (0-6); TOTAL CELLS COUNTED % (AUTO) 100 %
[2019-09-05 19:49] LABS: ABSOLUTE LYMPHOCYTES (AUTO) 2.3 10^3/uL (0.5-4.7); ABSOLUTE NEUT (AUTO) 3.2 10^3/uL (1.7-8.2); BASOPHILS % (AUTO) 0.5 % (0-2); HEMATOCRIT 35.6 % (36.0-47.0); LYMPHOCYTES % (AUTO) 36.4 % (13-45); MEAN CORPUSCULAR HEMOGLOBIN 30.2 pg (27.0-33.4); MEAN CORPUSCULAR HGB CONC 33.7 g/dL (32.0-36.0); MEAN CORPUSCULAR VOLUME 90 fl (80-97); MONOCYTES % (AUTO) 10.8 % (3-13); PLATELET COUNT 128 10^3/uL (150-450); RED BLOOD COUNT 3.98 10^6/uL (3.72-5.28); RED CELL DISTRIBUTION WIDTH 13.3 % (11.5-14.0); SEGMENTED NEUTROPHILS % (AUTO) 49.8 % (42-78); WHITE BLOOD COUNT 6.4 10^3/uL (4.0-10.5)
[2019-09-05 19:59] LABS: ANION GAP 6 (5-19); BLOOD UREA NITROGEN 30 mg/dL (7-20); CALCIUM 8.8 mg/dL (8.4-10.2); CARBON DIOXIDE 31 mmol/L (22-30); CHLORIDE 105 mmol/L (98-107); GLUCOSE 108 mg/dL (75-110)
[2019-09-05 20:32] LABS: ERYTHROCYTE SEDIMENTATION RATE 45 mm/hr (0-30)
[2019-09-05] MEDS ORDERED: GENTAMICIN SULFATE 0.3% OPH SOLN (5 ML/ER DISP) OU SCH (22:00)
[2019-09-05 23:35] VITALS: BP 152/63
== END 2019-09-05 23:40 | disposition home or self-care (01) ==
LOC: ER 14:53
DX: G44.89 Other headache syndrome (principal); H10.9 Unspecified conjunctivitis; E78.00 Pure hypercholesterolemia, unspecified; I10 Essential (primary) hypertension; E11.9 Type 2 diabetes mellitus without complications; Z86.73 Personal history of transient ischemic attack (TIA), and cerebral infarction without residual deficits; I25.2 Old myocardial infarction
CPT/HCPCS: 99284; 36415; 85025; 85652; 80048; 70450; A9270; J3490